=== PATIENT | female | born 1940 | race Caucasian/White ===

== ENCOUNTER 2022-11-06 10:52 | Outpatient (REF) | payer MEDICARE, SELFPAY ==
[2022-11-06 13:49] LABS: MANUAL DIFF FLAG NO
[2022-11-06 14:03] LABS: Basophils Percent Auto 0.4 % (0-2); Eosinophils Absolute Auto 0.4 X10*3/uL (0.0-0.4); Eosinophils Percent Auto 4.5 % (0-4); Hematocrit 38.1 % (37.0-47.0); Hemoglobin 12.1 g/dl (12.0-16.0); Imm Gran Abs Auto 0.02 X10*3/uL (0.00-0.03); Imm Gran Pct Auto 0.2 % (0.0-0.4); Lymphocytes Absolute Auto 4.5 X10*3/uL (1.2-4.9); Mean Corpuscular HGB Conc 31.8 g/dl (31.0-35.0); Mean Corpuscular Hemoglobin 29.6 pg (27.0-33.0); Mean Corpuscular Volume 93.2 fL (80.0-98.0); Mean Platelet Volume 9.6 fL (9.4-12.3); Monocytes Absolute Auto 0.6 X10*3/uL (0.1-1.2); Monocytes Percent Auto 6.5 % (2-11); Neutrophils Absolute Auto 3.8 x10*3/uL (2.0-8.3); Neutrophils Percent Auto 40.4 % (45-73); Platelet Count 430 X10*3/uL (160-400); Red Blood Count 4.09 X10*6/uL (4.20-5.50); Red Cell Distribution Width 13.5 % (11.0-16.0); White Blood Count 9.4 X10*3/uL (4.8-10.8)
[2022-11-06 14:22] LABS: Alanine Aminotransferase 14 U/L (0-31); Albumin Level 4.1 g/dL (3.5-5.0); Alkaline Phosphatase 89 U/L (39-117); Anion Gap 13 (12-20); Aspartate Amino Transferase 17 U/L (5-31); Bilirubin Total 0.6 mg/dL (0.0-1.0); Blood Urea Nitrogen 12 mg/dL (9-16); Calcium 9.8 mg/dL (8.4-10.2); Carbon Dioxide 28 mmol/L (22-29); Chloride 107 mmol/L (96-108); Cholesterol 245 mg/dL; Estimated Glomerular Filt Rate > 60; Glucose Fasting 96 mg/dL (60-99); HDL Cholesterol 73 mg/dL; LDL Cholesterol Calculated 155 mg/dl; Potassium 4.5 mmol/L (3.3-5.1); Sodium 143 mmol/L (135-145); Total Protein 6.3 g/dL (6.5-8.0); Triglycerides 86 mg/dL
[2022-11-06 14:58] LABS: Folate 16.9 ng/mL (> or = 4.0); TSH reflex Free T4 2.11 uIU/mL (0.32-4.0); Vitamin B12 814 pg/mL (200-900)
== END 2022-11-06 10:53 | disposition home or self-care (01) ==
LOC: HO.WFDLDS 10:52
PROVIDERS: Visit Provider Family Medicine
DX: Z00.00 Encounter for general adult medical examination without abnormal findings (principal); E53.8 Deficiency of other specified B group vitamins
CPT/HCPCS: 36415; 80053; 80061; 82607; 82746; 84443; 85025

== ENCOUNTER 2022-11-12 11:23 | Outpatient (REF) | payer MEDICARE, SELFPAY ==
[2022-11-12 14:19] LABS: Appearance Urine Clear; Color Urine Yellow; Glucose Urine UA Negative (Negative); Leukocyte Esterase Urine Negative (Negative); Nitrite Urine Negative (Negative); Specific Gravity - Urine 1.015 (1.005-1.025); Urine Blood Negative (Negative); Urine Ketones Negative (Negative); Urine Protein Negative (Neg-Trace)
[2022-11-12 15:00] LABS: Creatinine Urine 49.25 mg/dL; Microalbumin Urine < 5.0 mg/L
== END 2022-11-12 11:24 | disposition home or self-care (01) ==
LOC: HO.WFDLNP 11:23
PROVIDERS: Visit Provider Family Medicine
DX: Z00.00 Encounter for general adult medical examination without abnormal findings (principal); I10 Essential (primary) hypertension
CPT/HCPCS: 81003; 82043

== ENCOUNTER 2023-02-05 10:48 | Outpatient (AMB) | payer MEDICARE, SELFPAY ==
--- NOTE | 2023-02-05 10:40 | AM.OFFVISNUR ---
Intake Intake Visit Reasons: b12 Allergies codeine Allergy (Mild, Verified 11/22/22 16:02) Vomiting Coding Diagnoses
--- NOTE | 2023-02-05 11:01 | AM.OFFVISNUR ---
Intake Intake Visit Reasons: b12 First Cook Required: No Accompanied by: Self / Same As Patient Allergies codeine Allergy (Mild, Verified 11/22/22 16:02) Vomiting Coding Diagnoses
--- NOTE | 2023-02-05 11:13 | AM.OFFVISNUR ---
Intake Intake Visit Reasons: b12 Allergies codeine Allergy (Mild, Verified 11/22/22 16:02) Vomiting Office Meds cyanocobalamin (vitamin B-12) Performing Provider: Andrew Chino MD Administered by: Kirsten De La Torre RN on 02/05/23 11:05 Dose Route Admin Location Lot Number Expiration Date NDC Laborer Cutting Tool 1,000 mcg IM left deltoid [id number] 09/10/25 79524-441-21 JOSE A TAYLOR Coding Diagnoses Assessment & Plan Assessment & Plan Orders: Orders AMB Vitamin B12 Injection Patient Supplied Today E53.8 - Deficiency of other specified B group vitamins
== END 2023-02-05 11:05 | disposition home or self-care (01) ==
PROVIDERS: PCP Family Medicine; Visit Provider Family Medicine
DX: E53.8 Deficiency of other specified B group vitamins (principal)
CPT/HCPCS: 96372; J3420

== ENCOUNTER 2023-02-12 13:12 | Outpatient (REF) | payer MEDICARE, SELFPAY ==
--- NOTE | ~2023-02-12 | MM_ITS ---
EXAMINATION: BONE DENSITOMETRY CLINICAL INDICATION: Encounter for screening for osteoporosis. COMPARISON: This is the patient's baseline examination. TECHNIQUE: Using a [employer] DXA System (software version: 13.1) manufactured by [employer], dual-energy x-ray absorptiometry was performed of the lumbar spine and left hip. The images are of good technical quality. Summary results are attached. FINDINGS: LEFT FEMUR, NECK: BMD 0.652 g/cm2, Z-score -0.6, T-score -2.8, osteoporosis. LEFT FEMUR, TOTAL: BMD 0.789 g/cm2, Z-score 0.3, T-score -1.7, osteopenia. AP SPINE L1-L4: BMD 1.193 g/cm2, Z-score 1.8, T-score 0.1, normal. IDENTIFIED RISK FACTORS: Early menopause, secondary osteoporosis, recurrent falls, osteoporosis. HISTORY OF FRACTURE: None listed. MEDICATIONS: Calcium supplements or multivitamin, vitamin D. MM/XR DEXA axial skeleton IMPRESSION: 1. DIAGNOSIS: Osteoporosis based on the lowest T-score value of -2.8 in the femoral neck applying World Health Organization criteria. 2. 10-YEAR FRACTURE RISK PREDICTION, FRAX: According to the guidelines, FRAX calculation should only be performed on patients in the osteopenia bone density category. Therefore, FRAX was not performed on this patient. 3. Treatment Recommendations: NOF guidelines recommend consideration for treatment in postmenopausal women and men age 50 and older presenting with the following: -A hip or vertebral (clinical or morphometric) fracture. -T-score less than or equal to -2.5 at the femoral neck or spine after appropriate evaluation to exclude secondary causes. -Low bone mass at the hip or spine and a 10-year fracture probability by FRAX of greater than or equal to 3% for hip fracture or greater than or equal to 20% for major osteoporotic fracture based on the [place] adapted WHO algorithm. 4. Other Recommendations: All treatment decisions require clinical judgment and consideration of individual patient factors, including patient preferences, comorbidities, previous drug use, risk factors not captured in the FRAX model (e.g. frailty, falls, vitamin D deficiency, increased bone turnover, interval significant decline in bone density) and possible under or overestimation of fracture risk by FRAX. Additional medical evaluation for secondary cause of low bone mineral density may be appropriate. FUTURE SCAN RECOMMENDATION: People with diagnosed cases of osteoporosis or at high risk for fracture should have regular bone mineral density tests. For patients eligible for Medicare, routine testing is allowed once every 2 years. The testing frequency can be increased to one year for patients who have rapidly progressing disease, those who are receiving or discontinuing medical therapy to restore bone mass, or have additional risk factors.
== END 2023-02-12 13:13 | disposition home or self-care (01) ==
LOC: HO.MAMMO 13:12
PROVIDERS: PCP Family Medicine; Visit Provider Family Medicine
DX: Z13.820 Encounter for screening for osteoporosis (principal); Z78.0 Asymptomatic menopausal state; M81.0 Age-related osteoporosis without current pathological fracture
CPT/HCPCS: 77080

== ENCOUNTER → 2023-02-12 13:30 | Outpatient (BNV) | payer MEDICARE, SELFPAY | PROVIDERS: PCP Family Medicine; Visit Provider Radiology Diagnostic Radiology | DX: M81.0 Age-related osteoporosis without current pathological fracture (principal) | CPT/HCPCS: 77080 ==

== ENCOUNTER 2023-03-03 10:47 | Outpatient (AMB) | payer MEDICARE, SELFPAY ==
--- NOTE | 2023-03-03 11:36 | MHC.PC.OV ---
Intake Visit Reasons: b12 Allergies codeine Allergy (Mild, Verified 11/22/22 16:02) Vomiting PFSH Medical History Anxiety Failed total right knee replacement Surgical History History of appendectomy Family History (Updated 11/22/22 @ 16:05 by Geetha Blackwell MA) Father Prostate cancer Mother Cancer Social History Housing: House Patient Tobacco Use Status: Never used Tobacco e-Cigarette/Vaping Use: Never Used service: No Current occupational status: retired Cognitive needs: No Hearing needs: No Vision needs: No Physical exam (Primary Care) Tobacco/Smoking Status: Tobacco use Status Patient Tobacco Use Status Never used Tobacco 03/03/23 11:37 e-Cigarette/Vaping Use Never Used 03/03/23 11:37 Assessment and Plan Assessment & Plan (1) Vitamin B12 deficiency: Code(s): E53.8 - Deficiency of other specified B group vitamins Coding Diagnoses Vitamin B12 deficiency E53.8
--- NOTE | 2023-03-03 12:26 | AM.OFFVISNUR ---
Intake Intake Visit Reasons: b12 Allergies codeine Allergy (Mild, Verified 11/22/22 16:02) Vomiting Nursing Note pt here for monthly vitamin B12 injection. given left deltoid and tolerated well. Office Meds cyanocobalamin (vitamin B-12) Performing Provider: Andrew Chino MD Administered by: Kirsten De La Torre RN on 03/03/23 11:10 Dose Route Admin Location Lot Number Expiration Date NDC Fish Liver Sorter 1,000 mcg IM left deltoid [id number] 09/10/24 32126-559-48 [employer] Coding Diagnoses Assessment & Plan Assessment & Plan Orders: Orders AMB Vitamin B12 Injection Patient Supplied Today R53.83 - Other fatigue
== END 2023-03-03 11:15 | disposition home or self-care (01) ==
PROVIDERS: PCP Family Medicine; Visit Provider Family Medicine
DX: R53.83 Other fatigue (principal)
CPT/HCPCS: 96372; J3420

== ENCOUNTER 2023-04-02 10:44 | Outpatient (AMB) | payer MEDICARE, SELFPAY ==
--- NOTE | 2023-04-02 11:09 | AM.OFFVISNUR ---
Intake Intake Visit Reasons: b12 Allergies codeine Allergy (Mild, Verified 11/22/22 16:02) Vomiting Nursing Note here for monthly vitamin B12 injection. given in left deltoid and tolerated fine. Office Meds cyanocobalamin (vitamin B-12) 1,000 mcg/mL injection solution Performing Provider: Andrew Chino MD Performing Location: [facility] Administered by: Kirsten De La Torre RN on 04/02/23 11:17 Dose Route Admin Location Dispensed Lot Number Expiration Date ND Hearth Feeder 1,000 mcg IM left deltoid 1 mL [id number] 09/10/24 49502-491-13 [employer] Coding Assessment & Plan Assessment & Plan Orders: Orders AMB Vitamin B12 Injection Patient Supplied Today R53.83 - Other fatigue
== END 2023-04-02 11:05 | disposition home or self-care (01) ==
PROVIDERS: PCP Family Medicine; Visit Provider Family Medicine
DX: R53.83 Other fatigue (principal)
CPT/HCPCS: 96372; J3420

== ENCOUNTER 2023-04-22 10:32 | Outpatient (AMB) | payer MEDICARE, SELFPAY ==
[2023-04-22 10:34] VITALS: BP 122/62; PULSE 77; O2SAT 97; BMI 29.5
--- NOTE | 2023-04-22 10:34 | MHC.PC.OV ---
Vital Signs 04/22/23 10:34 Height 5 ft 1 in Weight 156 lb 4 oz BMI 29.5 BP 122/62 Blood Pressure Location Lt brachial Position Sitting Pulse 77 Pulse Source Pulse Oximeter Pulse Oximetry (%) 97 Oxygen Delivery Method Room Air Intake Visit Reasons: f/u anxiety Intake Note: Patient is here to follow up on her anxiety today. She is requestiing a refill of Fluoxetine. Allergies codeine Allergy (Mild, Verified 04/22/23 10:38) Vomiting Tobacco use date assessed: 04/22/23 Fall risk assessment: 2 + Falls in past year Last assessed Fall Risk: 04/22/23 Dental Screening Dental Screen Date: 04/22/23 Did you have a dental visit in the last 12 months?: Yes Did you have a dental problem in the last 6 months where you did not have access to dental care?: No Was dental information given to patient?: Patient has dentist HPI f/u anxiety HPI Details 82 y/o female presents today to f/u anxiety. She is on fluoxetine 40mg daily. She notes she feels like it is working for her. Pt reports she had went to see a therapist and had seen him 2 times so far. She does note he has not contacted her back yet. Pt notes intermittent chest pain that lasts a few minutes. Pain seems to be reproducible but does report some shortness of breath associated with the pain. [facility] Medical History Anxiety Failed total right knee replacement Surgical History History of appendectomy Family History Father Prostate cancer Mother Cancer Social History Housing: House Patient Tobacco Use Status: Never used Tobacco e-Cigarette/Vaping Use: Never Used service: No Current occupational status: retired Cognitive needs: No Hearing needs: No Vision needs: No Questionnaire PHQ-9 Over the last 2 weeks, how often have you been bothered by any of the following problems? 1. Little interest or pleasure in doing things: not at all 2. Feeling down, depressed, or hopeless: several days 3. Trouble falling or staying asleep, or sleeping too much: nearly every day 4. Feeling tired or having little energy: nearly every day 5. Poor appetite or overeating: nearly every day 6. Feeling bad about yourself - or that you are a failure or have let yourself or your family down: not at all 7. Trouble concentrating on things, such as reading the newspaper or watching television: nearly every day 8. Moving or speaking so slowly that other people could have noticed. Or the opposite - being so fidgety or restless that you have been moving around a lot more than usual: nearly every day 9. Thoughts that you would be better off or of hurting yourself in some way: not at all Total score: 16 Source: Developed by Drs. Doron Decker, Bella Wood, Jason Monique and colleagues, with an educational antonio from [employer]. FADY-7 AMB Questionnaire FADY-7 Date FADY - 7 assessed: 04/22/23 Feeling nervous, anxious, or on edge: 1 = Several days Not being able to stop or control worryin = Not at all Worrying too much about different things: 1 = Several days Trouble relaxin = Nearly every day Being so restless that it is hard to sit still: 1 = Several days Becoming easily annoyed or irritable: 1 = Several days Feeling afraid as if something awful might happen: 0 = Not at all Total FADY-7 score (0-4 normal; 5-9 mild; 10-14 moderate; 15-21 severe): 7 Source: Developed by Drs. Doron Decker, Bella Wood, Jason Monique and colleagues, with an educational antonio from [employer]. Review of Systems Const Denies chills, Denies fatigue, Denies fever(s), Denies headache(s) and Denies weakness ENT Denies dizziness and Denies headache(s) Card Reports chest pain and Denies dyspnea Resp Denies cough, Denies dyspnea, Denies wheezing and Denies other (shortness of breath) Musc Denies numbness and Denies tingling Neuro Denies dizziness, Denies headache(s), Denies numbness, Denies tingling and Denies weakness Psych Reports anxiety and Reports depression Endo Denies fatigue Aller/Immun Denies wheezing Physical exam (Primary Care) Vital Signs: Last Vital Signs Pulse 77 04/22/23 10:34 BP 122/62 04/22/23 10:34 Pulse Ox 97 04/22/23 10:34 Oxygen Delivery Method Room Air 04/22/23 10:34 BMI result Body Mass Index 29.5 Tobacco/Smoking Status: Tobacco use Status Tobacco use date assessed 04/22/23 04/22/23 10:50 Patient Tobacco Use Status Never used Tobacco 04/22/23 10:40 e-Cigarette/Vaping Use Never Used 04/22/23 10:40 PHQ-9: PHQ-9 Score PHQ-9: Total score 16 04/22/23 10:57 Const General: well developed; No acute distress Nutritional Appearance: well nourished Orientation/consciousness: patient oriented x3 HENMT Head: Yes normocephalic and Yes atraumatic Eyes General: appearance normal, both eyes and all related structures Pupils: Equal, round and reactive pupils present EOM: EOMs intact bilaterally Resp Effort & Inspection: normal respiratory effort Auscultation: clear to auscultation bilaterally Cardio Rate: regular rate Rhythm: regular rhythm Heart sounds: S1 normal heart sound present, S2 normal heart sound present, no gallops, no murmurs and no rubs Neuro General: patient oriented x3 and gait normal Cranial nerves: Yes Equal, round and reactive pupils present Psych Affect: normal affect Assessment and Plan Assessment & Plan (1) Anxiety with depression: Code(s): F41.8 - Other specified anxiety disorders Plan: Ongoing?anxiety?and?depression. We?discussed?continuing?fluoxetine?at?current?dose?verses?increasing?this?though?I?recommend?against?increasing?further?without?a?psychiatrist. Could?try?an?adjunct?medications?such?as?bupropion?or?use?a?2nd?line?medications?such?as?lorazepam. Patient?opts?not?to?add?another?medication?right?now. Had?a?therapist?briefly?but?has?not?heard?from?the?therapist?again.??I?will?ask?the?nurse?navigator?to?help?her?connect?with?that?therapist?or?another. (2) Osteoporosis: Code(s): M81.0 - Age-related osteoporosis without current pathological fracture Plan: Ongoing?osteoporosis.??She?has?never?tried?a?bisphosphonate?medication Start?alendronate (3) Chest pain: Code(s): R07.9 - Chest pain, unspecified Plan: Patient?notes?that?she?gets?intermittent?substernal.??Pain?lasts?a?few?minutes?and?is?associated?with?some?shortness?of?breath. No?pain?presently. 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
== END 2023-04-22 11:59 | disposition home or self-care (01) ==
PROVIDERS: PCP Family Medicine; Visit Provider Family Medicine
DX: F41.8 Other specified anxiety disorders (principal); M81.0 Age-related osteoporosis without current pathological fracture; R07.9 Chest pain, unspecified
CPT/HCPCS: 99214

== ENCOUNTER 2023-04-30 11:53 | Outpatient (AMB) | payer MEDICARE, SELFPAY ==
--- NOTE | 2023-04-30 11:57 | AM.OFFVISNUR ---
Intake Intake Visit Reasons: B12 shot Allergies codeine Allergy (Mild, Verified 04/22/23 10:38) Vomiting Office Meds cyanocobalamin (vitamin B-12) 1,000 mcg/mL injection solution Performing Provider: Andrew Chino MD Performing Location: [facility] Administered by: Kirsten De La Torre RN on 04/30/23 12:14 Dose Route Admin Location Dispensed Lot Number Expiration Date NDC Well Tender 1,000 mcg IM left deltoid 1 mL [id number] 09/10/24 27833-936-99 [employer] Comments: pt here for her monthly vitamin b12 shot. given left deltoid and jacy well. Coding Assessment & Plan Assessment & Plan Orders: Orders AMB Vitamin B12 Injection Patient Supplied Today R53.83 - Other fatigue
== END 2023-04-30 11:56 | disposition home or self-care (01) ==
LOC: HO.HMGFM 11:53
PROVIDERS: PCP Family Medicine; Visit Provider Family Medicine
DX: R53.83 Other fatigue (principal)
CPT/HCPCS: 96372; J3420

== ENCOUNTER 2023-05-06 14:29 | Outpatient (AMB) | payer MEDICARE, SELFPAY ==
[2023-05-06 14:40] VITALS: BP 134/78; PULSE 72; O2SAT 95; BMI 29.5
--- NOTE | 2023-05-06 14:40 | A.OFFPC_ITS ---
Vital Signs 05/06/23 14:40 Height 5 ft 1 in Weight 156 lb BMI 29.5 BP 134/78 Blood Pressure Location Lt brachial Position Sitting Pulse 72 Pulse Source Pulse Oximeter Pulse Oximetry (%) 95 Oxygen Delivery Method Room Air Intake Visit Reasons: f/u chest pain Intake Note: Patient is here to follow up on chest pain today. Allergies codeine Allergy (Mild, Verified 05/06/23 14:41) Vomiting Tobacco use date assessed: 05/06/23 Fall risk assessment: 2 + Falls in past year Last assessed Fall Risk: 05/06/23 HPI f/u chest pain HPI Details 82 y/o female presents to f/u chest pain as well as anxiety and depression. Had referred pt to Cardiology. Pt reports last office visit pain lasted a few minutes and is associated with some shortness of breath. EKG last office visit showed normal sinus rhythm with old inferior infarct. No ST-T-wave changes. She notes she has not been contacted by nurse navigator yet. [facility] Medical History Anxiety Failed total right knee replacement Surgical History History of appendectomy Family History Father Prostate cancer Mother Cancer Social History Housing: House Patient Tobacco Use Status: Never used Tobacco e-Cigarette/Vaping Use: Never Used service: No Current occupational status: retired Cognitive needs: No Hearing needs: No Vision needs: No Questionnaire FADY-7 AMB Questionnaire FADY-7 Date FADY - 7 assessed: 04/22/23 Source: Developed by Drs. Doron Decker, Bella Wood, Jason Monique and colleagues, with an educational antonio from [employer]. Review of Systems Const Denies chills, Denies fatigue, Denies fever(s), Denies headache(s) and Denies weakness ENT Denies dizziness and Denies headache(s) Card Denies dyspnea Resp Denies cough, Denies dyspnea, Denies wheezing and Denies other (shortness of breath) Musc Denies numbness and Denies tingling Skin/Breast Denies skin ulcer Neuro Denies dizziness, Denies headache(s), Denies numbness, Denies tingling and Denies weakness Psych Reports anxiety and Reports depression Endo Denies fatigue Aller/Immun Denies wheezing Physical exam (Primary Care) Vital Signs: Last Vital Signs Pulse 72 05/06/23 14:40 BP 134/78 05/06/23 14:40 Pulse Ox 95 05/06/23 14:40 Oxygen Delivery Method Room Air 05/06/23 14:40 BMI result Body Mass Index 29.5 Tobacco/Smoking Status: Tobacco use Status Tobacco use date assessed 05/06/23 05/06/23 14:45 Patient Tobacco Use Status Never used Tobacco 05/06/23 14:45 e-Cigarette/Vaping Use Never Used 05/06/23 14:45 Const General: well developed; No acute distress Nutritional Appearance: well nourished Orientation/consciousness: patient oriented x3 HENMT Head: Yes normocephalic and Yes atraumatic Eyes General: appearance normal, both eyes and all related structures Pupils: Equal, round and reactive pupils present EOM: EOMs intact bilaterally Resp Effort & Inspection: normal respiratory effort Auscultation: clear to auscultation bilaterally Cardio Rate: regular rate Rhythm: regular rhythm Heart sounds: S1 normal heart sound present, S2 normal heart sound present, no gallops, no murmurs and no rubs Neuro General: patient oriented x3 and gait normal Cranial nerves: Yes Equal, round and reactive pupils present Psych Affect: normal affect Assessment and Plan Assessment & Plan (1) Chest pain: Code(s): R07.9 - Chest pain, unspecified Plan: Ongoing?stress?pain?associated?with?exertion?and?a?psychological?anxiety. 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 She?is?referred?to?Cardiology?but?appointment?is?in?July. Still?having exertional?pain?which?improves?when?she?rests. Will?get?myocardial?perfusion?imaging She?can?follow-up?with?me?after?that?and?follow-up?with?Cardiology?as?scheduled. (2) Anxiety with depression: Code(s): F41.8 - Other specified anxiety disorders Plan: Taking?fluoxetine?as?prescribed Has?not?been?connect?with?a?therapist?yet?I?have?ask ed?the?nurse?navigator?to?see?her?today?and?discuss. Will?give?her?a?script?to?trial?hydroxyzine?which?she?can?take?p.r.n. Will?follow-up?at?her?next?visit Orders: Orders CA lexiscan stress w elvis Today R07.9 - Chest pain, unspecified, R94.31 - Abnormal electrocardiogram [ECG] [EKG] CA lexiscan stress w elvis Today R07.9 - Chest pain, unspecified Medications: New hydroxyzine HCl 50 mg PO DAILY PRN 12 tabs 0RF itching 30 days Coding Level of Care Code Est Pt Level 3 (65807) Diagnoses Chest pain R07.9 Anxiety with depression F41.8
== END 2023-05-06 15:56 | disposition home or self-care (01) ==
LOC: HO.HMGFM 14:29
PROVIDERS: PCP Family Medicine; Visit Provider Family Medicine
DX: R07.9 Chest pain, unspecified (principal); F41.8 Other specified anxiety disorders
CPT/HCPCS: 99213

== ENCOUNTER 2023-05-28 11:18 | Outpatient (AMB) | payer MEDICARE, SELFPAY ==
--- NOTE | 2023-05-28 11:34 | AM.OFFVISNUR ---
Intake Intake Visit Reasons: B12 shot Tower Control Operator Required: No Accompanied by: Self / Same As Patient Allergies codeine Allergy (Mild, Verified 05/06/23 14:41) Vomiting Nursing Note pt is here for her q 4week vitamin B12 injection Office Meds cyanocobalamin (vitamin B-12) 1,000 mcg/mL injection solution Performing Provider: Andrew Chino MD Performing Location: [facility] Administered by: Kirsten De La Torre RN on 05/28/23 11:40 Dose Route Admin Location Dispensed Lot Number Expiration Date [facility] [employer] Char Kiln Tender 1,000 mcg IM left deltoid 1 mL [id number] 09/10/24 33236-692-04 [employer] Comments: Vitamin B12 given left deltoid. tolerated well. Coding Assessment & Plan Assessment & Plan Orders: Orders AMB Vitamin B12 Injection Patient Supplied Today R53.83 - Other fatigue
== END 2023-05-28 11:49 | disposition home or self-care (01) ==
PROVIDERS: PCP Family Medicine; Visit Provider Family Medicine
DX: R53.83 Other fatigue (principal)
CPT/HCPCS: 96372; J3420

== ENCOUNTER 2023-06-25 10:47 | Outpatient (AMB) | payer MEDICARE, SELFPAY ==
--- NOTE | 2023-06-25 11:34 | AM.OFFVISNUR ---
Intake Intake Visit Reasons: 4 week follow up, vitamin B12 Intake Note: pt is here for her vitamin B12 injection. Vision Therapist Required: No Accompanied by: Self / Same As Patient Allergies codeine Allergy (Mild, Verified 05/06/23 14:41) Vomiting Nursing Note pt is here for vitamin B12 injection. pt requesting referral for psyche eval and nuclear stress test be resent. pt says she has a sinus infection. Office Meds cyanocobalamin (vitamin B-12) 1,000 mcg/mL injection solution Performing Provider: Andrew Chino MD Performing Location: [facility] Administered by: Kirsten De La Torre RN on 06/25/23 11:40 Dose Route Admin Location Dispensed Lot Number Expiration Date ND Book Cutter 1,000 mcg IM left deltoid 1 mL [id number] 09/10/24 64807-636-26 [employer] Coding Patient Type Established Assessment & Plan Assessment & Plan Orders: Orders AMB Vitamin B12 Injection Patient Supplied Today R53.83 - Other fatigue
== END 2023-06-25 11:29 | disposition home or self-care (01) ==
PROVIDERS: PCP Family Medicine; Visit Provider Family Medicine
DX: R53.83 Other fatigue (principal)
CPT/HCPCS: 96372; J3420

== ENCOUNTER 2023-07-18 10:33 | Outpatient (AMB) | payer MEDICARE, SELFPAY ==
[2023-07-18 10:44] VITALS: BP 138/74; PULSE 82; RESP 13; TEMP 36.3; O2SAT 97; BMI 29.0
--- NOTE | 2023-07-18 10:44 | MHC.PC.OV ---
Vital Signs 07/18/23 10:44 Height 5 ft 1 in Weight 153 lb 4 oz BMI 29.0 BP 138/74 Blood Pressure Location Rt brachial Position Sitting Respiration 13 Pulse 82 Pulse Source Pulse Oximeter Temp 97.4 F Temp Source Temporal Artery Scan Pulse Oximetry (%) 97 Oxygen Delivery Method Room Air Intake Visit Reasons: ED F/U-ED Mejia-Sinus Infections/Respiratory Virus Intake Note: Patient states that she is more dizzy today than she was before. Domestic Cleaner Required: No Accompanied by: Self / Same As Patient Allergies codeine Allergy (Mild, Verified 07/18/23 10:55) Vomiting Medication List - Last Reconciled 07/18/23 by Nelly Hart CNP alendronate 70 mg PO QWEEK 28 days alpha lipoic acid 600 mg PO DAILY budesonide ER 3 mg PO DAILY calcium polycarbophil (FiberCon) 625 mg PO DAILY 30 days carbamide peroxide 6.5% (Debrox) 5 drps otic (ears) .Once a week 30 days cyanocobalamin (vitamin B-12) 1,000 mcg IM Q4W 28 days erenumab-aooe (Aimovig Autoinjector) mg subcut fluoxetine 40 mg PO DAILY 90 days hydroxyzine HCl 50 mg PO DAILY PRN 30 days naproxen 500 mg PO BID 90 days pantoprazole 40 mg PO BID Tobacco use date assessed: 05/06/23 Fall risk assessment: 2 + Falls in past year Dental Screening Dental Screen Date: 07/18/23 Did you have a dental visit in the last 12 months?: Yes Did you have a dental problem in the last 6 months where you did not have access to dental care?: No Was dental information given to patient?: Patient has dentist HPI HPI Comments History of Present Illness Details 82-year-old female presents for a follow-up visit She was evaluated at [facility] on 07/07/2023 for complaints of 1 week of sinus congestion and dry cough. She was afebrile, hemodynamically stable, physical exam was normal, chest x-ray was unremarkable. She tested positive for COVID-19. Paxlovid was not prescribed as her symptoms were present for 7 days. she was discharged home with instructions for symptomatic care Reports resolution of most of her symptoms. She reports hoarseness in her voice and cough with clear phlegm. She notes she has had respiratory symptoms for the past 2 months [facility] Medical History Anxiety Failed total right knee replacement Surgical History History of appendectomy Family History Father Prostate cancer Mother Cancer Social History Housing: House Patient Tobacco Use Status: Never used Tobacco e-Cigarette/Vaping Use: Never Used service: No Current occupational status: retired Cognitive needs: No Hearing needs: No Vision needs: No Questionnaire FADY-7 AMB Questionnaire FADY-7 Date FADY - 7 assessed: 04/22/23 Source: Developed by Drs. Doron Decker, Bella Wood, Jason Monique and colleagues, with an educational antonio from [employer]. Review of Systems Const Details: Const Denies chills, Denies fatigue, Denies fever(s), Denies headache(s) and Denies weakness ENT Reports as per HPI Card Denies chest pain, Denies lightheadedness, Denies dyspnea and Denies other (Palpitations) Resp Reports cough, Denies dyspnea, Denies wheezing and Denies other ( shortness of breath) GI Denies abdominal pain, Denies melena, Denies hematochezia, Denies change in bowel habits, Denies dyspepsia and Denies nausea Denies hematuria and Denies dysuria Musc Denies abnormal gait, Denies myalgias, Denies arthralgias, Denies numbness and Denies tingling Skin/Breast Denies rash, Denies unusual bruising and Denies wounds Neuro Denies abnormal gait, Denies dizziness, Denies headache(s), Denies memory loss, Denies numbness, Denies Sensory deficit (Neuro), Denies tingling and Denies weakness Psych Denies anxiety, Denies depression, Denies memory loss Endo Denies cold intolerance, Denies fatigue, Denies heat intolerance, Denies polydipsia and Denies polyuria Aller/Immun Denies wheezing Physical exam (Primary Care) Tobacco/Smoking Status: Tobacco use Status Tobacco use date assessed 05/06/23 05/06/23 14:45 Patient Tobacco Use Status Never used Tobacco 05/06/23 14:45 e-Cigarette/Vaping Use Never Used 05/06/23 14:45 Const Other: General: no acute distress and well developed Nutritional Appearance: well nourished Orientation/consciousness: patient oriented x3 HENMT Head: Yes normocephalic and Yes atraumatic Eyes General: appearance normal, both eyes and all related structures Pupils: Equal, round and reactive pupils present EOM: EOMs intact bilaterally Resp Effort & Inspection: normal respiratory effort Auscultation: clear to auscultation bilaterally Cardio Rate: regular rate Rhythm: regular rhythm Heart sounds: S1 normal heart sound present, S2 normal heart sound present, no gallops, no murmurs and no rubs GI Palpation (GI): No Abdominal aortic bruit present, Soft to palpation, nontender, No hepatosplenomegaly present and No Rebound tenderness present Auscultation: normal bowel sounds General: Yes no CVA tenderness Back/Spine/Pelvis Back: no CVA tenderness Cervical Spine: cervical ROM normal and No Cervical spine tenderness Thoracic/Lumbar Spine: thoraco-lumbar ROM normal, No pain with thoraco-lumbar ROM, No thoracic spinal tenderness and No lumbar spinal tenderness Extrem General: Yes normal to inspection, No edema and No calf tenderness Skin General: warm and dry. Normal skin color. Normal skin turgor Neuro General: patient oriented x3, gait normal and no focal neuro deficit Cranial nerves: Yes Equal, round and reactive pupils present Cognition (Neuro): normal cognition Gait exam (Neuro): Normal gait present Sensory Exam: No Sensory deficit (Neuro) Psych Appearance: grossly normal Affect: normal affect Attitude: cooperative Thought process: Normal thought process present Assessment and Plan Assessment & Plan (1) Cough: Code(s): R05.9 - Cough, unspecified Plan: Hoarseness of her voice and productive cough Was diagnosed in the ED with COVID-19 on Likely viral illness or allergies Normal physical exam Lung sounds clear and equal bilaterally Benzonatate ordered. Take as prescribed May take Zyrtec daily Follow-up with PCP as planned or return sooner with worsening or new symptoms Verbalized understanding and agreed with treatment plan Medications: New benzonatate 200 mg PO BID PRN 20 caps 0RF cough Coding Level of Care Code Est Pt Level 3 (03324) Diagnoses Cough R05.9
== END 2023-07-18 11:08 | disposition home or self-care (01) ==
PROVIDERS: PCP Family Medicine; Visit Provider Nurse Practitioner Family
DX: R05.9 Cough, unspecified (principal)
CPT/HCPCS: 99213

== ENCOUNTER 2023-08-05 13:51 | Outpatient (AMB) | payer MEDICARE, SELFPAY ==
[2023-08-05 13:52] VITALS: BP 112/72; PULSE 78; BMI 28.3
--- NOTE | 2023-08-05 13:52 | MHC.OFFVIS ---
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/ chest pain/abn ekg Intake Note: New patient dx abnormal ekg c/o some chest pain lasting 5 min the longest Blueprint Developer Required: No Allergies codeine Allergy (Mild, Verified 07/18/23 10:55) Vomiting Medication List - Last Reconciled 08/05/23 by Trevon Mtz MD alendronate 70 mg PO QWEEK 28 days alpha lipoic acid 600 mg PO DAILY benzonatate 200 mg PO BID PRN budesonide ER 3 mg PO DAILY calcium polycarbophil (FiberCon) 625 mg PO DAILY 30 days carbamide peroxide 6.5% (Debrox) 5 drps otic (ears) .Once a week 30 days cyanocobalamin (vitamin B-12) 1,000 mcg IM Q4W PRN erenumab-aooe (Aimovig Autoinjector) mg subcut fluoxetine 40 mg PO DAILY 90 days hydroxyzine HCl 50 mg PO DAILY PRN 30 days naproxen 500 mg PO BID 90 days pantoprazole 40 mg PO BID HPI HPI Comments History of Present Illness Details Thank you for referring Loren in cardiology consultation today for precordial chest pressure. She is 82-year-old female with borderline hypertension, hyperlipidemia referred here because she has been having precordial chest pressure. She says this has been going on for about a year. She usually gets this pressure when she is upset due to lot of stress related to her or other issues. She would then try to relax and the symptoms with dissipate within 5 minutes. She also notices this symptoms when she exerts herself and is trying to do more exertional activity. The symptoms also self-limiting. She has never had any symptoms at rest. She had EKG performed in your office which is concerning for inferior infarct and she was referred here for further evaluation. EKG done today shows nonspecific ST T wave changes with no inferior Q-waves with low-voltage QRS. She denies any progressive shortness of breath, orthopnea, PND although with chest pressure she does get symptoms of shortness of breath. She denies any prolonged palpitations or irregular heartbeat or fast heart rate. Denies any lightheadedness, syncope. She is referred here for further evaluation. [facility], [facility] Medical History Anxiety Failed total right knee replacement Surgical History History of appendectomy Family History Father Prostate cancer Mother Cancer Social History Housing: House Patient Tobacco Use Status: Never used Tobacco e-Cigarette/Vaping Use: Never Used service: No Current occupational status: retired Cognitive needs: No Hearing needs: No Vision needs: No Review of Systems Const Denies chills, Denies daytime sleepiness, Denies fatigue, Denies fever(s), Denies frequent falls, Denies poor appetite, Denies snoring, Denies stops breathing during sleep, Denies weakness, Denies weight gain and Denies weight loss Eyes Denies loss of vision ENT Denies dizziness and Denies hearing loss Card Denies chest pain, Denies claudication, Denies leg edema, Denies lightheadedness, Denies palpitations, Denies dyspnea, Denies dyspnea on exertion and Denies orthopnea Resp Denies cough, Denies excessive phlegm production, Denies dyspnea, Denies dyspnea on exertion, Denies snoring and Denies wheezing GI Denies abdominal pain, Denies hematochezia, Denies change in bowel habits, Denies nausea and Denies vomiting Denies urinary frequency and Denies dysuria Musc Denies arthralgias, Denies muscle weakness, Denies numbness and Denies other (frequent falls) Skin/Breast Denies nail changes and Denies rash Neuro Denies Abnormal speech present, Denies dizziness, Denies frequent falls, Denies loss of vision, Denies memory loss, Denies numbness and Denies weakness Psych Denies depression and Denies memory loss Endo Denies fatigue and Denies palpitations Lex/Lymph Reports easy bruising and Reports other (anemia) Aller/Immun Denies wheezing Physical Exam Vital Signs: Last Vital Signs Pulse 78 08/05/23 13:52 BP 112/72 08/05/23 13:52 BMI result Body Mass Index 28.3 Const General: cooperative, comfortable, no acute distress, alert, awake, anxious and well groomed Nutritional Appearance: overweight Orientation/consciousness: patient oriented x3 Limitations: no limitations HEENT Head: Yes normocephalic and Yes atraumatic Neck Neck: Yes trachea midline, Yes supple and Yes no JVD Resp Effort & Inspection: normal respiratory effort Auscultation: clear to auscultation bilaterally Cardio Jugular venous distension: no JVD Palpation: normal PMI Rate: regular rate Rhythm: regular rhythm Heart sounds: S1 normal heart sound present, S2 normal heart sound present, no click, no gallops, no murmurs and no rubs GI Auscultation: normal bowel sounds Skin General skin exam: no rashes or lesions noted Neuro General: patient oriented x3 and no focal motor deficits Speech: No Abnormal speech present Extrem General: Yes no clubbing, cyanosis or edema Psych Appearance: grossly normal Affect: Anxious affect present Office Procedures EKG Details: EKG shows normal sinus rhythm with nonspecific ST T wave changes with low-voltage QRS 32309-[id number], Complete Assessment & Plan Assessment & Plan (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 High likelihood of underlying obstructive coronary artery disease. For now would suggest further evaluation with exercise myocardial perfusion imaging. Further treatment based on the findings. For now I am not initiating any pharmacotherapy. Advise her stress mitigation strategies and avoid stressful situations. Advise to avoid strenuous exertion. Will also obtain echocardiogram to assess LV systolic and diastolic function to evaluate for pulmonary hypertension left ventricular hypertrophy. These tests will be scheduled in near future. Follow up in the clinic after above-mentioned test. Thank you for allowing me to partake in her care Orders: Orders NM cardiolite stress test 2 Weeks I20.89 - Other forms of angina pectoris, R07.9 - Chest pain, unspecified CA stress test Today I20.89 - Other forms of angina pectoris CA echo transthoracic complete Today I20.89 - Other forms of angina pectoris Medications: Changed From cyanocobalamin (vitamin B-12) 1,000 mcg IM Q4W 28 days 1 mL 6RF To cyanocobalamin (vitamin B-12) 1,000 mcg IM Q4W PRN Coding Level of Care Code New Pt Level 4 (98113) Diagnoses Atypical angina I20.89 CPT Codes EKG - CPT: 17441-[id number], Complete ([id number])
== END 2023-08-05 14:30 | disposition home or self-care (01) ==
PROVIDERS: PCP Family Medicine; Visit Provider Internal Medicine Cardiovascular Disease
DX: I20.89 Other forms of angina pectoris (principal)
CPT/HCPCS: 93010; 99204

== ENCOUNTER → 2023-08-05 13:51 | Outpatient (BNVA) | payer MEDICARE, SELFPAY | PROVIDERS: PCP Family Medicine; Visit Provider Internal Medicine Cardiovascular Disease | DX: I20.89 Other forms of angina pectoris (principal) | CPT/HCPCS: 93005; 99202 ==

== ENCOUNTER → 2023-08-07 14:08 | Outpatient (REF) | payer MEDICARE, SELFPAY ==
--- NOTE | 2023-08-07 14:12 | CA_ITS ---
Transthoracic Echocardiogram Patient (Last, First, Middle): Loren Valle, Gender: Female Date of : 1940 Age: 82 Procedure Date: 08/07/2023 Procedure Type: Transthoracic Echocardiogram Location: OP Height: 154.94 cm Weight: 67.59 kg BSA: 1.67 m2 Heart Rate: 62 bpm BP: 112 / 72 mmHg Stave Block Roller: DANG Referring MD: Trevon Mtz MD Fiscal Agent: Trevon Mtz MD Symptoms: I20.89 - Other forms of angina pectoris Study Quality: Adequate ECG Rhythm: Sinus Conclusions: - 1. Normal LV ejection fraction 55-60% with impaired relaxation filling pattern 2. Calcific aortic valve changes noted with mild aortic regurgitation 3. No gross pericardial effusion Findings Left Ventricle Normal left ventricular size, thickness, and systolic function. The visually estimated ejection fraction is between 55-60%. Spectral Doppler is indicative of an impaired relaxation filling pattern. E/E prime ratio is between 8 and 15 consistent with indeterminate filling pressures. Peak GLS is -18.6%, within normal limits. Right Ventricle Normal right ventricular cavity size and systolic function. Atria The left atrium is normal in size. There is no evidence of interatrial shunt. The right atrium is normal in size. Aortic Valve There is mild calcification of the aortic valve. There is mild thickening of the aortic valve. There is no aortic valve stenosis. There is mild aortic valve regurgitation. Mitral Valve There is mild anterior and posterior mitral leaflet thickening. There is mild mitral annular calcification. There is no mitral valve stenosis. Pulmonic Valve The pulmonic valve is likely normal. Tricuspid Valve Likely normal tricuspid valve structure and function. Tricuspid regurgitation envelope is inadequate for calculation of right ventricular systolic pressure. Normal right atrial pressure. Great Vessels The pulmonary artery was not well visualized. There is no dilatation of the ascending aorta measuring 3.30 cm. Venous The inferior vena cava is normal in size and collapses greater than 50% with inspiration. Pericardium/Pleural There is no evidence of pericardial effusion. Prior Study Comparison No prior study available for comparison. Measurements 2D Linear Measurements IVSd: 1.16 0.6-0.9/0.6-1.0 cm LVIDd: 4.15 3.9-5.3/4.2-5.9 cm LVIDd Index: 2.49 2.4-3.2/2.2-3.1 cm/m2 LVIDs: 2.32 2.0-3.6 cm LVPWd: 0.97 0.7-1.1 cm LA Diam: 3.70 2.7-3.8/3.0-4.0 cm LAIDs Index: 2.22 1.5-2.3 cm/m2 LV Mass: 183.25 67-162/88-224 g LV Mass Index: 109.73 43-95/49-115 g/m2 LVOT Diam: 1.90 3.0+(-)1.3 cm 2D Systolic Function EF 4C: 56.90 >55% EF 2C: 57.30 >55% EF BiP: 57.30 >55% Mitral Valve MV Pk E: 0.70 MV PK A: 1.08 MV Decel Time: 372.00 E/A: 0.60 E'Lateral: 8.18 E'Medial: 4.31 E/E' Med: 16.20 E/E' Lat: 8.50 PHT: 109.00 MVA PHT: 2.02 Decel Carroll: 1.87 Aortic Valve AoV Pk Dell: 1.45 AoV Pk Grad: 8.00 KIRAN: 1.96 LVOT LVOT Pk Dell: 0.97 LVOT Mn Dell: 0.63 LVOT VTI: 0.19 LVOT Pk Grad: 4.00 LVOT Mn Grad: 2.00 LVOT Diam: 1.90 LVOT Area: 2.84 Diastolic Function MV Pk E: 0.70 MV Pk A: 1.08 E/A: 0.60 E'Medial: 4.31 E/E' Med: 16.20 E' Laterial: 8.18 E/E' Lat: 8.50 Right Ventricle TAPSE (mm): 13.60 TVS' Dell: 9.17 Tricuspid Valve RA Press: 3.00 Great Vessels Aorta Sinus of Valsalva: 3.30 2.0-3.5 cm Ao Asc: 3.30 2.1-3.4 cm Pulmonary Valve PV Pk Dell: 0.88 Peak PV Grad: 3.00 Updated in Other Vendor System with Status of Final Trevon Mtz MD electronically signed on 08/08/2023 2:35:03 PM with status of Final
== END ==
LOC: HO.CARD 14:08
PROVIDERS: PCP Family Medicine; Visit Provider Internal Medicine Cardiovascular Disease
DX: I20.89 Other forms of angina pectoris (principal)
CPT/HCPCS: 93306; 93356

== ENCOUNTER → 2023-08-07 14:12 | Outpatient (BNV) | payer MEDICARE, SELFPAY | PROVIDERS: PCP Family Medicine; Visit Provider Internal Medicine Cardiovascular Disease | DX: I35.1 Nonrheumatic aortic (valve) insufficiency (principal) | CPT/HCPCS: 93306 ==

== ENCOUNTER → 2023-08-11 08:34 | Outpatient (REF) | payer MEDICARE, SELFPAY ==
--- NOTE | ~2023-08-11 | NM_ITS ---
Lexiscan Myocardial perfusion study Indication: Abnormal EKG, assess for coronary disease and ischemia Technique: The patient was brought in for a Lexiscan perfusion study on 08/11/2023 and was injected 0.4 mg of Lexiscan intravenously. Within a minute of this injection 25 mCi of sestamibi was given intravenously. Images were obtained using the SPECT gamma camera interlaced with the gating device. Images were obtained in supine position. Resting perfusion study was performed on 08/12/2023. Patient was administered 25 mCi of sestamibi intravenously at rest. Images were then obtained in supine position. Images were processed with the software and compared side to side in short axis, horizontal long axis and vertical long axis views. Total DLP 90mGy-cm. Findings: Raw acquisition reviewed. The stress perfusion study showed mildly diminished tracer uptake in the basal part of inferior wall. There is improvement with CT attenuation correction seen just to of diaphragmatic attenuation artifact. The gated study shows normal LV systolic function with calculated LVEF of 73%. LV cavity is normal in size. The gated study shows normal wall thickening and contraction of segments. Resting study shows mildly diminished tracer uptake in the basal part of inferior wall. There is improvement with CT attenuation correction suggestive of diaphragmatic attenuation artifact. Gating at rest reveals normal wall motion with ejection fraction at 68%. The findings are consistent with basal inferior fixed defect suspected to be from diaphragmatic attenuation artifact. NM/NM cardiolite stress test Impression: 1. Myocardial perfusion imaging study shows no clear evidence of any ischemia or infarction. Probably normal myocardial perfusion. 2. Gated LVEF is 70% during stress and 68% during rest. 3. Transient ischemic dilatation not present. EKG component of the test reported separately.
--- NOTE | 2023-08-11 08:36 | CA_ITS ---
Acquisition Time: 2023-08-11 09:00:36 Total Exercise Time: 00:02:00 Test Indications: Abnormal ECG Medications: SEE H Protocol: LEXISCAN Max HR: 120 BPM 87% of Pred: 137 BPM Max BP: 130/082 mmHG Max Work Load: 1.6 METS Pharmacological stress test with Lexiscan injection while walking slowly on the treadmill, without anginal symptoms,without arrhythmias, with normotensive response to injection, with nondiagnoisitic EKGs. Aminophylline 75mg IVP given to reverse Lexiscan. Nuclear images pending. Test reviewed with Dr. Mtz. Referred By: Trevon Mtz Overread By: Jadyn Flood
== END ==
LOC: HO.CARD 08:34
PROVIDERS: PCP Family Medicine; Visit Provider Internal Medicine Cardiovascular Disease
DX: R07.9 Chest pain, unspecified (principal); I20.89 Other forms of angina pectoris
CPT/HCPCS: 78452; 93017; A9500; J0280; J2785

== ENCOUNTER → 2023-08-11 08:36 | Outpatient (BNV) | payer MEDICARE, SELFPAY | PROVIDERS: PCP Family Medicine; Visit Provider Nurse Practitioner | DX: R07.9 Chest pain, unspecified (principal) | CPT/HCPCS: 78452; 93016; 93018 ==

== ENCOUNTER 2023-08-25 11:09 | Outpatient (AMB) | payer MEDICARE, SELFPAY ==
--- NOTE | 2023-08-25 11:39 | AM.OFFVISNUR ---
Intake Intake Visit Reasons: B12 Shot Intake Note: pt is here for q 4 week vitamin B12 injection. Set Up Mechanic Required: No Accompanied by: Self / Same As Patient Allergies codeine Allergy (Mild, Verified 07/18/23 10:55) Vomiting Nursing Note pt requesting vitamin B12 refill Office Meds cyanocobalamin (vitamin B-12) 1,000 mcg/mL injection solution Performing Provider: Andrew Chino MD Performing Location: [facility] Administered by: Kirsten De La Torre RN on 08/25/23 11:44 Dose Route Admin Location Dispensed Lot Number Expiration Date NDC [employer] 1,000 mcg IM left deltoid 1 mL [id number] 01/10/25 41596-917-61 [employer] Coding Patient Type Established Assessment & Plan Assessment & Plan Orders: Orders AMB Vitamin B12 Injection Patient Supplied Today R53.83 - Other fatigue
== END 2023-08-25 11:39 | disposition home or self-care (01) ==
PROVIDERS: PCP Family Medicine; Visit Provider Family Medicine
DX: R53.83 Other fatigue (principal)
CPT/HCPCS: 96372; J3420

== ENCOUNTER 2023-09-11 13:20 | Outpatient (AMB) | payer MEDICARE, SELFPAY ==
[2023-09-11 13:22] VITALS: BP 130/74; PULSE 97; BMI 28.5
--- NOTE | 2023-09-11 13:22 | MHC.OFFVIS ---
Intake Vital Signs 09/11/23 13:22 Height 5 ft 1 in Weight 150 lb 12.739 oz BMI 28.5 BP 130/74 Blood Pressure Location Lt brachial Position Sitting Pulse 97 Pulse Source Pulse Oximeter Intake Visit Reasons: f/up nestor/ echo/ NS Load Mixer Required: No Allergies codeine Allergy (Mild, Verified 09/11/23 13:25) Vomiting Medication List - Last Reconciled 09/11/23 by Matilde Buckley, SURGICAL ASSISTANT CERTIFIED-C alendronate 70 mg PO QWEEK 28 days alpha lipoic acid 600 mg PO DAILY benzonatate 200 mg PO BID PRN budesonide ER 3 mg PO DAILY calcium polycarbophil (FiberCon) 625 mg PO DAILY 30 days carbamide peroxide 6.5% (Debrox) 5 drps otic (ears) .Once a week 30 days cyanocobalamin (vitamin B-12) 1,000 mcg IM Q4W 84 days erenumab-aooe (Aimovig Autoinjector) mg subcut fluoxetine 40 mg PO DAILY 90 days hydroxyzine HCl 50 mg PO DAILY PRN 30 days naproxen 500 mg PO BID 90 days pantoprazole 40 mg PO BID HPI f/up nestor/ echo/ NS HPI Details Loren is an 82-year-old female with past medical history of hyperlipidemia who was being evaluated for chest discomfort. She recently underwent an echocardiogram and stress test and now presents for follow-up. Today she reports that she continues to get various pains in her chest and upper back. She states they are usually quick lasting just a few minutes, occur randomly and feel sharp at times. She has no known aggravating or alleviating factors. Her symptoms are not brought on by exertional activity. No shortness of breath, PND, orthopnea or edema. She does report fatigue and tells me she does not sleep well which is a chronic issue for her. No palpitations, lightheadedness, presyncope, syncope, falls. 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 Takes her meds as directed. [facility] [place] Medical History Anxiety Failed total right knee replacement Surgical History History of appendectomy Family History Father Prostate cancer Mother Cancer Social History Housing: House Patient Tobacco Use Status: Never used Tobacco e-Cigarette/Vaping Use: Never Used service: No Current occupational status: retired Cognitive needs: No Hearing needs: No Vision needs: No Review of Systems Const All systems reviewed & are unremarkable except as noted in HPI and below ENT Denies dizziness Card Reports chest pain, Denies chest pain at rest, Denies chest pain with activity, Denies rapid heart rate, Denies pedal edema, Denies edema, Denies leg edema, Denies lightheadedness, Denies palpitations, Denies dyspnea, Denies dyspnea on exertion and Denies orthopnea Resp Denies cough, Denies dyspnea and Denies dyspnea on exertion GI Denies hematochezia and Denies change in stool character Musc Denies abnormal gait, Denies limited range of motion, Denies muscle cramps, Denies muscle weakness, Denies numbness, Denies radiating pain into limb, Denies stiffness and Denies tingling Neuro Denies abnormal gait, Denies dizziness, Denies numbness and Denies tingling Endo Denies palpitations Physical Exam Vital Signs: Last Vital Signs Pulse 97 09/11/23 13:22 BP 130/74 09/11/23 13:22 BMI result Body Mass Index 28.5 Const General: cooperative, healthy appearing, comfortable and no acute distress Orientation/consciousness: patient oriented x3 Neck Neck: Yes normal visual inspection and Yes no JVD Resp Effort & Inspection: normal respiratory effort Auscultation: clear to auscultation bilaterally, no crackles, no rales, no rhonchi and no wheezes Cardio Jugular venous distension: no JVD Rate: regular rate Rhythm: regular rhythm Heart sounds: S1 normal heart sound present, S2 normal heart sound present, no murmurs and no rubs Neuro General: patient oriented x3 Extrem General: Yes normal to inspection, No no pedal edema and No calf tenderness Psych Appearance: grossly normal Mental Status: mental status grossly normal Speech and movement: Normal speech and movement present Assessment & Plan Assessment & Plan (1) Chest pain: Code(s): R07.9 - Chest pain, unspecified Plan: Reports of chest discomfort, atypical in nature, has been occurring for over 1 year. Cardiac risks of age, hyperlipidemia. No known cardiac history. EKG done last visit showing sinus rhythm with nonspecific ST and T-wave abnormality, low-voltage QRS, rate 78. Echocardiogram done 08/07/2023 showing EF 55-60%, impaired relaxation, mild AR. A pharmacological nuclear stress test done on 08/12/2023 shows normal myocardial perfusion imaging. Test results reviewed with her in detail. Offered reassurance that her symptom is noncardiac in nature. Signs and symptoms of true angina reviewed with her. Continue with risk factor modification. Continue activity as tolerated. Cardiology follow-up as needed. (2) Abnormal EKG: Code(s): R94.31 - Abnormal electrocardiogram [ECG] [EKG] Plan: As above (3) Hypercholesterolemia: Code(s): E78.00 - Pure hypercholesterolemia, unspecified Plan: [place] LDL goal less than 100 inpatient with no known CAD or diabetes. Followed by her PCP. Plan Time spent on chart review, documentation, interview assessment Coding Level of Care Code Est Pt Level 3 (78822) Diagnoses Chest pain R07.9 Abnormal EKG R94.31 Hypercholesterolemia E78.00 Time Spent (min) 24
== END 2023-09-11 14:15 | disposition home or self-care (01) ==
PROVIDERS: PCP Family Medicine; Visit Provider Nurse Practitioner Family
DX: R07.9 Chest pain, unspecified (principal); R94.31 Abnormal electrocardiogram [ECG] [EKG]; E78.00 Pure hypercholesterolemia, unspecified
CPT/HCPCS: 99213

== ENCOUNTER → 2023-09-11 13:20 | Outpatient (BNVA) | payer MEDICARE, SELFPAY | PROVIDERS: PCP Family Medicine; Visit Provider Nurse Practitioner Family | DX: R07.9 Chest pain, unspecified (principal); R94.31 Abnormal electrocardiogram [ECG] [EKG]; E78.00 Pure hypercholesterolemia, unspecified | CPT/HCPCS: 99212 ==

== ENCOUNTER 2023-09-22 14:19 | Outpatient (AMB) | payer MEDICARE, SELFPAY ==
--- NOTE | 2023-09-22 14:40 | AM.OFFVISNUR ---
Intake Intake Visit Reasons: b12 Allergies codeine Allergy (Mild, Verified 09/11/23 13:25) Vomiting Nursing Note pt is here for her vitamin B12 injection Office Meds cyanocobalamin (vitamin B-12) 1,000 mcg/mL injection solution Performing Provider: Andrew Chino MD Performing Location: [facility] Administered by: Kirsten De La Torre RN on 09/22/23 17:16 Dose Route Admin Location Dispensed Lot Number Expiration Date NDC Cartographic Technician 1,000 mcg IM left deltoid 1 mL [id number] 03/12/25 29454-102-40 [facility] [employer] Coding Assessment & Plan Assessment & Plan Orders: Orders AMB Vitamin B12 Injection Patient Supplied Today R53.83 - Other fatigue
== END 2023-09-22 15:04 | disposition home or self-care (01) ==
LOC: HO.HMGFM 14:19
PROVIDERS: PCP Family Medicine; Visit Provider Family Medicine
DX: R53.83 Other fatigue (principal)
CPT/HCPCS: 96372; J3420

== ENCOUNTER 2023-10-20 14:21 | Outpatient (AMB) | payer MEDICARE, SELFPAY ==
--- NOTE | 2023-10-20 15:47 | AM.OFFVISNUR ---
Intake Intake Visit Reasons: b12 Intake Note: Patient is here for her B12 injection. Oracle Database Consultant Required: No Accompanied by: Self / Same As Patient Allergies codeine Allergy (Mild, Verified 10/20/23 15:51) Vomiting Do you need a note to return to daycare/school/sports/work: No Nursing Note B12 injection given by Dr. Chino in place of RN who was out of the office today. Dr. Chino gave B12 injection in the L deltoid. Patient tolerated well. Office Meds cyanocobalamin (vitamin B-12) 1,000 mcg/mL injection solution Performing Provider: Andrew Chino MD Performing Location: [facility] Administered by: Kortney Mena CMA on 10/20/23 15:54 Dose Route Admin Location Dispensed Lot Number Expiration Date NDC Sales Representative 1,000 mcg IM L Deltoid 1.0 mL Comments: Dr. Chino gave injection Coding Assessment & Plan Assessment & Plan Orders: Orders AMB Vitamin B12 Injection Patient Supplied Today R53.83 - Other fatigue Medications: New cyanocobalamin (vitamin B-12) 1,000 mcg IM ONCE 1 mL 0RF R53.83 - Other fatigue
== END 2023-10-20 15:55 | disposition home or self-care (01) ==
PROVIDERS: PCP Family Medicine; Visit Provider Family Medicine
DX: R53.83 Other fatigue (principal)
CPT/HCPCS: 96372; J3420

== ENCOUNTER 2023-10-31 10:21 | Outpatient (AMB) | payer MEDICARE, SELFPAY ==
[2023-10-31 10:25] VITALS: BP 130/80; PULSE 59; O2SAT 95; BMI 28.8
--- NOTE | 2023-10-31 10:25 | A.OFFPC_ITS ---
Vital Signs 10/31/23 10:25 Height 5 ft 1 in Weight 152 lb 8 oz BMI 28.8 BP 130/80 Blood Pressure Location Lt brachial Position Sitting Pulse 59 Pulse Source Pulse Oximeter Pulse Oximetry (%) 95 Oxygen Delivery Method Room Air Intake Visit Reasons: leg pain/ vertigo Intake Note: Patient is here with complaint of left leg and vertigo. Allergies codeine Allergy (Mild, Verified 10/31/23 10:28) Vomiting Medication List - Last Reconciled 10/31/23 by Andrew Chino MD alendronate 70 mg PO QWEEK 28 days alpha lipoic acid 600 mg PO DAILY budesonide DR-ER 3 mg PO DAILY calcium polycarbophil (FiberCon) 625 mg PO DAILY 30 days carbamide peroxide 6.5% (Debrox) 5 drps otic (ears) .Once a week 30 days cyanocobalamin (vitamin B-12) 1,000 mcg IM Q4W 84 days erenumab-aooe (Aimovig Autoinjector) mg subcut fluoxetine 40 mg PO DAILY 90 days hydroxyzine HCl 50 mg PO DAILY PRN 30 days naproxen 500 mg PO BID 90 days pantoprazole 40 mg PO BID Tobacco use date assessed: 10/31/23 Fall risk assessment: 2 + Falls in past year Last assessed Fall Risk: 10/31/23 Dental Screening Dental Screen Date: 10/31/23 Did you have a dental visit in the last 12 months?: Yes Did you have a dental problem in the last 6 months where you did not have access to dental care?: No Was dental information given to patient?: Patient has dentist HPI leg pain/ vertigo HPI Details 82 y/o female presents with complaints o f L leg pain. She also has complaints of vertigo - she describes a sensation where everything is spinning. Pt notes she has been going to vestibular rehab but reports ongoing symptoms. She notes nausea associated with the dizziness. HPI Comments History of Present Illness Details Documentation assistance for Andrew Chino MD, was provided by Kris Carter, Mascara Molder on 10/31/2023 11:03 AM EST. Burrows, Dr. Chino, have read, observed, and verified documentation. [facility] Medical History Anxiety Failed total right knee replacement Surgical History History of appendectomy Family History (Updated 10/31/23 @ 10:39 by Radha Mills [facility]) Father Prostate cancer Mother Cancer Paternal family history of mental health disorder Social History Housing: House Patient Tobacco Use Status: Never used Tobacco e-Cigarette/Vaping Use: Never Used service: No Current occupational status: retired Cognitive needs: No Hearing needs: No Vision needs: No Questionnaire PHQ-9 Over the last 2 weeks, how often have you been bothered by any of the following problems? 1. Little interest or pleasure in doing things: more than half the days 2. Feeling down, depressed, or hopeless: not at all 3. Trouble falling or staying asleep, or sleeping too much: nearly every day 4. Feeling tired or having little energy: nearly every day 5. Poor appetite or overeating: more than half the days 6. Feeling bad about yourself - or that you are a failure or have let yourself or your family down: several days 7. Trouble concentrating on things, such as reading the newspaper or watching television: nearly every day 8. Moving or speaking so slowly that other people could have noticed. Or the opposite - being so fidgety or restless that you have been moving around a lot more than usual: more than half the days 9. Thoughts that you would be better off or of hurting yourself in some way: not at all Total score: 16 Depression Screening Interpretation: Positive Depression Screening Done: Yes 99047 - PHQ-9 Billing: Yes Source: Developed by Drs. Doron Decker, Bella Wood, Jason Monique and colleagues, with an educational antonio from [employer]. Thrive Questionnaire Date Thrive assessed: 10/31/23 I am a: Patient What is your living situation today?: I have a steady place to live Within the past 12 months, did the food you bought not last and you didn't have the money to get more?: Never true Within the past 12 months, did you worry whether your food would run out before you got money to buy more?: Never true Do you have trouble paying for medicines?: No Do you have trouble getting transportation to medical appointments?: No Do you have trouble paying your heating and electricity bill?: No Do you have trouble taking care of your child, family member or friend?: No Do you have trouble with day-to-day activities such as bathing, preparing meals, shopping, managing finances, etc.?: No Are you currently unemployed and looking for a job?: No Are you interested in more education?: Yes THRIVE Score: 0 AUDIT C Alcohol Use Questionnaire (AUDIT-C) 1. How often do you have a drink containing alcohol?: 2-3 times a week 2. How many drinks containing alcohol do you have on a typical day when you are drinking?: 1 or 2 3. How often do you have six or more drinks on one occasion?: Never Total Score: 3 FADY-7 AMB Questionnaire FADY-7 Date FADY - 7 assessed: 10/31/23 Feeling nervous, anxious, or on edge: 2 = More than half the days Not being able to stop or control worryin = Nearly every day Worrying too much about different things: 3 = Nearly every day Trouble relaxin = More than half the days Being so restless that it is hard to sit still: 2 = More than half the days Becoming easily annoyed or irritable: 2 = More than half the days Feeling afraid as if something awful might happen: 1 = Several days Total FADY-7 score (0-4 normal; 5-9 mild; 10-14 moderate; 15-21 severe): 15 Source: Developed by Drs. Doron Decker, Bella Wood, Jason Monique and colleagues, with an educational antonio from [employer]. FADY-7 Assessment Billing FADY-7 Assessment Tool: FADY-7 Assessment 71268 Review of Systems Const Denies chills, Denies fatigue, Denies fever(s), Denies headache(s) and Denies weakness ENT Denies dizziness and Denies headache(s) Card Denies dyspnea Resp Denies cough, Denies dyspnea, Denies wheezing and Denies other (shortness of breath) GI Reports nausea Musc Denies numbness and Denies tingling Neuro Denies dizziness, Denies headache(s), Denies numbness, Denies tingling and Denies weakness Psych Denies anxiety and Denies depression Endo Denies fatigue Aller/Immun Denies wheezing Physical exam (Primary Care) Vital Signs: Last Vital Signs Pulse 59 10/31/23 10:25 BP 130/80 10/31/23 10:25 Pulse Ox 95 10/31/23 10:25 Oxygen Delivery Method Room Air 10/31/23 10:25 BMI result Body Mass Index 28.8 Tobacco/Smoking Status: Tobacco use Status Tobacco use date assessed 10/31/23 10/31/23 10:39 Patient Tobacco Use Status Never used Tobacco 10/31/23 10:39 e-Cigarette/Vaping Use Never Used 10/31/23 10:39 PHQ-9: PHQ-9 Score PHQ-9: Total score 16 10/31/23 10:39 Depression Screening Interpretation: Positive Thrive Assessment: Date of Thrive Assessment Date Thrive assessed 10/31/23 10/31/23 10:39 Const General: well developed; No acute distress Nutritional Appearance: well nourished Orientation/consciousness: patient oriented x3 HENMT Head: Yes normocephalic and Yes atraumatic Eyes General: appearance normal, both eyes and all related structures Pupils: Equal, round and reactive pupils present EOM: EOMs intact bilaterally Resp Effort & Inspection: normal respiratory effort Neuro General: patient oriented x3 and gait normal Cranial nerves: Yes Equal, round and reactive pupils present Psych Affect: normal affect Assessment and Plan Assessment & Plan (1) Left leg pain: Code(s): M79.605 - Pain in left leg Plan: Mild?left?lower?calf?and?shoemaker?swelling?after?lifting?heavy?buckets?of?water?and? going?up?and?down?stairs. Likely?mild?muscle?strain?with?a?little?increased?edema?due?to?this Elevate?leg Avoid?salt/sodium Should?improve?spontaneous (2) Venous insufficiency: Code(s): I87.2 - Venous insufficiency (chronic) (peripheral) Plan: Mild?venous?insufficiency?which?was?likely?exacerbated?by?mild?muscle?strain?rec ently. As?above,?elevate?leg?and?avoid?salt/sodium Should?improve?spontaneous (3) Vertigo: Code(s): R42 - Dizziness and giddiness Plan: History?of?vertigo?and?she?is?followed?by?Neurology?at?[facility] She?is?already?undergoing?physical?therapy?for?vertigo. Will?give?her?a?short?course?of?prednisone?and?advised?her?this?could?make?the?l ower?extremity?edema?slightly?worse?before?it?gets?better. Continue?to?use?ronald?for?nausea?which?she?prefers?over?meclizine Medications: New prednisone 40 mg (2 x 20 mg) PO DAILY 4 days 8 tabs 0RF Coding Level of Care Code Est Pt Level 4 (51636) Diagnoses Left leg pain M79.605 Venous insufficiency I87.2 Vertigo R42 Additional Codes FADY-7 Assessment Billing - FADY-7 Assessment Tool: FADY-7 Assessment 47641 ([id number])
== END 2023-10-31 11:08 | disposition home or self-care (01) ==
PROVIDERS: PCP Family Medicine; Visit Provider Family Medicine
DX: M79.605 Pain in left leg (principal); I87.2 Venous insufficiency (chronic) (peripheral); R42 Dizziness and giddiness
CPT/HCPCS: 99214

== ENCOUNTER 2023-11-17 11:05 | Outpatient (AMB) | payer MEDICARE, SELFPAY ==
--- NOTE | 2023-11-17 11:26 | AM.OFFVISNUR ---
Intake Intake Visit Reasons: b-12 shot Allergies codeine Allergy (Mild, Verified 10/31/23 10:28) Vomiting Nursing Note pt is here for her vitamin B-12 injection Office Meds cyanocobalamin (vitamin B-12) 1,000 mcg/mL injection solution Performing Provider: Andrew Chino MD Performing Location: [facility] Administered by: Kirsten De La Torre RN on 11/17/23 11:30 Dose Route Admin Location Dispensed Lot Number Expiration Date NDC Induction [place] 1,000 mcg IM left deltoid 1 mL [id number] 03/13/25 72882-844-14 [employer] Coding Assessment & Plan Assessment & Plan Orders: Orders AMB Vitamin B12 Injection Patient Supplied Today R53.83 - Other fatigue Medications: New cyanocobalamin (vitamin B-12) 1,000 mcg IM ONCE 1 mL 0RF R53.83 - Other fatigue
== END 2023-11-17 11:28 | disposition home or self-care (01) ==
PROVIDERS: PCP Family Medicine; Visit Provider Family Medicine
DX: R53.83 Other fatigue (principal)
CPT/HCPCS: 96372; J3420

== ENCOUNTER 2023-12-18 11:29 | Outpatient (AMB) | payer MEDICARE, SELFPAY ==
--- NOTE | 2023-12-18 12:15 | MHC.PC.OV ---
Intake Visit Reasons: f/u chronic conditions Allergies codeine Allergy (Mild, Verified 10/31/23 10:28) Vomiting Tobacco use date assessed: 10/31/23 Dental Screening Dental Screen Date: 10/31/23 HPI f/u chronic conditions HPI Details Patient?presents?for?extended?exam Has complaints of leg weakness/unsteady gait. She states she does have intermittent low blood pressures. She does not drink much water and has irregular meals. [facility] Medical History Anxiety Failed total right knee replacement Surgical History History of appendectomy Family History (Updated 10/31/23 @ 10:39 by Radha iMlls [facility]) Father Prostate cancer Mother Cancer Paternal family history of mental health disorder Social History Housing: House Patient Tobacco Use Status: Never used Tobacco e-Cigarette/Vaping Use: Never Used service: No Current occupational status: retired Cognitive needs: No Hearing needs: No Vision needs: No Questionnaire Thrive Questionnaire Date Thrive assessed: 10/31/23 FADY-7 AMB Questionnaire FADY-7 Date FADY - 7 assessed: 10/31/23 Source: Developed by Drs. Doron Decker, Bella Wood, Jason Monique and colleagues, with an educational antonio from [employer]. Review of Systems Const Denies chills, Denies fatigue, Denies fever(s), Denies headache(s) and Denies weakness Eyes Denies change in vision ENT Denies dizziness, Denies headache(s), Denies hearing loss, Denies nasal congestion, Denies sinus pain, Denies sinus pressure and Denies sore throat Card Denies chest pain, Denies lightheadedness, Denies dyspnea and Denies other (palpitations) Resp Denies cough, Denies dyspnea and Denies wheezing GI Denies abdominal pain, Denies melena, Denies hematochezia, Denies change in bowel habits, Denies dyspepsia and Denies nausea Denies hematuria and Denies dysuria Musc Denies abnormal gait, Denies myalgias, Denies arthralgias, Denies numbness and Denies tingling Skin/Breast Denies rash, Denies unusual bruising and Denies wounds Neuro Denies abnormal gait, Denies dizziness, Denies headache(s), Denies memory loss, Denies numbness, Denies Sensory deficit (Neuro), Denies tingling and Denies weakness Psych Denies anxiety, Denies depression and Denies memory loss Endo Denies cold intolerance, Denies fatigue, Denies heat intolerance, Denies polydipsia and Denies polyuria Lex/Lymph Denies easy bleeding and Denies easy bruising Aller/Immun Denies wheezing Physical exam (Primary Care) Tobacco/Smoking Status: Tobacco use Status Tobacco use date assessed 10/31/23 10/31/23 10:39 Patient Tobacco Use Status Never used Tobacco 10/31/23 10:39 e-Cigarette/Vaping Use Never Used 10/31/23 10:39 Thrive Assessment: Date of Thrive Assessment Date Thrive assessed 10/31/23 10/31/23 10:39 Const General: no acute distress, well developed, alert and awake Nutritional Appearance: well nourished Orientation/consciousness: patient oriented x3 HENMT Head: Yes normocephalic and Yes atraumatic Ears: hearing grossly normal bilaterally and TM's normal bilaterally General nose exam: Normal external nose present and Normal nares present Mouth: Normal oral and palatal mucosa present and moist mucous membranes Teeth and gingiva: dentition normal Throat: Yes posterior oropharynx normal Eyes General: appearance normal, both eyes and all related structures Pupils: Equal, round and reactive pupils present and Pupil accommodation reflex normal EOM: EOMs intact bilaterally Neck Neck: Yes normal visual inspection, Yes no lymphadenopathy and Yes trachea midline Thyroid: Thyroid normal Carotids: no bruits Lymphatic: no lymphadenopathy noted Chest Chest palpation & inspection: normal inspection of the chest Resp Effort & Inspection: normal respiratory effort Auscultation: clear to auscultation bilaterally Cardio Rate: regular rate Rhythm: regular rhythm Heart sounds: S1 normal heart sound present, S2 normal heart sound present, no gallops, no murmurs and no rubs Bruits: no abdominal aortic bruits and no carotid bruits GI Palpation (GI): No Abdominal aortic bruit present, Soft to palpation, nontender, No hepatosplenomegaly present and No Rebound tenderness present Auscultation: normal bowel sounds General: Yes no CVA tenderness Back/Spine/Pelvis Back: no CVA tenderness Cervical Spine: cervical ROM normal and No Cervical spine tenderness Thoracic/Lumbar Spine: thoraco-lumbar ROM normal, No pain with thoraco-lumbar ROM, No thoracic spinal tenderness and No lumbar spinal tenderness Skin Lesions: no lesions Rashes: no rashes Trauma: no lacerations or abrasions Wounds: no wounds Nails: normal Neuro General: patient oriented x3 Cranial nerves: Yes Equal, round and reactive pupils present Cognition (Neuro): normal cognition Gait exam (Neuro): Normal gait present Motor exam (neuro): 5/5 motor strength present throughout Sensory Exam: No Sensory deficit (Neuro) Deep tendon reflexes (DTR's): Right patellar reflex intensity grade: 2+ and Left patellar reflex intensity grade: 2+ Extrem General: Yes normal to inspection and No edema Psych Appearance: grossly normal Affect: normal affect Attitude: cooperative Thought process: Normal thought process present Assessment and Plan Assessment & Plan (1) Leg weakness: Code(s): R29.898 - Other symptoms and signs involving the musculoskeletal system Plan: PT?ordered (2) Imbalance: Code(s): R26.89 - Other abnormalities of gait and mobility Plan: PT?ordered (3) Swelling of left lower extremity: Code(s): M79.89 - Other specified soft tissue disorders Plan: Elevate?leg X-ray?of?left?foot?is?ordered (4) Adult general medical exam: Code(s): Z00.00 - Encounter for general adult medical examination without abnormal findings Plan: 83-year-old?female?presents?for?an?extended?exam Encouraged?healthy?diet?with?regular?meals Encouraged?hydration (5) Low blood pressure: Code(s): I95.9 - Hypotension, unspecified Plan: Intermittent?low?blood?pressures Patient?does?not?drink?much?water?and?has?a?regular?meals. Encouraged?increased?water?intake?and?regular?meals She?will?let?me?know?if?blood?pressures?are?still?fluctuating. 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 Panel Fast Today Z00.00 - Encounter for general adult medical examination without abnormal findings Complete Blood Count Auto Diff Today Z00.00 - Encounter for general adult medical examination without abnormal findings Microalbumin, Random (w Creat) Today I10 - Essential (primary) hypertension TSH reflex Free T4 Today Z00.00 - Encounter for general adult medical examination without abnormal findings UA and rflx microscopic Today Z00.00 - Encounter for general adult medical examination without abnormal findings XR foot LT min 3V Today M79.672 - Pain in left foot Lipid Panel Today Z00.00 - Encounter for general adult medical examination without abnormal findings Coding Level of Care Code Est Pt Level 4 (42309) Diagnoses Leg weakness R29.898 Imbalance R26.89 Swelling of left lower extremity M79.89 Adult general medical exam Z00.00 Low blood pressure I95.9 Left foot pain M79.672
== END 2023-12-18 12:14 | disposition home or self-care (01) ==
PROVIDERS: PCP Family Medicine; Visit Provider Family Medicine
DX: R29.898 Other symptoms and signs involving the musculoskeletal system (principal); R26.89 Other abnormalities of gait and mobility; M79.89 Other specified soft tissue disorders; I95.9 Hypotension, unspecified; M79.672 Pain in left foot
CPT/HCPCS: 99214

== ENCOUNTER → 2023-12-18 11:29 | Outpatient (AMB) | payer MEDICARE, SELFPAY ==
--- NOTE | 2023-12-18 11:57 | AM.OFFVISNUR ---
Intake Intake Visit Reasons: B-12 Allergies codeine Allergy (Mild, Verified 10/31/23 10:28) Vomiting Office Meds cyanocobalamin (vitamin B-12) 1,000 mcg/mL injection solution Performing Provider: Andrew Chino MD Performing Location: [facility] Administered by: Kirsten De La Torre RN on 12/18/23 11:57 Dose Route Admin Location Dispensed Lot Number Expiration Date NDC Heavy Duty Truck Mechanic 1,000 mcg IM left deltoid 1 mL [id number] 12/11/24 70620-688-22 [employer] Coding Assessment & Plan Assessment & Plan Orders: Orders AMB Vitamin B12 Injection Patient Supplied Today R53.83 - Other fatigue Medications: New cyanocobalamin (vitamin B-12) 1,000 mcg IM ONCE 1 mL 0RF R53.83 - Other fatigue
--- NOTE | 2023-12-18 12:31 | A.OFFPC_ITS ---
Intake Visit Reasons: B-12 Allergies codeine Allergy (Mild, Verified 10/31/23 10:28) Vomiting Tobacco use date assessed: 10/31/23 Dental Screening Dental Screen Date: 10/31/23 [facility] Medical History Anxiety Failed total right knee replacement Surgical History History of appendectomy Family History (Updated 10/31/23 @ 10:39 by Radha Mills [facility]) Father Prostate cancer Mother Cancer Paternal family history of mental health disorder Social History Housing: House Patient Tobacco Use Status: Never used Tobacco e-Cigarette/Vaping Use: Never Used service: No Current occupational status: retired Cognitive needs: No Hearing needs: No Vision needs: No Questionnaire Thrive Questionnaire Date Thrive assessed: 10/31/23 FADY-7 AMB Questionnaire FADY-7 Date FADY - 7 assessed: 10/31/23 Source: Developed by Drs. Doron Decker, Bella Wood, Jason Monique and colleagues, with an educational antonio from [employer]. Physical exam (Primary Care) Tobacco/Smoking Status: Tobacco use Status Tobacco use date assessed 10/31/23 10/31/23 10:39 Patient Tobacco Use Status Never used Tobacco 10/31/23 10:39 e-Cigarette/Vaping Use Never Used 10/31/23 10:39 Thrive Assessment: Date of Thrive Assessment Date Thrive assessed 10/31/23 10/31/23 10:39 Office Meds cyanocobalamin (vitamin B-12) 1,000 mcg/mL injection solution Performing Provider: Andrew Chino MD Performing Location: [facility] [place] [facility] Administered by: Kirsten De La Torre RN on 12/18/23 11:57 Dose Route Admin Location Dispensed Lot Number Expiration Date NDC Gi Physician 1,000 mcg IM left deltoid 1 mL [id number] 12/11/24 38221-428-81 [employer] Assessment and Plan Assessment & Plan Orders: Orders AMB Vitamin B12 Injection Patient Supplied Today R53.83 - Other fatigue Coding
== END ==
PROVIDERS: PCP Family Medicine; Visit Provider Family Medicine
DX: R53.83 Other fatigue (principal)
CPT/HCPCS: 96372; J3420

== ENCOUNTER 2023-12-24 10:02 | Outpatient (REF) | payer MEDICARE, SELFPAY ==
[2023-12-24 11:32] LABS: MANUAL DIFF FLAG NO
[2023-12-24 11:43] LABS: Basophils Percent Auto 0.5 % (0-2); Eosinophils Absolute Auto 0.4 X10*3/uL (0.0-0.4); Eosinophils Percent Auto 5.2 % (0-4); Hemoglobin 11.7 g/dl (12.0-16.0); Imm Gran Abs Auto 0.02 X10*3/uL (0.00-0.03); Imm Gran Pct Auto 0.3 % (0.0-0.4); Lymphocytes Absolute Auto 3.5 X10*3/uL (1.2-4.9); Lymphocytes Percent Auto 45.9 % (20-40); Mean Corpuscular HGB Conc 32.5 g/dl (31.0-35.0); Mean Corpuscular Hemoglobin 30.9 pg (27.0-33.0); Mean Platelet Volume 9.5 fL (9.4-12.3); Monocytes Absolute Auto 0.6 X10*3/uL (0.1-1.2); Monocytes Percent Auto 7.3 % (2-11); Neutrophils Absolute Auto 3.1 x10*3/uL (2.0-8.3); Neutrophils Percent Auto 40.8 % (45-73); Platelet Count 349 X10*3/uL (160-400); Red Blood Count 3.79 X10*6/uL (4.20-5.50); Red Cell Distribution Width 13.3 % (11.0-16.0); White Blood Count 7.5 X10*3/uL (4.8-10.8)
[2023-12-24 12:19] LABS: Alanine Aminotransferase 18 U/L (0-31); Albumin Level 4.2 g/dL (3.5-5.0); Alkaline Phosphatase 78 U/L (39-117); Anion Gap 13 (12-20); Aspartate Amino Transferase 19 U/L (5-31); Bilirubin Total 0.4 mg/dL (0.0-1.0); Blood Urea Nitrogen 16 mg/dL (9-16); Calcium 9.4 mg/dL (8.4-10.2); Carbon Dioxide 27 mmol/L (22-29); Chloride 108 mmol/L (96-108); Cholesterol 229 mg/dL (<200); Estimated Glomerular Filt Rate > 60; Glucose Fasting 86 mg/dL (60-99); HDL Cholesterol 77 mg/dL (>40); LDL Cholesterol Calculated 136 mg/dL (<100); Sodium 144 mmol/L (135-145); Total Protein 6.5 g/dL (6.5-8.0); Triglycerides 83 mg/dL (<150)
[2023-12-24 12:38] LABS: TSH reflex Free T4 1.92 uIU/mL (0.32-4.0)
== END 2023-12-24 10:03 | disposition home or self-care (01) ==
LOC: HO.WFDLDS 10:02
PROVIDERS: Visit Provider Family Medicine
DX: Z00.00 Encounter for general adult medical examination without abnormal findings (principal)
CPT/HCPCS: 36415; 80053; 80061; 84443; 85025

== ENCOUNTER 2023-12-25 12:14 | Outpatient (REF) | payer MEDICARE, SELFPAY ==
--- NOTE | ~2023-12-25 | XR_ITS ---
EXAMINATION: XR FOOT, LEFT CLINICAL INFORMATION: Pain. COMPARISON: None available. TECHNIQUE: AP, lateral, and oblique views of the left foot. FINDINGS: Bony alignment and mineralization are normal. No fracture, dislocation or left ankle joint effusion is seen. Boehler's angle is normal. There are small posterior and large plantar calcaneal spurs. There are degenerative changes of the foot. 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 There is a large bunion of the first metatarsal head, with adjacent soft tissue swelling. No soft tissue gas or foreign body seen. XR/XR foot LT min 3V IMPRESSION: 1. 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 2. There is a large bunion. 3. There are small posterior and large plantar calcaneal spurs.
== END 2023-12-25 12:15 | disposition home or self-care (01) ==
LOC: HO.XRAY 12:14
PROVIDERS: PCP Family Medicine; Visit Provider Family Medicine
DX: M79.672 Pain in left foot (principal)
CPT/HCPCS: 73630

== ENCOUNTER 2023-12-30 14:35 | Outpatient (REF) | payer MEDICARE, SELFPAY ==
[2023-12-30 14:44] LABS: Appearance Urine Clear; Color Urine Yellow; Glucose Urine UA Negative (Negative); Leukocyte Esterase Urine Negative (Negative); Nitrite Urine Negative (Negative); PH 5.5 (5.0-9.0); Specific Gravity - Urine 1.015 (1.005-1.025); Urine Blood Negative (Negative); Urine Ketones Negative (Negative); Urine Protein Negative (Neg-Trace)
[2023-12-30 15:29] LABS: Creatinine Urine 87.06 mg/dL; Microalbumin Urine < 5.0 mg/L
== END 2023-12-30 14:36 | disposition home or self-care (01) ==
LOC: HO.LNP 14:35
PROVIDERS: Visit Provider Family Medicine
DX: Z00.00 Encounter for general adult medical examination without abnormal findings (principal); I10 Essential (primary) hypertension
CPT/HCPCS: 81003; 82043; 82570

== ENCOUNTER 2024-01-13 11:07 | Outpatient (AMB) | payer MEDICARE, SELFPAY ==
--- NOTE | 2024-01-13 11:45 | AM.OFFVISNUR ---
Intake Visit Reasons: B-12 Allergies codeine Allergy (Mild, Verified 01/13/24 12:05) Vomiting Office Meds cyanocobalamin (vitamin B-12) 1,000 mcg/mL injection solution Performing Provider: Andrew Chino MD Performing [place] [facility] Administered by: Dara Monte RN on 01/13/24 11:44 Dose Route Admin Location Dispensed Lot Number Expiration Date NDC Fish Salter 1,000 mcg IM Left Deltoid 1 mL [id number] 12/11/24 72306-751-86 [employer] Assessment & Plan Assessment & Plan Orders: Orders AMB Vitamin B12 Injection Patient Supplied 01/13/24 R53.83 - Other fatigue
== END 2024-01-13 12:58 | disposition home or self-care (01) ==
PROVIDERS: PCP Family Medicine; Visit Provider Family Medicine
DX: R53.83 Other fatigue (principal)
CPT/HCPCS: 96372; J3420

== ENCOUNTER → 2024-01-13 11:45 | Outpatient (AMB) | payer MEDICARE, SELFPAY ==
--- NOTE | 2024-01-13 11:49 | AM.OFFVISNUR ---
Vital Signs 01/13/24 11:54 01/13/24 13:13 Height 5 ft 1 in Weight 155 lb 6 oz BMI 29.4 BP 144/70 H Blood Pressure Location Rt brachial Position Sitting Respiration 15 Pulse 101 H 71 Pulse Source Pulse Oximeter Auscultation Temp 97.8 F Temp Source Temporal Artery Scan Pulse Oximetry (%) 99 Oxygen Delivery Method Room Air Intake Visit Reasons: est/ heavy cough Allergies codeine Allergy (Mild, Verified 01/13/24 12:05) Vomiting Medication List - Last Reconciled 01/13/24 by Venus Sanches, DIRECTOR OF DONOR RELATIONS- alendronate 70 mg PO QWEEK 28 days alpha lipoic acid 600 mg PO DAILY benzonatate 200 mg PO BID PRN budesonide DR-ER 3 mg PO DAILY calcium polycarbophil (FiberCon) 625 mg PO DAILY 30 days carbamide peroxide 6.5% (Debrox) 5 drps otic (ears) .Once a week 30 days cyanocobalamin (vitamin B-12) 1,000 mcg IM Q4W 84 days erenumab-aooe (Aimovig Autoinjector) mg subcut fluoxetine 40 mg PO DAILY 90 days hydroxyzine HCl 50 mg PO DAILY PRN 30 days naproxen 500 mg PO BID 90 days pantoprazole 40 mg PO BID prednisone 40 mg (2 x 20 mg) PO DAILY 4 days Assessment & Plan Assessment & Plan Medications: Refilled benzonatate 200 mg PO BID PRN 20 caps 0RF cough
[2024-01-13 11:54] VITALS: BP 144/70; PULSE 101; RESP 15; TEMP 36.6; O2SAT 99; BMI 29.4
--- NOTE | 2024-01-13 11:54 | AM.OFFWIN_ITS ---
Intake Vital Signs 01/13/24 11:54 01/13/24 13:13 Height 5 ft 1 in Weight 155 lb 6 oz BMI 29.4 BP 144/70 H Blood Pressure Location Rt brachial Position Sitting Respiration 15 Pulse 101 H 71 Pulse Source Pulse Oximeter Auscultation Temp 97.8 F Temp Source Temporal Artery Scan Pulse Oximetry (%) 99 Oxygen Delivery Method Room Air Intake Visit Reasons: est/ heavy cough Patient Tobacco Use Status: Never used Tobacco Pot Holder Binder Required: No Accompanied by: Self / Same As Patient Allergies codeine Allergy (Mild, Verified 01/13/24 12:05) Vomiting Medication List - Last Reconciled 01/13/24 by Venus Sanches, TABLE MACHINE OPERATOR-BC alendronate 70 mg PO QWEEK 28 days alpha lipoic acid 600 mg PO DAILY benzonatate 200 mg PO BID PRN budesonide DR-ER 3 mg PO DAILY calcium polycarbophil (FiberCon) 625 mg PO DAILY 30 days carbamide peroxide 6.5% (Debrox) 5 drps otic (ears) .Once a week 30 days cyanocobalamin (vitamin B-12) 1,000 mcg IM Q4W 84 days erenumab-aooe (Aimovig Autoinjector) mg subcut fluoxetine 40 mg PO DAILY 90 days hydroxyzine HCl 50 mg PO DAILY PRN 30 days naproxen 500 mg PO BID 90 days pantoprazole 40 mg PO BID prednisone 40 mg (2 x 20 mg) PO DAILY 4 days Do you need a note to return to daycare/school/sports/work: No HPI HPI Comments History of Present Illness Details Here today with c/o cough started 1 month ago worse since onset and at night feeling very tired was given pred and tessalon in the past with + relief, last time used was 11/2023 she is not active w/ pulm she is on daily inhaler,takes as directed Denies fever, chills, ear pain, sore throat. Admits some occasional sinus drainage. Denies chest pain, over GERD or acid reflux symptoms. Awake alert NAD Sclera and conjunctiva clear bilat Nares patent, turbinates within normal limits, no sinus tenderness with palpation bilat TM intact and clear bilat MMM, pharynx WNL RRR LS CTAB Plan: Exam benign today. We will give Tessalon to use p.r.n.. Continue budesonide, Advised to return to the office in 1 week for re-evaluation. [facility] Medical History Anxiety Failed total right knee replacement Surgical History History of appendectomy Family History (Updated 10/31/23 @ 10:39 by Radha Mills [facility]) Father Prostate cancer Mother Cancer Paternal family history of mental health disorder Social History Housing: House Patient Tobacco Use Status: Never used Tobacco e-Cigarette/Vaping Use: Never Used service: No Current occupational status: retired Cognitive needs: No Hearing needs: No Vision needs: No Physical Exam Vital Signs: Last Vital Signs Temp 97.8 F 01/13/24 11:54 Pulse 101 H 01/13/24 11:54 Resp 15 01/13/24 11:54 BP 144/70 H 01/13/24 11:54 Pulse Ox 99 01/13/24 11:54 Oxygen Delivery Method Room Air 01/13/24 11:54 BMI result Body Mass Index 29.4 Assessment & Plan Assessment & Plan (1) Cough: Code(s): R05.9 - Cough, unspecified Qualifiers: Cough type: subacute Qualified Code(s): R05.2 - Subacute cough Plan: . Plan . This note is constructed using voice recognition software. While every effort has been made to ensure accuracy in submarine worker, still errors may have been included Sometimes, these errors may affect the content or meaning of the given sentence . Total time spent caring for the patient today was 30 minutes. This includes time spent before the visit reviewing the chart, time spent during the visit, and time spent after the visit on documentation Medications: Refilled benzonatate 200 mg PO BID PRN 20 caps 0RF cough Coding Level of Care Code Est Pt Level 4 (52114) Diagnoses Subacute cough R05.2 Cough type: subacute
[2024-01-13 13:13] VITALS: PULSE 71
== END ==
PROVIDERS: PCP Family Medicine; Visit Provider Nurse Practitioner Family
DX: R05.2 Subacute cough (principal)
CPT/HCPCS: 99214

== ENCOUNTER 2024-02-12 12:40 | Outpatient (AMB) | payer MEDICARE, SELFPAY ==
--- NOTE | 2024-02-12 12:54 | AM.OFFVISNUR ---
Intake Visit Reasons: B-12 shot Allergies codeine Allergy (Mild, Verified 01/13/24 12:05) Vomiting Office Meds cyanocobalamin (vitamin B-12) 1,000 mcg/mL injection solution Performing Provider: Andrew Chino MD Performing Location: [facility] Medicine Administered by: Kirsten De La Torre RN on 02/12/24 12:56 Dose Route Admin Location Dispensed Lot Number Expiration Date NDC Mechanical Technologist 1,000 mcg IM left deltoid 1 mL [id number] 12/11/24 09094-723-87 [employer] Comments: pt was here for her q 4 week vitamin B12 injection. given in left deltoid. Assessment & Plan Assessment & Plan Orders: Orders AMB Vitamin B12 Injection Patient Supplied Today R53.83 - Other fatigue Medications: New cyanocobalamin (vitamin B-12) 1,000 mcg IM ONCE 1 mL 0RF R53.83 - Other fatigue
== END 2024-02-12 12:55 | disposition home or self-care (01) ==
LOC: HO.HMGFM 12:40
PROVIDERS: PCP Family Medicine; Visit Provider Family Medicine
DX: R53.83 Other fatigue (principal)
CPT/HCPCS: 96372; J3420

== ENCOUNTER 2024-03-11 10:58 | Outpatient (AMB) | payer MEDICARE, SELFPAY ==
--- NOTE | 2024-03-11 11:31 | AM.OFFVISNUR ---
Intake Visit Reasons: b12 shots Drier Tender Required: No Accompanied by: Daughter Allergies codeine Allergy (Mild, Verified 01/13/24 12:05) Vomiting Nursing Note pt is here for her vitamin B12 injection and given left deltoid . Office Meds cyanocobalamin (vitamin B-12) 1,000 mcg/mL injection solution Performing Provider: Andrew Chino MD Performing Location: [facility] Administered by: Kirsten De La Torre RN on 03/11/24 11:33 Dose Route Admin Location Dispensed Lot Number Expiration Date ND Hand Ironer 1,000 mcg IM left deltoid 1 mL [id number] 03/13/25 99627-538-12 DEZ [employer]ARMACE[employer] Assessment & Plan Assessment & Plan Orders: Orders AMB Vitamin B12 Injection Patient Supplied Today R53.83 - Other fatigue Medications: New cyanocobalamin (vitamin B-12) 1,000 mcg IM ONCE 1 mL 0RF R53.83 - Other fatigue
== END 2024-03-11 11:40 | disposition home or self-care (01) ==
PROVIDERS: PCP Family Medicine; Visit Provider Family Medicine
DX: R53.83 Other fatigue (principal)
CPT/HCPCS: 96372; J3420

== ENCOUNTER 2024-03-12 13:20 | Outpatient (AMB) | payer MEDICARE, SELFPAY ==
--- NOTE | 2024-03-12 13:28 | A.OFFPC_ITS ---
Vital Signs 03/12/24 13:36 03/12/24 13:42 03/12/24 13:45 Height 5 ft 1.65 in Weight 150 lb 2 oz BMI 27.8 BP 133/58 L Blood Pressure Location Lt brachial Position Sitting Respiration 16 Pulse 79 Pulse Source Pulse Oximeter Temp 100.0 F 99.9 F 98.9 F Temp Source Temporal Artery Scan Temporal Artery Scan Oral Pulse Oximetry (%) 98 Oxygen Delivery Method Room Air Intake Visit Reasons: ed follow up concusion from fall Intake Note: ed follow up Allergies codeine Allergy (Mild, Verified 03/12/24 13:33) Vomiting Tobacco use date assessed: 10/31/23 Dental Screening Dental Screen Date: 10/31/23 HPI ed follow up concusion from fall HPI Details Patient?with?history?of?leg?pain?and?leg?weakness?presents?for?follow-up?after?E D?visit?due?to?mechanical?trip/fall?and?concussion?with?scalp?lac eration?on?02/28/2024. She had been working in her garden, stood up and got her feet tangled and had fell backwards, hit her head. Denied losing consciousness. CT showed no evidence of acute traumatic injuries. Shoulder x-rays within normal limits. She notes she has done physical therapy for lower extremity weakness. Recent foot x-ray showed degenerative changes. 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 They note ever since her fall she has been experiencing vertigo and changes to her sensation with temperature, noting she neither feels hot nor cold like she used to. Labs drawn 12/24/23. Reviewed labs with pt. Mild anemia. Triglycerides 83. TC 229. LDL 136. HDL 77. HPI Comments History of Present Illness Details Documentation assistance for Andrew Chino MD, was provided by Kris Carter,? Head Wood Grinder on 03/12/2024 at 1:55 PM EST. I, Dr. Chino, have read, observed, and verified documentation. [facility] Medical History Anxiety Failed total right knee replacement Surgical History History of appendectomy Family History (Updated 10/31/23 @ 10:39 by Radha Mills CMA) Father Prostate cancer Mother Cancer Paternal family history of mental health disorder Social History Housing: House Patient Tobacco Use Status: Never used Tobacco e-Cigarette/Vaping Use: Never Used service: No Current occupational status: retired Cognitive needs: No Hearing needs: No Vision needs: No Questionnaire Thrive Questionnaire Date Thrive assessed: 10/31/23 FADY-7 AMB Questionnaire FADY-7 Date FADY - 7 assessed: 10/31/23 Source: Developed by Drs. Doron Decker, Bella Wood, Jason Monique and colleagues, with an educational antonio from [employer]. Review of Systems Const Denies chills, Denies fatigue, Denies fever(s), Denies headache(s) and Denies weakness ENT Reports vertigo, Denies headache(s) and Reports neck pain Card Denies dyspnea Resp Denies cough, Denies dyspnea, Denies wheezing and Denies other (shortness of breath) Musc Reports neck pain, Denies numbness and Denies tingling Neuro Reports vertigo, Denies headache(s), Denies numbness, Denies tingling and Denies weakness Psych Denies anxiety and Denies depression Endo Denies fatigue Aller/Immun Denies wheezing Physical exam (Primary Care) Vital Signs: Last Vital Signs Temp 99.9 F 03/12/24 13:42 Pulse 79 03/12/24 13:36 Resp 16 03/12/24 13:36 BP 133/58 L 03/12/24 13:36 Pulse Ox 98 03/12/24 13:36 Oxygen Delivery Method Room Air 03/12/24 13:36 BMI result Body Mass Index 27.8 Tobacco/Smoking Status: Tobacco use Status Tobacco use date assessed 10/31/23 03/12/24 13:28 Patient Tobacco Use Status Never used Tobacco 03/12/24 13:28 e-Cigarette/Vaping Use Never Used 03/12/24 13:28 Thrive Assessment: Date of Thrive Assessment Date Thrive assessed 10/31/23 03/12/24 13:28 Const General: well developed; No acute distress Nutritional Appearance: well nourished Orientation/consciousness: patient oriented x3 HENMT Head: Yes normocephalic and Yes atraumatic Eyes General: appearance normal, both eyes and all related structures Pupils: Equal, round and reactive pupils present EOM: EOMs intact bilaterally Resp Effort & Inspection: normal respiratory effort Neuro General: patient oriented x3 and gait normal Cranial nerves: Yes CN's II-XII intact bilaterally and Yes Equal, round and reactive pupils present Psych Affect: normal affect Assessment and Plan Assessment & Plan (1) Concussion: Code(s): S06.0XAA - Concussion with loss of consciousness status unknown, initial encounter Plan: Concu ssion?after?mechanical?trip?and?fall?in?a?patient?with?leg?weakness?and?left?belinda t?pain. Had?ordered?physical?therapy?as?well?as?advised?she?contact?her?stoneworking belt sander?again . She?had?mild?dizziness?but?workup?was?otherwise?negative Scalp?laceration?was?repaired?with?skin?adhesive Patient?was?discharged?from?ED?on?same-day?as?evaluation?and?advised?to?follow-u p?with?PCP. Has?dizziness?and?has?a?history?of?vertigo She?also?notes?some?changes?in?temperature?regulation. Neuro?exam?today?is?within?normal?limits?except?lower?extremity?weakness?without ?focal?neurologic?deficit Referred?back?to?her?neurologist (2) Scalp laceration: Code(s): S01.01XA - Laceration without foreign body of scalp, initial encounter Plan: Repaired?with?skin?adhesive No?evidence?of?infection She?can?shower - do?not?scrub Should?continue?to?resolve?spontaneously (3) Leg weakness: Code(s): R29.898 - Other symptoms and signs involving the musculoskeletal system Plan: As?above,?had?recommended?physical?therapy (4) Left foot pain: Code(s): M79.672 - Pain in left foot Plan: Xray showed: 1. 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 2. There is a large bunion. 3. There are small posterior and large plantar calcaneal spurs. Patie nt?had?said?she?would?call?her?stoneworking belt sander?at?her?last?visit?with?me?in?December. Referred?to?new?stoneworking belt sander?as?her?old?stoneworking belt sander?has?retired (5) Vertigo: Code(s): R42 - Dizziness and giddiness Plan: Vertigo?continues?and?is?worsened Referred?for?physical?therapy (6) Mild anemia: Code(s): D64.9 - Anemia, unspecified Plan: Mild?anemia Will?recheck?CBC (7) Hypercholesterolemia: Code(s): E78.00 - Pure hypercholesterolemia, unspecified Plan: Will?recheck?lipids?with?next?lab?draw Encouraged?a?diet?lower?in?saturated?fats?and?cholesterol (8) Cervicalgia: Code(s): M54.2 - Cervicalgia Plan: Cervicalgia?after?fall Normal?range?of?motion Likely?mild?whiplash Referred?to?physical?therapy Orders: Orders Lipid Panel Today E78.00 - Pure hypercholesterolemia, unspecified, Z00.00 - Encounter for general adult medical examination without abnormal findings Comprehensive [place]. Panel Fast Today E78.00 - Pure hypercholesterolemia, unspecified, Z00.00 - Encounter for general adult medical examination without abnormal findings PT Evaluation and Treatment Today M54.2 - Cervicalgia, R42 - Dizziness and giddiness, S06.0XAA - Concussion with loss of consciousness status unknown, initial encounter Complete Blood Count Auto Diff Today D64.9 - Anemia, unspecified, Z00.00 - Encounter for general adult medical examination without abnormal findings Referrals Neurology Referral R26.89 - Other abnormalities of gait and mobility, R26.9 - Unspecified abnormalities of gait and mobility, R29.898 - Other symptoms and signs involving the musculoskeletal system, R42 - Dizziness and giddiness, S06.0XAA - Concussion with loss of consciousness status unknown, initial encounter Podiatry Referral M79.672 - Pain in left foot Coding Level of Care Code Est Pt Level 4 (52451) Diagnoses Concussion S06.0XAA Scalp laceration S01.01XA Leg weakness R29.898 Left foot pain M79.672 Vertigo R42 Mild anemia D64.9 Hypercholesterolemia E78.00 Cervicalgia M54.2
[2024-03-12 13:36] VITALS: BP 133/58; PULSE 79; RESP 16; TEMP 37.8; O2SAT 98; BMI 27.8
[2024-03-12 13:42] VITALS: TEMP 37.7
[2024-03-12 13:45] VITALS: TEMP 37.2
== END 2024-03-12 14:15 | disposition home or self-care (01) ==
PROVIDERS: PCP Family Medicine; Visit Provider Family Medicine
DX: S06.0XAA Concussion with loss of consciousness status unknown, initial encounter (principal); S01.01XA Laceration without foreign body of scalp, initial encounter; R29.898 Other symptoms and signs involving the musculoskeletal system; M79.672 Pain in left foot; R42 Dizziness and giddiness; D64.9 Anemia, unspecified; E78.00 Pure hypercholesterolemia, unspecified; M54.2 Cervicalgia
CPT/HCPCS: 99214

== ENCOUNTER 2024-04-08 10:55 | Outpatient (AMB) | payer MEDICARE, SELFPAY ==
--- NOTE | 2024-04-08 11:36 | AM.OFFVISNUR ---
Intake Visit Reasons: B12 shot Allergies codeine Allergy (Mild, Verified 03/12/24 13:33) Vomiting Nursing Note pt is here for her vitamin B12 injection. given left deltoid. Office Meds cyanocobalamin (vitamin B-12) 1,000 mcg/mL injection solution Performing Provider: Andrew Chino MD Performing Location: [facility] Administered by: Kirsten De La Torre RN on 04/08/24 11:36 Dose Route Admin Location Dispensed Lot Number Expiration Date [facility] Tax Services Manager 1,000 mcg IM left deltoid 1 mL [id number] 03/13/25 78577-646-38 [employer]ARMACE[employer] Assessment & Plan Assessment & Plan Orders: Orders AMB Vitamin B12 Injection Patient Supplied Today R53.83 - Other fatigue Medications: New cyanocobalamin (vitamin B-12) 1,000 mcg IM ONCE 1 mL 0RF R53.83 - Other fatigue
== END 2024-04-08 11:10 | disposition home or self-care (01) ==
PROVIDERS: PCP Family Medicine; Visit Provider Family Medicine
DX: R53.83 Other fatigue (principal)
CPT/HCPCS: J3420

== ENCOUNTER → 2024-04-08 10:55 | Outpatient (BNVA) | payer MEDICARE, SELFPAY | PROVIDERS: PCP Family Medicine; Visit Provider Family Medicine | DX: R53.83 Other fatigue (principal) | CPT/HCPCS: 96372 ==

== ENCOUNTER 2024-04-12 14:31 | Outpatient (AMB) | payer MEDICARE, SELFPAY ==
--- NOTE | 2024-04-12 14:38 | MHC.PC.OV ---
Vital Signs 04/12/24 14:41 Height 5 ft 1.65 in Weight 153 lb 6 oz BMI 28.4 BP 120/62 Blood Pressure Location Lt brachial Position Sitting Respiration 16 Pulse 67 Pulse Source Pulse Oximeter Pulse Oximetry (%) 97 Oxygen Delivery Method Room Air Intake Visit Reasons: f/u LE weakness, vertigo, chronic conditions Intake Note: f/u for weakness, vertigo,chronic condition med refill for benzonatate Allergies codeine Allergy (Mild, Verified 04/12/24 14:39) Vomiting Medication List - Last Reconciled 04/12/24 by Andrew Chino MD alendronate 70 mg PO QWEEK 28 days benzonatate 200 mg PO BID PRN budesonide DR-ER 3 mg PO DAILY calcium polycarbophil (FiberCon) 625 mg PO DAILY 30 days carbamide peroxide 6.5% (Debrox) 5 drps otic (ears) .Once a week 30 days cyanocobalamin (vitamin B-12) 1,000 mcg IM Q4W 84 days erenumab-aooe (Aimovig Autoinjector) mg subcut fluoxetine 40 mg PO DAILY 90 days hydroxyzine HCl 50 mg PO DAILY PRN 30 days naproxen 500 mg PO BID 90 days pantoprazole 40 mg PO BID prednisone 40 mg (2 x 20 mg) PO DAILY 4 days Tobacco use date assessed: 10/31/23 Dental Screening Dental Screen Date: 10/31/23 HPI f/u LE weakness, vertigo, chronic conditions HPI Details 83 y/o female presents to f/u LE weakness, vertigo, chronic conditions. She notes she has not had any more falls since the last month. She does report ongoing vertigo. She does not have an appt. for vestibular rehab but states she plans to go. Has complaints of a cough. She notes she thinks this is from allergies. HPI Comments History of Present Illness Details Documentation assistance for Andrew Chino MD, was provided by Kris Carter, Sales Merchandise Associate on 04/12/2024 at 3:10 PM EST. I, Dr. Chino, have read, observed, and verified documentation. [facility] Medical History Anxiety Failed total right knee replacement Surgical History History of appendectomy Family History (Updated 10/31/23 @ 10:39 by Radha Mills [facility]) Father Prostate cancer Mother Cancer Paternal family history of mental health disorder Social History Housing: House Patient Tobacco Use Status: Never used Tobacco e-Cigarette/Vaping Use: Never Used service: No Current occupational status: retired Cognitive needs: No Hearing needs: No Vision needs: No Questionnaire Thrive Questionnaire Date Thrive assessed: 10/31/23 FADY-7 AMB Questionnaire FADY-7 Date FADY - 7 assessed: 10/31/23 Source: Developed by Drs. Doron Decker, Bella Wood, Jason Monique and colleagues, with an educational antonio from [employer]. Review of Systems Const Denies chills, Denies fatigue, Denies fever(s), Denies headache(s) and Denies weakness ENT Denies dizziness and Denies headache(s) Card Denies dyspnea Resp Denies cough, Denies dyspnea, Denies wheezing and Denies other (shortness of breath) Musc Denies numbness and Denies tingling Neuro Denies dizziness, Denies headache(s), Denies numbness, Denies tingling and Denies weakness Psych Denies anxiety and Denies depression Endo Denies fatigue Aller/Immun Denies wheezing Physical exam (Primary Care) Vital Signs: Last Vital Signs Pulse 67 04/12/24 14:41 Resp 16 04/12/24 14:41 BP 120/62 04/12/24 14:41 Pulse Ox 97 04/12/24 14:41 Oxygen Delivery Method Room Air 04/12/24 14:41 BMI result Body Mass Index 28.4 Tobacco/Smoking Status: Tobacco use Status Tobacco use date assessed 10/31/23 04/12/24 14:44 Patient Tobacco Use Status Never used Tobacco 04/12/24 14:44 e-Cigarette/Vaping Use Never Used 04/12/24 14:44 Thrive Assessment: Date of Thrive Assessment Date Thrive assessed 10/31/23 04/12/24 14:44 Const General: well developed; No acute distress Nutritional Appearance: well nourished Orientation/consciousness: patient oriented x3 HENMT Head: Yes normocephalic and Yes atraumatic Eyes General: appearance normal, both eyes and all related structures Pupils: Equal, round and reactive pupils present EOM: EOMs intact bilaterally Resp Other: Coarse breath sounds Effort & Inspection: normal respiratory effort Auscultation: clear to auscultation bilaterally Cardio Rate: regular rate Rhythm: regular rhythm Heart sounds: S1 normal heart sound present, S2 normal heart sound present, no gallops, no murmurs and no rubs Neuro General: patient oriented x3 and gait normal Cranial nerves: Yes Equal, round and reactive pupils present Psych Affect: normal affect Assessment and Plan Assessment & Plan (1) Concussion: Code(s): S06.0XAA - Concussion with loss of consciousness status unknown, initial encounter (2) Vertigo: Code(s): R42 - Dizziness and giddiness (3) Leg weakness: Code(s): R29.898 - Other symptoms and signs involving the musculoskeletal system (4) Cough: Code(s): R05.9 - Cough, unspecified Qualifiers: Cough type: subacute Qualified Code(s): R05.2 - Subacute cough Orders: Orders Comprehensive Met. Panel Today R26.89 - Other abnormalities of gait and mobility Complete Blood Count Auto Diff Today R26.89 - Other abnormalities of gait and mobility, Z00.00 - Encounter for general adult medical examination without abnormal findings Vitamin B12 and Folate Today E53.8 - Deficiency of other specified B group vitamins, R26.89 - Other abnormalities of gait and mobility Medications: Changed From benzonatate 200 mg PO BID PRN 20 caps 0RF cough To benzonatate 200 mg PO BID 30 days PRN 60 caps 1RF cough Coding Level of Care Code Est Pt Level 4 (80288) Diagnoses Concussion S06.0XAA Vertigo R42 Leg weakness R29.898 Subacute cough R05.2 Cough type: subacute
[2024-04-12 14:41] VITALS: BP 120/62; PULSE 67; RESP 16; O2SAT 97; BMI 28.4
== END 2024-04-12 15:25 | disposition home or self-care (01) ==
PROVIDERS: PCP Family Medicine; Visit Provider Family Medicine
DX: S06.0XAA Concussion with loss of consciousness status unknown, initial encounter (principal); R42 Dizziness and giddiness; R29.898 Other symptoms and signs involving the musculoskeletal system; R05.2 Subacute cough

== ENCOUNTER → 2024-04-12 14:31 | Outpatient (BNVA) | payer MEDICARE, SELFPAY | PROVIDERS: PCP Family Medicine; Visit Provider Family Medicine | DX: R42 Dizziness and giddiness (principal); R29.898 Other symptoms and signs involving the musculoskeletal system; R05.2 Subacute cough; S06.0XAA Concussion with loss of consciousness status unknown, initial encounter | CPT/HCPCS: 99212 ==

== ENCOUNTER 2024-05-06 10:13 | Outpatient (AMB) | payer MEDICARE, SELFPAY ==
--- NOTE | 2024-05-06 10:26 | AM.OFFVISNUR ---
Intake Visit Reasons: b12 shot Allergies codeine Allergy (Mild, Verified 04/12/24 14:39) Vomiting Office Meds cyanocobalamin (vitamin B-12) 1,000 mcg/mL injection solution Performing Provider: Andrew Chino MD Performing Location: [facility] [place] [facility] Administered by: Dara Monte RN on 05/06/24 10:30 Dose Route Admin Location Dispensed Lot Number Expiration Date [facility] Leave Manager 1,000 mcg IM Left Deltoid 1 mL [id number] 03/13/25 02173-156-77 DEZ PHARMACEUT Assessment & Plan Assessment & Plan Orders: Orders AMB Vitamin B12 Injection Patient Supplied Today R53.83 - Other fatigue Medications: New cyanocobalamin (vitamin B-12) 1,000 mcg IM ONCE 1 mL 0RF R53.83 - Other fatigue
== END 2024-05-06 10:27 | disposition home or self-care (01) ==
PROVIDERS: PCP Family Medicine; Visit Provider Family Medicine
DX: R53.83 Other fatigue (principal)
CPT/HCPCS: J3420

== ENCOUNTER → 2024-05-06 10:13 | Outpatient (BNVA) | payer MEDICARE, SELFPAY | PROVIDERS: PCP Family Medicine; Visit Provider Family Medicine | DX: R53.83 Other fatigue (principal) | CPT/HCPCS: 96372 ==

== ENCOUNTER 2024-06-03 10:43 | Outpatient (AMB) | payer MEDICARE, SELFPAY ==
--- NOTE | 2024-06-03 11:17 | AM.OFFVISNUR ---
Intake Visit Reasons: B-12 shot Hand Mexican Food Maker Required: No Supervisor Alum Plant: Supervisor Alum Plant Present Accompanied by: Self / Same As Patient Allergies codeine Allergy (Mild, Verified 04/12/24 14:39) Vomiting Nursing Note pt is here for her Vitamin B12 injection. pt gave me an layla't paper for dr wisam cobb at [facility] on 06/15/24 at 1pm. I will give to the commercial front load driver to add to her chart. Office Meds cyanocobalamin (vitamin B-12) 1,000 mcg/mL injection solution Performing Provider: Andrew Chino MD Performing Location: [facility] [place] [facility] Administered by: Kirsten De La Torre RN on 06/03/24 11:22 Dose Route Admin Location Dispensed Lot Number Expiration Date [facility] Build And Release Manager 1,000 mcg IM 1 mL [id number] 03/13/25 18558-979-44 DEZ PHARMACEUT Comments: Assessment & Plan Assessment & Plan Orders: Orders AMB Vitamin B12 Injection Patient Supplied 06/03/24 R53.83 - Other fatigue
== END 2024-06-03 11:30 | disposition home or self-care (01) ==
PROVIDERS: PCP Family Medicine; Visit Provider Family Medicine
DX: R53.83 Other fatigue (principal)

== ENCOUNTER → 2024-06-03 10:43 | Outpatient (BNVA) | payer MEDICARE, SELFPAY | PROVIDERS: PCP Family Medicine; Visit Provider Family Medicine | DX: R53.83 Other fatigue (principal) | CPT/HCPCS: 96372; J3420 ==

== ENCOUNTER 2024-07-01 10:20 | Outpatient (AMB) | payer MEDICARE, SELFPAY ==
--- OUTSIDE RECORDS SUMMARY | 2024-07-01 10:24 | XMS_ITS | Continuity of Care Document ---
Author Organization [facility] Address [address] [place] [id number]- Care Team Providers Care Skein Yarn Dyer Helper Name Role Phone Lulú OBRIEN, Andrew Celeste Primary Care Physician [phone] [id number] Date(s): 04/21/24 - 06/17/[address] [address] Encounter Diagnosis Migraine, unspecified, not intractable, without status migrainosus(Final) - Discharge Disposition: A-D/C Home Attending Physician: Gonzalo Levi NP Admitting Physician: Gonzalo Levi NP Referring Physician: Gonzalo Levi NP Encounter Type: Disch Recurring OP Allergies, Adverse Reactions, Alerts Substance Criticality Severity Reaction Reaction Severity Status codeine 1 Dizziness - light-headed Active 1vomiting Medications Aimovig SureClick Autoinjector 70 mg/mL subcutaneous solution = 70 mg, Subcutaneous Infusion, Every 28 days, # 3 each, 3 Refills, Maintenance, 09/25/23 12:47:00 PM EDT, MedVantx, 155, cm, 07/06/23 19:21:00 EST, Height, 68.5, kg, 07/06/23 19:21:00 EST, Dry Weight Start Date: 09/25/23 Status: Ordered Quantity: 3.0 Unit: each Repeat number: 4 B 100 Complex 1 tablet, By Mouth, Daily, 0 Refills, Maintenance, 01/13/19 3:00:25 PM EDT Start Date: 01/13/19 Status: Ordered Repeat number: 1 budesonide 3 mg oral delayed release capsule 1 capsule = 3 mg, By Mouth, Every 48 hours, 0 Refills, Maintenance, 01/13/19 2:50:13 PM EDT Start Date: 01/13/19 Status: Ordered Repeat number: 1 FLUoxetine 40 mg oral capsule 1 capsule = 40 mg, By Mouth, Daily, 0 Refills, Maintenance, 01/13/19 2:55:20 PM EDT Start Date: 01/13/19 Status: Ordered Repeat number: 1 Vitamin A 20,000 daily, 0 Refills, Maintenance, 01/13/19 2:51:48 PM EDT Start Date: 01/13/19 Status: Ordered Repeat number: 1 Vitamin C 1000 mg oral tablet 1 tablet = 1,000 mg, By Mouth, Daily, 1000 mg daily, # 30 tablet, 0 Refills, Maintenance, 01/13/19 2:52:03 PM EDT, Tablet Start Date: 01/13/19 Status: Ordered Quantity: 30.0 Unit: tablet Repeat number: 1 Vitamin D3 By Mouth, 4,000 daily, 0 Refills, Maintenance, 01/13/19 2:51:40 PM EDT Start Date: 01/13/19 Status: Ordered Repeat number: 1 Problem List Condition Confirmation Course Effective Dates Status Health St atus Informant Cervical disc disease Confirmed Active COVID-19 1 Confirmed 07/06/23 Active Head ache Confirmed Active DJD (degenerative joint disease) Confirmed Active 1Problem added by Discern Expert Social History Social History Type Response Smoking Status Never (less than 100 in lifetime) entered on: 01/13/19 Sex Sex Representation Female (finding) Patient Care team information Care Team Personnel Name: Andrew Chnio MD Position: [facility] Outreach Member Role: PCP [address]: [address] [place] [address]- Telecom: Care Team Related Persons Name: YAJAIRA LECHUGA Name: JENNIFER BARDALES Insurance Providers Guarantor name: YAJAIRA BARDALES Health Plan Information #: 2 Payer: [facility] SUP Member Number: [id number] Policy Number: NA Group Number: NA Health Plan Information #: 1 Payer: MEDICARE PART B OUTPT Member Number: [id number] Policy Number: NA Group Number: NA
--- OUTSIDE RECORDS SUMMARY | 2024-07-01 10:25 | XMS_ITS | Continuity of Care Document ---
Author Organization [place] - [facility], [facility] Address [address] [place] [address] Care Team Providers Care Candy Cooker Helper Name Role Phone VINICIUS LLOYD Primary Care Provider Assessment Encounter Date Assessment Date Assessment LastModified by Organization Details LastModified Time 04/28/2024 04/28/2024 83 year-old female presents for cerumen impaction removal. No acute issues since last visit. Cerumen impaction removed bilaterally, which patient tolerated well. Otologic exam demonstrated TMs are intact with well-aerated middle ear spaces. Recommend 3-4 month follow-up for cerumen removal, sooner with issues. [email or web address] Not available 04/28/2024 11:49:11 Plan of Treatment Reminders Order Date Submit Date Provider Last Modified By Organization Details Last Modified Time Details Appointments Establish ed 15 2024 01:00P M QUINCY HOLLINS PA-C Not available Not available Not available Lab None recorded. Referral None recorded. Procedures None recorded. Surgeries None recorded. Imaging None recorded. Medication Orders None recorded. Patient TargetsNo targets recorded. Patient InstructionsNo instructions recorded. Reason for Referral None Reported. Problems Name Problem SNOMED Code Status Onset Date Resolution Date Notes Provider Name and Address Organization Details Recorded Time Impacted cerumen 00392332 Active 2013 Impacted cerumen; Location: bilateral CMS Risk: low risk Cond ition: uncontrol led Not Available [facility] 4 03:04:47 Sensorine ural hearing loss of bilateral ears 979537708 Active 2019 Sensorine ural hearing loss, bilateral ; Note: Date Diagnosed : 09/21/2019 3:19 PM (H90.3) Not Available [facility] 4 03:04:49 Impacted cerumen of bilateral ears 08096842847 07439 Active 2015 Impacted cerumen, bilateral ; Note: Date Diagnosed : 09/05/2015 2:29 PM (H61.23) Not Available [facility] 4 03:04:47 Cough 01596605 Active 2022 Cough; Note: Date Diagnosed : 3 12:02 PM (R05) Not Available [facility] 4 03:04:47 Pain of right temporoma ndibular joint 19067968286 712963 Active 2015 Arthralgi a of right temporoma ndibular joint; Note: Changed from M26.62 to M26.621 (05/24/20 16 3:21 PM) , Date Diagnosed : 6 10:52 AM (M26.62) Not Available [facility] 4 03:04:49 Impaired auditory discrimin ation 728669600 Active 2014 Hearing loss; Note: Date Diagnosed : 11/22/2014 11:19 AM (388.43) Not Available [facility] 4 03:04:48 Dizziness and giddiness 878272280 Active 2018 Dizziness and giddiness ; Note: Date Diagnosed : 9 12:29 PM (R42) Not Available [facility] 4 03:04:49 Posterior rhinorrhe a 97192329 Active 2022 Postnasal drip; Note: Date Diagnosed : 3 12:02 PM (R09.82) Postnas al drip; Note: Date Diagnosed : 07/17/2016 1:28 PM (R09.82) ; Start Date : 7 Not Available [facility] 4 03:04:48 Common cold 32148151 Active 2022 Acute rhinitis; Note: Date Diagnosed : 3 12:02 PM (J00) Not Available [facility] 4 03:04:46 Impacted cerumen in right ear 13356399230 15170 Active 2014 Impacted cerumen, right ear; Note: Date Diagnosed : 5 1:33 PM (H61.21) Not Available [facility] 4 03:04:47 Benign paroxysma l positiona l vertigo 064452376 Active 2018 Benign paroxysma l vertigo, right ear; Note: Date Diagnosed : 9 11:55 AM (H81.11) Not Available [facility] 4 03:04:48 Bleeding from nose 856809633 Active 2018 Epistaxis ; Note: Date Diagnosed : 12/21/2018 11:43 AM (R04.0) Not Available [facility] 4 03:04:48 Allergic rhinitis 93383974 Active 2015 Allergic rhinitis, unspecifi ed; Note: Date Diagnosed : 12/12/2015 1:44 PM (J30.9) Not Available [facility] 4 03:04:48 Problem Notes None recorded. Procedures Surgical History Date Name Laterality Status Provider Name and Address Organization Details Recorded Time 4 Cerumen removal without microscope bilat completed MATT PERKINS [address], [address], [facility] 04/28/2024 11:47:31 4 Cerumen removal without microscope bilat completed QUINCY HOLLINS [address], [address], [facility] 01/27/2024 11:59:00 Imaging Results None recorded. Procedure Notes None recorded. Medical Equipment None Reported. Allergies Allergen ID Allergen Name Allergen Category Reaction Reaction Severity Criticality Documentation Date Start Date Code Code System Note Provider Name and Address Organization Details Recorded Time 710744 codeine sulfate medicatio n other Not available Not available 11/25/2023 95115 RxNorm React ion: unkno wn, unspe cifie d;; Not Available [facility] 4 01:22:29 678546 acetamino phen medicatio n other Not available Not available 11/25/2023 161 RxNorm React ion: unkno wn, unspe cifie d;; Not Available [facility] 4 01:22:30 Medications Name Sig Start Date Stop Date Status Note LastModified by Organization Details LastModified Time fluoxetin e 40 mg capsule TAKE ONE CAPSULE BY MOUTH EVERY DAY active Not Available Not Available No t Available amoxicill in 500 mg capsule TAKE FOUR CAPSULES BY MOUTH ONE HOUR PRIOR TO PROCEDUR E active Not Available Not Available No t Available doxycycli ne hyclate 100 mg capsule TAKE ONE CAPSULE BY MOUTH TWICE A DAY FOR 7 DAYS . TAKE WITH A MEAL AND GLASS OF WATER active Not Available Not Available No t Available benzonata te 200 mg capsule TAKE ONE CAPSULE BY MOUTH TWICE A DAY NEEDED FOR COUGH active Not Available Not Available No t Available Lotrisone 1 %-0.05 % topical cream 01/09 completed Medicati on ID: [id number] Shawn aquino By Name: MILIND Melvin nd Name: Lotrison e Send Method: E-Prescr ibed Sub s Allowed: subs OK Speci al Instruct ion: apply to external ear tid X 2 weeks Me dication GenericN bri: Lotrison e Not Available Not Available Not Available clotrimaz ole-betam ethasone 1 %-0.05 % lotion 01/09 completed Medicati on ID: [id number] R graeme: () Brand Name: Lotrison e Send Method: E-Prescr ibed Sub s Allowed: subs OK Speci al Instruct ion: apply to external ear tid X 2 weeks Me dication GenericN bri: Lotrison e Not Available Not Available Not Available prednison e 20 mg tablet TAKE TWO TABLETS BY MOUTH EVERY DAY X 4 DAYS active Not Available Not Available No t Available alendrona te 70 mg tablet TAKE 1 TABLET BY MOUTH ONCE WEEKLY WITH 8 OZ OF WATER. STAY UPRIGHT AND DO NOT LIE DOWN. AVOID FOOD AND DRINK FOR 30 MINUTES. active Not Available Not Available No t Available meclizine 12.5 mg tablet active Medicati on ID: [id number] B rand Name: meclizin e Send Method: E-Prescr ibed Sub s Allowed: subs OK Medic ationGen ericName : meclizin e Not Available Not Available Not Available hydroxyzi ne HCl 50 mg tablet TAKE ONE TABLET BY MOUTH EVERY DAY NEEDED FOR SLEEP active Not Available Not Available No t Available sulfameth oxazole 800 mg-trimet hoprim 160 mg tablet 10/07 completed Medicati on ID: [id number] Du ration Value: 7 Reason: () Brand Name: sulfamet hoxazole -trimeth oprim Se nd Method: E-Prescr ibed Sub s Allowed: subs OK Medic ationGen ericName : sulfamet hoxazole -trimeth oprim Not Available Not Available Not Available butalbita l-acetami nophen-ca ffeine 50 mg-325 mg-40 mg tablet 01/09 completed Medicati on ID: [id number] Du ration Value: 15 Reason: () Brand Name: butalbit al-aceta minophen -caff Se nd Method: E-Prescr ibed Sub s Allowed: subs OK Medic ationGen ericName : butalbit al-aceta minophen -caff Not Available Not Available Not Available pantopraz ole 40 mg tablet,de layed release active Medicati on ID: [id number] B rand Name: pantopra zole Sen d Method: E-Prescr ibed Sub s Allowed: subs OK Medic ationGen ericName : pantopra zole Not Available Not Available Not Available cyanocoba gricelda (vit B-12) 1,000 mcg/mL injection solution INJECT 1000 MCG INTRAMUS CULARLY EVERY 4 WEEKS active Not Available Not Available No t Available hydrochlo rothiazid e 25 mg tablet active Medicati on ID: [id number] B rand Name: hydrochl orothiaz mary kay Send Method: E-Prescr ibed Sub s Allowed: subs OK Medic ationGen ericName : hydrochl orothiaz mary kay Not Available Not Available Not Available budesonid e DR - ER 3 mg capsule,d elayed,ex tended release 10/04 completed Medicati on ID: [id number] D uration Value: 14 Brand Name: budgarry oseguera Send Method: E-Prescr ibed Sub s Allowed: subs OK Speci al Instruct ion: TAKE THREE CAPSULES BY MOUTH EVERY DAY FOR 14 DAYS Med icationG enericNa me: budrosalieoni oumar Not Available Not Available Not Available fluoxetin e 20 mg capsule 01/09 completed Medicati on ID: [id number] D uration Value: 90 Reason: () Brand Name: fluoxeti ne Send Method: E-Prescr ibed Sub s Allowed: subs OK Speci al Instruct ion: TAKE ONE CAPSULE BY MOUTH EVERY DAY Medi cationGe nericNam e: fluoxeti ne Not Available Not Available Not Available doxycycli ne hyclate 100 mg tablet TAKE 1 TABLET (100 MG TOTAL) BY MOUTH TWICE A DAY FOR 7 DAYS NOT FOR PREGNANC Y OR LACTATIO N active Not Available Not Available No t Available naproxen 500 mg tablet active Medicati on ID: [id number] B rand Name: naproxen Send Method: E-Prescr ibed Sub s Allowed: subs OK Medic ationGen ericName : naproxen Not Available Not Available Not Available diazepam 5 mg tablet 2019 active Medicati on ID: [id number] D uration Value: 30 Brand Name: diazepam Send Method: E-Prescr ibed Sub s Allowed: subs OK Speci al Instruct ion: TAKE ONE TABLET BY MOUTH EVERY DAY NEEDED M edicatio nGeneric Name: diazepam Not Available Not Available Not Available DermOtic Oil 0.01 % ear drops 5 drop 01/09 completed Medicati on ID: [id number] Pr escribed By Name: Radha Whitaker nd Name: DermOtic Oil Send Method: E-Prescr ibed Sub s Allowed: subs OK Medic ationGen ericName : DermOtic Oil Not Available Not Available Not Available GaviLyte- G 236 gram-22.7 4 gram-6.74 gram-5.86 gram oral solution 04/10 completed Medicati on ID: [id number] D uration Value: 1 Reason: () Brand Name: GaviLyte -G Send Method: E-Prescr ibed Sub s Allowed: subs OK Medic ationGen ericName : GaviLyte -G Not Available Not Available Not Available Aimovig Autoinjec tor 70 mg/mL subcutane ous auto-inje ctor 2019 active Medicati on ID: [id number] B rand Name: Aimovig Autoinje ctor Sen d Method: E-Prescr ibed Sub s Allowed: subs OK Medic ationGen ericName : Aimovig Autoinje ctor Not Available Not Available Not Available Vitals Date Recorded Body height Body mass index (BMI) Body weight Provider Name and Address Organization Details Last Updated DateTime 04/28/2024 152.4 cm 29.3 kg/m2 52896.86 g Colton Birminghams [place] - [facility] 04/28/2024 11:20:11 Social History None recorded. Functional Status None recorded. Mental Status None recorded. Family History Nothing Reported. Medical History No medical history recorded. Gynecological HistoryNo gynecological history recorded. Obstetrics History GPAL:G 0 P 0 0 0 0 Past Encounters Encounter ID Performer Location Encounter Start Date Encounter Closed Date Diagnosis/Indication Diagnosis SNOMED-CT Code Diagnosis ICD10 Code [id number] NEGRITO LNY MD [facility] [address] [address] 04/28/2024 11:17:31 04/28/2024 11:45:37 Impacted cerumen of bilateral ears [id number] 186791 H61.23 Health Concerns Section Related Observation LastModified by Organization Detai ls LastModified Time None Recorded Concern Status LastModified by Organization Details LastModified Time None Recorded Payers Encounter Date Sequence Insurance Name Policy Number Policy Prado Covered Member ID Prado Member ID Guarantor Name 04/28/2024 1 [place] [employer] Loren Brioneschidi [id number] Loren Morel Leonard 04/28/2024 2 [employer] - OPTIONS Loren Beckfordrafia [id number] Loren Morel Leonard Notes Date Note Type Note Provider Name and Address Organization Details Recorded Time 04/28/2024 text/html 83 year-old female presents for evaluation of the ears. Reports ears feel full. No change in hearing. Denies otalgia or otorrhea. NEGRITO CHAPMAN MD [address] [place] [address], [phone], [facility] - [facility] 04/28/2024 17:14:13 OBGyn Episode No OBEpisode recorded.
--- OUTSIDE RECORDS SUMMARY | 2024-07-01 10:25 | XMS_ITS | Data Portability ---
Author Organization [place] - [facility], Allergy Address [address] [address] Care Team Providers Care Supervisor Rubber Covering Name Role Phone VINICIUS LLOYD Primary Care Provider Assessment Encounter Date Assessment Date Assessment LastModified by Organization Details LastModified Time 01/27/2024 01/27/2024 Patient presents for cerumen removal. Cerumen removed bilaterally without difficulty. Follow up as scheduled for repeat procedure. [email or web address] Not available 01/27/2024 11:59:09 04/28/2024 04/28/2024 83 year-old female presents for [...] instructions recorded. Reason for Referral None Reported. Results Created Date Observation Date Name Description Value Unit Range Abnormal Flag Note LastModifiedBy Organization Detail LastModifiedTime 03/03/20 24 09/21/2019 imagi ng/di agnos tic resul t No observ ation record ed. [email or web address] Not Available 07:42:11 03/03/20 24 09/21/2019 audio gram No observ ation record ed. [email or web address] Not Available 07:42:30 Result Notes None recorded. Problems Name Problem SNOMED Code Status Onset Date Resolution Date Notes Provider Name and Address Organization Details Recorded Time Impacted cerumen 47212983 Active 2013 Impacted cerumen; Location: bilateral CMS Risk: low risk Cond ition: uncontrol led Not Available [facility] 4 03:04:47 Sensorine ural hearing loss of bilateral ears 878557492 Active 2019 Sensorine ural hearing loss, bilateral ; Note: Date Diagnosed : 09/21/2019 3:19 PM (H90.3) Not Available [facility] 4 03:04:49 Impacted cerumen of bilateral ears 12668855316 39785 Active 2015 Impacted cerumen, bilateral ; Note: Date Diagnosed : 09/05/2015 2:29 PM (H61.23) Not Available [facility] 4 03:04:47 Cough 42764379 Active 2022 Cough; Note: Date Diagnosed : 3 12:02 PM (R05) Not Available [facility] 4 03:04:47 Pain of right temporoma ndibular joint 21474275543 638633 Active 2015 Arthralgi a of right temporoma ndibular joint; Note: Changed from M26.62 to M26.621 (05/24/20 16 3:21 PM) , Date Diagnosed : 6 10:52 AM (M26.62) Not Available [facility] 4 03:04:49 Impaired auditory discrimin ation 192389391 Active 2014 Hearing loss; Note: Date Diagnosed : 11/22/2014 11:19 AM (388.43) Not Available [facility] 4 03:04:48 Dizziness and giddiness 101931353 Active 2018 Dizziness and giddiness ; Note: Date Diagnosed : 9 12:29 PM (R42) Not Available [facility] 4 03:04:49 Posterior rhinorrhe a 41985529 Active 2022 Postnasal drip; Note: Date Diagnosed : 3 12:02 PM (R09.82) Postnas al drip; Note: Date Diagnosed : 07/17/2016 1:28 PM (R09.82) ; Start Date : 7 Not Available [facility] 4 03:04:48 Common cold 19765188 Active 2022 Acute rhinitis; Note: Date Diagnosed : 3 12:02 PM (J00) Not Available [facility] 4 03:04:46 Impacted cerumen in right ear 37664470800 65362 Active 2014 Impacted cerumen, right ear; Note: Date Diagnosed : 5 1:33 PM (H61.21) Not Available [facility] 4 03:04:47 Benign paroxysma l positiona l vertigo 065271709 Active 2018 Benign paroxysma l vertigo, right ear; Note: Date Diagnosed : 9 11:55 AM (H81.11) Not Available [facility] 4 03:04:48 Bleeding from nose 068455457 Active 2018 Epistaxis ; Note: Date Diagnosed : 12/21/2018 11:43 AM (R04.0) Not Available [facility] 4 03:04:48 Allergic rhinitis 13753003 Active 2015 Allergic rhinitis, unspecifi ed; Note: Date Diagnosed : 12/12/2015 1:44 PM (J30.9) Not Available [facility] 4 03:04:48 Problem Notes None recorded. Procedures Surgical History Date Name Laterality Status Provider Name and Address Organization Details Recorded Time 4 Cerumen removal without microscope bilat completed MATT PERKINS PA-C [address] [place] [address], [phone], [facility] - [facility] 04/28/2024 11:47:31 4 Cerumen removal without microscope bilat completed QUINCY HOLLINS PA-C [address] [facility],[address], [address], [place] - [facility] 01/27/2024 11:59:00 Imaging Results Imaging Date Name Status LastModified by Organiz ation Details LastModified Time 09/21/2019 imaging/diagno stic result completed Information not available 03/03/2024 07:42:11 09/21/2019 audiogram completed Information not available 03/03/2024 07:42:30 Procedure Notes None recorded. Medical Equipment None Reported. Allergies Allergen ID Allergen Name Allergen Category Reaction Reaction Severity Criticality Documentation Date Start Date Code Code System Note Provider Name and Address Organization Details Recorded Time 388600 codeine sulfate medicatio n other Not available Not available 11/25/2023 76355 RxNorm React ion: unkno wn, unspe cifie d;; Not Available [facility] 4 01:22:29 475948 acetamino phen medicatio n other Not available Not available 11/25/2023 161 RxNorm React ion: unkno wn, unspe cifie d;; Not Available [facility] 4 01:22:30 Medications Name Sig Start Date [...] topical cream 01/09 completed Medicati on ID: [id number] P reedriwhit d By Name: MILIND Melvin nd Name: Lotrison e Send Method: E-Prescr ibed Sub s Allowed: subs OK Speci al Instruct ion: apply to external ear tid X 2 weeks Me dication GenericN bri: Lotrison e Not Available Not Available Not Available clotrimaz ole-betam ethasone 1 %-0.05 % lotion 01/09 completed Medicati on ID: [id number] R graeme: () Brand Name: Lotrison e [...] 12.5 mg tablet active Medicati on ID: [id number] B rand Name: meclizin e Send Method: E-Prescr ibed Sub s Allowed: subs OK Medic ationGen ericName : meclizin e Not Available Not Available Not Available hydroxyzi ne HCl 50 mg tablet TAKE ONE TABLET BY MOUTH EVERY DAY NEEDED FOR SLEEP active Not Available Not Available No t Available sulfameth oxazole 800 mg-trimet hoprim 160 mg tablet 10/07 completed Medicati on ID: [id number] Du ration Value: 7 Reason: () Brand Name: sulfamet hoxazole -trimeth oprim Se nd Method: E-Prescr ibed Sub s Allowed: subs OK Medic ationGen ericName : sulfamet hoxazole -trimeth oprim Not Available Not Available Not Available butalbita l-acetami nophen-ca ffeine 50 mg-325 mg-40 mg tablet 01/09 completed Medicati on ID: [id number] Du ration Value: 15 Reason: () Brand Name: butalbit al-aceta minophen -caff Se nd Method: E-Prescr ibed Sub s Allowed: subs OK Medic ationGen ericName : butalbit al-aceta minophen -caff Not Available Not Available Not Available pantopraz ole 40 mg tablet,de layed release active Medicati on ID: [id number] B rand Name: pantopra zole Sen d Method: E-Prescr ibed Sub s Allowed: subs OK Medic ationGen ericName : pantopra zole Not Available Not Available Not Available cyanocoba gricelda (vit B-12) 1,000 mcg/mL injection solution INJECT 1000 MCG INTRAMUS CULARLY EVERY 4 WEEKS active Not Available Not Available No t Available hydrochlo rothiazid e 25 mg tablet active Medicati on ID: [id number] B rand Name: hydrochl orothiaz mary kay Send Method: E-Prescr ibed Sub s Allowed: subs OK Medic ationGen ericName : hydrochl orothiaz mary kay Not Available Not Available Not Available budesonid e DR - ER 3 mg capsule,d elayed,ex tended release 10/04 completed Medicati on ID: [id number] D uration Value: 14 Brand Name: budesoni de Send Method: E-Prescr ibed Sub s Allowed: subs OK Speci al Instruct ion: TAKE THREE CAPSULES BY MOUTH EVERY DAY FOR 14 DAYS Med icationG enericNa me: budesoni de Not Available Not Available Not Available fluoxetin e 20 mg capsule 01/09 completed Medicati on ID: [id number] D uration Value: 90 Reason: () Brand [...] 500 mg tablet active Medicati on ID: [id number] B rand Name: naproxen Send Method: E-Prescr ibed Sub s Allowed: subs OK Medic ationGen ericName : naproxen Not Available Not Available Not Available diazepam 5 mg tablet 2019 active Medicati on ID: [id number] D uration Value: 30 Brand Name: diazepam Send Method: E-Prescr ibed Sub s Allowed: subs OK Speci al Instruct ion: TAKE ONE TABLET BY MOUTH EVERY DAY NEEDED M edicatio nGeneric Name: diazepam Not Available Not Available Not Available DermOtic Oil 0.01 % ear drops 5 drop 01/09 completed Medicati on ID: [id number] Pr escribed By Name: Kumar Benavidez M.D. Bra nd Name: DermOtic Oil Send Method: E-Prescr ibed Sub s Allowed: subs OK Medic ationGen ericName : DermOtic Oil Not Available Not Available Not Available GaviLyte- G 236 gram-22.7 4 gram-6.74 gram-5.86 gram oral solution 04/10 completed Medicati on ID: [id number] D uration Value: 1 Reason: () Brand Name: GaviLyte -G Send Method: E-Prescr ibed Sub s Allowed: subs OK Medic ationGen ericName : GaviLyte -G Not Available Not Available Not Available Aimovig Autoinjec tor 70 mg/mL subcutane ous auto-inje ctor 2019 active Medicati on ID: [id number] B rand Name: Aimovig Autoinje ctor Sen d Method: E-Prescr ibed Sub s Allowed: subs OK Medic ationGen ericName : Aimovig Autoinje ctor Not Available Not Available Not Available Vitals Date Recorded Body height Body mass index (BMI) Body weight Provider Name and Address Organization Details Last Updated DateTime 01/27/2024 152.4 cm 29.3 kg/m2 71621.86 g Isaiah Patino [place] - [facility] 01/27/2024 11:19:20 Date Recorded Body height Body mass index (BMI) Body weight Provider Name and Address Organization Details Last Updated DateTime 04/28/2024 152.4 cm 29.3 kg/m2 99537.86 g Colton Pena [place] - [facility] 04/28/2024 11:20:11 Social History None recorded. Functional Status None recorded. Mental Status None recorded. Family History Nothing Reported. Medical History No medical history recorded. Gynecological HistoryNo gynecological history recorded. Obstetrics History GPAL:G 0 P 0 0 0 0 Past Encounters Encounter ID Performer Location Encounter Start Date Encounter Closed Date Diagnosis/Indication Diagnosis SNOMED-CT Code Diagnosis ICD10 Code [id number] PATITO BRISENO MD [facility] [address] [address] 01/27/2024 11:11:23 01/27/2024 11:45:16 Impacted cerumen of bilateral ears [id number] 619688 H61.23 [id number] NEGRITO LYN MD [facility] of [address] [address] 04/28/2024 11:17:31 04/28/2024 11:45:37 Impacted cerumen of bilateral ears 0578788074 856277 H61.23 Health Concerns Section Related Observation LastModified by Organization Detai ls LastModified Time None Recorded Concern Status LastModified by Organization Details LastModified Time None Recorded Advance Directives Directive None Recorded Payers Encounter Date Sequence Insurance Name Policy Number Policy Prado Covered Member ID Prado Member ID Guarantor Name 01/27/2024 1 MEDICARE B-[place]: [facility] Loren Morel Wesniak [id number] Loren Morel Wesniak 01/27/2024 2 [facility] - OPTIONS Loren Morel Wesniak [id number] Loren Morel Wesniak 04/28/2024 1 MEDICARE B-[place]: [facility] Loren Adriel Wesniak [id number] Loren Morel Wesniak 04/28/2024 2 [facility] - OPTIONS Loren Morel Wesniak [id number] Loren Beckfordk Notes Date Note Type Note Provider Name and Address Organization Details Recorded Time 01/27/2024 text/html 83-year-old female presents for cerumen removal. No acute issues with her ear since last visit. PATITO BRISENO MD [address] [place] [address], [phone], [facility] 01/27/2024 16:59:16 04/28/2024 text/html 83 year-old female presents for evaluation of the ears. Reports ears feel full. No change in hearing. Denies otalgia or otorrhea. NEGRITO CHAPMAN MD [address] [place] [address], [phone], [facility] 04/28/2024 17:14:13 OBGyn Episode No OBEpisode recorded.
--- NOTE | 2024-07-01 11:09 | AM.OFFVISNUR ---
Intake Visit Reasons: B-12 Shot Allergies codeine Allergy (Mild, Verified 04/12/24 14:39) Vomiting Office Meds cyanocobalamin (vitamin B-12) 1,000 mcg/mL injection solution Performing Provider: Andrew Chino MD Performing Location: [facility] Administered by: Dara Monte RN on 07/01/24 11:09 Dose Route Admin Location Dispensed Lot Number Expiration Date [facility] Rn Admission 1,000 mcg IM 1 mL [id number] 03/13/25 68375-595-57 [employer] Assessment & Plan Assessment & Plan Orders: Orders AMB Vitamin B12 Injection Patient Supplied Today R53.83 - Other fatigue Medications: New cyanocobalamin (vitamin B-12) 1,000 mcg IM ONCE 1 mL 0RF R53.83 - Other fatigue
== END 2024-07-01 11:12 | disposition home or self-care (01) ==
PROVIDERS: PCP Family Medicine; Visit Provider Family Medicine
DX: R53.83 Other fatigue (principal)

== ENCOUNTER → 2024-07-01 10:20 | Outpatient (BNVA) | payer MEDICARE, SELFPAY | PROVIDERS: PCP Family Medicine; Visit Provider Family Medicine | DX: R53.83 Other fatigue (principal) | CPT/HCPCS: 96372; 99211; J3420 ==

== ENCOUNTER 2024-07-29 10:41 | Outpatient (AMB) | payer MEDICARE, SELFPAY ==
--- NOTE | 2024-07-29 11:01 | AM.OFFVISNUR ---
Intake Visit Reasons: B-12 shot Allergies codeine Allergy (Mild, Verified 04/12/24 14:39) Vomiting Office Meds cyanocobalamin (vitamin B-12) 1,000 mcg/mL injection solution Performing Provider: Andrew Chino MD Performing Location: [facility] [place] [facility] Administered by: Dara Monte RN on 07/29/24 11:02 Dose Route Admin Location Dispensed Lot Number Expiration Date [facility] [employer] Manager 1,000 mcg IM Left Deltoid 1 mL [id number] 03/13/25 73310-425-44 DEZ PHARMACEUT Assessment & Plan Assessment & Plan Orders: Orders AMB Vitamin B12 Injection Patient Supplied Today R53.83 - Other fatigue Medications: New cyanocobalamin (vitamin B-12) 1,000 mcg IM ONCE 1 mL 0RF R53.83 - Other fatigue
--- OUTSIDE RECORDS SUMMARY | 2024-07-29 13:03 | XMS_ITS | Continuity of Care Document ---
Author Organization [place] - [facility], [facility] Address [address] [place] [address] Care Team Providers Care Veterinary Surgery Technologist Name Role Phone VINICIUS LLOYD Primary Care Provider Assessment Encounter Date Assessment Date Assessment LastModified by Organization Details LastModified Time 07/28/2024 07/28/2024 Patient presents for cerumen removal. Cerumen removed bilaterally without difficulty. Follow up as scheduled for repeat procedure. [email or web address] Not available 07/28/2024 13:27:29 Plan of Treatment Reminders Order Date Submit [...] Address Organization Details Recorded Time Impacted cerumen 00129318 Active 2013 Impacted cerumen; Location: bilateral CMS Risk: low risk Cond ition: uncontrol led Not Available [facility] 4 03:04:47 Sensorine ural hearing loss of bilateral ears 346878405 Active 2019 Sensorine ural hearing loss, bilateral ; Note: Date Diagnosed : 09/21/2019 3:19 PM (H90.3) Not Available [facility] 4 03:04:49 Impacted cerumen of bilateral ears 58196720231 53822 Active 2015 Impacted cerumen, bilateral ; Note: Date Diagnosed : 09/05/2015 2:29 PM (H61.23) Not Available [facility] 4 03:04:47 Cough 46922479 Active 2022 Cough; Note: Date Diagnosed : 3 12:02 PM (R05) Not Available [facility] 4 03:04:47 Pain of right temporoma ndibular joint 26343222053 513668 Active 2015 Arthralgi a of right temporoma ndibular joint; Note: Changed from M26.62 to M26.621 (05/24/20 16 3:21 PM) , Date Diagnosed : 6 10:52 AM (M26.62) Not Available [facility] 4 03:04:49 Impaired auditory discrimin ation 181126176 Active 2014 Hearing loss; Note: Date Diagnosed : 11/22/2014 11:19 AM (388.43) Not Available [facility] 4 03:04:48 Dizziness and giddiness 659248449 Active 2018 Dizziness and giddiness ; Note: Date Diagnosed : 9 12:29 PM (R42) Not Available [facility] 4 03:04:49 Posterior rhinorrhe a 78399518 Active 2022 Postnasal drip; Note: Date Diagnosed : 3 12:02 PM (R09.82) Postnas al drip; Note: Date Diagnosed : 07/17/2016 1:28 PM (R09.82) ; Start Date : 7 Not Available [facility] 4 03:04:48 Common cold 54410399 Active 2022 Acute rhinitis; Note: Date Diagnosed : 3 12:02 PM (J00) Not Available [facility] 4 03:04:46 Impacted cerumen in right ear 02740807583 10029 Active 2014 Impacted cerumen, right ear; Note: Date Diagnosed : 5 1:33 PM (H61.21) Not Available [facility] 4 03:04:47 Benign paroxysma l positiona l vertigo 970229831 Active 2018 Benign paroxysma l vertigo, right ear; Note: Date Diagnosed : 9 11:55 AM (H81.11) Not Available [facility] 4 03:04:48 Bleeding from nose 882832969 Active 2018 Epistaxis ; Note: Date Diagnosed : 12/21/2018 11:43 AM (R04.0) Not Available [facility] 4 03:04:48 Allergic rhinitis 59119257 Active 2015 Allergic rhinitis, unspecifi ed; Note: Date Diagnosed : 12/12/2015 1:44 PM (J30.9) Not Available [facility] 4 03:04:48 Problem Notes None recorded. Procedures Surgical History Date Name Laterality Status Provider Name and Address Organization Details Recorded Time 5 Cerumen removal without microscope bilat completed QUINCY HOLLINS PA-C [address] [place] [address], [phone], [facility] 07/28/2024 13:27:17 4 Cerumen removal without microscope bilat completed MATT PERKISN PA-C [address] [place] [address], [phone], [facility] 04/28/2024 11:47:31 4 Cerumen removal without microscope bilat completed QUINCY HOLLINS PA-C [address] [place] [address], [phone], [facility] 01/27/2024 11:59:00 Imaging Results None recorded. Procedure Notes None recorded. Medical Equipment None Reported. Allergies Allergen ID Allergen Name Allergen Category Reaction Reaction Severity Criticality Documentation Date Start Date Code Code System Note Provider Name and Address Organization Details Recorded Time 545824 codeine sulfate medicatio n other Not available Not available 11/25/2023 08476 RxNorm React ion: unkno wn, unspe cifie d;; Not Available [facility] 4 01:22:29 223958 acetamino phen medicatio n other Not available Not available 11/25/2023 161 RxNorm React ion: unkno wn, unspe cifie d;; Not Available [facility] 4 01:22:30 Medications Name Sig Start Date [...] topical cream 01/09 completed Medicati on ID: [id number] P tasha d By Name: MILIND Melvin nd Name: Lotrison e Send Method: E-Prescr ibed Sub s Allowed: subs OK Speci al Instruct ion: apply to external ear tid X 2 weeks Me dication GenericN bri: Lotrison e Not Available Not Available Not Available clotrimaz ole-betam ethasone 1 %-0.05 % lotion 01/09 completed Medicati on ID: [id number] R graeme: () Brand Name: Lotrison e [...] 12.5 mg tablet active Medicati on ID: [id number] B rand Name: meclizin e Send Method: E-Prescr ibed Sub s Allowed: subs OK Medic ationGen ericName : meclizin e Not Available Not Available Not Available hydroxyzi ne HCl 50 mg tablet TAKE ONE TABLET BY MOUTH EVERY DAY NEEDED FOR SLEEP active Not Available Not Available No t Available sulfameth oxazole 800 mg-trimet hoprim 160 mg tablet 10/07 completed Medicati on ID: [id number] Du ration Value: 7 Reason: () Brand Name: sulfamet hoxazole -trimeth oprim Se nd Method: E-Prescr ibed Sub s Allowed: subs OK Medic ationGen ericName : sulfamet hoxazole -trimeth oprim Not Available Not Available Not Available butalbita l-acetami nophen-ca ffeine 50 mg-325 mg-40 mg tablet 01/09 completed Medicati on ID: [id number] Du ration Value: 15 Reason: () Brand Name: butalbit al-aceta minophen -caff Se nd Method: E-Prescr ibed Sub s Allowed: subs OK Medic ationGen ericName : butalbit al-aceta minophen -caff Not Available Not Available Not Available pantopraz ole 40 mg tablet,de layed release active Medicati on ID: [id number] B rand Name: pantopra zole Sen d Method: E-Prescr ibed Sub s Allowed: subs OK Medic ationGen ericName : pantopra zole Not Available Not Available Not Available cyanocoba gricelda (vit B-12) 1,000 mcg/mL injection solution INJECT 1 ML INTO THE MUSCLE ONCE EVERY 4 WEEKS active Not Available Not Available No t Available hydrochlo rothiazid e 25 mg tablet active Medicati on ID: [id number] B rand Name: hydrochl orothiaz mary kay Send Method: E-Prescr ibed Sub s Allowed: subs OK Medic ationGen ericName : hydrochl orothiaz mary kay Not Available Not Available Not Available budesonid e DR - ER 3 mg capsule,d elayed,ex tended release 10/04 completed Medicati on ID: [id number] D uration Value: 14 Brand Name: budesoni de Send Method: E-Prescr ibed Sub s Allowed: subs OK Speci al Instruct ion: TAKE THREE CAPSULES BY MOUTH EVERY DAY FOR 14 DAYS Med icationG enericNa me: budesoni de Not Available Not Available Not Available fluoxetin e 20 mg capsule 01/09 completed Medicati on ID: [id number] D uration Value: 90 Reason: () Brand [...] No t Available naproxen 500 mg tablet TAKE ONE TABLET BY MOUTH TWICE A DAY active Not Available Not Available No t Available diazepam 5 mg tablet 2019 active Medicati on ID: [id number] D uration Value: 30 Brand Name: diazepam Send Method: E-Prescr ibed Sub s Allowed: subs OK Speci al Instruct ion: TAKE ONE TABLET BY MOUTH EVERY DAY NEEDED M edicatio nGeneric Name: diazepam Not Available Not Available Not Available DermOtic Oil 0.01 % ear drops 5 drop 01/09 completed Medicati on ID: [id number] Pr escribed By Name: Radha Whitaker nd Name: DermOtic Oil Send Method: E-Prescr ibed Sub s Allowed: subs OK Medic ationGen ericName : DermOtic Oil Not Available Not Available Not Available GaviLyte- G 236 gram-22.7 4 gram-6.74 gram-5.86 gram oral solution 04/10 completed Medicati on ID: [id number] D uration Value: 1 Reason: () Brand Name: GaviLyte -G Send Method: E-Prescr ibed Sub s Allowed: subs OK Medic ationGen ericName : GaviLyte -G Not Available Not Available Not Available Aimovig Autoinjec tor 70 mg/mL subcutane ous auto-inje ctor 2019 active Medicati on ID: [id number] B rand Name: Aimovig Autoinje ctor Sen d Method: E-Prescr ibed Sub s Allowed: subs OK Medic ationGen ericName : Aimovig Autoinje ctor Not Available Not Available Not Available Vitals Date Recorded Body height Body mass index (BMI) Body weight Provider Name and Address Organization Details Last Updated DateTime 07/28/2024 152.4 cm 27.3 kg/m2 90418.93 g Nataliya Jackie [place] - [facility] 07/28/2024 12:58:18 Social History None recorded. Functional Status None recorded. Mental Status None recorded. Family History Nothing Reported. Medical History No medical history recorded. Gynecological HistoryNo gynecological history recorded. Obstetrics History GPAL:G 0 P 0 0 0 0 Past Encounters Encounter ID Performer Location Encounter Start Date Encounter Closed Date Diagnosis/Indication Diagnosis SNOMED-CT Code Diagnosis ICD10 Code Diagnosis Note [id number] ROBE NORTH MD [facility] [address] [address] 07/28/2024 12:29:19 07/28/2024 13:25:29 Impacted cerumen of bilateral ears [id number] 007113 H61.23 Health Concerns Section Related Observation LastModified by Organization Detai ls LastModified Time None Recorded Concern Status LastModified by Organization Details LastModified Time None Recorded Payers Encounter Date Sequence Insurance Name Policy Number Policy Prado Covered Member ID Prado Member ID Guarantor Name 07/28/2024 1 [place]ICARE B-[place]: [employer] Loren Morel Leonard [id number] Loren Valle 07/28/2024 2 [facility] - OPTIONS Loren Morel Leonard [id number] Loren Adriel Valle Notes Date Note Type Note Provider Name and Address Organization Details Recorded Time 07/28/2024 text/html 83-year-old female presents for cerumen removal. No acute issues since her last visit. ROBE NORTH MD [address] [place] [address], [phone], [place] - [facility] 07/28/2024 14:57:41 OBGyn Episode No OBEpisode recorded.
--- OUTSIDE RECORDS SUMMARY | 2024-07-29 13:03 | XMS_ITS | Continuity of Care Document ---
Author Organization [place] - [facility], [facility] Address [address] [place] [address] Care Team Providers Care Hr Business Partner Name Role Phone VINICIUS LLOYD Primary Care [...] Address Organization Details Recorded Time Impacted cerumen [id number] Active 2013 Impacted cerumen; Location: bilateral CMS Risk: low risk Cond ition: uncontrol led Not Available [facility] 4 03:04:47 Sensorine ural hearing loss of bilateral ears 140134871 Active 2019 Sensorine ural hearing loss, bilateral ; Note: Date Diagnosed : 09/21/2019 3:19 PM (H90.3) Not Available [facility] 4 03:04:49 Impacted cerumen of bilateral ears 47098875218 69516 Active 2015 Impacted cerumen, bilateral ; Note: Date Diagnosed : 09/05/2015 2:29 PM (H61.23) Not Available [facility] 4 03:04:47 Cough 03395185 Active 2022 Cough; Note: Date Diagnosed : 3 12:02 PM (R05) Not Available [facility] 4 03:04:47 Pain of right temporoma ndibular joint 60321307413 651144 Active 2015 Arthralgi a of right temporoma ndibular joint; Note: Changed from M26.62 to M26.621 (05/24/20 16 3:21 PM) , Date Diagnosed : 6 10:52 AM (M26.62) Not Available [facility] 4 03:04:49 Impaired auditory discrimin ation 567059892 Active 2014 Hearing loss; Note: Date Diagnosed : 11/22/2014 11:19 AM (388.43) Not Available [facility] 4 03:04:48 Dizziness and giddiness 469226764 Active 2018 Dizziness and giddiness ; Note: Date Diagnosed : 9 12:29 PM (R42) Not Available [facility] 4 03:04:49 Posterior rhinorrhe a 13766773 Active 2022 Postnasal drip; Note: Date Diagnosed : 3 12:02 PM (R09.82) Postnas al drip; Note: Date Diagnosed : 07/17/2016 1:28 PM (R09.82) ; Start Date : 7 Not Available [facility] 4 03:04:48 Common cold 64781352 Active 2022 Acute rhinitis; Note: Date Diagnosed : 3 12:02 PM (J00) Not Available [facility] 4 03:04:46 Impacted cerumen in right ear 69504560170 00089 Active 2014 Impacted cerumen, right ear; Note: Date Diagnosed : 5 1:33 PM (H61.21) Not Available [facility] 4 03:04:47 Benign paroxysma l positiona l vertigo 253155319 Active 2018 Benign paroxysma l vertigo, right ear; Note: Date Diagnosed : 9 11:55 AM (H81.11) Not Available [facility] 4 03:04:48 Bleeding from nose 529661830 Active 2018 Epistaxis ; Note: Date Diagnosed : 12/21/2018 11:43 AM (R04.0) Not Available [facility] 4 03:04:48 Allergic rhinitis 06691312 Active 2015 Allergic rhinitis, unspecifi ed; Note: Date Diagnosed : 12/12/2015 1:44 PM (J30.9) Not Available [facility] 4 03:04:48 Problem Notes None recorded. Procedures Surgical History Date Name Laterality Status Provider Name and Address Organization Details Recorded Time 5 Cerumen removal without microscope bilat completed QUINCY HOLLINS PA-C [address] [place] [address],[address], [address], [facility] 07/28/2024 13:27:17 4 Cerumen removal without microscope bilat completed MATT PERKINS PA-C [address] [place] [address],[address], [address], [facility] 04/28/2024 11:47:31 4 Cerumen removal without microscope bilat completed QUINCY HOLLINS PA-C [address] [place] [address],[address], [address], [facility] 01/27/2024 11:59:00 Imaging Results None recorded. Procedure Notes None recorded. Medical Equipment None Reported. Allergies Allergen ID Allergen Name Allergen Category Reaction Reaction Severity Criticality Documentation Date Start Date Code Code System Note Provider Name and Address Organization Details Recorded Time 578008 codeine sulfate medicatio n other Not available Not available 11/25/2023 67872 RxNorm React ion: unkno wn, unspe cifie d;; Not Available [facility] 4 01:22:29 024885 acetamino phen medicatio n other Not available Not available 11/25/2023 161 RxNorm React ion: unkno wn, mel ramos d;; Not Available [facility] 4 01:22:30 Medications Name Sig Start [...] topical cream 01/09 completed Medicati on ID: [id number] P rescribe d By Name: MILIND Melvin nd Name: Lotrison e Send Method: E-Prescr ibed Sub s Allowed: subs OK Speci al Instruct ion: apply to external ear tid X 2 weeks Me dication GenericN bri: Lotrison e Not Available Not Available Not Available clotrimaz ole-betam ethasone 1 %-0.05 % lotion 01/09 completed Medicati on ID: [id number] R graeme: () Brand Name: Lotrison e [...] 12.5 mg tablet active Medicati on ID: [id number] B rand Name: meclizin e Send Method: E-Prescr ibed Sub s Allowed: subs OK Medic ationGen ericName : meclizin e Not Available Not Available Not Available hydroxyzi ne HCl 50 mg tablet TAKE ONE TABLET BY MOUTH EVERY DAY NEEDED FOR SLEEP active Not Available Not Available No t Available sulfameth oxazole 800 mg-trimet hoprim 160 mg tablet 10/07 completed Medicati on ID: [id number] Du ration Value: 7 Reason: () Brand Name: sulfamet hoxazole -trimeth oprim Se nd Method: E-Prescr ibed Sub s Allowed: subs OK Medic ationGen ericName : sulfamet hoxazole -trimeth oprim Not Available Not Available Not Available butalbita l-acetami nophen-ca ffeine 50 mg-325 mg-40 mg tablet 01/09 completed Medicati on ID: [id number] Du ration Value: 15 Reason: () Brand Name: butalbit al-aceta minophen -caff Se nd Method: E-Prescr ibed Sub s Allowed: subs OK Medic ationGen ericName : butalbit al-aceta minophen -caff Not Available Not Available Not Available pantopraz ole 40 mg tablet,de layed release active Medicati on ID: [id number] B rand Name: pantopra zole Sen d Method: E-Prescr ibed Sub s Allowed: subs OK Medic ationGen ericName : pantopra zole Not Available Not Available Not Available cyanocoba gricelda (vit B-12) 1,000 mcg/mL injection solution INJECT 1 ML INTO THE MUSCLE ONCE EVERY 4 WEEKS active Not Available Not Available No t Available hydrochlo rothiazid e 25 mg tablet active Medicati on ID: [id number] B rand Name: hydrochl orothiaz mary kay Send Method: E-Prescr ibed Sub s Allowed: subs OK Medic ationGen ericName : hydrochl orothiaz mary kay Not Available Not Available Not Available budesonid e DR - ER 3 mg capsule,d elayed,ex tended release 10/04 completed Medicati on ID: [id number] D uration Value: 14 Brand Name: budesoni de Send Method: E-Prescr ibed Sub s Allowed: subs OK Speci al Instruct ion: TAKE THREE CAPSULES BY MOUTH EVERY DAY FOR 14 DAYS Med icationG enericNa me: budesoni de Not Available Not Available Not Available fluoxetin e 20 mg capsule 01/09 completed Medicati on ID: [id number] D uration Value: 90 Reason: () Brand [...] mg tablet 2019 active Medicati on ID: [id number] D uration Value: 30 Brand Name: diazepam Send Method: E-Prescr ibed Sub s Allowed: subs OK Speci al Instruct ion: TAKE ONE TABLET BY MOUTH EVERY DAY NEEDED M edicatio nGeneric Name: diazepam Not Available Not Available Not Available DermOtic Oil 0.01 % ear drops 5 drop 01/09 completed Medicati on ID: [id number] Pr escribed By Name: Radha Whitaker nd Name: DermOtic Oil Send Method: E-Prescr ibed Sub s Allowed: subs OK Medic ationGen ericName : DermOtic Oil Not Available Not Available Not Available GaviLyte- G 236 gram-22.7 4 gram-6.74 gram-5.86 gram oral solution 04/10 completed Medicati on ID: [id number] D uration Value: 1 Reason: () Brand Name: GaviLyte -G Send Method: E-Prescr ibed Sub s Allowed: subs OK Medic ationGen ericName : GaviLyte -G Not Available Not Available Not Available Aimovig Autoinjec tor 70 mg/mL subcutane ous auto-inje ctor 2019 active Medicati on ID: [id number] B rand Name: Aimovig Autoinje ctor Sen d Method: E-Prescr ibed Sub s Allowed: subs OK Medic Danica ericName : Henrry lopez Not Available Not Available Not Available Vitals Date Recorded Body height Body mass index (BMI) Body weight Provider Name and Address Organization Details Last Updated DateTime 04/28/2024 152.4 cm 29.3 kg/m2 54135.86 g Colton Pena [place] - [facility] 04/28/2024 11:20:11 Social History None recorded. Functional Status None recorded. Mental Status None recorded. Family History Nothing Reported. Medical History No medical history recorded. Gynecological HistoryNo gynecological history recorded. Obstetrics History GPAL:G 0 P 0 0 0 0 Past Encounters Encounter ID Performer Location Encounter Start Date Encounter Closed Date Diagnosis/Indication Diagnosis SNOMED-CT Code Diagnosis ICD10 Code Diagnosis Note [id number] NEGRITO LYN MD [facility] [address] [address] 04/28/2024 11:17:31 04/28/2024 11:45:37 Impacted cerumen of bilateral ears [id number] 323605 H61.23 Health Concerns Section Related Observation LastModified by Organization Detai ls LastModified Time None Recorded Concern Status LastModified by Organization Details LastModified Time None Recorded Payers Encounter Date Sequence Insurance Name Policy Number Policy Prado Covered Member ID Prado Member ID Guarantor Name 04/28/2024 1 [place]ARE B-[place]: [employer] Loren Brioneschidi [id number] Loren Morel Leonard 04/28/2024 2 [employer] - OPTIONS Loren Valle [id number] Loren Valle Notes Date Note Type Note Provider Name and Address Organization Details Recorded Time 04/28/2024 text/html 83 year-old female presents for evaluation of the ears. Reports ears feel full. No change in hearing. Denies otalgia or otorrhea. NEGRITO CHAPMAN MD [address] [place] [address], [phone], [facility] - [facility] 04/28/2024 17:14:13 OBGyn Episode No OBEpisode recorded.
--- OUTSIDE RECORDS SUMMARY | 2024-07-29 13:03 | XMS_ITS | Data Portability ---
Author Organization [place] - [facility], Allergy Address [address] [address] Care Team Providers Care Billing Representative Name Role Phone VINICIUS LLOYD Primary Care [...] with issues. [email or web address] Not available 04/28/2024 11:49:11 07/28/2024 07/28/2024 Patient presents for cerumen removal. [...] Address Organization Details Recorded Time Impacted cerumen 28431644 Active 2013 Impacted cerumen; Location: bilateral CMS Risk: low risk Cond ition: uncontrol led Not Available [facility] 4 03:04:47 Sensorine ural hearing loss of bilateral ears 297123226 Active 2019 Sensorine ural hearing loss, bilateral ; Note: Date Diagnosed : 09/21/2019 3:19 PM (H90.3) Not Available [facility] 4 03:04:49 Impacted cerumen of bilateral ears 43112786547 09455 Active 2015 Impacted cerumen, bilateral ; Note: Date Diagnosed : 09/05/2015 2:29 PM (H61.23) Not Available [facility] 4 03:04:47 Cough 51931942 Active 2022 Cough; Note: Date Diagnosed : 3 12:02 PM (R05) Not Available [facility] 4 03:04:47 Pain of right temporoma ndibular joint 27125755166 607150 Active 2015 Arthralgi a of right temporoma ndibular joint; Note: Changed from M26.62 to M26.621 (05/24/20 16 3:21 PM) , Date Diagnosed : 6 10:52 AM (M26.62) Not Available [facility] 4 03:04:49 Impaired auditory discrimin ation 868234632 Active 2014 Hearing loss; Note: Date Diagnosed : 11/22/2014 11:19 AM (388.43) Not Available [facility] 4 03:04:48 Dizziness and giddiness 183863347 Active 2018 Dizziness and giddiness ; Note: Date Diagnosed : 9 12:29 PM (R42) Not Available [facility] 4 03:04:49 Posterior rhinorrhe a 65924538 Active 2022 Postnasal drip; Note: Date Diagnosed : 3 12:02 PM (R09.82) Postnas al drip; Note: Date Diagnosed : 07/17/2016 1:28 PM (R09.82) ; Start Date : 7 Not Available [facility] 4 03:04:48 Common cold 92725843 Active 2022 Acute rhinitis; Note: Date Diagnosed : 3 12:02 PM (J00) Not Available [facility] 4 03:04:46 Impacted cerumen in right ear 72549105874 72536 Active 2014 Impacted cerumen, right ear; Note: Date Diagnosed : 5 1:33 PM (H61.21) Not Available [facility] 4 03:04:47 Benign paroxysma l positiona l vertigo 076194473 Active 2018 Benign paroxysma l vertigo, right ear; Note: Date Diagnosed : 9 11:55 AM (H81.11) Not Available [facility] 4 03:04:48 Bleeding from nose 565122230 Active 2018 Epistaxis ; Note: Date Diagnosed : 12/21/2018 11:43 AM (R04.0) Not Available [facility] 4 03:04:48 Allergic rhinitis 47336314 Active 2015 Allergic rhinitis, unspecifi ed; Note: Date Diagnosed : 12/12/2015 1:44 PM (J30.9) Not Available [facility] 4 03:04:48 Problem Notes None recorded. Procedures Surgical History Date Name Laterality Status Provider Name and Address Organization Details Recorded Time 5 Cerumen removal without microscope bilat completed QUINCY HOLLINS PA-C [address] [place] [address],[address], [address], [facility] - [facility] 07/28/2024 13:27:17 4 Cerumen removal without microscope bilat completed MATT PERKINS PA-C [address] [facility] [address], [place], [address], [facility] - [facility] 04/28/2024 11:47:31 4 Cerumen removal without microscope bilat completed QUINCY HOLLINS PA-C [address] [facility], [place], [address], [facility] - [facility] 01/27/2024 11:59:00 Imaging Results Imaging Date Name [...] Name and Address Organization Details Recorded Time 482461 codeine sulfate medicatio n other Not available Not available 11/25/2023 36792 RxNorm React ion: unkno wn, unspe cifie d;; Not Available [facility] 4 01:22:29 029350 acetamino phen medicatio n other Not available Not available 11/25/2023 161 RxNorm React ion: unkno wn, unspe cifie d;; Not Available [facility] 4 01:22:30 Medications Name Sig Start Date [...] topical cream 01/09 completed Medicati on ID: [id number] P reedribe d By Name: MILIND Melvin nd Name: Lotrison e Send Method: E-Prescr ibed Sub s Allowed: subs OK Speci al Instruct ion: apply to external ear tid X 2 weeks Me dication GenericN bri: Lotrison e Not Available Not Available Not Available clotrimaz ole-betam ethasone 1 %-0.05 % lotion 01/09 completed Medicati on ID: [id number] R graeme: () Brand Name: Lotrison e [...] 12.5 mg tablet active Medicati on ID: [id number] B rand Name: meclizin e Send Method: E-Prescr ibed Sub s Allowed: subs OK Medic ationGen ericName : meclizin e Not Available Not Available Not Available hydroxyzi ne HCl 50 mg tablet TAKE ONE TABLET BY MOUTH EVERY DAY NEEDED FOR SLEEP active Not Available Not Available No t Available sulfameth oxazole 800 mg-trimet hoprim 160 mg tablet 10/07 completed Medicati on ID: [id number] Du ration Value: 7 Reason: () Brand Name: sulfamet hoxazole -trimeth oprim Se nd Method: E-Prescr ibed Sub s Allowed: subs OK Medic ationGen ericName : sulfamet hoxazole -trimeth oprim Not Available Not Available Not Available butalbita l-acetami nophen-ca ffeine 50 mg-325 mg-40 mg tablet 01/09 completed Medicati on ID: [id number] Du ration Value: 15 Reason: () Brand Name: butalbit al-aceta minophen -caff Se nd Method: E-Prescr ibed Sub s Allowed: subs OK Medic ationGen ericName : butalbit al-aceta minophen -caff Not Available Not Available Not Available pantopraz ole 40 mg tablet,de layed release active Medicati on ID: [id number] B rand Name: pantopra zole Sen d Method: E-Prescr ibed Sub s Allowed: subs OK Medic ationGen ericName : pantopra zole Not Available Not Available Not Available cyanocoba gricelda (vit B-12) 1,000 mcg/mL injection solution INJECT 1 ML INTO THE MUSCLE ONCE EVERY 4 WEEKS active Not Available Not Available No t Available hydrochlo rothiazid e 25 mg tablet active Medicati on ID: [id number] B rand Name: hydrochl orothiaz mary kay Send Method: E-Prescr ibed Sub s Allowed: subs OK Medic ationGen ericName : hydrochl orothiaz mary kay Not Available Not Available Not Available budesonid e DR - ER 3 mg capsule,d elayed,ex tended release 10/04 completed Medicati on ID: [id number] D uration Value: 14 Brand Name: budgarry de Send Method: E-Prescr ibed Sub s Allowed: subs OK Speci al Instruct ion: TAKE THREE CAPSULES BY MOUTH EVERY DAY FOR 14 DAYS Med icationG enericNa me: budesoni de Not Available Not Available Not Available fluoxetin e 20 mg capsule 01/09 completed Medicati on ID: [id number] D uration Value: 90 Reason: () Brand [...] mg tablet 2019 active Medicati on ID: [id number] D uration Value: 30 Brand Name: diazepam Send Method: E-Prescr ibed Sub s Allowed: subs OK Speci al Instruct ion: TAKE ONE TABLET BY MOUTH EVERY DAY NEEDED Racquel Ninojohannyic Name: diazepam Not Available Not Available Not Available DermOtic Oil 0.01 % ear drops 5 drop 01/09 completed Medicati on ID: [id number] Pr escribed By Name: Radha Whitaker nd Name: DermOtic Oil Send Method: E-Prescr ibed Sub s Allowed: subs OK Medic ationGen ericName : DermOtic Oil Not Available Not Available Not Available GaviLyte- G 236 gram-22.7 4 gram-6.74 gram-5.86 gram oral solution 04/10 completed Medicati on ID: [id number] D uration Value: 1 Reason: () Brand Name: GaviLyte -G Send Method: E-Prescr ibed Sub s Allowed: subs OK Medic ationGen ericName : GaviLyte -G Not Available Not Available Not Available Aimovig Autoinjec tor 70 mg/mL subcutane ous auto-inje ctor 2019 active Medicati on ID: [id number] B rand Name: Aimovig Autoinje ctor Sen d Method: E-Prescr ibed Sub s Allowed: subs OK Medic ationGen ericName : Aimovig Autoinje ctor Not Available Not Available Not Available Vitals Date Recorded Body height Body mass index (BMI) Body weight Provider Name and Address Organization Details Last Updated DateTime 01/27/2024 152.4 cm 29.3 kg/m2 58569.86 g Isaiah Patino [place] - [facility] 01/27/2024 11:19:20 Date Recorded Body height Body mass index (BMI) Body weight Provider Name and Address Organization Details Last Updated DateTime 04/28/2024 152.4 cm 29.3 kg/m2 79003.86 g Colton Pena [place] - [facility] 04/28/2024 11:20:11 Date Recorded Body height Body mass index (BMI) Body weight Provider Name and Address Organization Details Last Updated DateTime 07/28/2024 152.4 cm 27.3 kg/m2 72370.93 g Nataliya Jackie [facility] - [facility] 07/28/2024 12:58:18 Social History None recorded. Functional Status None recorded. Mental Status None recorded. Family History Nothing Reported. Medical History No medical history recorded. Gynecological HistoryNo gynecological history recorded. Obstetrics History GPAL:G 0 P 0 0 0 0 Past Encounters Encounter ID Performer Location Encounter Start Date Encounter Closed Date Diagnosis/Indication Diagnosis SNOMED-CT Code Diagnosis ICD10 Code Diagnosis Note [id number] PATITO BRISENO MD [facility] [address] [address] 01/27/2024 11:11:23 01/27/2024 11:45:16 Impacted cerumen of bilateral ears [id number] 314972 H61.23 PROCEDURE NOTEPATHOL OGY FOUND: Cerumen impaction in both earsPROCED URE: The right ear was examined using otoscopy. The cerumen was then removed using suction and/or instrument s. The same procedure was repeated on the opposite side.ADEOLA ANCE: The patient tolerated this well. [id number] NEGRITO LYN MD [facility] [address] [address] 04/28/2024 11:17:31 04/28/2024 11:45:37 Impacted cerumen of bilateral ears 2287287751 314391 H61.23 [id number] ROBE NORTH MD [facility] [address] [address] 07/28/2024 12:29:19 07/28/2024 13:25:29 Impacted cerumen of bilateral ears 2216315622 581467 H61.23 Health Concerns Section Related Observation LastModified by Organization Detai ls LastModified Time None Recorded Concern Status LastModified by Organization Details LastModified Time None Recorded Advance Directives Directive None Recorded Payers Encounter Date Sequence Insurance Name Policy Number Policy Prado Covered Member ID Prado Member ID Guarantor Name 01/27/2024 1 [place] [employer] SERVICES Loren Valle [id number] Loren Valle 01/27/2024 2 [employer] - OPTIONS Loren Beckfordk [id number] Loren Valle 04/28/2024 1 MEDICARE [place]: [facility] SERVICES Loren Beckfordk [id number] Loren Valle 04/28/2024 2 [employer] HEALTHCARE - OPTIONS Loren Beckfordk [id number] Loren Valle 07/28/2024 1 MEDIC[place] [facility] SERVICES Loren Beckfordk [id number] Loren Valle 07/28/2024 2 [employer] HE[employer] - OPTIONS Loren Valle [id number] Loren Valle Notes Date Note Type Note Provider Name and Address Organization Details Recorded Time 01/27/2024 text/html 83-year-old female presents for cerumen removal. No acute issues with her ear since last visit. PATITO BRISENO MD [address] [place] [address], [phone], [facility] 01/27/2024 16:59:16 04/28/2024 text/html 83 year-old female presents for evaluation of the ears. Reports ears feel full. No change in hearing. Denies otalgia or otorrhea. NEGRITO CHAPMAN MD [address] [place] [address], [phone], [facility] 04/28/2024 17:14:13 07/28/2024 text/html 83-year-old female presents for cerumen removal. No acute issues since her last visit. ROBE NORTH MD [address] [place] [address], [phone], [facility] 07/28/2024 14:57:41 OBGyn Episode No OBEpisode recorded.
== END 2024-07-29 11:00 | disposition home or self-care (01) ==
PROVIDERS: PCP Family Medicine; Visit Provider Family Medicine
DX: R53.83 Other fatigue (principal)

== ENCOUNTER → 2024-07-29 10:41 | Outpatient (BNVA) | payer MEDICARE, SELFPAY | PROVIDERS: PCP Family Medicine; Visit Provider Family Medicine | DX: R53.83 Other fatigue (principal) | CPT/HCPCS: 96372; J3420 ==

== ENCOUNTER 2024-08-20 16:18 | Outpatient (AMB) | payer MEDICARE, SELFPAY ==
--- NOTE | 2024-08-20 16:24 | MHC.PC.OV ---
Vital Signs 08/20/24 16:32 Height 5 ft 1.65 in Weight 156 lb 6 oz BMI 28.9 BP 120/68 Blood Pressure Location Lt brachial Position Sitting Respiration 14 Pulse 63 Pulse Source Pulse Oximeter Temp 98.2 F Temp Source Oral Pulse Oximetry (%) 99 Oxygen Delivery Method Room Air Intake Visit Reasons: f/u chronic conditions Intake Note: f/u for balance issues from fall back in february pt did not get labs drawn Allergies codeine Allergy (Mild, Verified 08/20/24 16:30) Vomiting Medication List - Last Reconciled 08/20/24 by Adnrew Chino MD alendronate 70 mg PO QWEEK 28 days benzonatate 200 mg PO BID PRN [address]-ER 3 mg PO DAILY calcium polycarbophil (FiberCon) 625 mg PO DAILY 30 days cyanocobalamin (vitamin B-12) 1,000 mcg IM Q4W 84 days erenumab-aooe (Aimovig Autoinjector) mg subcut fluoxetine 40 mg PO DAILY 90 days hydroxyzine HCl 50 mg PO DAILY PRN 30 days naproxen 500 mg PO BID 90 days pantoprazole 40 mg PO BID Tobacco use date assessed: 10/31/23 Dental Screening Dental Screen Date: 10/31/23 HPI f/u chronic conditions HPI Details 83 y/o female presents to f/u chronic conditions. Followed by neurology for vertigo/imbalance. She notes she continues to use a cane and has been using an ankle brace which has been helping significantly. They state she has physical therapy scheduled for October. No recent labs to review. Hx of B12 deficiency. HPI Comments History of Present Illness Details Documentation assistance for Andrew Chino MD, was provided by Kris Carter,? Musculoskeletal Physician on 08/20/2024 at 4:59 PM EST. I, Dr. Chino, have read, observed, and verified documentation. ?? PFSH Medical History Anxiety Failed total right knee replacement Surgical History History of appendectomy Family History (Updated 10/31/23 @ 10:39 by Radha Mills [facility]) Father Prostate cancer Mother Cancer Paternal family history of mental health disorder Social History Housing: House Patient Tobacco Use Status: Never used Tobacco e-Cigarette/Vaping Use: Never Used service: No Current occupational status: retired Cognitive needs: No Hearing needs: No Vision needs: No Questionnaire Thrive Questionnaire Date Thrive assessed: 10/31/23 I am a: Patient What is your living situation today?: I choose not to answer this question Within the past 12 months, did the food you bought not last and you didn't have the money to get more?: I choose not to answer this question Within the past 12 months, did you worry whether your food would run out before you got money to buy more?: I choose not to answer this question Do you have trouble paying for medicines?: I choose not to answer this question Do you have trouble getting transportation to medical appointments?: No Do you have trouble paying your heating and electricity bill?: No Do you have trouble taking care of your child, family member or friend?: No Do you have trouble with day-to-day activities such as bathing, preparing meals, shopping, managing finances, etc.?: No Are you currently unemployed and looking for a job?: No Are you interested in more education?: No Please select the resources that you would like help with: None Currently or been in a relationship where the following occur: I choose not to answer THRIVE Score: 0 AUDIT C Alcohol Use Questionnaire (AUDIT-C) 1. How often do you have a drink containing alcohol?: 2-4 times a month 2. How many drinks containing alcohol do you have on a typical day when you are drinking?: 1 or 2 3. How often do you have six or more drinks on one occasion?: Never Total Score: 2 FADY-7 AMB Questionnaire FADY-7 Date FADY - 7 assessed: 10/31/23 Feeling nervous, anxious, or on edge: 0 = Not at all Not being able to stop or control worryin = Not at all Worrying too much about different things: 0 = Not at all Trouble relaxin = Not at all Being so restless that it is hard to sit still: 0 = Not at all Becoming easily annoyed or irritable: 0 = Not at all Feeling afraid as if something awful might happen: 0 = Not at all Total FADY-7 score (0-4 normal; 5-9 mild; 10-14 moderate; 15-21 severe): 0 Source: Developed by Drs. Doron Decker, Bella Wood, Jason Monique and colleagues, with an educational antonio from [employer]. Review of Systems Const Denies chills, Denies fatigue, Denies fever(s), Denies headache(s) and Denies weakness ENT Denies dizziness and Denies headache(s) Card Denies dyspnea Resp Denies cough, Denies dyspnea, Denies wheezing and Denies other (shortness of breath) Musc Denies numbness and Denies tingling Neuro Denies dizziness, Denies headache(s), Denies numbness, Denies tingling and Denies weakness Psych Denies anxiety and Denies depression Endo Denies fatigue Aller/Immun Denies wheezing Physical exam (Primary Care) Vital Signs: Last Vital Signs Temp 98.2 F 08/20/24 16:32 Pulse 63 08/20/24 16:32 Resp 14 08/20/24 16:32 BP 120/68 08/20/24 16:32 Pulse Ox 99 08/20/24 16:32 Oxygen Delivery Method Room Air 08/20/24 16:32 BMI result Body Mass Index 28.9 Tobacco/Smoking Status: Tobacco use Status Tobacco use date assessed 10/31/23 08/20/24 16:24 Patient Tobacco Use Status Never used Tobacco 08/20/24 16:24 e-Cigarette/Vaping Use Never Used 08/20/24 16:24 Thrive Assessment: Date of Thrive Assessment Date Thrive assessed 10/31/23 08/20/24 16:24 Currently or been in a relationship where the following occur: I choose not to answer Const General: well developed; No acute distress Nutritional Appearance: well nourished Orientation/consciousness: patient oriented x3 HENMT Head: Yes normocephalic and Yes atraumatic Eyes General: appearance normal, both eyes and all related structures Pupils: Equal, round and reactive pupils present EOM: EOMs intact bilaterally Resp Effort & Inspection: normal respiratory effort Auscultation: clear to auscultation bilaterally Cardio Rate: regular rate Rhythm: regular rhythm Heart sounds: S1 normal heart sound present, S2 normal heart sound present, no gallops, no murmurs and no rubs Neuro General: patient oriented x3 and No gait normal Cranial nerves: Yes Equal, round and reactive pupils present Gait exam (Neuro): Assisted gait required (Cane) Psych Affect: normal affect Coding Level of Care Code Est Pt Level 4 (15381) Diagnoses Imbalance R26.89 Leg weakness R29.898 Immunization counseling Z71. B12 deficiency E53.8 Assessment & Plan Assessment & Plan (1) Imbalance: Code(s): R26.89 - Other abnormalities of gait and mobility Category: Medical Plan: Patient?with?history?of?B12?deficiency?and?imbalance?and?falls?returns?to?discuss?imbalance She?is?followed?by?her?neurologist?and?we?reviewed?her?note. She?reviewed?MRI?and?vascular?imaging?of?her?head?neck.??No?significant?lesions?that?she?expects?would?cause?her?lower?extremity?weakness?and?imbalance. She?also?reviewed?some?lab?work. B12?level?was?okay. Patient?had?also?been?referred?to?a?specialist?at?[facility] who recommended?additional?physical?therapy. Unfortunately,?patient?has?not?been?able?to?schedule?physical?therapy?until?October. I?can?likely?get?her?scheduled?sooner?than?this?and?try?to?do?so.??Patient?agrees?this?was?helpful. I?also?recommended?patient?use?her?cane.??She?has?a?cane?but?is?not?using?that?today. She?also?has?an?ankle?brace?her?left?lower?extremity?which?is?giving?her?additional?strength?and?stability.??She?is?followed?by?Podiatry?now?as?well (2) Leg weakness: Code(s): R29.898 - Other symptoms and signs involving the musculoskeletal system Category: Medical Plan: As?above (3) Immunization counseling: Code(s): Z71.85 - Encounter for immunization safety counseling Category: Medical Plan: Recommended?pneumonia?20?or?21,?recommended RSV, recommended?Shingrix She?can?discuss?these?with?her?pharmacy Also?recommended?influenza?and?patient?says?she?does?not?get?this.??We?had?a?discussion?about?that. (4) B12 deficiency: Code(s): E53.8 - Deficiency of other specified B group vitamins Category: Medical Plan: Most?recent?B12?level?was?okay. Rechecking?his?with?her?next?set?of?labs. Plan Labs?were?ordered?patient?has?not?gotten?these?done?yet.??She?will?get?them?done?prior?to?her?next?visit. Will?call?her?if?action?is?required?sooner Orders: Orders PT Evaluation and Treatment Today E53.8 - Deficiency of other specified B group vitamins, R26.89 - Other abnormalities of gait and mobility, R29.898 - Other symptoms and signs involving the musculoskeletal system
[2024-08-20 16:32] VITALS: BP 120/68; PULSE 63; RESP 14; TEMP 36.8; O2SAT 99; BMI 28.9
== END 2024-08-20 16:59 | disposition home or self-care (01) ==
PROVIDERS: PCP Family Medicine; Visit Provider Family Medicine
DX: R26.89 Other abnormalities of gait and mobility (principal); R29.898 Other symptoms and signs involving the musculoskeletal system; Z71.85 Encounter for immunization safety counseling; E53.8 Deficiency of other specified B group vitamins

== ENCOUNTER → 2024-08-20 16:18 | Outpatient (BNVA) | payer MEDICARE, SELFPAY | PROVIDERS: PCP Family Medicine; Visit Provider Family Medicine | DX: R26.89 Other abnormalities of gait and mobility (principal); R29.898 Other symptoms and signs involving the musculoskeletal system; E53.8 Deficiency of other specified B group vitamins | CPT/HCPCS: 99212 ==

== ENCOUNTER 2024-08-26 11:04 | Outpatient (AMB) | payer MEDICARE, SELFPAY ==
--- NOTE | 2024-08-26 11:33 | AM.OFFVISNUR ---
Intake Visit Reasons: B-12 shot Allergies codeine Allergy (Mild, Verified 08/20/24 16:30) Vomiting Office Meds cyanocobalamin (vitamin B-12) 1,000 mcg/mL injection solution Performing Provider: Andrew Chino MD Performing Location: [facility] Administered by: Dara Monte RN on 08/26/24 11:33 Dose Route Admin Location Dispensed Lot Number Expiration Date [facility] Pharmacy Operations Specialist 1,000 mcg IM Left Deltoid 1 mL [id number] 06/12/25 40335-834-54 [facility] Assessment & Plan Assessment & Plan Orders: Orders AMB Vitamin B12 Injection Patient Supplied Today E53.8 - Deficiency of other specified B group vitamins Medications: New cyanocobalamin (vitamin B-12) 1,000 mcg IM ONCE 1 mL 0RF E53.8 - Deficiency of other specified B group vitamins Coding
--- OUTSIDE RECORDS SUMMARY | 2024-08-26 11:46 | XMS_ITS | Data Portability ---
Author Organization [place] - [facility], Allergy Address [address] [address] Care Team Providers Care Aquatic Habitat Biologist Name Role Phone VINICIUS LLOYD Primary Care [...] Address Organization Details Recorded Time Impacted cerumen 04262314 Active 2013 Impacted cerumen; Location: bilateral CMS Risk: low risk Cond ition: uncontrol led Not Available [facility] 4 03:04:47 Sensorine ural hearing loss of bilateral ears 794944384 Active 2019 Sensorine ural hearing loss, bilateral ; Note: Date Diagnosed : 09/21/2019 3:19 PM (H90.3) Not Available [facility] 4 03:04:49 Impacted cerumen of bilateral ears 93518087645 49790 Active 2015 Impacted cerumen, bilateral ; Note: Date Diagnosed : 09/05/2015 2:29 PM (H61.23) Not Available [facility] 4 03:04:47 Cough 85284420 Active 2022 Cough; Note: Date Diagnosed : 3 12:02 PM (R05) Not Available [facility] 4 03:04:47 Pain of right temporoma ndibular joint 85859123290 472897 Active 2015 Arthralgi a of right temporoma ndibular joint; Note: Changed from M26.62 to M26.621 (05/24/20 16 3:21 PM) , Date Diagnosed : 6 10:52 AM (M26.62) Not Available [facility] 4 03:04:49 Impaired auditory discrimin ation 576666631 Active 2014 Hearing loss; Note: Date Diagnosed : 11/22/2014 11:19 AM (388.43) Not Available [facility] 4 03:04:48 Dizziness and giddiness 933635336 Active 2018 Dizziness and giddiness ; Note: Date Diagnosed : 9 12:29 PM (R42) Not Available [facility] 4 03:04:49 Posterior rhinorrhe a 05992290 Active 2022 Postnasal drip; Note: Date Diagnosed : 3 12:02 PM (R09.82) Postnas al drip; Note: Date Diagnosed : 07/17/2016 1:28 PM (R09.82) ; Start Date : 7 Not Available [facility] 4 03:04:48 Common cold 92746655 Active 2022 Acute rhinitis; Note: Date Diagnosed : 3 12:02 PM (J00) Not Available [facility] 4 03:04:46 Impacted cerumen in right ear 91941098743 44473 Active 2014 Impacted cerumen, right ear; Note: Date Diagnosed : 5 1:33 PM (H61.21) Not Available [facility] 4 03:04:47 Benign paroxysma l positiona l vertigo 575026725 Active 2018 Benign paroxysma l vertigo, right ear; Note: Date Diagnosed : 9 11:55 AM (H81.11) Not Available [facility] 4 03:04:48 Bleeding from nose 642114341 Active 2018 Epistaxis ; Note: Date Diagnosed : 12/21/2018 11:43 AM (R04.0) Not Available [facility] 4 03:04:48 Allergic rhinitis 99067753 Active 2015 Allergic rhinitis, unspecifi ed; Note: Date Diagnosed : 12/12/2015 1:44 PM (J30.9) Not Available [facility] 4 03:04:48 Problem Notes None recorded. Procedures Surgical History Date Name Laterality Status Provider Name and Address Organization Details Recorded Time 5 Cerumen removal without microscope bilat completed QUINCY HOLLINS PA-C [address] [place] [address],[address], [address], [facility] - [facility] 07/28/2024 13:27:17 4 Cerumen removal without microscope bilat completed MATT PERKINS PA-C [address] [facility] [address], [place], [address], [facility] - [facility] 04/28/2024 11:47:31 4 Cerumen removal without microscope bilat completed QUINCY HOLLINS PA-C [address] [facility] [place] [address], [place], [address], [facility] - [facility] 01/27/2024 11:59:00 Imaging Results Imaging Date Name [...] Name and Address Organization Details Recorded Time 914328 codeine sulfate medicatio n other Not available Not available 11/25/2023 90854 RxNorm React ion: unkno wn, unspe cifie d;; Not Available [facility] 4 01:22:29 389786 acetamino phen medicatio n other Not available Not available 11/25/2023 161 RxNorm React ion: unkno wn, unspe cifie d;; Not Available [facility] 4 01:22:30 Medications Name Sig Start [...] topical cream 01/09 completed Medicati on ID: [id number] P reedribe d By Name: MILIND Melvin nd Name: Lotrison e Send Method: E-Prescr ibed Sub s Allowed: subs OK Speci al Instruct ion: apply to external ear tid X 2 weeks Me dication GenericN bri: Lotrison e Not Available Not Available Not Available clotrimaz ole-betam ethasone 1 %-0.05 % lotion 01/09 completed Medicati on ID: [id number] R graeme: () Brand Name: Lotrison e [...] 12.5 mg tablet active Medicati on ID: [id number] B rand Name: meclizin e Send Method: E-Prescr ibed Sub s Allowed: subs OK Medic ationGen ericName : meclizin e Not Available Not Available Not Available hydroxyzi ne HCl 50 mg tablet TAKE ONE TABLET BY MOUTH EVERY DAY NEEDED FOR SLEEP active Not Available Not Available No t Available sulfameth oxazole 800 mg-trimet hoprim 160 mg tablet 10/07 completed Medicati on ID: [id number] Du ration Value: 7 Reason: () Brand Name: sulfamet hoxazole -trimeth oprim Se nd Method: E-Prescr ibed Sub s Allowed: subs OK Medic ationGen ericName : sulfamet hoxazole -trimeth oprim Not Available Not Available Not Available butalbita l-acetami nophen-ca ffeine 50 mg-325 mg-40 mg tablet 01/09 completed Medicati on ID: [id number] Du ration Value: 15 Reason: () Brand Name: butalbit al-aceta minophen -caff Se nd Method: E-Prescr ibed Sub s Allowed: subs OK Medic ationGen ericName : butalbit al-aceta minophen -caff Not Available Not Available Not Available pantopraz ole 40 mg tablet,de layed release active Medicati on ID: [id number] B rand Name: pantopra zole Sen d Method: E-Prescr ibed Sub s Allowed: subs OK Medic ationGen ericName : pantopra zole Not Available Not Available Not Available cyanocoba gricelda (vit B-12) 1,000 mcg/mL injection solution INJECT 1 ML INTO THE MUSCLE ONCE EVERY 4 WEEKS active Not Available Not Available No t Available hydrochlo rothiazid e 25 mg tablet active Medicati on ID: [id number] B rand Name: hydrochl orothiaz mary kay Send Method: E-Prescr ibed Sub s Allowed: subs OK Medic ationGen ericName : hydrochl orothiaz mary kay Not Available Not Available Not Available budesonid e DR - ER 3 mg capsule,d elayed,ex tended release 10/04 completed Medicati on ID: [id number] D uration Value: 14 Brand Name: budgarry de Send Method: E-Prescr ibed Sub s Allowed: subs OK Speci al Instruct ion: TAKE THREE CAPSULES BY MOUTH EVERY DAY FOR 14 DAYS Med icationG enericNa me: budesoni de Not Available Not Available Not Available fluoxetin e 20 mg capsule 01/09 completed Medicati on ID: [id number] D uration Value: 90 Reason: () Brand [...] mg tablet 2019 active Medicati on ID: [id number] D uration Value: 30 Brand Name: diazepam Send Method: E-Prescr ibed Sub s Allowed: subs OK Speci al Instruct ion: TAKE ONE TABLET BY MOUTH EVERY DAY NEEDED Racquel Ninojohannyic Name: diazepam Not Available Not Available Not Available DermOtic Oil 0.01 % ear drops 5 drop 01/09 completed Medicati on ID: [id number] Pr escribed By Name: Radha Whitaker nd Name: DermOtic Oil Send Method: E-Prescr ibed Sub s Allowed: subs OK Medic ationGen ericName : DermOtic Oil Not Available Not Available Not Available GaviLyte- G 236 gram-22.7 4 gram-6.74 gram-5.86 gram oral solution 04/10 completed Medicati on ID: [id number] D uration Value: 1 Reason: () Brand Name: GaviLyte -G Send Method: E-Prescr ibed Sub s Allowed: subs OK Medic ationGen ericName : GaviLyte -G Not Available Not Available Not Available Aimovig Autoinjec tor 70 mg/mL subcutane ous auto-inje ctor 2019 active Medicati on ID: [id number] B rand Name: Aimovig Autoinje ctor Sen d Method: E-Prescr ibed Sub s Allowed: subs OK Medic ationGen ericName : Aimovig Autoinje ctor Not Available Not Available Not Available Vitals Date Recorded Body height Body mass index (BMI) Body weight Provider Name and Address Organization Details Last Updated DateTime 01/27/2024 152.4 cm 29.3 kg/m2 24794.86 g Isaiah Patino [place] - [facility] 01/27/2024 11:19:20 Date Recorded Body height Body mass index (BMI) Body weight Provider Name and Address Organization Details Last Updated DateTime 04/28/2024 152.4 cm 29.3 kg/m2 98224.86 g Colton Pena [place] - [facility] 04/28/2024 11:20:11 Date Recorded Body height Body mass index (BMI) Body weight Provider Name and Address Organization Details Last Updated DateTime 07/28/2024 152.4 cm 27.3 kg/m2 41374.93 g Nataliya Jackie [place] - [facility] 07/28/2024 12:58:18 Social History None recorded. [...] Note [id number] PATITO BRISENO MD [facility] [address] [address] 01/27/2024 11:11:23 01/27/2024 11:45:16 Impacted cerumen of bilateral ears 2840689717 250132 H61.23 PROCEDURE NOTEPATHOL OGY FOUND: Cerumen impaction in both earsPROCED URE: The right ear was examined using otoscopy. The cerumen was then removed using suction and/or instrument s. The same procedure was repeated on the opposite side.ADEOLA ANCE: The patient tolerated this well. [id number] NEGRITO LYN MD [facility] [address] [address] 04/28/2024 11:17:31 04/28/2024 11:45:37 Impacted cerumen of bilateral ears 7538410345 926132 H61.23 [id number] ROBE NORTH MD [facility] [address] [address] 07/28/2024 12:29:19 07/28/2024 13:25:29 Impacted cerumen of bilateral ears 9894978180 038909 H61.23 Health Concerns Section Related Observation LastModified by Organization Detai ls LastModified Time None Recorded Concern Status LastModified by Organization Details LastModified Time None Recorded Advance Directives Directive None Recorded Payers Encounter Date Sequence Insurance Name Policy Number Policy Prado Covered Member ID Prado Member ID Guarantor Name 01/27/2024 1 [place] [employer] Loren Valle [id number] Loren Valle 01/27/2024 2 [employer] - OPTIONS Loren Beckfordk [id number] Loren Valle 04/28/2024 1 [place] [facility] Loren Beckfordk [id number] Loren Valle 04/28/2024 2 [facility] - OPTIONS Loren Beckfordk [id number] Loren Valle 07/28/2024 1 [place] [facility] Loren Beckfordk [id number] Loren Valle 07/28/2024 2 [facility] - OPTIONS Loren Valle [id number] Loren Valle Notes Date Note Type Note Provider Name and Address Organization Details Recorded Time 01/27/2024 text/html 83-year-old female presents for cerumen removal. No acute issues with her ear since last visit. PATITO BRISENO MD [address] [place] [address], [phone], [facility] 01/27/2024 16:59:16 04/28/2024 text/html 83 year-old female presents for evaluation of the ears. Reports ears feel full. No change in hearing. Denies otalgia or otorrhea. NEGRITO CHAPMAN MD [address] [place] [address], [phone], [facility] 04/28/2024 17:14:13 07/28/2024 text/html 83-year-old female presents for cerumen removal. No acute issues since her last visit. ROBE NORTH MD [address] [place] [address], [phone], [facility] 07/28/2024 14:57:41 OBGyn Episode No OBEpisode recorded.
--- OUTSIDE RECORDS SUMMARY | 2024-08-26 11:46 | XMS_ITS | Clinical Summary ---
Author Organization [facility] Address [address] [place] [address] Phone Care Team Providers Care Hoisting Engineer Name Role Phone José Preciado MD Primary Care Provider [phone] Allergies Active Allergy Reactions Criticality Noted Date Comments Acetaminophen 09/04/2017 Tylenol Extra Strength Codeine 09/04/[address] (ENTOCORT EC) 3 mg 24 hr capsule Take by mouth. 6mg daily Active FLUoxetine (PROzac) 20 mg capsule Take 20 mg by mouth daily. Active naproxen (NAPROSYN) 500 mg tablet Take 1 tablet (500 mg total) by mouth 2 (two) times a day. 05/15/2024 Active Active Problems Problem Noted Date Diagnosed Date Abnormal LFTs 08/18/2024 Collagenous colitis 08/18/2024 Gastroesophageal reflux disease without esophagi tis 08/18/2024 History of colon polyps 08/18/2024 Hiccoughs 08/18/2024 Resolved Problems Problem Noted Date Diagnosed Date Resolved Date Acute appendicitis 09/04/2017 Encounters Date Type Department Care Team Description 08/18/2024 3:00 PM EST Office Visit Gastroenterology - [address] [place] [address] [place] [phone] Alvaro Foreman MD Collagenous colitis (Primary Dx); Gastroesophageal reflux disease without esophagitis; Abnormal LFTs; History of colon polyps; Hiccoughs from Last 3 Months Social History Tobacco Use Types Packs/Day Years Used Date Smoking Tobacco: Never Tobacco Cessation:Counseling Given: Not Answered Alcohol Use Standard Drinks/Week Comments Yes 0 (1 standard drink = 0.6 oz pur e alcohol) wine at dinmner Comments Unknown Sex and Gender Information Value Date Recorded Sex Assigned at Not on file Legal Sex Female 9:49 AM EST Gender Identity Not on file Sexual Orientation Not on file Obstetrics History Last Filed Vital Signs Vital Sign Reading Time Taken Comments Blood Pressure - - Pulse - - Temperature - - Respiratory Rate - - Oxygen Saturation - - Inhaled Oxygen Concentration - - Weight 70.8 kg (156 lb) 08/18/2024 2:48 PM EST Height 154.9 cm (5' 1 ) 08/18/2024 2:48 PM EST Body Mass Index 29.48 08/18/2024 2:48 PM EST Plan of Treatment Health Maintenance Due Date Last Done Comments DTaP,Tdap,and Td Vaccines (1 - Tdap) 11/13/1958 Zoster Vaccines (1 of 2) 11/13/1989 RSV Immunization Patients 60 + Years Old (1 - 1-dose 75+ series) 11/13/2014 Pneumococcal Vaccine: 50+ Ye ars (2 of 2 - PCV) 02/16/2018 02/16/2017 Depression Screening 06/16/2022 Falls Risk Assessment 06/16/2022 Medicare Annual Wellness Visit 06/16/2022 Osteoporosis Screening (Bone Density Screening) 06/16/2022 Social Influencers of Health Screening 06/16/2022 COVID-19 Vaccine ( - 2023-2 5 season) 2024 Influenza Vaccine (#1) 2024 HIB Vaccines Aged Out No longer eligi ble based on patient's age to complete this topic HPV Vaccines Aged Out No longer eligi ble based on patient's age to complete this topic Hepatitis A Vaccines Aged Out No long er eligible based on patient's age to complete this topic Hepatitis B Vaccines Aged Out No long er eligible based on patient's age to complete this topic IPV Vaccines Aged Out No longer eligi ble based on patient's age to complete this topic MMR Vaccines Aged Out No longer eligi ble based on patient's age to complete this topic Meningococcal ACWY Vaccine Aged Out N o longer eligible based on patient's age to complete this topic Meningococcal B Vacine Aged Out No lo nger eligible based on patient's age to complete this topic RSV Immunization Patients Un nikita 20 months Aged Out No longer eligible b ased on patient's age to complete this topic Varicella Vaccines Aged Out No longer eligible based on patient's age to complete this topic Insurance MEDICARE [facility] Care Teams Hoisting Engineer Relationship Specialty Start Date End Date José Preciado MD [address] PCP - General Internal Medicine 09/04/17
--- OUTSIDE RECORDS SUMMARY | 2024-08-26 11:47 | XMS_ITS | Continuity of Care Document ---
Author Organization [place] - [facility], [facility] Address [address] [place] [address] Care Team Providers Care Soil Expert Name Role Phone VINICIUS LLOYD Primary Care [...] Address Organization Details Recorded Time Impacted cerumen 78861264 Active 2013 Impacted cerumen; Location: bilateral CMS Risk: low risk Cond ition: uncontrol led Not Available [facility] 4 03:04:47 Sensorine ural hearing loss of bilateral ears 918273250 Active 2019 Sensorine ural hearing loss, bilateral ; Note: Date Diagnosed : 09/21/2019 3:19 PM (H90.3) Not Available [facility] 4 03:04:49 Impacted cerumen of bilateral ears 09215993935 35211 Active 2015 Impacted cerumen, bilateral ; Note: Date Diagnosed : 09/05/2015 2:29 PM (H61.23) Not Available [facility] 4 03:04:47 Cough 30016266 Active 2022 Cough; Note: Date Diagnosed : 3 12:02 PM (R05) Not Available [facility] 4 03:04:47 Pain of right temporoma ndibular joint 06464086290 394349 Active 2015 Arthralgi a of right temporoma ndibular joint; Note: Changed from M26.62 to M26.621 (05/24/20 16 3:21 PM) , Date Diagnosed : 6 10:52 AM (M26.62) Not Available [facility] 4 03:04:49 Impaired auditory discrimin ation 169771534 Active 2014 Hearing loss; Note: Date Diagnosed : 11/22/2014 11:19 AM (388.43) Not Available [facility] 4 03:04:48 Dizziness and giddiness 095960032 Active 2018 Dizziness and giddiness ; Note: Date Diagnosed : 9 12:29 PM (R42) Not Available [facility] 4 03:04:49 Posterior rhinorrhe a 06254291 Active 2022 Postnasal drip; Note: Date Diagnosed : 3 12:02 PM (R09.82) Postnas al drip; Note: Date Diagnosed : 07/17/2016 1:28 PM (R09.82) ; Start Date : 7 Not Available [facility] 4 03:04:48 Common cold 11953730 Active 2022 Acute rhinitis; Note: Date Diagnosed : 3 12:02 PM (J00) Not Available [facility] 4 03:04:46 Impacted cerumen in right ear 07361631653 19025 Active 2014 Impacted cerumen, right ear; Note: Date Diagnosed : 5 1:33 PM (H61.21) Not Available [facility] 4 03:04:47 Benign paroxysma l positiona l vertigo 892985598 Active 2018 Benign paroxysma l vertigo, right ear; Note: Date Diagnosed : 9 11:55 AM (H81.11) Not Available [facility] 4 03:04:48 Bleeding from nose 028323975 Active 2018 Epistaxis ; Note: Date Diagnosed : 12/21/2018 11:43 AM (R04.0) Not Available [facility] 4 03:04:48 Allergic rhinitis 41645450 Active 2015 Allergic rhinitis, unspecifi ed; Note: Date Diagnosed : 12/12/2015 1:44 PM (J30.9) Not Available [facility] 4 03:04:48 Problem Notes None recorded. Procedures Surgical History Date Name Laterality Status Provider Name and Address Organization Details Recorded Time 5 Cerumen removal without microscope bilat completed QUINCY HLOLINS PA-C [address] [place] [address], [phone], [facility] 07/28/2024 13:27:17 4 Cerumen removal without microscope bilat completed MATT PERKINS PA-C [address] [place] [address], [phone], [facility] 04/28/2024 11:47:31 4 Cerumen removal without microscope bilat completed QUINCY HOLLINS PA-C [address] [place] [address], [phone], [facility] 01/27/2024 11:59:00 Imaging Results None recorded. Procedure Notes None recorded. Medical Equipment None Reported. Allergies Allergen ID Allergen Name Allergen Category Reaction Reaction Severity Criticality Documentation Date Start Date Code Code System Note Provider Name and Address Organization Details Recorded Time 035418 codeine sulfate medicatio n other Not available Not available 11/25/2023 52221 RxNorm React ion: unkno wn, unspe cifie d;; Not Available [facility] 4 01:22:29 911876 acetamino phen medicatio n other Not available Not available 11/25/2023 161 RxNorm React ion: unkno wn, unspe cifie d;; Not Available [facility] 4 01:22:30 Medications Name Sig [...] topical cream 01/09 completed Medicati on ID: [id number] P tasha d By Name: MILIND Melvin nd Name: Lotrison e Send Method: E-Prescr ibed Sub s Allowed: subs OK Speci al Instruct ion: apply to external ear tid X 2 weeks Me dication GenericN bri: Lotrison e Not Available Not Available Not Available clotrimaz ole-betam ethasone 1 %-0.05 % lotion 01/09 completed Medicati on ID: [id number] R graeme: () Brand Name: Lotrison e [...] 12.5 mg tablet active Medicati on ID: [id number] B rand Name: meclizin e Send Method: E-Prescr ibed Sub s Allowed: subs OK Medic ationGen ericName : meclizin e Not Available Not Available Not Available hydroxyzi ne HCl 50 mg tablet TAKE ONE TABLET BY MOUTH EVERY DAY NEEDED FOR SLEEP active Not Available Not Available No t Available sulfameth oxazole 800 mg-trimet hoprim 160 mg tablet 10/07 completed Medicati on ID: [id number] Du ration Value: 7 Reason: () Brand Name: sulfamet hoxazole -trimeth oprim Se nd Method: E-Prescr ibed Sub s Allowed: subs OK Medic ationGen ericName : sulfamet hoxazole -trimeth oprim Not Available Not Available Not Available butalbita l-acetami nophen-ca ffeine 50 mg-325 mg-40 mg tablet 01/09 completed Medicati on ID: [id number] Du ration Value: 15 Reason: () Brand Name: butalbit al-aceta minophen -caff Se nd Method: E-Prescr ibed Sub s Allowed: subs OK Medic ationGen ericName : butalbit al-aceta minophen -caff Not Available Not Available Not Available pantopraz ole 40 mg tablet,de layed release active Medicati on ID: [id number] B rand Name: pantopra zole Sen d Method: E-Prescr ibed Sub s Allowed: subs OK Medic ationGen ericName : pantopra zole Not Available Not Available Not Available cyanocoba gricelda (vit B-12) 1,000 mcg/mL injection solution INJECT 1 ML INTO THE MUSCLE ONCE EVERY 4 WEEKS active Not Available Not Available No t Available hydrochlo rothiazid e 25 mg tablet active Medicati on ID: [id number] B rand Name: hydrochl orothiaz mary kay Send Method: E-Prescr ibed Sub s Allowed: subs OK Medic ationGen ericName : hydrochl orothiaz mary kay Not Available Not Available Not Available budesonid e DR - ER 3 mg capsule,d elayed,ex tended release 10/04 completed Medicati on ID: [id number] D uration Value: 14 Brand Name: budesoni de Send Method: E-Prescr ibed Sub s Allowed: subs OK Speci al Instruct ion: TAKE THREE CAPSULES BY MOUTH EVERY DAY FOR 14 DAYS Med icationG enericNa me: budesoni de Not Available Not Available Not Available fluoxetin e 20 mg capsule 01/09 completed Medicati on ID: [id number] D uration Value: 90 Reason: () Brand [...] mg tablet 2019 active Medicati on ID: [id number] D uration Value: 30 Brand Name: diazepam Send Method: E-Prescr ibed Sub s Allowed: subs OK Speci al Instruct ion: TAKE ONE TABLET BY MOUTH EVERY DAY NEEDED M edicatio nGeneric Name: diazepam Not Available Not Available Not Available DermOtic Oil 0.01 % ear drops 5 drop 01/09 completed Medicati on ID: [id number] Pr escribed By Name: Radha Whitaker nd Name: DermOtic Oil Send Method: E-Prescr ibed Sub s Allowed: subs OK Medic ationGen ericName : DermOtic Oil Not Available Not Available Not Available GaviLyte- G 236 gram-22.7 4 gram-6.74 gram-5.86 gram oral solution 04/10 completed Medicati on ID: [id number] D uration Value: 1 Reason: () Brand Name: GaviLyte -G Send Method: E-Prescr ibed Sub s Allowed: subs OK Medic ationGen ericName : GaviLyte -G Not Available Not Available Not Available Aimovig Autoinjec tor 70 mg/mL subcutane ous auto-inje ctor 2019 active Medicati on ID: [id number] B rand Name: Aimovig Autoinje ctor Sen d Method: E-Prescr ibed Sub s Allowed: subs OK Medic ationGen ericName : Aimovig Autoinje ctor Not Available Not Available Not Available Vitals Date Recorded Body height Body mass index (BMI) Body weight Provider Name and Address Organization Details Last Updated DateTime 07/28/2024 152.4 cm 27.3 kg/m2 94781.93 g Nataliya Jackie [place] - [facility] 07/28/2024 12:58:18 Social History None recorded. Functional Status None recorded. Mental Status None recorded. Family History Nothing Reported. Medical History No medical history recorded. Gynecological HistoryNo gynecological history recorded. Obstetrics History GPAL:G 0 P 0 0 0 0 Past Encounters Encounter ID Performer Location Encounter Start Date Encounter Closed Date Diagnosis/Indication Diagnosis SNOMED-CT Code Diagnosis ICD10 Code Diagnosis Note [id number] ROBE NORTH MD [facility] [address] [address] 07/28/2024 12:29:19 07/28/2024 13:25:29 Impacted cerumen of bilateral ears [id number] 407771 H61.23 Health Concerns Section Related Observation LastModified by Organization Detai ls LastModified Time None Recorded Concern Status LastModified by Organization Details LastModified Time None Recorded Payers Encounter Date Sequence Insurance Name Policy Number Policy Prado Covered Member ID Prado Member ID Guarantor Name 07/28/2024 1 [place] [employer] Loren Morel Leonard [id number] Loren Valle 07/28/2024 2 [facility] OPT[employer] Loren Morel Leonard [id number] Loren Adriel Valle Notes Date Note Type Note Provider Name and Address Organization Details Recorded Time 07/28/2024 text/html 83-year-old female presents for cerumen removal. No acute issues since her last visit. ROBE NORTH MD [address] [place] [address], [phone], [place] - [facility] 07/28/2024 14:57:41 OBGyn Episode No OBEpisode recorded.
--- OUTSIDE RECORDS SUMMARY | 2024-08-26 11:47 | XMS_ITS | Referral Summary ---
Author Organization [facility] Address [address] [place] [address] Care Team Providers Care Comber Operator Name Role Phone Andrew Chino MD Primary Care Provider [phone] Encounters Date Type Department Care Team Description 07/12/2024 12:00 PM EST Office Visit [facility] [address] [place] [address] [phone] Lo Nur MD Falls frequently (Primary Dx) 06/11/2024 Telephone [facility] [address] [place] [phone] Telephone Intake, Staff PAC Appt Request - New 05/27/2024 Telephone [facility] [address] [place] [address] [phone] Telephone Intake, Staff PAC Form/Letter/Records Request from Last 3 Months Allergies Active Allergy Reactions Criticality Noted Date Comments Acetaminophen Unknown 09/04/2017 Tylenol Extra Strength Codeine Lightheadedness 09/04/2017 Other reaction(s): Dizziness - light-headed vomiting vomiting Medications FLUoxetine (PROzac) 40 mg capsule SMARTSI Capsule(s) By Mouth Daily 05/15/2024 Active erenumab-aooe (Aimovig Autoinjector) 70 mg/mL auto-injector Inject 70 mg under the skin. 09/25/2023 Active budesonide (ENTOCORT EC) 3 mg EC capsule Per pt take 3 mg every other day Active cyanocobalamin, vitamin B-12, 1,000 mcg/mL kit Inject as directed. Per pt take once a month Active cetirizine (ZyrTEC) 10 mg tablet Take 10 mg by mouth once a day. Active Social History Tobacco Use Types Packs/Day Years Used Date Smoking Tobacco: Never Smokeless Tobacco: Never Tobacco Cessation:Counseling Given: Not Answered Alcohol Use Standard Drinks/Week Comments Yes 0 (1 standard drink = 0.6 oz pur e alcohol) Comments Unknown Sex and Gender Information Value Date Recorded Sex Assigned at Female 05/17/2024 8:11 AM EST Legal Sex Female 1:30 PM EDT Gender Identity Not on file Sexual Orientation Not on file Last Filed Vital Signs Vital Sign Reading Time Taken Comments Blood Pressure 130/72 07/12/2024 11:52 AM EST Pulse 69 07/12/2024 11:52 AM EST Temperature 36.6 ??C (97.9 ??F) 07/12/2024 11:[address] Respiratory Rate 16 07/12/2024 11:52 AM EST Oxygen Saturation 94% 07/12/2024 11:52 AM EST Inhaled Oxygen Concentration - - Weight 70.8 kg (156 lb) 07/12/2024 11:52 AM EST Height 154.9 cm (5' 1 ) 07/12/2024 11:52 AM EST Body Mass Index 29.48 07/12/2024 11:52 AM EST Plan of Treatment Upcoming Encounters Date Type Department Care Team (Late st Contact Info) Description 11/10/2024 1:00 PM EDT Office Visit [facility] [address] [place] [phone] Angie Santillan MD [address] [place] [phone] Insurance MEDICARE [facility] SUPP AARP Care Teams Comber Operator Relationship Specialty Start Date End Date Andrew Chino MD [address] [place] [phone] PCP - General Family Medicine 04/30/24
--- OUTSIDE RECORDS SUMMARY | 2024-08-26 11:47 | XMS_ITS | Clinical Summary ---
Author Organization [facility] Address [address] [place] [address] Care Team Providers Care Supervisor Maintenance And Custodians Name Role Phone Andrew Chino MD Primary Care Provider [phone] Allergies Active Allergy Reactions Criticality Noted Date [...] mg by mouth once a day. Active Encounters Date Type Department Care Team Description 07/12/2024 12:00 PM EST Office Visit [facility] [address] [place] [phone] Lo Nur MD Falls frequently (Primary Dx) 06/11/2024 Telephone [facility] [address] [place] [phone] Telephone Intake, Staff PAC Appt Request - New 05/27/2024 Telephone [facility] [address] [place] [phone] Telephone Intake, Staff PAC Form/Letter/Records Request from Last 3 Months Social History Tobacco [...] Description 11/10/2024 1:00 PM EDT Office Visit [facility] [address] [place] [phone] Angie Santillan MD [address] [place] [address] [place] [address] Health Maintenance Due Date Last Done Comments DTaP,Tdap,and Td Vaccines (1 - Tdap) 11/13/1961 Osteoporosis Screening 11/13/1989 Zoster Vaccines (1 of 2) 11/13/1989 RSV Vaccine (60+ years old and patients) (1 - 1-dose 75+ series) 11/13/2014 Pneumococcal Vaccine: 50+ Ye ars (2 of 2 - PCV) 02/16/2018 02/16/2017 COVID-19 Vaccine ( - 2023-2 5 season) 2024 Influenza Vaccine (#1) 2024 Alcohol/Substance Use Screening 07/14/2024 Depression Screening and Follow-Up 07/14/2024 Fall Risk Screening 07/14/2024 Health Care Proxy Review 07/14/2024 Social Drivers of Health Mya ual Screening 07/14/2024 Tobacco Screening 07/14/2042 07/12/2024 Hepatitis B Vaccines Aged Out No long er eligible based on patient's age to complete this topic Insurance MEDICARE [facility] SUPP AARP Care Teams Supervisor Maintenance And Custodians Relationship Specialty Start Date End Date Andrew Chino MD [address] [place] [address] PCP - General Family Medicine 04/30/24
--- OUTSIDE RECORDS SUMMARY | 2024-08-26 11:47 | XMS_ITS | Clinical Summary ---
Author Organization [facility] Address [address] [place] [address] Care Team Providers Care Judicial Assistant Name Role Phone Unavailable Primary Care Provider Unavailabl e Social History Tobacco Use Types Packs/Day Years Used Date Smoking Tobacco: Never Assessed Comments Unknown Sex and Gender Information Value Date Recorded Sex Assigned at Not on file Legal Sex Female 3:47 AM EDT Gender Identity Not on file Sexual Orientation Not on file Plan of Treatment Health Maintenance Due Date Last Done Comments DTaP/Tdap/Td (1 - Tdap) 11/13/1957 Pneumococcal 50+ years (1 of 1 - PCV) 11/13/1989 Zoster (Shingrix) (1 of 2) 11/13/1989 Bone Density 11/13/2004 RSV (1 - 1-dose 75+ series) 11/13/2014 COVID-19 Vaccine (2023-2 5 season) 2024 Influenza (#1) 2024 Mammogram/Breast Imaging Discontinued 03/08/1999 HPV Vaccine Aged Out No longer eligi ble based on patient's age to complete this topic Hep A Aged Out No longer eligi ble based on patient's age to complete this topic Hep B Aged Out No longer eligi ble based on patient's age to complete this topic Hib Aged Out No longer eligi ble based on patient's age to complete this topic Meningococcal ACWY Aged Out No longer eligible based on patient's age to complete this topic Pap Smear Discontinued Zoster (Zostavax) Discontinued Procedures * Due to [place] [employer] law, this organization might not be sharing negative HIV tests. Procedure Name Priority Date/Time Associated Diagnosis Comments SCREENING MAMMOGRAPHY BILATERAL (TWO VIEW FILM STUDY OF EACH BREAST) Routine 03/08/1999 1:00 PM EDT Other Screening Mammogram from Last 3 Months or Most Recently Relevant to Health Maintenance Results * Due to [place] [employer] law, this organization might not be sharing negative HIV tests. * SCREENING MAMMOGRAPHY BILATERAL (TWO VIEW FILM STUDY OF EACH BREAST) (03/08/1999 1:00 PM EDT) RADIOLOGY REPORT 03/08/99 Bilateral mammogram: This is the patient's first mammogram at [facility]. Two views of each breast were obtained. The breasts are largely fatty-replaced with scattered areas of residual glandular tissue. There are no worrisome masses or suspicious calcifications in either breast. Impression: No radiographic evidence of malignancy. I would recommend annual screening in this patient. A letter (A) in lay language describing the results will follow this report. The FDA, in accordance with the Mammography Quality Standards Act, requires that this letter be sent to the patient by the interpreting radiologist. BI-RADS Category 1: Negative [facility] (CLIA# [id number]) LETTER SENT A mammogram letter type A N was printed on 03/16/1999 [facility] (CLIA# [id number]) Anatomical Region Laterality Modality Other 03/08/1999 1:00 PM EDT Narrative 03/08/1999 1:29 PM EDT Ordered by [facility] NURSE PRACTIONER Reason for Study/History: ROUTINE Test(s) processed by : [facility] us Unknown Provider GENERAL IMAGING- OTHER Final Re sult from Last 3 Months or Most Recently Relevant to Health Maintenance Insurance [employer] , [id number]
--- OUTSIDE RECORDS SUMMARY | 2024-08-26 11:47 | XMS_ITS | Encounter Summary ---
Author Organization [facility] Address [address] [place] [address] Care Team Providers Care Baton Teacher Name Role Phone José Preciado MD Primary Care Provider +1- [phone] Reason for Visit * Reason Comments Follow-up Recall letter reciev ed Encounter Details Date Type Department Care Team ([facility] st Contact Info) Description 08/18/2024 3:00 PM EST Office Visit Gastroenterology - [address] [phone] Alvaro Foreman MD [address] [address] Collagenous colitis (Primary Dx); Gastroesophageal reflux disease without esophagitis; Abnormal LFTs; History of colon polyps; Hiccoughs Social History Tobacco Use Types Packs/Day Years [...] on file Sexual Orientation Not on file documented as of this encounter Last Filed Vital Signs Vital Sign Reading Time Taken Comments Blood Pressure - - Pulse - - Temperature - - Respiratory Rate - - Oxygen Saturation - - Inhaled Oxygen Concentration - - Weight 70.8 kg (156 lb) 08/18/2024 2:48 PM EST Height 154.9 cm (5' 1 ) 08/18/2024 2:48 PM EST Body Mass Index 29.48 08/18/2024 2:48 PM EST documented in this encounter Progress Notes * Alvaro Foreman MD - 08/18/2024 3:00 PM EST PROGRESS NOTE Subjective Patient ID: Loren Valle is a 83 y.o. female. No chief complaint on file. HPI History of Present Illness The patient is an 83-year-old female who presents for evaluation of abnormal liver function tests (LFTs).,History of Collagenous colitis, GERD, and history o f polyps. Abnormal Liver Function Tests - History of abnormal LFTs with previous workups including negative echo, AMA, and sprue serologies - One borderline elevation in the EDE - Last liver tests in August 2023 were completely normal - Drinks coffee, one or two cups a day - Walks 15 to 30 minutes a day Microscopic Colitis - Specifically collagenous colitis - On budesonide, taking one every other day, which has been effective Esophageal Reflux - Was doing well at her last visit -She does complain of singultus. Just brief periods. Several times a day, not related to food, acticity etc. -No dysphagia or pain C Colon Polyps - History of colon polyps - In 2018, had four polyps - At colonoscopy in October 2017, had three polyps: two sessile serrated polyps in the ascending colon and a tubular adenoma in the cecum - Rebooked for a follow-up in April 2022 but canceled it - At last visit, not inclined to undergo additional colonoscopies - Given her age of 83, this decision is somewhat controversial. Also discussed this visit, same decision Other Medical Problems - Depression - Migraine Supplemental information: She has a history of an ovarian cyst and is status post appendectomy. SOCIAL HISTORY - Drinks coffee, one or two cups a day - Walks 15 to 30 minutes a day MEDICATIONS - Budesonide Results Laboratory Studies Last liver tests in August 2023 were completely normal. Social History Socioeconomic History Marital status: Spouse name: Not on file Number of children: Not on file Years of education: Not on file Highest education level: Not on file Occupational History Not on file Tobacco Use Smoking status: Not on file Smokeless tobacco: Not on file Substance and Sexual Activity Alcohol use: Not on file Drug use: Not on file Sexual activity: Not on file Other Topics Concern Not on file Social History Narrative Not on file No past medical history on file. No past surgical history on file. Review of Systems Constitutional: Negative. Respiratory: Negative for shortness of breath. Cardiovascular: Negative for chest pain. Gastrointestinal: Negative. Genitourinary: Negative for difficulty urinating. Skin: Negative for color change. Psychiatric/Behavioral: Negative for agitation and confusion. Objective Physical Exam Constitutional: General: She is awake. Appearance: Normal appearance. She is not ill-appearing, toxic-appearing or diaphoretic. HENT: Head: Normocephalic. Nose: Nose normal. Mouth/Throat: Pharynx: Oropharynx is clear. No oropharyngeal exudate. Eyes: Pupils: Pupils are equal, round, and reactive to light. Abdominal: General: There is no distension. Palpations: Abdomen is soft. There is no mass. Tenderness: There is no abdominal tenderness. There is no right CVA tenderness, left CVA tenderness, guarding or rebound. Hernia: No hernia is present. Musculoskeletal: Cervical back: Neck supple. Skin: Coloration: Skin is not jaundiced or pale. Neurological: General: No focal deficit present. Mental Status: She is alert and oriented to person, place, and time. Psychiatric: Mood and Affect: Mood normal. Behavior: Behavior normal. Behavior is cooperative. Assessment/Plan Assessment & Plan Abnormal liver function tests (LFTs) - LFTs from August 2023 were within normal limits - No further action required at this time Microscopic colitis - History of collagenous colitis - Currently on budesonide daily - Continue current regimen of budesonide - Reduce intake of fatty foods and artificial sweeteners (e.g., SweeTarts, sugar-free gum, sugar-free candy) - Contact office if condition does not improve within a few weeks Esophageal reflux/hiccoughs - Take pantoprazole 40 mg once daily before breakfast for 1 to 2 months - Contact office if symptoms do not improve Colon polyps - History of polyps (sessile serrated polyps and tubular adenoma) identified during colonoscopy in October 2017 - Decided against further colonoscopies due to age and personal preference Depression Migraine Ovarian cyst PROCEDURE Colonoscopy in October 2017 revealed two sessile serrated polyps in the ascending colon and a tubularadenoma in the cecum. Last Recorded Vitals: There were no vitals taken for this visit. Labs: No results found for: WBC , HGB , HCT , MCV , PLT No results found for: NA , K , CL , CO2 , BUN , CREATININE , CALCIUM , PROT , BILITOT , ALKPHOS , ALT , AST , GLUCOSE No results found for: WOUNDCX , BLOODCX , URINECX , CSFCX , AFBCX , MRSA Pertinent new radiology results/studies: CR KNEE BILATERAL 3 VIEWS [facility] Diagnostic Imaging Department [address] [place] [address] Patient: LOREN VALLE /Age/Sex: 1940 81 - F Unit#: [id number] [facility] Mnemonic/Ordering Site: [place] [address]/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 Right knee arthroplasty. Patellofemoral alignment is normal. No acute fracture or dislocation. Dictating Physician: ZACK SU MD Electronically Signed by: ZACK SU MD Dic Date/Time: 07/29/221710 Sign date/Time: 07/29/221714 MEDICATIONS: Current Hospital Medications: Current Outpatient Medications: budesonide DR (ENTOCORT EC) 3 mg 24 hr capsule, Take by mouth. 6mg daily, Disp: , Rfl: FLUoxetine (PROzac) 20 mg capsule, Take 20 mg by mouth daily., Disp: , Rfl: Home Medications: She has a current medication list which includes the following long-term medication(s): budesonide dr and fluoxetine. Patient Active Problem List Diagnosis Acute appendicitis Alvaro Foreman MD 12:10 PM EST documented in this encounter Plan of Treatment Not on file documented as of this encounter Visit Diagnoses Diagnosis Collagenous colitis- Primary Other and unspecified noninfectious gastroenteritis and colitis Gastroesophageal reflux disease without esophagitis Esophageal reflux Abnormal LFTs History of colon polyps Hiccoughs Hiccough documented in this encounter Historical Medications * This list may reflect changes made after this encounter. naproxen (NAPROSYN) 500 mg tablet Take 1 tablet (500 mg total) by mouth 2 (two) times a day. 05/15/2024 added in this encounter Care Teams Baton Teacher Relationship Specialty Start Date End Date José Preciado MD [address] PCP - General Internal Medicine 09/04/17 documented as of this encounter
== END 2024-08-26 11:14 | disposition home or self-care (01) ==
PROVIDERS: PCP Family Medicine; Visit Provider Family Medicine
DX: E53.8 Deficiency of other specified B group vitamins (principal)

== ENCOUNTER → 2024-08-26 11:04 | Outpatient (BNVA) | payer MEDICARE, SELFPAY | PROVIDERS: PCP Family Medicine; Visit Provider Family Medicine | DX: E53.8 Deficiency of other specified B group vitamins (principal) | CPT/HCPCS: 96372; J3420 ==

== ENCOUNTER 2024-09-21 10:50 | Outpatient (RCR) | payer MEDICARE, SELFPAY ==
--- NOTE | 2024-09-15 15:49 | MHC.PT.EP ---
[facility] Office [place] Office [place] Office [address] [place] [address] [address] [phone] F: [phone] F: [phone] F: [phone] F: [phone] Physical Therapy Plan of Care Date of Evaluation: 09/15/24 Date of Surgery: NA Diagnosis: ABNORMALITIES OF GT AND MOBIITY Assessment: Pt IS 83 YO F REFERRED TO PT FROM DR LLOYD WITH BALANCE ISSUES. Pt REPORTS MULTIPLE FALLS. REPORTS LEGS FEEL WEAK AND HAS HAD VERTIGO IN THE PAST. Pt PRESENTS WITH UNSTEADY GT LE WEAKNESS (L MORE WEAK THAN R), +BPPV. Pt LIVES WITH AND IS I WITH ADLS, DRIVES. SON ACCOMPANIES Pt TODAY. SHOULD BENEFIT FROM PT TO ADDRESS THESE ISSUES Frequency and Duration: The patient will be seen 2X/WK X 6 WKS Short Term Goals: 1. INCREASED AWARENESS BACK/LE CARE 2. LESS DIZZINESS REPORTED WITH ROLLING IN BED 3. GT WITH ST CANE WITH IMPROVED STEADINESS NOTED/REPORTED Aeronautical Inspector Goals: 1. I HEP WITH DC EX PLAN 2. NO FALLS Treatment Plan: Modalities to reduce pain, spasms and effusion. Manual therapy to restore motion and function. Therapeutic exercise to improve strength and flexibility. Neuromuscular re-education for posture and balance. Therapeutic activities to return to functional activities of daily living. Electronically signed by: MALI SALAZAR PT Please sign and return to therapist. Thank you for your referral.
--- NOTE | 2024-12-15 12:30 | MHC.PT.DC ---
[facility] [place] [facility] [place] [facility] [place] [facility] [address] Srinivas Dailey [address] [phone] F: [phone] F: [phone] F: [phone] F: [phone] Physical Therapy Discharge Report Diagnosis: ABNORMALITIES OF GT AND MOBIITY Date of Surgery: NA Date of Evaluation: 09/15/24 Date of Discharge: 12/15/24 Treatments to Date: 3 Cancellations to Date: No Shows to Date: Discharge Status: Patient Elected to Stop Discharge Summary: Pt SEEN FOR INIT EVAL AND 2 VISITS. PER ASSESSMENT ON 09/21/24 BY Anel DALTON PT Pt presents with exacerbation of dizziness. Session began with assessment of R Xiomara Hallpike with mild nysatgmus noted. Pt taken through R Tali maneuver x 1 rep and was negative upon reassessment. L Xiomara Hallpike assessed and was positive for dizziness and L upbeating torsional nystagmus. Pt was taken through L Tali maneuver x 2 reps. Attempted reassessment of L Xiomara Hallpike, and pt became extremely nauseous and sat up immediately. Upon sitting, pt was dizzy with L upbeating torsional nystagmus noted initially. Pt was nauseous and vomited. Pt rested for a few minutes and symptoms began to improve with water and cool cloth on forehead. Pt taken down in w/c for safety. Pt ambulated from main entrance with SPC and WEIGHER PACKING to car safely (her is driving her). Pt has another appointment booked this Friday. I encouraged pt to call to come in sooner if she has any worsening of symptoms / feels unsteady or unsafe due to dizziness and pt verbalized understanding. She also follows up with her doctor later today' Pt THEN CANCELLED LAST SCHEDULED APPT WITHOUT RESCHEDULING ANOTHER. PER REPORT, Pt HAS HAD FU WITH DR LLOYD Electronically signed by: MALI SALAZAR PT Please sign and return to therapist. Thank you for your referral.
== END 2024-12-15 12:31 | disposition home or self-care (01) ==
LOC: HO.PT 10:50
PROVIDERS: PCP Family Medicine; Visit Provider Family Medicine
DX: R29.898 Other symptoms and signs involving the musculoskeletal system (principal); R26.89 Other abnormalities of gait and mobility; E53.8 Deficiency of other specified B group vitamins
CPT/HCPCS: 95992; 97162; 97535

== ENCOUNTER 2024-09-24 10:47 | Outpatient (AMB) | payer MEDICARE, SELFPAY ==
--- NOTE | 2024-09-24 11:12 | AM.OFFVISNUR ---
Intake Visit Reasons: B-12 shot Knowledge Management Advisor Required: No Accompanied by: Self / Same As Patient Allergies codeine Allergy (Mild, Verified 08/20/24 16:30) Vomiting Office Meds cyanocobalamin (vitamin B-12) 1,000 mcg/mL injection solution Performing Provider: Andrew Chino MD Performing Location: [facility] [place] [facility] Administered by: Dara Monte RN on 09/24/24 11:13 Dose Route Admin Location Dispensed Lot Number Expiration Date [facility] Training Officer 1,000 mcg IM Left Deltoid 1 mL [id number] 06/12/25 67832-881-83 DEZ [employer]ACE[employer] Assessment & Plan Assessment & Plan Orders: Orders AMB Vitamin B12 Injection Patient Supplied Today E53.8 - Deficiency of other specified B group vitamins Medications: New cyanocobalamin (vitamin B-12) 1,000 mcg IM ONCE 1 mL 0RF E53.8 - Deficiency of other specified B group vitamins Coding Level of Care Code Established Pt Est Pt Level 1 (96736) Patient Type Established History Problem Focused Exam Problem Focused Medical Decision Making Straight Forward Time Spent (min) 5
--- OUTSIDE RECORDS SUMMARY | 2024-09-24 12:24 | XMS_ITS | Clinical Summary ---
Author Organization [facility] Address [address] [place] [address] Phone Care Team Providers Care Rock Splitter Name Role Phone José Preciado MD Primary Care Provider +1- [phone] Allergies Active Allergy Reactions Criticality Noted Date [...] 3:00 PM EST Office Visit Gastroenterology - [address] [place] [address] [place] [phone] Alvaro Foreman MD Collagenous colitis (Primary [...] age to complete this topic Insurance MEDICARE [facility] Care Teams Rock Splitter Relationship Specialty Start Date End Date José Preciado MD [address] PCP - General Internal Medicine 09/04/17
--- OUTSIDE RECORDS SUMMARY | 2024-09-24 12:24 | XMS_ITS | Data Portability ---
Author Organization [place] - [facility], Allergy Address [address] [address] Care Team Providers Care Dry Chain Offbearer Name Role Phone VINICIUS LLOYD Primary Care [...] Address Organization Details Recorded Time Impacted cerumen 72043611 Active 2013 Impacted cerumen; Location: bilateral CMS Risk: low risk Cond ition: uncontrol led Not Available [facility] 4 03:04:47 Sensorine ural hearing loss of bilateral ears 022670211 Active 2019 Sensorine ural hearing loss, bilateral ; Note: Date Diagnosed : 09/21/2019 3:19 PM (H90.3) Not Available [facility] 4 03:04:49 Impacted cerumen of bilateral ears 63828606576 22408 Active 2015 Impacted cerumen, bilateral ; Note: Date Diagnosed : 09/05/2015 2:29 PM (H61.23) Not Available [facility] 4 03:04:47 Cough 87357015 Active 2022 Cough; Note: Date Diagnosed : 3 12:02 PM (R05) Not Available [facility] 4 03:04:47 Pain of right temporoma ndibular joint 38265984962 397687 Active 2015 Arthralgi a of right temporoma ndibular joint; Note: Changed from M26.62 to M26.621 (05/24/20 16 3:21 PM) , Date Diagnosed : 6 10:52 AM (M26.62) Not Available [facility] 4 03:04:49 Impaired auditory discrimin ation 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 Active 2014 Hearing loss; Note: Date Diagnosed : 11/22/2014 11:19 AM (388.43) Not Available [facility] 4 03:04:48 Dizziness and giddiness 639713137 Active 2018 Dizziness and giddiness ; Note: Date Diagnosed : 9 12:29 PM (R42) Not Available [facility] 4 03:04:49 Posterior rhinorrhe a 33019656 Active 2022 Postnasal drip; Note: Date Diagnosed : 3 12:02 PM (R09.82) Postnas al drip; Note: Date Diagnosed : 07/17/2016 1:28 PM (R09.82) ; Start Date : 7 Not Available [facility] 4 03:04:48 Common cold 40521059 Active 2022 Acute rhinitis; Note: Date Diagnosed : 3 12:02 PM (J00) Not Available [facility] 4 03:04:46 Impacted cerumen in right ear 34576902311 50289 Active 2014 Impacted cerumen, right ear; Note: Date Diagnosed : 5 1:33 PM (H61.21) Not Available [facility] 4 03:04:47 Benign paroxysma l positiona l vertigo 204558321 Active 2018 Benign paroxysma l vertigo, right ear; Note: Date Diagnosed : 9 11:55 AM (H81.11) Not Available [facility] 4 03:04:48 Bleeding from nose 524855682 Active 2018 Epistaxis ; Note: Date Diagnosed : 12/21/2018 11:43 AM (R04.0) Not Available [facility] 4 03:04:48 Allergic rhinitis 57613051 Active 2015 Allergic rhinitis, unspecifi ed; Note: Date Diagnosed : 12/12/2015 1:44 PM (J30.9) Not Available [facility] 4 03:04:48 Problem Notes None recorded. Procedures Surgical History Date Name Laterality Status Provider Name and Address Organization Details Recorded Time 5 Cerumen removal without microscope bilat completed QUINCY HOLLINS PA-C [address] [place] [address],[address], [address], [facility] - [facility] 07/28/2024 13:27:17 4 Cerumen removal without microscope bilat completed MATT PERKINS PA-C 100 [facility] [address], [place], [address], [facility] - [facility] 04/28/2024 11:47:31 4 Cerumen removal without microscope bilat completed QUINCY HOLLINS PA-C 100 [facility] 100, [place], [address], [facility] - [facility] 01/27/2024 11:59:00 Imaging Results Imaging Date Name [...] Name and Address Organization Details Recorded Time 718826 codeine sulfate medicatio n other Not available Not available 11/25/2023 34826 RxNorm React ion: unkno wn, unspe cifie d;; Not Available [facility] 4 01:22:29 084000 acetamino phen medicatio n other Not available Not available 11/25/2023 161 RxNorm React ion: unkno wn, unspe cifie d;; Not Available [facility] 4 01:22:30 Medications Name Sig [...] topical cream 01/09 completed Medicati on ID: [id number] P reedribe d By Name: MILIND Melvin nd Name: Lotrison e Send Method: E-Prescr ibed Sub s Allowed: subs OK Speci al Instruct ion: apply to external ear tid X 2 weeks Me dication GenericN bri: Lotrison e Not Available Not Available Not Available clotrimaz ole-betam ethasone 1 %-0.05 % lotion 01/09 completed Medicati on ID: [id number] R graeme: () Brand Name: Lotrison e [...] 12.5 mg tablet active Medicati on ID: [id number] B rand Name: meclizin e Send Method: E-Prescr ibed Sub s Allowed: subs OK Medic ationGen ericName : meclizin e Not Available Not Available Not Available hydroxyzi ne HCl 50 mg tablet TAKE ONE TABLET BY MOUTH EVERY DAY NEEDED FOR SLEEP active Not Available Not Available No t Available sulfameth oxazole 800 mg-trimet hoprim 160 mg tablet 10/07 completed Medicati on ID: [id number] Du ration Value: 7 Reason: () Brand Name: sulfamet hoxazole -trimeth oprim Se nd Method: E-Prescr ibed Sub s Allowed: subs OK Medic ationGen ericName : sulfamet hoxazole -trimeth oprim Not Available Not Available Not Available butalbita l-acetami nophen-ca ffeine 50 mg-325 mg-40 mg tablet 01/09 completed Medicati on ID: [id number] Du ration Value: 15 Reason: () Brand Name: butalbit al-aceta minophen -caff Se nd Method: E-Prescr ibed Sub s Allowed: subs OK Medic ationGen ericName : butalbit al-aceta minophen -caff Not Available Not Available Not Available pantopraz ole 40 mg tablet,de layed release active Medicati on ID: [id number] B rand Name: pantopra zole Sen d Method: E-Prescr ibed Sub s Allowed: subs OK Medic ationGen ericName : pantopra zole Not Available Not Available Not Available cyanocoba gricelda (vit B-12) 1,000 mcg/mL injection solution INJECT 1 ML INTO THE MUSCLE ONCE EVERY 4 WEEKS active Not Available Not Available No t Available hydrochlo rothiazid e 25 mg tablet active Medicati on ID: [id number] B rand Name: hydrochl orothiaz mary kay Send Method: E-Prescr ibed Sub s Allowed: subs OK Medic ationGen ericName : hydrochl orothiaz mary kay Not Available Not Available Not Available budesonid e DR - ER 3 mg capsule,d elayed,ex tended release 10/04 completed Medicati on ID: [id number] D uration Value: 14 Brand Name: budgarry de Send Method: E-Prescr ibed Sub s Allowed: subs OK Speci al Instruct ion: TAKE THREE CAPSULES BY MOUTH EVERY DAY FOR 14 DAYS Med icationG enericNa me: budesoni de Not Available Not Available Not Available fluoxetin e 20 mg capsule 01/09 completed Medicati on ID: [id number] D uration Value: 90 Reason: () Brand [...] mg tablet 2019 active Medicati on ID: [id number] D uration Value: 30 Brand Name: diazepam Send Method: E-Prescr ibed Sub s Allowed: subs OK Speci al Instruct ion: TAKE ONE TABLET BY MOUTH EVERY DAY NEEDED Racquel Ninojohannyic Name: diazepam Not Available Not Available Not Available DermOtic Oil 0.01 % ear drops 5 drop 01/09 completed Medicati on ID: [id number] Pr escribed By Name: Radha Whitaker nd Name: DermOtic Oil Send Method: E-Prescr ibed Sub s Allowed: subs OK Medic ationGen ericName : DermOtic Oil Not Available Not Available Not Available GaviLyte- G 236 gram-22.7 4 gram-6.74 gram-5.86 gram oral solution 04/10 completed Medicati on ID: [id number] D uration Value: 1 Reason: () Brand Name: GaviLyte -G Send Method: E-Prescr ibed Sub s Allowed: subs OK Medic ationGen ericName : GaviLyte -G Not Available Not Available Not Available Aimovig Autoinjec tor 70 mg/mL subcutane ous auto-inje ctor 2019 active Medicati on ID: [id number] B rand Name: Aimovig Autoinje ctor Sen d Method: E-Prescr ibed Sub s Allowed: subs OK Medic ationGen ericName : Aimovig Autoinje ctor Not Available Not Available Not Available Vitals Date Recorded Body height Body mass index (BMI) Body weight Provider Name and Address Organization Details Last Updated DateTime 01/27/2024 152.4 cm 29.3 kg/m2 46265.86 g Isaiah Patino [place] - [facility] 01/27/2024 11:19:20 Date Recorded Body height Body mass index (BMI) Body weight Provider Name and Address Organization Details Last Updated DateTime 04/28/2024 152.4 cm 29.3 kg/m2 42741.86 g Colton Pena [place] - [facility] 04/28/2024 11:20:11 Date Recorded Body height Body mass index (BMI) Body weight Provider Name and Address Organization Details Last Updated DateTime 07/28/2024 152.4 cm 27.3 kg/m2 61849.93 g Nataliya Jackie [place]AV[place] - [facility] 07/28/2024 12:58:18 Social History None recorded. Functional [...] Note [id number] PATITO BRISENO MD [facility] [address] [address] 01/27/2024 11:11:23 01/27/2024 11:45:16 Impacted cerumen of bilateral ears [id number] 157360 H61.23 PROCEDURE NOTEPATHOL OGY FOUND: Cerumen impaction in both earsPROCED URE: The right ear was examined using otoscopy. The cerumen was then removed using suction and/or instrument s. The same procedure was repeated on the opposite side.ADEOLA ANCE: The patient tolerated this well. [id number] NEGRITO LYN MD [facility] [address] [address] 04/28/2024 11:17:31 04/28/2024 11:45:37 Impacted cerumen of bilateral ears 3909984955 698756 H61.23 [id number] ROBE NORTH MD [facility] [address] [address] 07/28/2024 12:29:19 07/28/2024 13:25:29 Impacted cerumen of bilateral ears 7219285705 433771 H61.23 Health Concerns Section Related Observation LastModified by Organization Detai ls LastModified Time None Recorded Concern Status LastModified by Organization Details LastModified Time None Recorded Advance Directives Directive None Recorded Payers Encounter Date Sequence Insurance Name Policy Number Policy Prado Covered Member ID Prado Member ID Guarantor Name 01/27/2024 1 [place] Richard Pauer - [employer] Loren Valle [id number] Loren Valle 01/27/2024 2 [employer] - OPTIONS Loren Valle [id number] Loren Valle 04/28/2024 1 [place] [facility] Loren Valle [id number] Loren Valle 04/28/2024 2 [employer] - OPTIONS Loren Valle [id number] Loren Valle 07/28/2024 1 [place] [facility] Loren Valle [id number] Loren Valle 07/28/2024 2 [facility] - OPTIONS Loren Valle [id number] Loren Valle Notes Date Note Type Note Provider Name and Address Organization Details Recorded Time 01/27/2024 text/html 83-year-old female presents for cerumen removal. No acute issues with her ear since last visit. PATITO BRISENO MD [address] [place] [address], [phone], [facility] 01/27/2024 16:59:16 04/28/2024 text/html 83 year-old female presents for evaluation of the ears. Reports ears feel full. No change in hearing. Denies otalgia or otorrhea. NEGRITO CHAPMAN MD [address] [place] [address],[address], [address], [facility] 04/28/2024 17:14:13 07/28/2024 text/html 83-year-old female presents for cerumen removal. No acute issues since her last visit. ROBE NORTH MD [address] [place] [address],[address], [address], [facility] 07/28/2024 14:57:41 OBGyn Episode No OBEpisode recorded.
--- OUTSIDE RECORDS SUMMARY | 2024-09-24 12:25 | XMS_ITS | Clinical Summary ---
Author Organization [facility] Address [address] [place] [address] Care Team Providers Care Manufacturing Engineering Technologist Name Role Phone Unavailable Primary Care Provider [...] Zoster (Zostavax) Discontinued Procedures * Due to [place] [employer] law, this organization might not be sharing negative HIV tests. Procedure Name Priority Date/Time Associated Diagnosis Comments SCREENING MAMMOGRAPHY BILATERAL (TWO VIEW FILM STUDY OF EACH BREAST) Routine 03/08/1999 1:00 PM EDT Other Screening Mammogram from Last 3 Months or Most Recently Relevant to Health Maintenance Results * Due to [place] [employer] law, this organization might not be sharing negative HIV tests. * SCREENING MAMMOGRAPHY BILATERAL (TWO VIEW FILM STUDY OF EACH BREAST) (03/08/1999 1:00 PM EDT) RADIOLOGY REPORT 03/08/99 Bilateral mammogram: This is the patient's first mammogram at [facility]. Two views of each breast were obtained. [...] the interpreting radiologist. BI-RADS Category 1: Negative [facility] (CLIA# [id number]) LETTER SENT A mammogram letter type A N was printed on 03/16/1999 [facility] (CLIA# [id number]) Anatomical Region Laterality Modality Other 03/08/1999 1:00 PM EDT Narrative 03/08/1999 1:29 PM EDT Ordered by [facility] NURSE PRACTIONER Reason for Study/History: ROUTINE Test(s) processed by : [facility] GOLD us Unknown Provider GENERAL IMAGING- OTHER Final Re sult from Last 3 Months or Most Recently Relevant to Health Maintenance Insurance [employer] , [id number]
--- OUTSIDE RECORDS SUMMARY | 2024-09-24 12:25 | XMS_ITS | Referral Summary ---
Author Organization [facility] Address [address] [place] [address] Care Team Providers Care Architect Intern Name Role Phone Andrew Chino MD Primary Care Provider [phone] Encounters Date Type Department Care Team Description 07/12/2024 12:00 PM EST Office Visit [facility] [address] [place] [address] [phone] Lo Nur MD Falls frequently (Primary Dx) from Last 3 Months Allergies Active Allergy [...] Description 11/10/2024 1:00 PM EDT Office Visit [facility] [address] [place] [address] Angie Santillan MD [address] [place] [phone] Insurance MEDICARE [facility] AARP Care Teams Architect Intern Relationship Specialty Start Date End Date Andrew Chino MD [address] [place] [phone] PCP - General Family Medicine 04/30/24
--- OUTSIDE RECORDS SUMMARY | 2024-09-24 12:25 | XMS_ITS | Clinical Summary ---
Author Organization [facility] Address [address] [place] [address] Care Team Providers Care Bariatric Nurse Name Role Phone Andrew Chino MD Primary Care Provider [phone] Allergies Active Allergy Reactions Criticality Noted Date [...] Description 07/12/2024 12:00 PM EST Office Visit [facility] [address] [place] [phone] Lo Nur MD Falls frequently (Primary Dx) from Last 3 Months Social History Tobacco [...] Description 11/10/2024 1:00 PM EDT Office Visit [facility] [address] [place] [phone] Angie Santillan MD [address] [place] [address] Health Maintenance Due Date Last Done Comments Medicare AWV 11/13/1941 DTaP,Tdap,and Td Vaccines (1 - Tdap) 11/13/1961 Osteoporosis Screening 11/13/1989 Zoster Vaccines (1 of 2) 11/13/1989 RSV Vaccine (60+ years old a nd patients) (1 - 1-dose 75+ series) 11/13/2014 [...] age to complete this topic Insurance MEDICARE [facility] Care Teams Bariatric Nurse Relationship Specialty Start Date End Date Andrew Chino MD [address] [place] [phone] PCP - General Family Medicine 04/30/24
== END 2024-09-24 11:12 | disposition home or self-care (01) ==
LOC: HO.HMCFM 10:47
PROVIDERS: PCP Family Medicine; Visit Provider Family Medicine
DX: E53.8 Deficiency of other specified B group vitamins (principal)

== ENCOUNTER → 2024-09-24 10:47 | Outpatient (BNVA) | payer MEDICARE, SELFPAY | PROVIDERS: PCP Family Medicine; Visit Provider Family Medicine | DX: H53.8 Other visual disturbances (principal) | CPT/HCPCS: 96372; 99211; J3420 ==

== ENCOUNTER 2024-10-19 11:34 | Outpatient (AMB) | payer MEDICARE, SELFPAY ==
--- NOTE | 2024-10-19 11:50 | A.OFFPC_ITS ---
Vital Signs 10/19/24 11:58 Height 5 ft 1.65 in Weight 158 lb 2 oz BMI 29.2 BP 130/70 Blood Pressure Location Lt brachial Position Sitting Respiration 16 Pulse 83 Pulse Source Pulse Oximeter Temp 98.9 F Temp Source Oral Pulse Oximetry (%) 98 Oxygen Delivery Method Room Air Intake Visit Reasons: f/u chronic conditions Intake Note: patient schedule to go over lower extremities weakness Casing Soaker Required: No Allergies codeine Allergy (Mild, Verified 10/19/24 11:55) Vomiting Medication List - Last Reconciled 10/19/24 by Andrew Chino MD benzonatate 200 mg PO BID PRN [address]-ER 3 mg PO DAILY calcium polycarbophil (FiberCon) 625 mg PO DAILY 30 days cyanocobalamin (vitamin B-12) 1,000 mcg IM Q4W 84 days erenumab-aooe (Aimovig Autoinjector) mg subcut fluoxetine 40 mg PO DAILY 90 days hydroxyzine HCl 50 mg PO DAILY PRN 30 days naproxen 500 mg PO BID 90 days pantoprazole 40 mg PO BID Tobacco use date assessed: 10/31/23 Dental Screening Dental Screen Date: 10/31/23 HPI f/u chronic conditions HPI Details 83 y/o female presents to f/u chronic co nditions such as LE weakness, imbalance, labs. Checking renal function, CBC and B12 levels. Labs drawn 08/26/24. Reviewed labs with pt. CBC was fine. Creatinine levels were fine. B12 levels 778 pg/mL. TC 243. Triglycerides 124. LDL 144. HDL 77. Reports ongoing fatigue. HPI Comments History of Present Illness Details Documentation assistance for Andrew Chino MD, was provided by Kris Carter,? Forensic Medical Examiner on 10/19/2024 at 12:15 PM EST. I, Dr. Chino, have read, observed, and verified documentation. ?? PFSH Medical History Anxiety Failed total right knee replacement Surgical History History of appendectomy Family History (Updated 10/31/23 @ 10:39 by Radha Mills [facility]) Father Prostate cancer Mother Cancer Paternal family history of mental health disorder Social History Housing: House Patient Tobacco Use Status: Never used Tobacco e-Cigarette/Vaping Use: Never Used service: No Current occupational status: retired Cognitive needs: No Hearing needs: No Vision needs: No Questionnaire PHQ-9 Over the last 2 weeks, how often have you been bothered by any of the following problems? 63052 - PHQ-9 Billing: Patient declined-do not bill Source: Developed by Drs. Doron Decker, Bella Wood, Jason Monique and colleagues, with an educational antonio from [employer]. Thrive Questionnaire Date Thrive assessed: 08/20/24 FADY-7 AMB Questionnaire FADY-7 Date FADY - 7 assessed: 10/31/23 Source: Developed by Drs. Doron Decker, Bella Wood, Jason Monique and colleagues, with an educational antonio from [employer]. Review of Systems Const Denies chills, Reports fatigue, Denies fever(s), Denies headache(s) and Denies weakness ENT Denies dizziness and Denies headache(s) Card Denies dyspnea Resp Denies cough, Denies dyspnea, Denies wheezing and Denies other (shortness of breath) Musc Denies numbness and Denies tingling Neuro Denies dizziness, Denies headache(s), Denies numbness, Denies tingling and Denies weakness Psych Denies anxiety and Denies depression Endo Reports fatigue Aller/Immun Denies wheezing Physical exam (Primary Care) Vital Signs: Last Vital Signs Temp 98.9 F 10/19/24 11:58 Pulse 83 10/19/24 11:58 Resp 16 10/19/24 11:58 BP 130/70 10/19/24 11:58 Pulse Ox 98 10/19/24 11:58 Oxygen Delivery Method Room Air 10/19/24 11:58 BMI result Body Mass Index 29.2 Tobacco/Smoking Status: Tobacco use Status Tobacco use date assessed 10/31/23 10/19/24 11:51 Patient Tobacco Use Status Never used Tobacco 10/19/24 11:51 e-Cigarette/Vaping Use Never Used 10/19/24 11:51 Thrive Assessment: Date of Thrive Assessment Date Thrive assessed 08/20/24 10/19/24 11:51 Const General: well developed; No acute distress Nutritional Appearance: well nourished Orientation/consciousness: patient oriented x3 HENMT Head: Yes normocephalic and Yes atraumatic Eyes General: appearance normal, both eyes and all related structures Pupils: Equal, round and reactive pupils present EOM: EOMs intact bilaterally Resp Effort & Inspection: normal respiratory effort Neuro General: patient oriented x3 and No gait normal Cranial nerves: Yes Equal, round and reactive pupils present Gait exam (Neuro): Assisted gait required (Cane) Psych Affect: normal affect Coding Level of Care Code Est Pt Level 4 (25015) Diagnoses B12 deficiency E53.8 Leg weakness R29.898 Imbalance R26.89 Elevated LDL cholesterol level E78.00 Hypersomnolence G47.10 Assessment & Plan Assessment & Plan (1) B12 deficiency: Code(s): E53.8 - Deficiency of other specified B group vitamins Category: Medical Plan: Now?on?B12?supplement?and B12?levels?are?within?normal?range Continue?B12 (2) Leg weakness: Code(s): R29.898 - Other symptoms and signs involving the musculoskeletal system Category: Medical Plan: Ongoing?lower?extremity?weakness. She?has?just?beg un?physical?therapy?recently?and?I?encouraged?her?to?continue?this Follow-up?with?Neurology?as?recommended - seeing?Neurology?at?[facility]?and?they?have?ordered?an?MRI.??I?have?asked?her?to?hav e?them?forw phil?their?most?recent?office?visit?note?and?the?MRI?report?when?available. (3) Imbalance: Code(s): R26.89 - Other abnormalities of gait and mobility Category: Medical Plan: Now?using?her?cane?and?I?recommended?she?continue?this Follow-up?with?Neurology?and?continue?physical?therapy (4) Elevated LDL cholesterol level: Code(s): E78.00 - Pure hypercholesterolemia, unspecified Category: Medical Plan: Elevated?LDL?cholesterol?at?144.??Goal?is?less?than?100 Encouraged?her?to?work?on?a?diet?low?in?saturated?fats?and?cholesterol We?can?recheck?this?at?a?subsequent?visit (5) Hypersomnolence: Code(s): G47.10 - Hypersomnia, unspecified Category: Medical Plan: Referred?to?Sleep?Medicine Orders: Orders Lipid Panel Today E78.00 - Pure hypercholesterolemia, unspecified, Z00.00 - Encounter for general adult medical examination without abnormal findings Comprehensive [place]. Panel Fast Today E78.00 - Pure hypercholesterolemia, unspecified, Z00.00 - Encounter for general adult medical examination without abnormal findings Referrals Sleep Medicine Referral G47.10 - Hypersomnia, unspecified
[2024-10-19 11:58] VITALS: BP 130/70; PULSE 83; RESP 16; TEMP 37.2; O2SAT 98; BMI 29.2
--- OUTSIDE RECORDS SUMMARY | 2024-10-19 14:10 | XMS_ITS | Data Portability ---
Author Organization [place] - [facility], Allergy Address [address] [address] Care Team Providers Care Concrete Block Molder Name Role Phone VINICIUS LLOYD Primary Care Provider [phone] Assessment Encounter Date Assessment Date Assessment LastModified [...] Address Organization Details Recorded Time Impacted cerumen 59501908 Active 2013 Impacted cerumen; Location: bilateral CMS Risk: low risk Cond ition: uncontrol led Not Available [facility] 4 03:04:47 Sensorine ural hearing loss of bilateral ears 505410001 Active 2019 Sensorine ural hearing loss, bilateral ; Note: Date Diagnosed : 09/21/2019 3:19 PM (H90.3) Not Available [facility] 4 03:04:49 Impacted cerumen of bilateral ears 60424808335 97001 Active 2015 Impacted cerumen, bilateral ; Note: Date Diagnosed : 09/05/2015 2:29 PM (H61.23) Not Available [facility] 4 03:04:47 Cough 78484776 Active 2022 Cough; Note: Date Diagnosed : 3 12:02 PM (R05) Not Available [facility] 4 03:04:47 Pain of right temporoma ndibular joint 70377061307 925392 Active 2015 Arthralgi a of right temporoma ndibular joint; Note: Changed from M26.62 to M26.621 (05/24/20 16 3:21 PM) , Date Diagnosed : 6 10:52 AM (M26.62) Not Available [facility] 4 03:04:49 Impaired auditory discrimin ation 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 Active 2014 Hearing loss; Note: Date Diagnosed : 11/22/2014 11:19 AM (388.43) Not Available [facility] 4 03:04:48 Dizziness and giddiness 724024940 Active 2018 Dizziness and giddiness ; Note: Date Diagnosed : 9 12:29 PM (R42) Not Available [facility] 4 03:04:49 Posterior rhinorrhe a 32551637 Active 2022 Postnasal drip; Note: Date Diagnosed : 3 12:02 PM (R09.82) Postnas al drip; Note: Date Diagnosed : 07/17/2016 1:28 PM (R09.82) ; Start Date : 7 Not Available [facility] 4 03:04:48 Common cold 23510834 Active 2022 Acute rhinitis; Note: Date Diagnosed : 3 12:02 PM (J00) Not Available [facility] 4 03:04:46 Impacted cerumen in right ear 69396120341 98583 Active 2014 Impacted cerumen, right ear; Note: Date Diagnosed : 5 1:33 PM (H61.21) Not Available [facility] 4 03:04:47 Benign paroxysma l positiona l vertigo 881106000 Active 2018 Benign paroxysma l vertigo, right ear; Note: Date Diagnosed : 9 11:55 AM (H81.11) Not Available [facility] 4 03:04:48 Bleeding from nose 975966738 Active 2018 Epistaxis ; Note: Date Diagnosed : 12/21/2018 11:43 AM (R04.0) Not Available [facility] 4 03:04:48 Allergic rhinitis 43068966 Active 2015 Allergic rhinitis, unspecifi ed; Note: Date Diagnosed : 12/12/2015 1:44 PM (J30.9) Not Available [facility] 4 03:04:48 Problem Notes None recorded. Procedures Surgical History Date Name Laterality Status Provider Name and Address Organization Details Recorded Time 5 Cerumen removal without microscope bilat completed QUINCY HOLLINS PA-C [address] [place] [address],[address], [address], [facility] - [facility] 07/28/2024 13:27:17 4 Cerumen removal without microscope bilat completed MATT PERKINS PA-C [address] [facility] [address], [place], [address], [facility] - [facility] 04/28/2024 11:47:31 4 Cerumen removal without microscope bilat completed QUINCY HOLLINS PA-C [address] [facility] [address], [place], [address], [facility] - [facility] 01/27/2024 11:59:00 Imaging Results Imaging Date [...] Name and Address Organization Details Recorded Time 040672 codeine sulfate medicatio n other Not available Not available 11/25/2023 00334 RxNorm React ion: unkno wn, unspe cifie d;; Not Available [facility] 4 01:22:29 132854 acetamino phen medicatio n other Not available Not available 11/25/2023 161 RxNorm React ion: unkno wn, unspe cifie d;; Not Available [facility] 4 01:22:30 Medications Name [...] topical cream 01/09 completed Medicati on ID: [id number] P reedribe d By Name: MILIND Melvin nd Name: Lotrison e Send Method: E-Prescr ibed Sub s Allowed: subs OK Speci al Instruct ion: apply to external ear tid X 2 weeks Me dication GenericN bri: Lotrison e Not Available Not Available Not Available clotrimaz ole-betam ethasone 1 %-0.05 % lotion 01/09 completed Medicati on ID: [id number] R graeme: () Brand Name: Lotrison e [...] 12.5 mg tablet active Medicati on ID: [id number] B rand Name: meclizin e Send Method: E-Prescr ibed Sub s Allowed: subs OK Medic ationGen ericName : meclizin e Not Available Not Available Not Available hydroxyzi ne HCl 50 mg tablet TAKE ONE TABLET BY MOUTH EVERY DAY NEEDED FOR SLEEP active Not Available Not Available No t Available sulfameth oxazole 800 mg-trimet hoprim 160 mg tablet 10/07 completed Medicati on ID: [id number] Du ration Value: 7 Reason: () Brand Name: sulfamet hoxazole -trimeth oprim Se nd Method: E-Prescr ibed Sub s Allowed: subs OK Medic ationGen ericName : sulfamet hoxazole -trimeth oprim Not Available Not Available Not Available butalbita l-acetami nophen-ca ffeine 50 mg-325 mg-40 mg tablet 01/09 completed Medicati on ID: [id number] Du ration Value: 15 Reason: () Brand Name: butalbit al-aceta minophen -caff Se nd Method: E-Prescr ibed Sub s Allowed: subs OK Medic ationGen ericName : butalbit al-aceta minophen -caff Not Available Not Available Not Available pantopraz ole 40 mg tablet,de layed release active Medicati on ID: [id number] B rand Name: pantopra zole Sen d Method: E-Prescr ibed Sub s Allowed: subs OK Medic ationGen ericName : pantopra zole Not Available Not Available Not Available cyanocoba gricelda (vit B-12) 1,000 mcg/mL injection solution INJECT 1 ML INTO THE MUSCLE ONCE EVERY 4 WEEKS active Not Available Not Available No t Available hydrochlo rothiazid e 25 mg tablet active Medicati on ID: [id number] B rand Name: hydrochl orothiaz mary kay Send Method: E-Prescr ibed Sub s Allowed: subs OK Medic ationGen ericName : hydrochl orothiaz mary kay Not Available Not Available Not Available budesonid e DR - ER 3 mg capsule,d elayed,ex tended release 10/04 completed Medicati on ID: [id number] D uration Value: 14 Brand Name: budgarry de Send Method: E-Prescr ibed Sub s Allowed: subs OK Speci al Instruct ion: TAKE THREE CAPSULES BY MOUTH EVERY DAY FOR 14 DAYS Med icationG enericNa me: budesoni de Not Available Not Available Not Available fluoxetin e 20 mg capsule 01/09 completed Medicati on ID: [id number] D uration Value: 90 Reason: () Brand [...] mg tablet 2019 active Medicati on ID: [id number] D uration Value: 30 Brand Name: diazepam Send Method: E-Prescr ibed Sub s Allowed: subs OK Speci al Instruct ion: TAKE ONE TABLET BY MOUTH EVERY DAY NEEDED Racquel Ninojohannyic Name: diazepam Not Available Not Available Not Available DermOtic Oil 0.01 % ear drops 5 drop 01/09 completed Medicati on ID: [id number] Pr escribed By Name: Radha Whitaker nd Name: DermOtic Oil Send Method: E-Prescr ibed Sub s Allowed: subs OK Medic ationGen ericName : DermOtic Oil Not Available Not Available Not Available GaviLyte- G 236 gram-22.7 4 gram-6.74 gram-5.86 gram oral solution 04/10 completed Medicati on ID: [id number] D uration Value: 1 Reason: () Brand Name: GaviLyte -G Send Method: E-Prescr ibed Sub s Allowed: subs OK Medic ationGen ericName : GaviLyte -G Not Available Not Available Not Available Aimovig Autoinjec tor 70 mg/mL subcutane ous auto-inje ctor 2019 active Medicati on ID: [id number] B rand Name: Aimovig Autoinje ctor Sen d Method: E-Prescr ibed Sub s Allowed: subs OK Medic ationGen ericName : Aimovig Autoinje ctor Not Available Not Available Not Available Vitals Date Recorded Body height Body mass index (BMI) Body weight Provider Name and Address Organization Details Last Updated DateTime 01/27/2024 152.4 cm 29.3 kg/m2 07234.86 g Isaiah Patino [place] - [facility] 01/27/2024 11:19:20 Date Recorded Body height Body mass index (BMI) Body weight Provider Name and Address Organization Details Last Updated DateTime 04/28/2024 152.4 cm 29.3 kg/m2 03250.86 g Colton Pena [place] - [facility] 04/28/2024 11:20:11 Date Recorded Body height Body mass index (BMI) Body weight Provider Name and Address Organization Details Last Updated DateTime 07/28/2024 152.4 cm 27.3 kg/m2 41116.93 g Nataliya Jackie CHAVAR[facility] - [facility] 07/28/2024 12:58:18 Social History None recorded. [...] Note [id number] PATITO BRISENO MD [facility] [address] [address] 01/27/2024 11:11:23 01/27/2024 11:45:16 Impacted cerumen of bilateral ears 1072161462 815210 H61.23 PROCEDURE NOTEPATHOL OGY FOUND: Cerumen impaction in both earsPROCED URE: The right ear was examined using otoscopy. The cerumen was then removed using suction and/or instrument s. The same procedure was repeated on the opposite side.ADEOLA ANCE: The patient tolerated this well. [id number] NEGRITO LYN MD [facility] [address] [address] 04/28/2024 11:17:31 04/28/2024 11:45:37 Impacted cerumen of bilateral ears 5286821699 281583 H61.23 [id number] ROBE NORTH MD [facility] [address] [address] 07/28/2024 12:29:19 07/28/2024 13:25:29 Impacted cerumen of bilateral ears 3566800002 951104 H61.23 Health Concerns Section Related Observation LastModified by Organization Detai ls LastModified Time None Recorded Concern Status LastModified by Organization Details LastModified Time None Recorded Advance Directives Directive None Recorded Payers Encounter Date Sequence Insurance Name Policy Number Policy Prado Covered Member ID Prado Member ID Guarantor Name 01/27/2024 1 [place] [employer] Loren Valle [id number] Loren Valle 01/27/2024 2 [employer] - OPTIONS Loren Valle [id number] Loren Valle 04/28/2024 1 [place] [facility] Loren Valle [id number] Loren Valle 04/28/2024 2 [employer] - OPTIONS Loren Valle [id number] Loren Valle 07/28/2024 1 [place] [facility] Loren Valle [id number] Loren Valle 07/28/2024 2 [facility] - OPTIONS Loren Valle [id number] Loren Valle Notes Date Note Type Note Provider Name and Address Organization Details Recorded Time 01/27/2024 text/html 83-year-old female presents for cerumen removal. No acute issues with her ear since last visit. PATITO BRISENO MD [address] [place] [address], [phone], [facility] 01/27/2024 16:59:16 04/28/2024 text/html 83 year-old female presents for evaluation of the ears. Reports ears feel full. No change in hearing. Denies otalgia or otorrhea. NEGRITO CHAPMAN MD [address] [place] [address],[address], [address], [facility] 04/28/2024 17:14:13 07/28/2024 text/html 83-year-old female presents for cerumen removal. No acute issues since her last visit. ROBE NORTH MD [address] [place] [address],[address], [address], [facility] 07/28/2024 14:57:41 OBGyn Episode No OBEpisode recorded.
--- OUTSIDE RECORDS SUMMARY | 2024-10-19 14:10 | XMS_ITS | Clinical Summary ---
Author Organization [facility] Address [address] [id number] Care Team Providers Care Riprap Man Name Role Phone Andrew Chino MD Primary Care Provider [phone] Allergies Active Allergy Reactions Criticality Noted Date [...] Description 11/10/2024 1:00 PM EDT Office Visit [facility] [address] [place] [phone] Angie Santillan MD [address] [place] [address] [place] [address] Health Maintenance Due Date Last Done Comments Medicare AWV 11/13/1941 DTaP,Tdap,and Td Vaccines (1 - Tdap) 11/13/1961 Osteoporosis Screening 11/13/1989 Zoster Vaccines (1 of 2) 11/13/1989 RSV Vaccine (60+ years old a nd patients) (1 - 1-dose 75+ series) 11/13/2014 Pneumococcal Vaccine: 50+ Ye ars (2 of 2 - PCV) 02/16/2018 02/16/2017 COVID-19 Vaccine ( - 2023-2 5 season) 2024 Alcohol/Substance Use Screening 07/14/2024 Depression Screening and Follow-Up 07/14/2024 Fall Risk Screening 07/14/2024 Health Care Proxy Review 07/14/2024 Social Drivers of Health Mya ual Screening 07/14/2024 Influenza Vaccine (Season Ended) 2025 Tobacco Screening 07/14/2042 07/12/2024 Hepatitis B Vaccines Aged Out No long er eligible based on patient's age to complete this topic Insurance MEDICARE [facility] [place] Care Teams Riprap Man Relationship Specialty Start Date End Date Andrew Chino MD [address] [place] [phone] PCP - General Family Medicine 04/30/24
--- OUTSIDE RECORDS SUMMARY | 2024-10-19 14:10 | XMS_ITS | Referral Summary ---
Author Organization [facility] Address [address] [place] [address] Care Team Providers Care Full Stack Software Engineer Name Role Phone Andrew Chino MD Primary Care Provider [phone] Allergies Active Allergy Reactions Criticality Noted Date [...] Description 11/10/2024 1:00 PM EDT Office Visit [facility] [address] [place] [address] [phone] Angie Santillan MD [address] [place] [phone] Insurance MEDICARE [facility] SUPP AARP Care Teams Full Stack Software Engineer Relationship Specialty Start Date End Date Andrew Chino MD [address] [place] [address] PCP - General Family Medicine 04/30/24
--- OUTSIDE RECORDS SUMMARY | 2024-10-19 14:10 | XMS_ITS | Clinical Summary ---
Author Organization [facility] Address [address] [place] [address] Phone Care Team Providers Care Flagger Name Role Phone José Preciado MD Primary Care Provider [phone] Allergies Active Allergy Reactions Criticality Noted Date [...] 3:00 PM EST Office Visit Gastroenterology - [address] [place] [address] [place] [address] Alvaro Foreman MD Collagenous colitis (Primary [...] Vaccines (1 of 2) 11/13/1989 RSV Immunization Adult Patie nts (1 - 1-dose 75+ series) 11/13/2014 Pneumococcal Vaccine: 50+ Ye ars (2 of 2 - PCV) 02/16/2018 02/16/2017 Depression Screening 06/16/2022 Falls Risk Assessment 06/16/2022 Medicare Annual Wellness Visit 06/16/2022 Osteoporosis Screening (Bone Density Screening) 06/16/2022 Social Influencers of Health Screening 06/16/2022 COVID-19 Vaccine (2023-2 5 season) 2024 Influenza Vaccine (#1) 2024 [...] age to complete this topic Meningococcal B Vaccine Aged Out No l onger eligible based on patient's age to complete this topic RSV Immunization Patients Un nikita 20 months Aged Out No longer eligible b ased on patient's age to complete this topic Varicella Vaccines Aged Out No longer eligible based on patient's age to complete this topic Insurance MEDICARE [facility] Care Teams Flagger Relationship Specialty Start Date End Date José Preciado MD [address] PCP - General Internal Medicine 09/04/17
--- OUTSIDE RECORDS SUMMARY | 2024-10-19 14:10 | XMS_ITS | Clinical Summary ---
Author Organization [facility] Address [address] [place] [address] Care Team Providers Care Ux Consultant Name Role Phone Unavailable Primary Care Provider [...] Zoster (Zostavax) Discontinued Procedures * Due to [place] [employer] law, this organization might not be sharing negative HIV tests. Procedure Name Priority Date/Time Associated Diagnosis Comments SCREENING MAMMOGRAPHY BILATERAL (TWO VIEW FILM STUDY OF EACH BREAST) Routine 03/08/1999 1:00 PM EDT Other Screening Mammogram from Last 3 Months or Most Recently Relevant to Health Maintenance Results * Due to [place] [employer] law, this organization might not be sharing negative HIV tests. * SCREENING MAMMOGRAPHY BILATERAL (TWO VIEW FILM STUDY OF EACH BREAST) (03/08/1999 1:00 PM EDT) RADIOLOGY REPORT 03/08/99 Bilateral mammogram: This is the patient's first mammogram at [facility]. Two views of each breast were [...] the interpreting radiologist. BI-RADS Category 1: Negative [facility] (CLIA# [id number]) LETTER SENT A mammogram letter type A N was printed on 03/16/1999 [facility] (CLIA# [id number]) Anatomical Region Laterality Modality Other 03/08/1999 1:00 PM EDT Narrative 03/08/1999 1:29 PM EDT Ordered by [facility] NURSE PRACTIONER Reason for Study/History: ROUTINE Test(s) processed by : [facility] GOLD us Unknown Provider GENERAL IMAGING- OTHER Final Re sult from Last 3 Months or Most Recently Relevant to Health Maintenance Insurance [employer] , [id number]
== END 2024-10-19 12:29 | disposition home or self-care (01) ==
PROVIDERS: PCP Family Medicine; Visit Provider Family Medicine
DX: E53.8 Deficiency of other specified B group vitamins (principal); R29.898 Other symptoms and signs involving the musculoskeletal system; R26.89 Other abnormalities of gait and mobility; E78.00 Pure hypercholesterolemia, unspecified; G47.10 Hypersomnia, unspecified

== ENCOUNTER → 2024-10-19 11:34 | Outpatient (BNVA) | payer MEDICARE, SELFPAY | PROVIDERS: PCP Family Medicine; Visit Provider Family Medicine | DX: E53.8 Deficiency of other specified B group vitamins (principal); R29.898 Other symptoms and signs involving the musculoskeletal system; R26.89 Other abnormalities of gait and mobility; E78.00 Pure hypercholesterolemia, unspecified; G47.10 Hypersomnia, unspecified | CPT/HCPCS: 99212 ==

== ENCOUNTER 2024-10-27 10:42 | Outpatient (AMB) | payer MEDICARE, SELFPAY ==
--- NOTE | 2024-10-27 11:04 | AM.OFFVISNUR ---
Intake Visit Reasons: B-12 shot Allergies codeine Allergy (Mild, Verified 10/19/24 11:55) Vomiting Office Meds cyanocobalamin (vitamin B-12) 1,000 mcg/mL injection solution Performing Provider: Andrew Chino MD Performing Location: [facility] Family Medicine Administered by: Dara Monte RN on 10/27/24 11:05 Dose Route Admin Location Dispensed Lot Number Expiration Date [facility] Marketing Segment Manager 1,000 mcg IM Left Deltoid 1 mL [id number] 06/12/25 50540-540-71 DEZ PHARMACEUT Assessment & Plan Assessment & Plan Orders: Orders AMB Vitamin B12 Injection Patient Supplied Today E53.8 - Deficiency of other specified B group vitamins Medications: New cyanocobalamin (vitamin B-12) 1,000 mcg IM ONCE 1 mL 0RF E53.8 - Deficiency of other specified B group vitamins Coding
--- OUTSIDE RECORDS SUMMARY | 2024-10-27 12:40 | XMS_ITS | Data Portability ---
Author Organization [place] - [facility], Allergy Address [address] [address] Care Team Providers Care Help Desk Support Specialist Name Role Phone VINICIUS LLOYD Primary Care Provider [phone] Assessment Encounter Date Assessment Date Assessment LastModified [...] Address Organization Details Recorded Time Impacted cerumen 51435304 Active 2013 Impacted cerumen; Location: bilateral CMS Risk: low risk Cond ition: uncontrol led Not Available [facility] 4 03:04:47 Sensorine ural hearing loss of bilateral ears 129004452 Active 2019 Sensorine ural hearing loss, bilateral ; Note: Date Diagnosed : 09/21/2019 3:19 PM (H90.3) Not Available [facility] 4 03:04:49 Impacted cerumen of bilateral ears 14137047133 68995 Active 2015 Impacted cerumen, bilateral ; Note: Date Diagnosed : 09/05/2015 2:29 PM (H61.23) Not Available [facility] 4 03:04:47 Cough 61115345 Active 2022 Cough; Note: Date Diagnosed : 3 12:02 PM (R05) Not Available [facility] 4 03:04:47 Pain of right temporoma ndibular joint 95659928198 750259 Active 2015 Arthralgi a of right temporoma ndibular joint; Note: Changed from M26.62 to M26.621 (05/24/20 16 3:21 PM) , Date Diagnosed : 6 10:52 AM (M26.62) Not Available [facility] 4 03:04:49 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 Hearing loss; Note: Date Diagnosed : 11/22/2014 11:19 AM (388.43) Not Available [facility] 4 03:04:48 Dizziness and giddiness 142669646 Active 2018 Dizziness and giddiness ; Note: Date Diagnosed : 9 12:29 PM (R42) Not Available [facility] 4 03:04:49 Posterior rhinorrhe a 16323907 Active 2022 Postnasal drip; Note: Date Diagnosed : 3 12:02 PM (R09.82) Postnas al drip; Note: Date Diagnosed : 07/17/2016 1:28 PM (R09.82) ; Start Date : 7 Not Available [facility] 4 03:04:48 Common cold 00575093 Active 2022 Acute rhinitis; Note: Date Diagnosed : 3 12:02 PM (J00) Not Available [facility] 4 03:04:46 Impacted cerumen in right ear 68486259619 51291 Active 2014 Impacted cerumen, right ear; Note: Date Diagnosed : 5 1:33 PM (H61.21) Not Available [facility] 4 03:04:47 Benign paroxysma l positiona l vertigo 445761283 Active 2018 Benign paroxysma l vertigo, right ear; Note: Date Diagnosed : 9 11:55 AM (H81.11) Not Available [facility] 4 03:04:48 Bleeding from nose 304232093 Active 2018 Epistaxis ; Note: Date Diagnosed : 12/21/2018 11:43 AM (R04.0) Not Available [facility] 4 03:04:48 Allergic rhinitis 97074456 Active 2015 Allergic rhinitis, unspecifi ed; Note: Date Diagnosed : 12/12/2015 1:44 PM (J30.9) Not Available [facility] 4 03:04:48 Problem Notes None recorded. Procedures Surgical History Date Name Laterality Status Provider Name and Address Organization Details Recorded Time 5 Cerumen removal without microscope bilat completed QUINCY HOLLINS PA-C [address] [place] [address],[address], [address], [facility] - [facility] 07/28/2024 13:27:17 4 Cerumen removal without microscope bilat completed MATT PERKINS PA-C 100 [facility], [place], [address], [facility] - [facility] 04/28/2024 11:47:31 4 Cerumen removal without microscope bilat completed [facility]IN[facility] HOLLINS PA-C [facility], [place], [address], [facility] - [facility] 01/27/2024 11:59:00 Imaging Results Imaging Date [...] Name and Address Organization Details Recorded Time 010284 codeine sulfate medicatio n other Not available Not available 11/25/2023 08365 RxNorm React ion: unkno wn, unspe cifie d;; Not Available [facility] 4 01:22:29 201913 acetamino phen medicatio n other Not available Not available 11/25/2023 161 RxNorm React ion: unkno wn, unspe cifie d;; Not Available [facility] 4 01:22:30 Medications Name Sig Start Date [...] topical cream 01/09 completed Medicati on ID: [id number] P reedribe d By Name: MILIND Melvin nd Name: Lotrison e Send Method: E-Prescr ibed Sub s Allowed: subs OK Speci al Instruct ion: apply to external ear tid X 2 weeks Me dication GenericN bri: Lotrison e Not Available Not Available Not Available clotrimaz ole-betam ethasone 1 %-0.05 % lotion 01/09 completed Medicati on ID: [id number] R graeme: () Brand Name: Lotrison e [...] 12.5 mg tablet active Medicati on ID: [id number] B rand Name: meclizin e Send Method: E-Prescr ibed Sub s Allowed: subs OK Medic ationGen ericName : meclizin e Not Available Not Available Not Available hydroxyzi ne HCl 50 mg tablet TAKE ONE TABLET BY MOUTH EVERY DAY NEEDED FOR SLEEP active Not Available Not Available No t Available sulfameth oxazole 800 mg-trimet hoprim 160 mg tablet 10/07 completed Medicati on ID: [id number] Du ration Value: 7 Reason: () Brand Name: sulfamet hoxazole -trimeth oprim Se nd Method: E-Prescr ibed Sub s Allowed: subs OK Medic ationGen ericName : sulfamet hoxazole -trimeth oprim Not Available Not Available Not Available butalbita l-acetami nophen-ca ffeine 50 mg-325 mg-40 mg tablet 01/09 completed Medicati on ID: [id number] Du ration Value: 15 Reason: () Brand Name: butalbit al-aceta minophen -caff Se nd Method: E-Prescr ibed Sub s Allowed: subs OK Medic ationGen ericName : butalbit al-aceta minophen -caff Not Available Not Available Not Available pantopraz ole 40 mg tablet,de layed release active Medicati on ID: [id number] B rand Name: pantopra zole Sen d Method: E-Prescr ibed Sub s Allowed: subs OK Medic ationGen ericName : pantopra zole Not Available Not Available Not Available cyanocoba gricelda (vit B-12) 1,000 mcg/mL injection solution INJECT 1 ML INTO THE MUSCLE ONCE EVERY 4 WEEKS active Not Available Not Available No t Available hydrochlo rothiazid e 25 mg tablet active Medicati on ID: [id number] B rand Name: hydrochl orothiaz mary kay Send Method: E-Prescr ibed Sub s Allowed: subs OK Medic ationGen ericName : hydrochl orothiaz mary kay Not Available Not Available Not Available budesonid e DR - ER 3 mg capsule,d elayed,ex tended release 10/04 completed Medicati on ID: [id number] D uration Value: 14 Brand Name: budgarry de Send Method: E-Prescr ibed Sub s Allowed: subs OK Speci al Instruct ion: TAKE THREE CAPSULES BY MOUTH EVERY DAY FOR 14 DAYS Med icationG enericNa me: budesoni de Not Available Not Available Not Available fluoxetin e 20 mg capsule 01/09 completed Medicati on ID: [id number] D uration Value: 90 Reason: () Brand [...] mg tablet 2019 active Medicati on ID: [id number] D uration Value: 30 Brand Name: diazepam Send Method: E-Prescr ibed Sub s Allowed: subs OK Speci al Instruct ion: TAKE ONE TABLET BY MOUTH EVERY DAY NEEDED Racquel Ninojohannyic Name: diazepam Not Available Not Available Not Available DermOtic Oil 0.01 % ear drops 5 drop 01/09 completed Medicati on ID: [id number] Pr escribed By Name: Radha Whitaker nd Name: DermOtic Oil Send Method: E-Prescr ibed Sub s Allowed: subs OK Medic ationGen ericName : DermOtic Oil Not Available Not Available Not Available GaviLyte- G 236 gram-22.7 4 gram-6.74 gram-5.86 gram oral solution 04/10 completed Medicati on ID: [id number] D uration Value: 1 Reason: () Brand Name: GaviLyte -G Send Method: E-Prescr ibed Sub s Allowed: subs OK Medic ationGen ericName : GaviLyte -G Not Available Not Available Not Available Aimovig Autoinjec tor 70 mg/mL subcutane ous auto-inje ctor 2019 active Medicati on ID: [id number] B rand Name: Aimovig Autoinje ctor Sen d Method: E-Prescr ibed Sub s Allowed: subs OK Medic ationGen ericName : Aimovig Autoinje ctor Not Available Not Available Not Available Vitals Date Recorded Body height Body mass index (BMI) Body weight Provider Name and Address Organization Details Last Updated DateTime 01/27/2024 152.4 cm 29.3 kg/m2 47159.86 g Isaiah Patino [place] - [facility] 01/27/2024 11:19:20 Date Recorded Body height Body mass index (BMI) Body weight Provider Name and Address Organization Details Last Updated DateTime 04/28/2024 152.4 cm 29.3 kg/m2 36062.86 g Colton Pena [place] - [facility] 04/28/2024 11:20:11 Date Recorded Body height Body mass index (BMI) Body weight Provider Name and Address Organization Details Last Updated DateTime 07/28/2024 152.4 cm 27.3 kg/m2 21860.93 g Nataliya Jackie CHAVARRI[place] - [facility] 07/28/2024 12:58:18 Social History None recorded. [...] Note [id number] PATITO BRISENO MD [facility] [address] [address] 01/27/2024 11:11:23 01/27/2024 11:45:16 Impacted cerumen of bilateral ears [id number] 621774 H61.23 PROCEDURE NOTEPATHOL OGY FOUND: Cerumen impaction in both earsPROCED URE: The right ear was examined using otoscopy. The cerumen was then removed using suction and/or instrument s. The same procedure was repeated on the opposite side.ADEOLA ANCE: The patient tolerated this well. [id number] NEGRITO LYN MD [facility] [address] [address] 04/28/2024 11:17:31 04/28/2024 11:45:37 Impacted cerumen of bilateral ears 9533416751 354041 H61.23 [id number] ROBE NORTH MD [facility] [address] [address] 07/28/2024 12:29:19 07/28/2024 13:25:29 Impacted cerumen of bilateral ears 2038300343 317883 H61.23 Health Concerns Section Related Observation LastModified by Organization Detai ls LastModified Time None Recorded Concern Status LastModified by Organization Details LastModified Time None Recorded Advance Directives Directive None Recorded Payers Encounter Date Sequence Insurance Name Policy Number Policy Prado Covered Member ID Prado Member ID Guarantor Name 01/27/2024 1 [place]: [employer] Loren Valle [id number] Loren Valle 01/27/2024 2 [employer] - OPTIONS Loren Valle [id number] Loren Valle 04/28/2024 1 [place] [facility] Loren Valle [id number] Loren Valle 04/28/2024 2 [employer] - OPTIONS Loren Valle [id number] Loren Valle 07/28/2024 1 [place] [facility] Loren Valle [id number] Loren Valle 07/28/2024 2 [facility] HE[facility] - OPTIONS Loren Valle [id number] Loren Valle Notes Date Note Type Note Provider Name and Address Organization Details Recorded Time 01/27/2024 text/html 83-year-old female presents for cerumen removal. No acute issues with her ear since last visit. PATITO BRISENO MD [address] [place] [address], [address], [facility] 01/27/2024 16:59:16 04/28/2024 text/html 83 year-old female presents for evaluation of the ears. Reports ears feel full. No change in hearing. Denies otalgia or otorrhea. NEGRITO CHAPMAN MD [address] [place] [address],[address], [address], [facility] 04/28/2024 17:14:13 07/28/2024 text/html 83-year-old female presents for cerumen removal. No acute issues since her last visit. ROBE NORTH MD [address] [place] [address],[address], [address], [facility] 07/28/2024 14:57:41 OBGyn Episode No OBEpisode recorded.
--- OUTSIDE RECORDS SUMMARY | 2024-10-27 12:40 | XMS_ITS | Clinical Summary ---
Author Organization [facility] Address [address] [place] [address] Phone Care Team Providers Care Auto Servicer Name Role Phone José Preciado MD Primary Care Provider [phone] Allergies Active Allergy Reactions Criticality Noted Date [...] 3:00 PM EST Office Visit Gastroenterology - [address] [place] [address] [place] [address] Alvaro Foreman MD Collagenous colitis (Primary [...] Vaccine (2023-2 5 season) 2024 Influenza Vaccine (Season Ended) 2025 HIB Vaccines Aged Out No longer eligi [...] age to complete this topic Insurance MEDICARE [facility] Care Teams Auto Servicer Relationship Specialty Start Date End Date José Preciado MD [address] PCP - General Internal Medicine 09/04/17
--- OUTSIDE RECORDS SUMMARY | 2024-10-27 12:41 | XMS_ITS | Clinical Summary ---
Author Organization [facility] Address [address] [place] [address] Care Team Providers Care Metal Patternmaker Apprentice Name Role Phone Unavailable Primary Care Provider [...] Zoster (Zostavax) Discontinued Procedures * Due to [place] [employer] law, this organization might not be sharing negative HIV tests. Procedure Name Priority Date/Time Associated Diagnosis Comments SCREENING MAMMOGRAPHY BILATERAL (TWO VIEW FILM STUDY OF EACH BREAST) Routine 03/08/1999 1:00 PM EDT Other Screening Mammogram from Last 3 Months or Most Recently Relevant to Health Maintenance Results * Due to [place] [employer] law, this organization might not be sharing negative HIV tests. * SCREENING MAMMOGRAPHY BILATERAL (TWO VIEW FILM STUDY OF EACH BREAST) (03/08/1999 1:00 PM EDT) RADIOLOGY REPORT 03/08/99 Bilateral mammogram: This is the patient's first mammogram at [facility]. Two views of each breast were obtained. [...] the interpreting radiologist. BI-RADS Category 1: Negative [facility] (CLIA# [id number]) LETTER SENT A mammogram letter type A N was printed on 03/16/1999 [facility] (CLIA# [id number]) Anatomical Region Laterality Modality Other 03/08/1999 1:00 PM EDT Narrative 03/08/1999 1:29 PM EDT Ordered by [facility] NURSE PRACTIONER Reason for Study/History: ROUTINE Test(s) processed by : [facility] GOLD us Unknown Provider GENERAL IMAGING- OTHER Final Re sult from Last 3 Months or Most Recently Relevant to Health Maintenance Insurance [employer] , [id number]
--- OUTSIDE RECORDS SUMMARY | 2024-10-27 12:41 | XMS_ITS | Clinical Summary ---
Author Organization [facility] Address [address] [place] [address] Care Team Providers Care Used Car Lot Porter Name Role Phone Andrew Chino MD Primary Care Provider [phone] Allergies Active Allergy Reactions Criticality Noted Date [...] Description 11/10/2024 1:00 PM EDT Office Visit [facility] [address] [place] [phone] Angie Santillan MD [address] [place] [address] [place] [address] Health Maintenance Due Date Last [...] age to complete this topic Insurance MEDICARE [facility] Care Teams Used Car Lot Porter Relationship Specialty Start Date End Date Andrew Chino MD [address] [place] [phone] PCP - General Family Medicine 04/30/24
--- OUTSIDE RECORDS SUMMARY | 2024-10-27 12:41 | XMS_ITS | Referral Summary ---
Author Organization [facility] Address [address] [place] [address] Care Team Providers Care Turntable Operator Name Role Phone Andrew Chino MD Primary Care Provider [phone] Allergies Active Allergy Reactions Criticality Noted Date [...] Visit [facility] [address] [place] [phone] Angie Santillan MD [address] [place] [phone] Insurance MEDICARE [facility] SUPP AARP Care Teams Turntable Operator Relationship Specialty Start Date End Date Andrew Chino MD [address] [place] [address] PCP - General Family Medicine 04/30/24
== END 2024-10-27 11:04 | disposition home or self-care (01) ==
LOC: HO.HMCFM 10:43
PROVIDERS: PCP Family Medicine; Visit Provider Family Medicine
DX: E53.8 Deficiency of other specified B group vitamins (principal)

== ENCOUNTER → 2024-10-27 10:42 | Outpatient (BNVA) | payer MEDICARE, SELFPAY | PROVIDERS: PCP Family Medicine; Visit Provider Family Medicine | DX: E53.8 Deficiency of other specified B group vitamins (principal) | CPT/HCPCS: 96372; J3420 ==

== ENCOUNTER 2024-11-24 10:46 | Outpatient (AMB) | payer MEDICARE, SELFPAY ==
--- NOTE | 2024-11-24 11:27 | AM.OFFVISNUR ---
Intake Visit Reasons: B-12 shot Allergies codeine Allergy (Mild, Verified 10/19/24 11:55) Vomiting Office Meds cyanocobalamin (vitamin B-12) 1,000 mcg/mL injection solution Performing Provider: Andrew Chino MD Performing Location: [facility] Family Medicine Administered by: Dara Monte RN on 11/24/24 11:27 Dose Route Admin Location Dispensed Lot Number Expiration Date [facility] Energy Specialist 1,000 mcg IM Left Deltoid 1 mL [id number] 06/12/25 38573-235-72 DEZ PHARMACEUT Assessment & Plan Assessment & Plan Orders: Orders AMB Vitamin B12 Injection Patient Supplied Today E53.8 - Deficiency of other specified B group vitamins Medications: New cyanocobalamin (vitamin B-12) 1,000 mcg IM ONCE 1 mL 0RF E53.8 - Deficiency of other specified B group vitamins Coding
--- OUTSIDE RECORDS SUMMARY | 2024-11-24 11:50 | XMS_ITS | Clinical Summary ---
Author Organization [facility] 299 [facility] Address [address] [place] [address] Phone Care Team Providers Care Lead Esthetician Name Role Phone José Preciado MD Primary Care Provider [phone] Allergies Active Allergy Reactions Criticality Noted Date [...] Diagnosed Date Resolved Date Acute appendicitis 09/04/2017 Social History Tobacco Use Types Packs/Day Years [...] Influencers of Health Screening 06/16/2022 COVID-19 Vaccine (1 - 2023-2 5 season) 2024 Influenza Vaccine (Season Ended) [...] age to complete this topic Insurance MEDICARE [employer] Care Teams Lead Esthetician Relationship Specialty Start Date End Date José Preciado MD [address] PCP - General Internal Medicine 09/04/17
--- OUTSIDE RECORDS SUMMARY | 2024-11-24 11:50 | XMS_ITS | Clinical Summary ---
Author Organization [facility] Address [address] [place] [address] Care Team Providers Care Biomedical Engineering Aide Name Role Phone Unavailable Primary Care Provider [...] (Zostavax) Discontinued Procedures * Due to [place] [employer] law, this organization might not be sharing negative HIV tests. Procedure Name Priority Date/Time Associated Diagnosis Comments SCREENING MAMMOGRAPHY BILATERAL (TWO VIEW FILM STUDY OF EACH BREAST) Routine 03/08/1999 1:00 PM EDT Other Screening Mammogram from Last 3 Months or Most Recently Relevant to Health Maintenance Results * Due to [place] [employer] law, this organization might not be sharing negative HIV tests. * SCREENING MAMMOGRAPHY BILATERAL (TWO VIEW FILM STUDY OF EACH BREAST) (03/08/1999 1:00 PM EDT) RADIOLOGY REPORT 03/08/99 Bilateral mammogram: This is the patient's first mammogram at [facility]. Two views of each breast were obtained. [...] the interpreting radiologist. BI-RADS Category 1: Negative [facility] (CLIA# [id number]) LETTER SENT A mammogram letter type A N was printed on 03/16/1999 [facility] (CLIA# [id number]) Anatomical Region Laterality Modality Other 03/08/1999 1:00 PM EDT Narrative 03/08/1999 1:29 PM EDT Ordered by [facility] NURSE PRACTIONER Reason for Study/History: ROUTINE Test(s) processed by : [facility] GOLD us Unknown Provider GENERAL IMAGING- OTHER Final Re sult from Last 3 Months or Most Recently Relevant to Health Maintenance
--- OUTSIDE RECORDS SUMMARY | 2024-11-24 11:50 | XMS_ITS | Encounter Summary ---
Author Organization [facility] Address [address] [place] [address] Care Team Providers Care Security Professional Name Role Phone Andrew Chino MD Primary Care Provider [phone] Encounter Details Date Type Department Care Team (Late st Contact Info) Description 11/16/2024 Orders Only [facility] [address] [place] [address] Provider, Daphne, [address] [place] [address] Social History Tobacco Use Types Packs/Day Years Used Date Smoking Tobacco: Never Smokeless Tobacco: Never Alcohol Use Standard Drinks/Week Comments Yes 0 (1 standard drink = 0.6 oz pur e alcohol) Comments Unknown Sex and Gender Information Value Date Recorded Sex Assigned at Female 05/17/2024 8:11 AM EST Legal Sex Female 1:30 PM EDT Gender Identity Not on file Sexual Orientation Not on file documented as of this encounter Plan of Treatment Not on file documented as of this encounter Procedures * Due to [place] [employer] law, this organization might not be sharing negative HIV tests. Procedure Name Priority Date/Time Associated Diagnosis Comments AMB EXTERNAL MRI BRAIN, OUTSIDE RESULT Routine 11/07/2024 10:09 AM EDT documented in this encounter Results * Due to [place] [employer] law, this organization might not be sharing negative HIV tests. * MRI Brain, Outside Result (11/07/2024 10:09 AM EDT) Anatomical Region Laterality Modality Other us Unknown Provider MD CANNON EXTERNAL RESULT PROCEDUR ES Final Result documented in this encounter Visit Diagnoses Not on filedocumented in this encounter Care Teams Security Professional Relationship Specialty Start Date End Date Andrew Chino MD [address] [place] [address] PCP - General Family Medicine 04/30/24 documented as of this encounter
--- OUTSIDE RECORDS SUMMARY | 2024-11-24 11:50 | XMS_ITS | Referral Summary ---
Author Organization [facility] Address [address] [place] [address] Care Team Providers Care Hair Rooting Machine Operator Name Role Phone nAdrew Chino MD Primary Care Provider Encounters Date Type Department Care Team Description 11/16/2024 Orders Only [facility] [address] [place] [address] Provider, MD Daphne 11/10/2024 1:00 PM EDT Office Visit [facility] [address] [place] [address] Angie Iraheta MD Recurrent falls (Primary Dx); Unspecified lack of coordination from Last 3 Months Allergies Active Allergy [...] mg by mouth once a day. Active hydrOXYzine (ATARAX) 50 mg tablet Take 50 mg by mouth every 8 hours as needed for seasonal allergies. Active meclizine (ANTIVERT) 12.5 mg tablet Take 12.5 mg by mouth 3 times a day as needed for dizziness. Active naproxen (NAPROSYN) 500 mg tablet Take 500 mg by mouth 2 times daily. 05/15/[address] (PROTONIX) 40 mg tablet Take 40 mg by mouth as needed. Active Social History Tobacco Use Types Packs/Day [...] Sign Reading Time Taken Comments Blood Pressure 155/71 11/10/2024 12:59 PM EDT Pulse 69 11/10/2024 12:59 PM EDT Temperature 36.7 ??C (98 ??F) 11/10/2024 12:54 PM EDT Respiratory Rate 16 11/10/2024 12:54 PM EDT Oxygen Saturation 94% 07/12/2024 11:52 AM EST Inhaled Oxygen Concentration - - Weight 70.8 kg (156 lb) 11/10/2024 12:54 PM EDT Height 154.9 cm (5' 1 ) 11/10/2024 12:54 PM EDT Body Mass Index 29.48 11/10/2024 12:54 PM EDT Plan of Treatment Not on file Procedures * Due to [place] law, this organization might not be sharing negative HIV tests. Procedure Name Priority Date/Time Associated Diagnosis Comments AMB EXTERNAL MRI BRAIN, OUTSIDE RESULT Routine 11/07/2024 10:09 AM EDT from Last 3 Months Results * Due to [place] law, this organization might not be sharing negative HIV tests. * MRI Brain, Outside Result (11/07/2024 10:09 AM EDT) Anatomical Region Laterality Modality Other us Unknown Provider MD CANNON EXTERNAL RESULT PROCEDUR ES Final Result from Last [address] [facility] SUPP AARP Care Teams Hair Rooting Machine Operator Relationship Specialty Start Date End Date Andrew Chino MD [address] [place] [address] PCP - General Family Medicine 04/30/24
--- OUTSIDE RECORDS SUMMARY | 2024-11-24 11:50 | XMS_ITS | Clinical Summary ---
Author Organization [facility] Address [address] [place] [address] Care Team Providers Care Trailer Truck Driver Name Role Phone Andrew Chino MD Primary Care Provider [phone] Allergies Active Allergy Reactions Criticality Noted Date [...] 40 mg by mouth as needed. Active Encounters Date Type Department Care Team Description 11/16/2024 Orders Only [facility] [address] [place] [address] Provider, MD Daphne 11/10/2024 1:00 PM EDT Office Visit [facility] [address] [place] [address] Angie Iraheta MD Recurrent falls (Primary Dx); Unspecified lack of coordination from Last 3 Months Social History Tobacco [...] 11/10/2024 12:54 PM EDT Plan of Treatment Health Maintenance Due Date Last Done Comments Medicare AWV 11/13/1941 DTaP,Tdap,and Td Vaccines (1 - Tdap) 11/13/1961 Osteoporosis Screening 11/13/1989 Zoster Vaccines (1 of 2) 11/13/1989 RSV Vaccine (60+ years old a nd patients) (1 - 1-dose 75+ series) 11/13/2014 Pneumococcal Vaccine: 50+ Ye ars (2 of 2 - PCV) 02/16/2018 02/16/2017 COVID-19 Vaccine (1 - 2023-2 5 season) 2024 Alcohol/Substance Use Screening 07/14/2024 Depression Screening and Follow-Up 07/14/2024 Fall Risk Screening 07/14/2024 Health Care Proxy Review 07/14/2024 Social Drivers of Health Mya ual Screening 07/14/2024 Influenza Vaccine (Season Ended) 2025 Tobacco Screening 07/14/2042 07/12/2024 Hepatitis B Vaccines Aged Out No long er eligible based on patient's age to complete this topic Procedures * Due to [place] [employer] law, this organization might not be sharing negative HIV tests. Procedure Name Priority Date/Time Associated Diagnosis Comments AMB EXTERNAL MRI BRAIN, OUTSIDE RESULT Routine 11/07/2024 10:09 AM EDT from Last 3 Months Results * Due to [place] [employer] law, this organization might not be sharing negative HIV tests. * MRI Brain, Outside Result (11/07/2024 10:09 AM EDT) Anatomical Region Laterality Modality Other us Unknown Provider MD CANNON EXTERNAL RESULT PROCEDUR ES Final Result from Last 3 Months Insurance MEDICARE [facility] SUPP AARP Care Teams Trailer Truck Driver Relationship Specialty Start Date End Date Andrew Chino MD [address] [place] [phone] PCP - General Family Medicine 04/30/24
--- OUTSIDE RECORDS SUMMARY | 2024-11-24 11:50 | XMS_ITS | Data Portability ---
Author Organization [place] [facility], Allergy Address [address] [address] Care Team Providers Care Spout Worker Name Role Phone VINICIUS LLOYD Primary Care [...] Time Details Appointments Establish ed 15 2024 11:00A M QUINCY HOLLINS PA-C Not available Not [...] Address Organization Details Recorded Time Impacted cerumen 27926212 Active 2013 Impacted cerumen; Location: bilateral CMS Risk: low risk Cond ition: uncontrol led Not Available [facility] 4 03:04:47 Sensorine ural hearing loss of bilateral ears 114453579 Active 2019 Sensorine ural hearing loss, bilateral ; Note: Date Diagnosed : 09/21/2019 3:19 PM (H90.3) Not Available [facility] 4 03:04:49 Impacted cerumen of bilateral ears 95962772731 41125 Active 2015 Impacted cerumen, bilateral ; Note: Date Diagnosed : 09/05/2015 2:29 PM (H61.23) Not Available [facility] 4 03:04:47 Cough 12180346 Active 2022 Cough; Note: Date Diagnosed : 3 12:02 PM (R05) Not Available [facility] 4 03:04:47 Pain of right temporoma ndibular joint 17309517548 481077 Active 2015 Arthralgi a of right temporoma ndibular joint; Note: Changed from M26.62 to M26.621 (05/24/20 16 3:21 PM) , Date Diagnosed : 6 10:52 AM (M26.62) Not Available [facility] 4 03:04:49 Impaired auditory discrimin ation 305491104 Active 2014 Hearing loss; Note: Date Diagnosed : 11/22/2014 11:19 AM (388.43) Not Available [facility] 4 03:04:48 Dizziness and giddiness 195337723 Active 2018 Dizziness and giddiness ; Note: Date Diagnosed : 9 12:29 PM (R42) Not Available [facility] 4 03:04:49 Posterior rhinorrhe a 92183853 Active 2022 Postnasal drip; Note: Date Diagnosed : 3 12:02 PM (R09.82) Postnas al drip; Note: Date Diagnosed : 07/17/2016 1:28 PM (R09.82) ; Start Date : 7 Not Available [facility] 4 03:04:48 Common cold 16004408 Active 2022 Acute rhinitis; Note: Date Diagnosed : 3 12:02 PM (J00) Not Available [facility] 4 03:04:46 Impacted cerumen in right ear 98153076998 49369 Active 2014 Impacted cerumen, right ear; Note: Date Diagnosed : 5 1:33 PM (H61.21) Not Available [facility] 4 03:04:47 Benign paroxysma l positiona l vertigo 820233635 Active 2018 Benign paroxysma l vertigo, right ear; Note: Date Diagnosed : 9 11:55 AM (H81.11) Not Available [facility] 4 03:04:48 Bleeding from nose 387408322 Active 2018 Epistaxis ; Note: Date Diagnosed : 12/21/2018 11:43 AM (R04.0) Not Available [facility] 4 03:04:48 Allergic rhinitis 56347336 Active 2015 Allergic rhinitis, unspecifi ed; Note: Date Diagnosed : 12/12/2015 1:44 PM (J30.9) Not Available [facility] 4 03:04:48 Problem Notes None recorded. Procedures Surgical History Date Name Laterality Status Provider Name and Address Organization Details Recorded Time 5 Cerumen removal without microscope bilat completed QUINCY HOLLINS PA-C [address] [place] [address],[address], [address], [facility] - [facility] 07/28/2024 13:27:17 4 Cerumen removal without microscope bilat completed MATT PERKINS PA-C [address] [facility] [address], [place], [address], [facility] - [facility] 04/28/2024 11:47:31 4 Cerumen removal without microscope bilat completed QUINCY HOLLINS PA-C [address] [facility] [address], [place], [address], [facility] - [facility] 01/27/2024 11:59:00 Imaging Results Imaging Date [...] Name and Address Organization Details Recorded Time 488462 codeine sulfate medicatio n other Not available Not available 11/25/2023 77917 RxNorm React ion: unkno wn, unspe cifie d;; Not Available [facility] 4 01:22:29 385354 acetamino phen medicatio n other Not available Not available 11/25/2023 161 RxNorm React ion: unkno wn, unspe cifie d;; Not Available [facility] 4 01:22:30 Medications Name Sig Start [...] topical cream 01/09 completed Medicati on ID: [id number] P reedribe d By Name: MILIND Melvin nd Name: Lotrison e Send Method: E-Prescr ibed Sub s Allowed: subs OK Speci al Instruct ion: apply to external ear tid X 2 weeks Me dication GenericN bri: Lotrison e Not Available Not Available Not Available clotrimaz ole-betam ethasone 1 %-0.05 % lotion 01/09 completed Medicati on ID: [id number] R graeme: () Brand Name: Lotrison e [...] 12.5 mg tablet active Medicati on ID: [id number] B rand Name: meclizin e Send Method: E-Prescr ibed Sub s Allowed: subs OK Medic ationGen ericName : meclizin e Not Available Not Available Not Available hydroxyzi ne HCl 50 mg tablet TAKE ONE TABLET BY MOUTH EVERY DAY NEEDED FOR SLEEP active Not Available Not Available No t Available sulfameth oxazole 800 mg-trimet hoprim 160 mg tablet 10/07 completed Medicati on ID: [id number] Du ration Value: 7 Reason: () Brand Name: sulfamet hoxazole -trimeth oprim Se nd Method: E-Prescr ibed Sub s Allowed: subs OK Medic ationGen ericName : sulfamet hoxazole -trimeth oprim Not Available Not Available Not Available butalbita l-acetami nophen-ca ffeine 50 mg-325 mg-40 mg tablet 01/09 completed Medicati on ID: [id number] Du ration Value: 15 Reason: () Brand Name: butalbit al-aceta minophen -caff Se nd Method: E-Prescr ibed Sub s Allowed: subs OK Medic ationGen ericName : butalbit al-aceta minophen -caff Not Available Not Available Not Available pantopraz ole 40 mg tablet,de layed release active Medicati on ID: [id number] B rand Name: pantopra zole Sen d Method: E-Prescr ibed Sub s Allowed: subs OK Medic ationGen ericName : pantopra zole Not Available Not Available Not Available cyanocoba gricelda (vit B-12) 1,000 mcg/mL injection solution INJECT 1 ML INTO THE MUSCLE ONCE EVERY 4 WEEKS active Not Available Not Available No t Available hydrochlo rothiazid e 25 mg tablet active Medicati on ID: [id number] B rand Name: hydrochl orothiaz mary kay Send Method: E-Prescr ibed Sub s Allowed: subs OK Medic ationGen ericName : hydrochl orothiaz mary kay Not Available Not Available Not Available budesonid e DR - ER 3 mg capsule,d elayed,ex tended release 10/04 completed Medicati on ID: [id number] D uration Value: 14 Brand Name: budgarry de Send Method: E-Prescr ibed Sub s Allowed: subs OK Speci al Instruct ion: TAKE THREE CAPSULES BY MOUTH EVERY DAY FOR 14 DAYS Med icationG enericNa me: budesoni de Not Available Not Available Not Available fluoxetin e 20 mg capsule 01/09 completed Medicati on ID: [id number] D uration Value: 90 Reason: () Brand [...] mg tablet 2019 active Medicati on ID: [id number] D uration Value: 30 Brand Name: diazepam Send Method: E-Prescr ibed Sub s Allowed: subs OK Speci al Instruct ion: TAKE ONE TABLET BY MOUTH EVERY DAY NEEDED Racquel Ninojohannyic Name: diazepam Not Available Not Available Not Available DermOtic Oil 0.01 % ear drops 5 drop 01/09 completed Medicati on ID: [id number] Pr escribed By Name: Radha Whitaker nd Name: DermOtic Oil Send Method: E-Prescr ibed Sub s Allowed: subs OK Medic ationGen ericName : DermOtic Oil Not Available Not Available Not Available GaviLyte- G 236 gram-22.7 4 gram-6.74 gram-5.86 gram oral solution 04/10 completed Medicati on ID: [id number] D uration Value: 1 Reason: () Brand Name: GaviLyte -G Send Method: E-Prescr ibed Sub s Allowed: subs OK Medic ationGen ericName : GaviLyte -G Not Available Not Available Not Available Aimovig Autoinjec tor 70 mg/mL subcutane ous auto-inje ctor 2019 active Medicati on ID: [id number] B rand Name: Aimovig Autoinje ctor Sen d Method: E-Prescr ibed Sub s Allowed: subs OK Medic ationGen ericName : Aimovig Autoinje ctor Not Available Not Available Not Available Vitals Date Recorded Body height Body mass index (BMI) Body weight Provider Name and Address Organization Details Last Updated DateTime 01/27/2024 152.4 cm 29.3 kg/m2 34324.86 g Isaiah Patino [place] - [facility] 01/27/2024 11:19:20 Date Recorded Body height Body mass index (BMI) Body weight Provider Name and Address Organization Details Last Updated DateTime 04/28/2024 152.4 cm 29.3 kg/m2 00608.86 g Colton Pena [place] - [facility] 04/28/2024 11:20:11 Date Recorded Body height Body mass index (BMI) Body weight Provider Name and Address Organization Details Last Updated DateTime 07/28/2024 152.4 cm 27.3 kg/m2 02839.93 g Nataliya Jackie CHAVAR[place] - [facility] 07/28/2024 12:58:18 Social History None recorded. Functional Status None recorded. Mental Status None recorded. Family History Nothing Reported. Medical History No medical history recorded. Gynecological HistoryNo gynecological history recorded. Obstetrics History GPAL:G 0 P 0 0 0 0 Past Encounters Encounter ID Performer Location Encounter Start Date Encounter Closed Date Diagnosis/Indication Diagnosis SNOMED-CT Code Diagnosis ICD10 Code Diagnosis Note [id number] QUINCY HOLLINS PA-C [facility] [address] [address] 01/27/2024 11:11:23 01/27/2024 11:45:16 Impacted cerumen of bilateral ears [id number] 446582 H61.23 PROCEDURE NOTEPATHOL OGElyse FOUND: Cerumen impaction in both earsPROCED URE: The right ear was examined using otoscopy. The cerumen was then removed using suction and/or instrument s. The same procedure was repeated on the opposite side.ADEOLA ANCE: The patient tolerated this well. [id number] QUINCY HOLLINS PA-C [facility] [address] [address] 04/28/2024 11:17:31 04/28/2024 11:45:37 Impacted cerumen of bilateral ears 8470587889 021037 H61.23 [id number] QUINCY HOLLINS PA-C [facility] [address] [address] 07/28/2024 12:29:19 07/28/2024 13:25:29 Impacted cerumen of bilateral ears 9498977129 222856 H61.23 Health Concerns Section Related Observation LastModified by Organization Detai ls LastModified Time None Recorded Concern Status LastModified by Organization Details LastModified Time None Recorded Advance Directives Directive None Recorded Payers Insurance Date Sequence Insurance Name Policy Number Policy Prado Covered Member ID Prado Member ID Guarantor Name 10/27/2024 1 [place]ARE [place]: [employer] Loren Valle [id number] Loren Valle 10/27/2024 2 [employer] - OPTIONS Loren Valle [id number] Loren Valle Notes Date Note Type Note Provider Name and Address Organization Details Recorded Time 01/27/2024 text/html 83-year-old female presents for cerumen removal. No acute issues with her ear since last visit. PATITO BRISENO MD [address] [facility],[address], [address], [facility] - [facility] 01/27/2024 16:59:16 04/28/2024 text/html 83 year-old female presents for evaluation of the ears. Reports ears feel full. No change in hearing. Denies otalgia or otorrhea. NEGRITO CHAPMAN MD 100 [facility],[address], [address], [facility] 04/28/2024 17:14:13 07/28/2024 text/html 83-year-old female presents for cerumen removal. No acute issues since her last visit. ROBE NORTH MD [address] [facility],[address], [address], [facility] 07/28/2024 14:57:41 OBGyn Episode No OBEpisode recorded.
== END 2024-11-24 11:30 | disposition home or self-care (01) ==
LOC: HO.HMCFM 10:47
PROVIDERS: PCP Family Medicine; Visit Provider Family Medicine
DX: E53.8 Deficiency of other specified B group vitamins (principal)

== ENCOUNTER → 2024-11-24 10:46 | Outpatient (BNVA) | payer MEDICARE, SELFPAY | PROVIDERS: PCP Family Medicine; Visit Provider Family Medicine | DX: E53.8 Deficiency of other specified B group vitamins (principal) | CPT/HCPCS: 96372; J3420 ==

== ENCOUNTER 2024-12-30 15:11 | Outpatient (AMB) | payer MEDICARE, SELFPAY ==
--- NOTE | 2024-12-30 15:26 | MHC.PC.OV ---
Vital Signs 12/30/24 15:37 Height 5 ft 1.65 in Weight 157 lb 6 oz BMI 29.1 BP 118/72 Blood Pressure Location Lt brachial Position Sitting Respiration 14 Pulse 72 Pulse Source Pulse Oximeter Temp 98.7 F Temp Source Oral Pulse Oximetry (%) 97 Oxygen Delivery Method Room Air Intake Visit Reasons: CPE with f/u labs and health maint. Intake Note: Physical. Requesting xray of nose fell on Friday. Was not seen for it. Cartography Teacher Required: No Allergies codeine Allergy (Mild, Verified 10/19/24 11:55) Vomiting Medication List - Last Reconciled 12/30/24 by Tawanna Gonsalez PA-C budesonide DR-ER 3 mg PO DAILY calcium polycarbophil (FiberCon) 625 mg PO DAILY 30 days cyanocobalamin (vitamin B-12) 1,000 mcg IM Q4W 84 days erenumab-aooe (Aimovig Autoinjector) mg subcut fluoxetine 40 mg PO DAILY 90 days hydroxyzine HCl 50 mg PO DAILY PRN 30 days naproxen 500 mg PO BID 90 days pantoprazole 40 mg PO BID Tobacco use date assessed: 12/30/24 Fall risk assessment: 2 + Falls in past year Last assessed Fall Risk: 12/30/24 Dental Screening Dental Screen Date: 12/30/24 Did you have a dental visit in the last 12 months?: Yes Did you have a dental problem in the last 6 months where you did not have access to dental care?: No Was dental information given to patient?: Patient has dentist HPI CPE with f/u labs and health maint. HPI Details Patient is an 84-year-old female who presents today for a physical exam. She normally follows with Dr. Chino. She forgot to get labs done prior to today's appointment. -she fell at home 2 days ago on Friday. States that she was rushing across the house when she tripped on the rug a and landed on her nose. She did not have any loss of consciousness. States that she was able to brace most of her fall. She has some bruising over the bridge of her nose and some soft tissue swelling. No black eyes. States that her nose did bleed quite a bit for a few hours on Friday on and off. No difficulty breathing through her nose. Wants an x-ray to make sure that everything looks okay. States that if it was broken she would not fix it anyways. She does not have a life Alert bracelet and does not want 1. She does not live at home alone and states that this is not her 1st fall. She overall feels safe. Psych: She has a longstanding history of anxiety and depression and states that she is on fluoxetine 40 mg daily. At times she is getting breakthrough panic attacks and has not tried the hydroxyzine but thinks that she is maybe going to start this. Her has been hospitalized recently and her son is undergoing surgery today. She states that this is stressful for her. No SI/HI. Heme: Brought in her B12 today for the nurse to provider B12 injections. CV: Blood pressure today in the office is 118/72. Cholesterol has been slightly elevated in the past but she overall controls this with diet and lifestyle. She does report wanting Ozempic today. She is aware that her insurance will likely not cover this so therefore we will hold off on this but plans to call them. GI: States that it is stable with the budesonide. [facility] Medical History Anxiety Failed total right knee replacement Surgical History History of appendectomy Family History (Updated 10/31/23 @ 10:39 by Radha Mills [facility]) Father Prostate cancer Mother Cancer Paternal family history of mental health disorder Social History Housing: House Patient Tobacco Use Status: Never used Tobacco e-Cigarette/Vaping Use: Never Used service: No Current occupational status: retired Cognitive needs: No Hearing needs: No Vision needs: No Questionnaire Thrive Questionnaire Date Thrive assessed: 08/20/24 I am a: Patient What is your living situation today?: I choose not to answer this question Within the past 12 months, did the food you bought not last and you didn't have the money to get more?: I choose not to answer this question Within the past 12 months, did you worry whether your food would run out before you got money to buy more?: I choose not to answer this question Do you have trouble paying for medicines?: I choose not to answer this question Do you have trouble getting transportation to medical appointments?: No Do you have trouble paying your heating and electricity bill?: No Do you have trouble taking care of your child, family member or friend?: No Do you have trouble with day-to-day activities such as bathing, preparing meals, shopping, managing finances, etc.?: No Are you currently unemployed and looking for a job?: No Are you interested in more education?: No Please select the resources that you would like help with: None Currently or been in a relationship where the following occur: I choose not to answer THRIVE Score: 0 FADY-7 AMB Questionnaire FADY-7 Date FADY - 7 assessed: 10/31/23 Source: Developed by Drs. Doron Decker, Bella Wodo, Jason Monique and colleagues, with an educational antonio from [employer]. Physical exam (Primary Care) Vital Signs: Last Vital Signs Temp 98.7 F 12/30/24 15:37 Pulse 72 12/30/24 15:37 Resp 14 12/30/24 15:37 BP 118/72 12/30/24 15:37 Pulse Ox 97 12/30/24 15:37 Oxygen Delivery Method Room Air 12/30/24 15:37 BMI result Body Mass Index 29.1 Tobacco/Smoking Status: Tobacco use Status Tobacco use date assessed 12/30/24 12/30/24 15:37 Patient Tobacco Use Status Never used Tobacco 12/30/24 15:26 e-Cigarette/Vaping Use Never Used 12/30/24 15:26 Thrive Assessment: Date of Thrive Assessment Date Thrive assessed 08/20/24 12/30/24 15:26 Currently or been in a relationship where the following occur: I choose not to answer Const Orientation/consciousness: patient oriented x3 HENMT Ears: hearing grossly normal bilaterally and TM's normal bilaterally General nose exam: Normal nares present, No nasal discharge present and Abnormal external nose present ( There is some nasal ecchymosis and soft tissue swelling noted) nasal tenderness Face and sinus: Yes sinuses nontender Mouth: Normal oral and palatal mucosa present Eyes Pupils: Equal, round and reactive pupils present EOM: EOMs intact bilaterally Neck Neck: Yes full ROM and Yes no lymphadenopathy Thyroid: Thyroid normal Chest Chest palpation & inspection: normal inspection of the chest Resp Auscultation: clear to auscultation bilaterally Cardio Rate: regular rate Rhythm: regular rhythm Peripheral pulses: Peripheral pulses 2+ throughout GI Other: Soft, nontender Auscultation: normal bowel sounds Rectal Exam - Female: deferred General: Yes no CVA tenderness Back/Spine/Pelvis Other: Nontender Back: no CVA tenderness Skin General skin exam: no rashes or lesions noted Neuro General: patient oriented x3, gait normal and deep tendon reflexes 2+ bilaterally Cranial nerves: Yes Equal, round and reactive pupils present Extrem General: Yes normal to inspection and Yes full ROM Psych Affect: normal affect Attitude: cooperative Thought process: Normal thought process present Thought content: Normal thought content present Insight: Good insight present (Psych) Judgement: Good judgement present (Psych) Office Meds cyanocobalamin (vitamin B-12) 1,000 mcg/mL injection solution Performing Provider: Tawanna Gonsalez PA-C Performing Location: [facility] Administered by: Dara Monte RN on 12/30/24 15:59 Dose Route Admin Location Dispensed Lot Number Expiration Date [facility] Landscape Crew Member 1,000 mcg IM Left Deltoid 1 mL [id number] 06/12/25 [id number] [employer] Total Dispensed Waste 1 mL 0 % Coding Level of Care Code Est Pt Prev Care >65y(78326) Diagnoses Routine general medical examination at a health care facility Z00.00 Nasal contusion S00.33XA B12 deficiency E53.8 Anxiety F41.9 Assessment & Plan Assessment & Plan (1) Routine general medical examination at a health care facility: Code(s): Z00.00 - Encounter for general adult medical examination without abnormal findings Plan: health maintenance reviewed. Advised patient to complete labs. (2) Nasal contusion: Code(s): S00.33XA - Contusion of nose, initial encounter Category: Medical Plan: Imaging ordered. We will follow up pending test results. Feels safe at home. States that she will not get a life Alert and does not need any modifications inside her house. We did review fall safety. (3) B12 deficiency: Code(s): E53.8 - Deficiency of other specified B group vitamins Category: Medical Plan: B12 injection provided today. (4) Anxiety: Code(s): F41.9 - Anxiety disorder, unspecified Category: Medical Plan: She will continue with the fluoxetine. Hydroxyzine ordered to use if needed. Orders: Orders AMB Vitamin B12 Injection Patient Supplied 12/30/24 E53.8 - Deficiency of other specified B group vitamins XR nasal bones min 3V 12/30/24 S00.33XA - Contusion of nose, initial encounter Medications: Refilled hydroxyzine HCl 50 mg PO DAILY PRN 12 tabs 0RF sleep 30 days fluoxetine 40 mg PO DAILY 90 caps 3RF 90 days
[2024-12-30 15:37] VITALS: BP 118/72; PULSE 72; RESP 14; TEMP 37.1; O2SAT 97; BMI 29.1
--- OUTSIDE RECORDS SUMMARY | 2024-12-30 16:29 | XMS_ITS | Clinical Summary ---
Author Organization [facility] 299 [facility] Address [address] [place] [address] Phone Care Team Providers Care Director Of Intelligence Name Role Phone José Preciado MD Primary Care Provider [phone] Allergies Active Allergy Reactions Criticality Noted Date [...] this topic Insurance MEDICARE AAR Care Teams Director Of Intelligence Relationship Specialty Start Date End Date José Preciado MD [address] PCP - General Internal Medicine 09/04/17
== END 2024-12-30 16:04 | disposition home or self-care (01) ==
LOC: HO.HMCFM 15:12
PROVIDERS: PCP Family Medicine; Visit Provider Physician Assistant
DX: E53.8 Deficiency of other specified B group vitamins (principal)

== ENCOUNTER → 2024-12-30 15:11 | Outpatient (BNVA) | payer MEDICARE, SELFPAY | PROVIDERS: PCP Family Medicine; Visit Provider Physician Assistant | DX: Z00.01 Encounter for general adult medical examination with abnormal findings (principal); E53.8 Deficiency of other specified B group vitamins; F41.1 Generalized anxiety disorder; S00.33XA Contusion of nose, initial encounter | CPT/HCPCS: 96372; 99212; J3420 ==

== ENCOUNTER 2025-01-19 11:06 | Outpatient (AMB) | payer MEDICARE, SELFPAY ==
--- NOTE | 2025-01-19 11:26 | A.OFFPC_ITS ---
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 Required: No Is last menstrual period known: No Post menopausal: No Patient : No Allergies codeine Allergy (Mild, Verified 01/19/25 11:29) Vomiting Tobacco use date assessed: 01/19/25 Fall risk assessment: 2 + Falls in past year Last assessed Fall Risk: 01/19/25 Dental Screening Dental Screen Date: 01/19/25 Did you have a dental visit in the last 12 months?: Yes Did you have a dental problem in the last 6 months where you did not have access to dental care?: No Was dental information given to patient?: Patient has dentist HPI f/u HLD HPI Details 84 y/o female presents to f/u HLD, fatig ue, lower extremity weakness. Had referred her to sleep medicine for daytime sleepiness. No recent labs to review. Cholesterol levels had been high last year. Has been undergoing physical therapy for lower extremity weakness. Pt notes she had a recent fall. Had tripped on the rug and landed on her nose. She did not go to the hospital. COUNTS INCLUDE 234 BEDS AT THE [facility] Medical History Anxiety Failed total right knee replacement Surgical History History of appendectomy Family History (Updated 10/31/23 @ 10:39 by Radha Mills CMA) Father Prostate cancer Mother Cancer Paternal family history of mental health disorder Social History Housing: House Patient Tobacco Use Status: Never used Tobacco e-Cigarette/Vaping Use: Never Used service: No Current occupational status: retired Current occupational exposures/hazards: No Cognitive needs: No Hearing needs: No Vision needs: No Questionnaire Thrive Questionnaire Date Thrive assessed: 08/20/24 I am a: Patient What is your living situation today?: I choose not to answer this question Within the past 12 months, did the food you bought not last and you didn't have the money to get more?: I choose not to answer this question Within the past 12 months, did you worry whether your food would run out before you got money to buy more?: I choose not to answer this question Do you have trouble paying for medicines?: I choose not to answer this question Do you have trouble getting transportation to medical appointments?: No Do you have trouble paying your heating and electricity bill?: No Do you have trouble taking care of your child, family member or friend?: No Do you have trouble with day-to-day activities such as bathing, preparing meals, shopping, managing finances, etc.?: No Are you currently unemployed and looking for a job?: No Are you interested in more education?: No Please select the resources that you would like help with: None Currently or been in a relationship where the following occur: I choose not to answer THRIVE Score: 0 FADY-7 AMB Questionnaire FADY-7 Date FADY - 7 assessed: 10/31/23 Source: Developed by Drs. Doron Decker, Bella Wood, Jason Monique and colleagues, with an educational antonio from [employer]. Physical exam (Primary Care) Vital Signs: Last Vital Signs Temp 98.9 F 01/19/25 11:30 Pulse 66 01/19/25 11:30 Resp 16 01/19/25 11:30 BP 134/65 01/19/25 11:30 Pulse Ox 95 01/19/25 11:30 Oxygen Delivery Method Room Air 01/19/25 11:30 BMI result Body Mass Index 28.5 Tobacco/Smoking Status: Tobacco use Status Tobacco use date assessed 01/19/25 01/19/25 11:35 Patient Tobacco Use Status Never used Tobacco 01/19/25 11:28 e-Cigarette/Vaping Use Never Used 01/19/25 11:28 Thrive Assessment: Date of Thrive Assessment Date Thrive assessed 08/20/24 01/19/25 11:28 Currently or been in a relationship where the following occur: I choose not to answer Coding Level of Care Code Est Pt Level 4 (23676) Diagnoses Hypercholesterolemia E78.00 Leg weakness R29.898 Hypersomnolence G47.10 Assessment & Plan Assessment & Plan (1) Hypercholesterolemia: Code(s): E78.00 - Pure hypercholesterolemia, unspecified Category: Medical Plan: Lipids are still too high. We discussed medication. She wants to trial lifestyle changes once again. She will work on decreasing saturated fats and cholesterol in her diet Will recheck lipids again prior to next visit. We did discuss that if lipids are not controlled we should use medication. (2) Leg weakness: Code(s): R29.898 - Other symptoms and signs involving the musculoskeletal system Category: Medical Plan: Undergoing physical therapy and strength and gait have improved Still mild unsteadiness. She did have a 2 weeks ago. Gradually improving Continue physical therapy Continue B12 injections Follow-up with Neurology (3) Hypersomnolence: Code(s): G47.10 - Hypersomnia, unspecified Category: Medical Plan: Patient missed her sleep study appointment as she has numerous appointments and her 's health keeps her busy as well. She will call sleep medicine to arrange another appointment. I will send new referral if needed
[2025-01-19 11:30] VITALS: BP 134/65; PULSE 66; RESP 16; TEMP 37.2; O2SAT 95; BMI 28.5
--- OUTSIDE RECORDS SUMMARY | 2025-01-19 12:19 | XMS_ITS | Clinical Summary ---
Author Organization [facility] 299 [facility] Address [address] [place] [address] Phone Care Team Providers Care Stable Manager Name Role Phone José Preciado MD Primary Care Provider [phone]- [phone] Allergies Active Allergy Reactions Criticality Noted Date [...] 2023-2 5 season) 2024 Influenza Vaccine (#1) 2025 HIB Vaccines Aged Out No longer [...] this topic Insurance MEDICARE AAR Care Teams Stable Manager Relationship Specialty Start Date End Date José Preciado MD [address] PCP - General Internal Medicine 09/04/17
--- OUTSIDE RECORDS SUMMARY | 2025-01-19 12:19 | XMS_ITS | Patient Health Record ---
Author Organization [facility] Address [address] [place] [address] Care Team Providers Care Cold Mill Supervisor Name Role Phone Ilana OBRIEN, José Primary Care Provider Yancy Douglas Rojas Unavailable [phone] Allergies Allergen (clinical drug ingredient) Drug/Non Drug Allergy documented on EMR Reaction Allergy Type Onset Date Status acetaminophen Tylenol Unknown Drug Allergy Act connie codeine codeine Unknown Drug Allergy Active Reason For Referral No Information Medications Medication SIG (Take, Route, Frequency, Duration) Notes Start Date End Date Status Cephalexin prn Active hydroCHLOROthiazide 25 MG Oral; Duration: 90 Active diazePAM 5 MG (Schedule IV Drug) O ral; Duration: 20 Active Minocycline HCl 100 MG Oral; Duration: 30 Active Meclizine HCl 12.5 MG Oral; Duration: 10 Active Pantoprazole Sodium 40 MG Oral; Duration: 30 Active Social History Tobacco use other than smoking: Question Answer Notes Are you an other tobacco user? No Problems Problem Type SNOMED Code ICD Code Onset Dates Problem Status W/U Status Risk Notes Problem Acquired hammer toe of left foot ([id number]) Other hammer toe(s) (acquired), left foot (M20.42) Active confirmed Plan Of Treatment Pending Test Test Name Order Date X ray : Foot, left 2V 09/08/2015 X ray : Foot, right 2V 09/08/2015 X ray : Foot, left 3V 03/06/2017 [id number] NAIL, 6 OR MORE 03/06/2017 [id number]- Unna Boot 02/13/2017 Insurance Providers Payer Name Payer Address Payer Phone Subscriber Number Group Number Insured Name Patient Relationship to Insured Coverage Start Date Coverage End Date Medicare National [employer] [address] [place] [phone] [id number] Loren Valle Self - patient is the insured AARP Secondary to Medicare [address] [place] [address] [id number] Leonard Loren Self - patient is the insured Medical (General) History Medical History History ICD Code Anemia Anxiety Arthritis Headaches Macular degeneration Reflux Stomach ulcer Measles Mumps Chicken pox Joint implants/screws Transfusions Surgical History Surgery Date(Month/Year) knee replacement 11/03/12 Hospitalization History Reason Date(Month/Year) admitted to [facility] for colitis 11/2016 Urgent care for fx toe 2017
--- OUTSIDE RECORDS SUMMARY | 2025-01-19 12:20 | XMS_ITS | Data Portability ---
Author Organization [place] - [facility], Allergy Address [address] [address] Care Team Providers Care Electronic Instrument Trades Worker Name Role Phone VINICIUS LLOYD Primary [...] repeat procedure. [email or web address] Not available 07/28/2024 13:27:29 12/14/2024 12/14/2024 84-year-old female presents for cerumen removal. Cerumen removed bilaterally. TMs normal to inspection. Will schedule hearing test for the near future. [email or web address] Not available 12/14/2024 10:49:02 Plan of Treatment Reminders Order Date Submit Date Provider Last Modified By Organization Details Last Modified Time Details Appointments Establish ed 15 2024 11:15A Racquel HOLLINS PA-C Not available Not available Not [...] Address Organization Details Recorded Time Impacted cerumen 95935145 Active 2013 Impacted cerumen; Location: bilateral CMS Risk: low risk Cond ition: uncontrol led Not Available [facility] 4 03:04:47 Sensorine ural hearing loss of bilateral ears 851950324 Active 2019 Sensorine ural hearing loss, bilateral ; Note: Date Diagnosed : 09/21/2019 3:19 PM (H90.3) Not Available [facility] 4 03:04:49 Impacted cerumen of bilateral ears 33640384471 72125 Active 2015 Impacted cerumen, bilateral ; Note: Date Diagnosed : 09/05/2015 2:29 PM (H61.23) Not Available [facility] 4 03:04:47 Cough 56297393 Active 2022 Cough; Note: Date Diagnosed : 3 12:02 PM (R05) Not Available [facility] 4 03:04:47 Pain of right temporoma ndibular joint 13246103845 172418 Active 2015 Arthralgi a of right temporoma ndibular joint; Note: Changed from M26.62 to M26.621 (05/24/20 16 3:21 PM) , Date Diagnosed : 6 10:52 AM (M26.62) Not Available [facility] 4 03:04:49 Impaired auditory discrimin ation 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 Active 2014 Hearing loss; Note: Date Diagnosed : 11/22/2014 11:19 AM (388.43) Not Available [facility] 4 03:04:48 Dizziness and giddiness 760846591 Active 2018 Dizziness and giddiness ; Note: Date Diagnosed : 9 12:29 PM (R42) Not Available [facility] 4 03:04:49 Posterior rhinorrhe a 18244391 Active 2022 Postnasal drip; Note: Date Diagnosed : 3 12:02 PM (R09.82) Postnas al drip; Note: Date Diagnosed : 07/17/2016 1:28 PM (R09.82) ; Start Date : 7 Not Available [facility] 4 03:04:48 Common cold 16059962 Active 2022 Acute rhinitis; Note: Date Diagnosed : 3 12:02 PM (J00) Not Available [facility] 4 03:04:46 Impacted cerumen in right ear 67527209181 97318 Active 2014 Impacted cerumen, right ear; Note: Date Diagnosed : 5 1:33 PM (H61.21) Not Available [facility] 4 03:04:47 Benign paroxysma l positiona l vertigo 894366944 Active 2018 Benign paroxysma l vertigo, right ear; Note: Date Diagnosed : 9 11:55 AM (H81.11) Not Available [facility] 4 03:04:48 Bleeding from nose 183083321 Active 2018 Epistaxis ; Note: Date Diagnosed : 12/21/2018 11:43 AM (R04.0) Not Available [facility] 4 03:04:48 Allergic rhinitis 38612610 Active 2015 Allergic rhinitis, unspecifi ed; Note: Date Diagnosed : 12/12/2015 1:44 PM (J30.9) Not Available [facility] 4 03:04:48 Problem Notes None recorded. Procedures Surgical History Date Name Laterality Status Provider Name and Address Organization Details Recorded Time 5 Comp Audio with Tymps - 08412 & 89686 completed TRINH RIVAS MA, CCC-A [address] [facility],[address], [address], [facility] - [facility] 01/07/2025 11:10:37 5 Cerumen removal without microscope bilat completed QUINCY HOLLINS PA-C [address] [place] [address],[address], [address], [facility] - [facility] 12/14/2024 10:48:46 5 Cerumen removal without microscope bilat completed QUINCY HOLLINS PA-C [address] [place] [address],[address], [address], [facility] - [facility] 07/28/2024 13:27:17 4 Cerumen removal without microscope bilat completed MATT PERKINS PA-C [address] [place] [address],[address], [address], [facility] - [facility] 04/28/2024 11:47:31 4 Cerumen removal without microscope bilat completed QUINCY HOLLINS PA-C [address] [place] [address],[address], [address], [facility] - [facility] 01/27/2024 11:59:00 Imaging Results None recorded. Procedure Notes None recorded. Medical Equipment None Reported. Allergies Allergen ID Allergen Name Allergen Category Reaction Reaction Severity Criticality Documentation Date Start Date Code Code System Note Provider Name and Address Organization Details Recorded Time 395152 codeine sulfate medicatio n other Not available Not available 11/25/2023 73532 RxNorm React ion: unkno wn, unspe cifie d;; Not Available [facility] 4 01:22:29 751174 acetamino phen medicatio n other Not available Not available 11/25/2023 161 RxNorm React ion: unkno wn, unspe cifie d;; Not Available [facility] 4 01:22:30 Medications Name Sig Start Date Stop Date Status Note LastModified by Organization Details LastModified Time fluoxetin e 40 mg capsule TAKE ONE CAPSULE BY MOUTH EVERY DAY active Not Available Not Available No t Available amoxicill in 500 mg capsule TAKE FOUR CAPSULES BY MOUTH ONE HOUR PRIOR TO PROCEDUR E 12/14 completed Not Available Not Available Not Available doxycycli ne hyclate 100 mg capsule TAKE ONE CAPSULE BY MOUTH TWICE A DAY FOR 7 DAYS . TAKE WITH A MEAL AND GLASS OF WATER 12/14 completed Not Available Not Available Not Available benzonata te 200 mg capsule TAKE ONE CAPSULE BY MOUTH TWICE A DAY NEEDED FOR COUGH 12/14 completed Not Available Not Available Not Available Lotrisone 1 %-0.05 % topical cream 01/09 completed Medicati on ID: [id number] Shawn aquino By Name: MILIND Melvin nd Name: Lotrison e Send Method: E-Prescr ibed Sub s Allowed: subs OK Speci al Instruct ion: apply to external ear tid X 2 weeks Me dication GenericN bri: Lotrison e Not Available Not Available Not Available clotrimaz ole-betam ethasone 1 %-0.05 % lotion 01/09 completed Medicati on ID: [id number] R graeme: () Brand Name: Lotrison e Send Method: E-Prescr ibed Sub s Allowed: subs OK Speci al Instruct ion: apply to external ear tid X 2 weeks Me dication GenericN bri: Lotrison e Not Available Not Available Not Available prednison e 20 mg tablet TAKE TWO TABLETS BY MOUTH EVERY DAY X 4 DAYS 12/14 completed Not Available Not Available Not Available alendrona te 70 mg tablet TAKE 1 TABLET BY MOUTH ONCE WEEKLY WITH 8 OZ OF WATER. STAY UPRIGHT AND DO NOT LIE DOWN. AVOID FOOD AND DRINK FOR 30 MINUTES. 12/13 completed Not Available Not Available Not Available meclizine 12.5 mg tablet 12/13 completed Medicati on ID: [id number] B rand Name: meclizin e Send Method: E-Prescr ibed Sub s Allowed: subs OK Medic ationGen ericName : meclizin e Not Available Not Available Not Available hydroxyzi ne HCl 50 mg tablet TAKE ONE TABLET BY MOUTH EVERY DAY NEEDED FOR SLEEP active Not Available Not Available No t Available sulfameth oxazole 800 mg-trimet hoprim 160 mg tablet 10/07 completed Medicati on ID: [id number] Du ration Value: 7 Reason: () Brand Name: sulfamet hoxazole -trimeth oprim Se nd Method: E-Prescr ibed Sub s Allowed: subs OK Medic ationGen ericName : sulfamet hoxazole -trimeth oprim Not Available Not Available Not Available butalbita l-acetami nophen-ca ffeine 50 mg-325 mg-40 mg tablet 01/09 completed Medicati on ID: [id number] Du ration Value: 15 Reason: () Brand Name: butalbit al-aceta minophen -caff Se nd Method: E-Prescr ibed Sub s Allowed: subs OK Medic ationGen ericName : butalbit al-aceta minophen -caff Not Available Not Available Not Available pantopraz ole 40 mg tablet,de layed release active Medicati on ID: [id number] B rand Name: pantopra zole Sen d Method: E-Prescr ibed Sub s Allowed: subs OK Medic ationGen ericName : pantopra zole Not Available Not Available Not Available cyanocoba gricelda (vit B-12) 1,000 mcg/mL injection solution INJECT 1 ML INTO THE MUSCLE ONCE EVERY 4 WEEKS active Not Available Not Available No t Available hydrochlo rothiazid e 25 mg tablet active Medicati on ID: [id number] B rand Name: hydrochl orothiaz mary kay Send Method: E-Prescr ibed Sub s Allowed: subs OK Medic ationGen ericName : hydrochl orothiaz mary kay Not Available Not Available Not Available budesonid e DR - ER 3 mg capsule,d elayed,ex tended release 10/04 completed Medicati on ID: [id number] D uration Value: 14 Brand Name: budgarry de Send Method: E-Prescr ibed Sub s Allowed: subs OK Speci al Instruct ion: TAKE THREE CAPSULES BY MOUTH EVERY DAY FOR 14 DAYS Med icationG enericNa me: franklyn oseguera Not Available Not Available Not Available fluoxetin e 20 mg capsule 01/09 completed Medicati on ID: [id number] D uration Value: 90 Reason: () Brand [...] NOT FOR PREGNANC Y OR LACTATIO N 12/13 completed Not Available Not Available Not Available naproxen 500 mg tablet TAKE ONE TABLET BY MOUTH TWICE A DAY active Not Available Not Available No t Available diazepam 5 mg tablet 2019 active Medicati on ID: [id number] D uration Value: 30 Brand Name: diazepam Send Method: E-Prescr ibed Sub s Allowed: subs OK Speci al Instruct ion: TAKE ONE TABLET BY MOUTH EVERY DAY NEEDED M edicatio nGeneric Name: diazepam Not Available Not Available Not Available DermOtic Oil 0.01 % ear drops 5 drop 01/09 completed Medicati on ID: [id number] Pr escribed By Name: Radha Whitaker nd Name: DermOtic Oil Send Method: E-Prescr ibed Sub s Allowed: subs OK Medic ationGen ericName : DermOtic Oil Not Available Not Available Not Available GaviLyte- G 236 gram-22.7 4 gram-6.74 gram-5.86 gram oral solution 04/10 completed Medicati on ID: [id number] D uration Value: 1 Reason: () Brand Name: GaviLyte -G Send Method: E-Prescr ibed Sub s Allowed: subs OK Medic ationGen ericName : GaviLyte -G Not Available Not Available Not Available Aimovig Autoinjec tor 70 mg/mL subcutane ous auto-inje ctor active Not Available Not Available Not Available Vitals Date Recorded Body height Body mass index (BMI) Body weight Provider Name and Address Organization Details Last Updated DateTime 07/28/2024 152.4 cm 27.3 kg/m2 83726.93 g Nataliya Mejia [place] - [facility] 07/28/2024 12:58:18 Date Recorded Body height Body mass index (BMI) Body weight Provider Name and Address Organization Details Last Updated DateTime 12/14/2024 152.4 cm 29.9 kg/m2 36810.63 g Nataliya Mejia [place] - [facility] 12/14/2024 10:37:37 Date Recorded Body height Body mass index (BMI) Body weight Provider Name and Address Organization Details Last Updated DateTime 01/27/2024 152.4 cm 29.3 kg/m2 14690.86 g Isaiah Sukumar [place] - [facility] 01/27/2024 11:19:20 Date Recorded Body height Body mass index (BMI) Body weight Provider Name and Address Organization Details Last Updated DateTime 04/28/2024 152.4 cm 29.3 kg/m2 95000.86 g Colton Pena [facility] 04/28/2024 11:20:11 Social History Question Answer Notes LastModified by Organizat ion Details LastModified Time Tobacco Smoking Status Never Smoker Nataliya neely [facility] 12/14/2024 10:37:54 What Type Of Hooker Inspector Do You Use? None Information not available 12/14/2024 How Many Alcoholic Drinks Do You Consume Per Day On Average? 1 Information not available 12/14/2024 Do You Have Any Pets? No Information not available 12/14/2024 Are You Passively Exposed To Smoke? No Information not available 12/14/2024 Are There Any Smokers In Your House? No Information not available 12/14/2024 Sex: Unknown Functional Status Question Answer Note LastModified by Organization Details LastModified Time How many times per week do you consume alcohol? Less than 1 time per week Inform ation not available 12/14/2024 Do you use any illicit or recreational drugs? No Information not available 12/14/2024 Do you or have you ever used any other forms of tobacco or nicotine? No Information not available 12/14/2024 What is your level of alcohol consumption? Occasional Information not available 12/14/2024 What type of noise exposure are you exposed to? noExposureToExcessiveNoise Infor mation not available 12/14/2024 Mental Status None recorded. Family History Nothing Reported. Medical History Condition Response Allergies/Hayfever N Heart Problems N Anxiety Y Tonsil Infections N Emphysema N Thyroid Problems N Glaucoma N Depression Y COPD N Developmental Delay N Nasal or Sinus Problems Y Anemia Y Immune System Disorder N Anesthesia Complications N Heart Attack ([place]) N Diabetes N Bleeding Disorder N Arthritis Y Hearing Loss Y Hyperlipidemia N Cancer N Stroke N Dementia N Asthma N GERD/Reflux Y High Cholesterol N Liver Disease N Headaches N Fibromyalgia N Hypertension Y Speech Delay N Kidney Disease N Gynecological HistoryNo gynecological history recorded. Obstetrics History GPAL:G 0 P 0 0 0 0 Past Encounters Encounter ID Performer Location Encounter Start Date Encounter Closed Date Diagnosis/Indication Diagnosis SNOMED-CT Code Diagnosis ICD10 Code Diagnosis Note [id number] QUINCY HOLLINS PA-C [facility] [address] [address] 01/27/2024 11:11:23 01/27/2024 11:45:16 Impacted cerumen of bilateral ears 6777515796 698649 H61.23 PROCEDURE NOTEPATHOL OGY FOUND: Cerumen impaction in both earsPROCED URE: The right ear was examined using otoscopy. The cerumen was then removed using suction and/or instrument s. The same procedure was repeated on the opposite side.ADEOLA ANCE: The patient tolerated this well. [id number] QUINCY HOLLINS PA-C [facility] [address] [address] 04/28/2024 11:17:31 04/28/2024 11:45:37 Impacted cerumen of bilateral ears 4353680105 630918 H61.23 [id number] QUINCY HOLLINS PA-C [facility] [address] [address] 07/28/2024 12:29:19 07/28/2024 13:25:29 Impacted cerumen of bilateral ears 7682712288 107496 H61.23 [id number] QUINCY HOLLINS PA-C [facility] [address] [address] 12/14/2024 10:29:25 12/14/2024 10:46:53 Impacted cerumen of bilateral ears 7599162368 166309 H61.23 [id number] TRINH RIVAS MA, CCC-A [facility] [address] [place] [address] 01/07/2025 10:17:59 01/07/2025 11:26:31 Benign paroxysmal positional vertigo 588907558 H81.11 Impacted c erumen of bilateral ears 1763428513 326114 H61.23 Sensorineu ral hearing loss of bilateral ears 764222473 H90.3 Audiologic al evaluation results: Right ear: Normal hearing thru 3000Hz dropping to a mild to severe SNHL with excellent word recognitio n. Left ear: Normal hearing thru 2000Hz dropping to a mildto severe SNHL with excellent word recognitio n. Tympanomet ry: Right Ear:Type A Left Ear:Type A Health Concerns Section Related Observation LastModified by Organization Detai ls LastModified Time None Recorded Concern Status LastModified by Organization Details LastModified Time None Recorded Advance Directives Directive None Recorded Payers Insurance Date Sequence Insurance Name Policy Number Policy Prado Covered Member ID Prado Member ID Guarantor Name 12/14/2024 1 MEDICARE [place]: [employer] Loren Adriel Valle [id number] Loren Valle 01/17/2025 2 [facility] Loren Adriel Valle [id number] Loren Valle Notes Date Note Type Note Provider Name and Address Organization Details Recorded Time 01/27/2024 text/html 83-year-old elvira deleon presents for cerumen removal. No acute issues with her ear since last visit. PATITO BRISENO MD [address] [place] [address], [address], [facility] - [facility] 01/27/2024 16:59:16 04/28/2024 text/html 83 year-old elvira deleon presents for evaluation of the ears. Reports ears feel full. No change in hearing. Denies otalgia or otorrhea. NEGRITO CHAPMAN MD [address] [place] [address], [place], [address], [facility] - [facility] 04/28/2024 17:14:13 07/28/2024 text/html 83-year-old elvira deleon presents for cerumen removal. No acute issues since her last visit. ROBE NORTH MD 100 [facility],[address], [address], [facility] - [facility] 07/28/2024 14:57:41 12/14/2024 text/html 84-year-old elvira deleon presents for cerumen removal. No acute issues since her last visit though she is overdue for ear cleaning. Would like to schedule hearing test. EDU KANG MD 100 [facility],[address], [address], [facility] 12/15/2024 15:35:11 01/07/2025 text/html Longstanding hig h frequency hearing loss bilaterally. Hx vertigo TRINH RIVAS MA, CCC-A [address] [facility],[place] [address], [place], [address], [facility] 01/07/2025 11:12:41 OBGyn Episode No OBEpisode recorded.
--- OUTSIDE RECORDS SUMMARY | 2025-01-19 12:20 | XMS_ITS | Referral Summary ---
Author Organization [facility] Address [address] [place] [address] Care Team Providers Care Cascade Operator Name Role Phone Andrew Chino MD Primary Care Provider [phone] Encounters Date Type Department Care Team Description 11/16/2024 Orders Only [facility] [address] [place] [address] Provider, MD Daphne 11/10/2024 1:00 PM EDT Office Visit [facility] [address] [place] [address] Angie Iraheta MD Recurrent falls (Primary Dx); [...] 69 11/10/2024 12:59 PM EDT Temperature 36.7 C (98 F) 11/10/2024 12:54 PM EDT Respiratory Rate 16 11/10/2024 12:54 PM EDT Oxygen Saturation 94% 07/12/2024 11:52 AM EST Inhaled Oxygen Concentration - - Weight 70.8 kg (156 lb) 11/10/2024 12:54 PM EDT Height 154.9 cm (5' 1 ) 11/10/2024 12:54 PM EDT Body Mass Index 29.48 11/10/2024 12:54 PM EDT Plan of Treatment Not on file Procedures * Due to [employer] law, this organization might not be sharing negative HIV tests. Procedure Name Priority Date/Time Associated Diagnosis Comments AMB EXTERNAL MRI BRAIN, OUTSIDE RESULT Routine 11/07/2024 10:09 AM EDT from Last 3 Months Results * Due to Drip In law, this organization might not be sharing negative HIV tests. * MRI Brain, Outside Result (11/07/2024 10:09 AM EDT) Anatomical Region Laterality Modality Other us Unknown Provider MD CANNON EXTERNAL RESULT PROCEDUR ES Final Result from Last [address] [facility] AARP Care Teams Cascade Operator Relationship Specialty [place] [address] [place] [phone] PCP - General Family Medicine 04/30/24
--- OUTSIDE RECORDS SUMMARY | 2025-01-19 12:20 | XMS_ITS | Clinical Summary ---
Author Organization [facility] Address [address] [place] [address] Care Team Providers Care Galvanizer Name Role Phone Unavailable Primary Care Provider [...] Vaccine (2023-2 5 season) 2024 Influenza (#1) 2025 Mammogram/Breast Imaging Discontinued 03/08/1999 HPV Vaccine Aged [...] (Zostavax) Discontinued Procedures * Due to [place] Rentabilities law, this organization might not be sharing negative HIV tests. Procedure Name Priority Date/Time Associated Diagnosis Comments SCREENING MAMMOGRAPHY BILATERAL (TWO VIEW FILM STUDY OF EACH BREAST) Routine 03/08/1999 1:00 PM EDT Other Screening Mammogram from Last 3 Months or Most Recently Relevant to Health Maintenance Results * Due to [place] Rentabilities law, this organization might not be sharing negative HIV tests. * SCREENING MAMMOGRAPHY BILATERAL (TWO VIEW FILM STUDY OF EACH BREAST) (03/08/1999 1:00 PM EDT) RADIOLOGY REPORT 03/08/99 Bilateral mammogram: This is the patient's first mammogram at [facility]. Two views of each breast were obtained. [...] BI-RADS Category 1: Negative [facility] (CLIA# [id number]) LETTER SENT A mammogram letter type A N was printed on 03/16/1999 [facility] (CLIA# [id number]) Anatomical Region Laterality Modality Other 03/08/1999 1:00 PM EDT Narrative 03/08/1999 1:29 PM EDT Ordered by [facility] NURSE PRACTIONER Reason for Study/History: ROUTINE Test(s) processed by : [facility] us Unknown Provider GENERAL IMAGING- OTHER Final Re sult from Last 3 Months or Most Recently Relevant to Health Maintenance
== END 2025-01-19 12:40 | disposition home or self-care (01) ==
LOC: HO.HMCFM 11:07
PROVIDERS: PCP Family Medicine; Visit Provider Family Medicine
DX: E78.00 Pure hypercholesterolemia, unspecified (principal); R29.898 Other symptoms and signs involving the musculoskeletal system; G47.10 Hypersomnia, unspecified

== ENCOUNTER → 2025-01-19 11:06 | Outpatient (BNVA) | payer MEDICARE, SELFPAY | PROVIDERS: PCP Family Medicine; Visit Provider Family Medicine | DX: E78.00 Pure hypercholesterolemia, unspecified (principal); R29.898 Other symptoms and signs involving the musculoskeletal system; G47.10 Hypersomnia, unspecified | CPT/HCPCS: 99212 ==

== ENCOUNTER 2025-01-27 10:54 | Outpatient (AMB) | payer MEDICARE, SELFPAY ==
--- NOTE | 2025-01-27 11:00 | AM.OFFVISNUR ---
Intake Visit Reasons: B12 Shot Allergies codeine Allergy (Mild, Verified 01/19/25 11:29) Vomiting Office Meds cyanocobalamin (vitamin B-12) 1,000 mcg/mL injection solution Performing Provider: Andrew Chino MD Performing Location: [facility] Administered by: Dara Monte RN on 01/27/25 11:09 Dose Route Admin Location Dispensed Lot Number Expiration Date [facility] Animal Treatment Investigator 1,000 mcg IM Left Deltoid 1 mL [id number] 06/12/25 23618-590-48 [employer] Total Dispensed Waste 1 mL 0 % Assessment & Plan Assessment & Plan Orders: Orders AMB Vitamin B12 Injection Patient Supplied Today E53.8 - Deficiency of other specified B group vitamins Coding
--- OUTSIDE RECORDS SUMMARY | 2025-01-27 11:41 | XMS_ITS | Referral Summary ---
Author Organization [facility] Address [address] [place] [address] Care Team Providers Care Slot Floor Person Name Role Phone Andrew Chino MD Primary Care Provider Encounters Date Type Department Care Team Description 11/16/2024 Orders Only [facility] [address] [place] [address] Provider, MD Daphne 11/10/2024 1:00 PM EDT Office Visit [facility] [address] [place] [address] Angie Iraheta MD Recurrent falls (Primary Dx); [...] Not on file Procedures * Due to [employer] law, this organization might not be sharing negative HIV tests. Procedure Name Priority Date/Time Associated Diagnosis Comments AMB EXTERNAL MRI BRAIN, OUTSIDE RESULT Routine 11/07/2024 10:09 AM EDT from Last 3 Months Results * Due to [employer] law, this organization might not be sharing negative HIV tests. * MRI Brain, Outside Result (11/07/2024 10:09 AM EDT) Anatomical Region Laterality Modality Other us Unknown Provider MD CANNON EXTERNAL RESULT PROCEDUR ES Final Result from Last 3 Months Insurance MEDICARE [facility] AARP Care Teams Slot Floor Person Relationship Specialty [place] [address] [place] [phone] PCP - General Family Medicine 04/30/24
--- OUTSIDE RECORDS SUMMARY | 2025-01-27 11:41 | XMS_ITS | Clinical Summary ---
Author Organization [facility] [address] [facility] Address [address] [place] [address] Phone Care Team Providers Care Accounts Payable Payroll Coordinator Name Role Phone José Preciado MD Primary Care Provider [phone] Allergies Active Allergy Reactions Criticality Noted Date [...] this topic Insurance MEDICARE AAR Care Teams Accounts Payable Payroll Coordinator Relationship Specialty Start Date End Date José Preciado MD [address] PCP - General Internal Medicine 09/04/17
--- OUTSIDE RECORDS SUMMARY | 2025-01-27 11:41 | XMS_ITS | Patient Health Record ---
Author Organization [facility] Address [address] [place] [address] Care Team Providers Care Physics Technical Officer Name Role Phone Ilana OBRIEN, José Primary Care Provider Yancy Douglas Rojas Unavailable [phone] Allergies Allergen (clinical drug ingredient) Drug/Non Drug [...] Problem Status W/U Status Risk Notes Problem Other hammer toe(s) (acquired), left foot (M20.42) Active confirmed Plan Of Treatment Pending Test Test Name Order Date X ray : Foot, left 2V 09/08/2015 X ray : Foot, right 2V 09/08/2015 X ray : Foot, left 3V 03/06/2017 [id number] NAIL, 6 OR MORE 03/06/2017 20174- Unna Boot 02/13/2017 Insurance Providers Payer Name Payer Address Payer Phone Subscriber Number Group Number Insured Name Patient Relationship to Insured Coverage Start Date Coverage End Date Medicare National [facility] [address] [place] [phone] [id number] Leonard Loren Self - patient is the insured AARP Secondary to Medicare [address] [place] [address] [id number] Loren Valle Self - patient is the insured Medical (General) History Medical History History ICD Code Anemia Anxiety Arthritis Headaches Macular degeneration Reflux Stomach ulcer Measles Mumps Chicken pox Joint implants/screws Transfusions Surgical History Surgery Date(Month/Year) knee replacement 11/03/12 Hospitalization History Reason Date(Month/Year) admitted to [facility] for colitis 11/2016 Urgent care for fx toe 2017
--- OUTSIDE RECORDS SUMMARY | 2025-01-27 11:41 | XMS_ITS | Data Portability ---
Author Organization [place] - [facility] Address [address] [address] Care Team Providers Care Pre Owned Sales Consultant Name Role Phone VINICIUS LLOYD Primary Care [...] schedule hearing test for the near future. [email or web address] Not available 12/14/2024 10:49:02 Plan of Treatment [...] Address Organization Details Recorded Time Impacted cerumen 44312927 Active 2013 Impacted cerumen; Location: bilateral CMS Risk: low risk Cond ition: uncontrol led Not Available [facility] 4 03:04:47 Impaired auditory discrimin ation 515040113 Active 2014 Hearing loss; Note: Date Diagnosed : 11/22/2014 11:19 AM (388.43) Not Available [facility] 4 03:04:48 Impacted cerumen in right ear 53504596023 56567 Active 2014 Impacted cerumen, right ear; Note: Date Diagnosed : 5 1:33 PM (H61.21) Not Available [facility] 4 03:04:47 Impacted cerumen of bilateral ears 88330316199 06664 Active 2015 Impacted cerumen, bilateral ; Note: Date Diagnosed : 09/05/2015 2:29 PM (H61.23) Not Available [facility] 4 03:04:47 Allergic rhinitis 89177997 Active 2015 Allergic rhinitis, unspecifi ed; Note: Date Diagnosed : 12/12/2015 1:44 PM (J30.9) Not Available [facility] 4 03:04:48 Pain of right temporoma ndibular joint 47569251661 005952 Active 2015 Arthralgi a of right temporoma ndibular joint; Note: Changed from M26.62 to M26.621 (05/24/20 16 3:21 PM) , Date Diagnosed : 6 10:52 AM (M26.62) Not Available [facility] 4 03:04:49 Bleeding from nose 725332732 Active 2018 Epistaxis ; Note: Date Diagnosed : 12/21/2018 11:43 AM (R04.0) Not Available [facility] 4 03:04:48 Dizziness and giddiness 219693283 Active 2018 Dizziness and giddiness ; Note: Date Diagnosed : 9 12:29 PM (R42) Not Available [facility] 4 03:04:49 Benign paroxysma l positiona l vertigo 896882289 Active 2018 Benign paroxysma l vertigo, right ear; Note: Date Diagnosed : 9 11:55 AM (H81.11) Not Available [facility] 4 03:04:48 Sensorine ural hearing loss of bilateral ears 376372159 Active 2019 Sensorine ural hearing loss, bilateral ; Note: Date Diagnosed : 09/21/2019 3:19 PM (H90.3) Not Available [facility] 4 03:04:49 Cough 55251745 Active 2022 Cough; Note: Date Diagnosed : 3 12:02 PM (R05) Not Available [facility] 4 03:04:47 Posterior rhinorrhe a 96845570 Active 2022 Postnasal drip; Note: Date Diagnosed : 3 12:02 PM (R09.82) Postnas al drip; Note: Date Diagnosed : 07/17/2016 1:28 PM (R09.82) ; Start Date : 7 Not Available [facility] 4 03:04:48 Common cold 10004557 Active 2022 Acute rhinitis; Note: Date Diagnosed : 3 12:02 PM (J00) Not Available [facility] 4 03:04:46 Problem Notes None recorded. Procedures Surgical History Date Name Laterality Status Provider Name and Address Organization Details Recorded Time 5 Comp Audio with Tymps - 31029 & 55214 completed TRINH RIVAS MA, CCC-A 100 [facility],[address], [address], [facility] - [facility] 01/07/2025 11:10:37 5 Cerumen removal without microscope bilat completed QUINCY HOLLINS PA-C [address] [place] [address],[address], [address], [facility] - [facility] 12/14/2024 10:48:46 5 Cerumen removal without microscope bilat completed QUINCY HOLLINS PA-C [address] [place] [address],[address], [address], [facility] - [facility] 07/28/2024 13:27:17 4 Cerumen removal without microscope bilat completed MATT PERKINS PA-C [address] [place] [address],[address], [address], [facility] - [facility] 04/28/2024 11:47:31 4 Cerumen removal without microscope bilat completed QUINCY HOLLINS PA-C [address] [place] [address],[address], [address], [facility] - [facility] 01/27/2024 11:59:00 Imaging Results None recorded. Procedure Notes None recorded. Medical Equipment None Reported. Allergies Allergen ID Allergen Name Allergen Category Reaction Reaction Severity Criticality Documentation Date Start Date Code Code System Note Provider Name and Address Organization Details Recorded Time 347299 codeine sulfate medicatio n other Not available Not available 11/25/2023 58071 RxNorm React ion: unkno wn, unspe cifie d;; Not Available [facility] 4 01:22:29 285216 acetamino phen medicatio n other Not available Not available 11/25/2023 161 RxNorm React ion: unkno wn, unspe cifie d;; Not Available [facility] 4 01:22:30 Medications Name Sig Start Date [...] topical cream 01/09 completed Medicati on ID: [id number] Shawn aquino By Name: MILIND Melvin nd Name: Lotrison e Send Method: E-Prescr ibed Sub s Allowed: subs OK Speci al Instruct ion: apply to external ear tid X 2 weeks Me dication GenericN bri: Lotrison e Not Available Not Available Not Available clotrimaz ole-betam ethasone 1 %-0.05 % lotion 01/09 completed Medicati on ID: [id number] R graeme: () Brand Name: Lotrison e [...] mg tablet 12/13 completed Medicati on ID: [id number] B rand Name: meclizin e Send Method: E-Prescr ibed Sub s Allowed: subs OK Medic ationGen ericName : meclizin e Not Available Not Available Not Available hydroxyzi ne HCl 50 mg tablet TAKE ONE TABLET BY MOUTH EVERY DAY NEEDED FOR SLEEP active Not Available Not Available No t Available sulfameth oxazole 800 mg-trimet hoprim 160 mg tablet 10/07 completed Medicati on ID: [id number] Du ration Value: 7 Reason: () Brand Name: sulfamet hoxazole -trimeth oprim Se nd Method: E-Prescr ibed Sub s Allowed: subs OK Medic ationGen ericName : sulfamet hoxazole -trimeth oprim Not Available Not Available Not Available butalbita l-acetami nophen-ca ffeine 50 mg-325 mg-40 mg tablet 01/09 completed Medicati on ID: [id number] Du ration Value: 15 Reason: () Brand Name: butalbit al-aceta minophen -caff Se nd Method: E-Prescr ibed Sub s Allowed: subs OK Medic ationGen ericName : butalbit al-aceta minophen -caff Not Available Not Available Not Available pantopraz ole 40 mg tablet,de layed release active Medicati on ID: [id number] B rand Name: pantopra zole Sen d Method: E-Prescr ibed Sub s Allowed: subs OK Medic ationGen ericName : pantopra zole Not Available Not Available Not Available cyanocoba gricelda (vit B-12) 1,000 mcg/mL injection solution INJECT 1 ML INTO THE MUSCLE ONCE EVERY 4 WEEKS active Not Available Not Available No t Available hydrochlo rothiazid e 25 mg tablet active Medicati on ID: [id number] B rand Name: hydrochl orothiaz mary kay Send Method: E-Prescr ibed Sub s Allowed: subs OK Medic ationGen ericName : hydrochl orothiaz mary kay Not Available Not Available Not Available budesonid e DR - ER 3 mg capsule,d elayed,ex tended release 10/04 completed Medicati on ID: [id number] D uration Value: 14 Brand Name: budgarry de Send Method: E-Prescr ibed Sub s Allowed: subs OK Speci al Instruct ion: TAKE THREE CAPSULES BY MOUTH EVERY DAY FOR 14 DAYS Med icationG enericNa me: franklyn oseguera Not Available Not Available Not Available fluoxetin e 20 mg capsule 01/09 completed Medicati on ID: [id number] D uration Value: 90 Reason: () Brand [...] mg tablet 2019 active Medicati on ID: [id number] D uration Value: 30 Brand Name: diazepam Send Method: E-Prescr ibed Sub s Allowed: subs OK Speci al Instruct ion: TAKE ONE TABLET BY MOUTH EVERY DAY NEEDED M edicatio nGeneric Name: diazepam Not Available Not Available Not Available DermOtic Oil 0.01 % ear drops 5 drop 01/09 completed Medicati on ID: [id number] Pr escribed By Name: Radha Whitaker nd Name: DermOtic Oil Send Method: E-Prescr ibed Sub s Allowed: subs OK Medic ationGen ericName : DermOtic Oil Not Available Not Available Not Available GaviLyte- G 236 gram-22.7 4 gram-6.74 gram-5.86 gram oral solution 04/10 completed Medicati on ID: [id number] D uration Value: 1 Reason: () Brand [...] Updated DateTime 07/28/2024 152.4 cm 27.3 kg/m2 05404.93 g Nataliya Mejia [place] - [facility] 07/28/2024 12:58:18 Date Recorded Body height Body mass index (BMI) Body weight Provider Name and Address Organization Details Last Updated DateTime 12/14/2024 152.4 cm 29.9 kg/m2 57572.63 g Nataliya Mejia [place] - [facility] 12/14/2024 10:37:37 Date Recorded Body height Body mass index (BMI) Body weight Provider Name and Address Organization Details Last Updated DateTime 01/27/2024 152.4 cm 29.3 kg/m2 68853.86 g Isaiah Sukumar [place] - [facility] 01/27/2024 11:19:20 Date Recorded Body height Body mass index (BMI) Body weight Provider Name and Address Organization Details Last Updated DateTime 04/28/2024 152.4 cm 29.3 kg/m2 61512.86 g Colton Pena [facility] 04/28/2024 11:20:11 Social History Question Answer Notes LastModified by Organizat ion Details LastModified Time Tobacco Smoking Status Never Smoker Nataliya neely [facility] 12/14/2024 10:37:54 What Type Of Cinder Pit Worker Do You Use? None Information not available [...] Infections N Emphysema N Thyroid Problems N Developmental Delay N COPD N Depression Y Glaucoma N Nasal or Sinus Problems Y Anemia Y Immune System Disorder N Anesthesia Complications N Heart Attack (HI) N Diabetes N Bleeding Disorder N Arthritis [...] Note [id number] QUINCY HOLLINS PA-C [facility] [address] [address] 01/27/2024 11:11:23 01/27/2024 11:45:16 Impacted cerumen of bilateral ears 6356734884 363467 H61.23 PROCEDURE NOTEPATHOL OGY FOUND: Cerumen impaction in both earsPROCED URE: The right ear was examined using otoscopy. The cerumen was then removed using suction and/or instrument s. The same procedure was repeated on the opposite side.ADEOLA ANCE: The patient tolerated this well. [id number] QUINCY HOLLINS PA-C [facility] [address] [address] 04/28/2024 11:17:31 04/28/2024 11:45:37 Impacted cerumen of bilateral ears 9949382651 623776 H61.23 [id number] QUINCY HOLLINS PA-C [facility] [address] [address] 07/28/2024 12:29:19 07/28/2024 13:25:29 Impacted cerumen of bilateral ears 8993924231 276893 H61.23 [id number] QUINCY HOLLINS PA-C [facility] [address] [address] 12/14/2024 10:29:25 12/14/2024 10:46:53 Impacted cerumen of bilateral ears 4000758875 435667 H61.23 [id number] TRINH RIVAS MA, CCC-A [facility] 100 [place] [address] 01/07/2025 10:17:59 01/07/2025 11:26:31 Benign paroxysmal positional vertigo 959132625 H81.11 Impacted c erumen of bilateral ears 8141726372 223427 H61.23 Sensorineu ral hearing loss of bilateral ears 085081521 H90.3 Audiologic al evaluation results: Right ear: [...] Member ID Guarantor Name 12/14/2024 1 MEDICARE [place]: [employer] Loren Adriel Valle [id number] Loren Valle 01/17/[address] [facility] Loren Adriel Valle [id number] Loren Valle Notes Date Note Type Note Provider Name and Address Organization Details Recorded Time 01/27/2024 text/html 83-year-old elvira deleon presents for cerumen removal. No acute issues with her ear since last visit. PATITO BRISENO MD [address] [place] [address], [address], [facility] - [facility] 01/27/2024 16:59:16 04/28/2024 text/html 83 year-old elvira deleon presents for evaluation of the ears. Reports ears feel full. No change in hearing. Denies otalgia or otorrhea. NEGRITO CHAPMAN MD [address] [place] [address], [place], [address], [facility] - [facility] 04/28/2024 17:14:13 07/28/2024 text/html 83-year-old elvira deleon presents for cerumen removal. No acute issues since her last visit. ROBE NORTH MD 100 [facility],[address], [address], [facility] - [facility] 07/28/2024 14:57:41 12/14/2024 text/html 84-year-old elvira deleon presents for cerumen removal. No acute issues since her last visit though she is overdue for ear cleaning. Would like to schedule hearing test. EDU KANG MD 100 [facility],[address], [address], [facility] 12/15/2024 15:35:11 01/07/2025 text/html Longstanding hig h frequency hearing loss bilaterally. Hx vertigo TRINH RIVAS MA, CCC-A 100 [facility],[place] [address], [place], [address], [facility] 01/07/2025 11:12:41 OBGyn Episode No OBEpisode recorded.
--- OUTSIDE RECORDS SUMMARY | 2025-01-27 11:41 | XMS_ITS | Clinical Summary ---
Author Organization [facility] Address [address] [place] [address] Care Team Providers Care Acid Purifier Name Role Phone Unavailable Primary Care Provider [...] Zoster (Zostavax) Discontinued Procedures * Due to [place] [employer] law, this organization might not be sharing negative HIV tests. Procedure Name Priority Date/Time Associated Diagnosis Comments SCREENING MAMMOGRAPHY BILATERAL (TWO VIEW FILM STUDY OF EACH BREAST) Routine 03/08/1999 1:00 PM EDT Other Screening Mammogram from Last 3 Months or Most Recently Relevant to Health Maintenance Results * Due to [place] [employer] law, this organization might not be sharing negative HIV tests. * SCREENING MAMMOGRAPHY BILATERAL (TWO VIEW FILM STUDY OF EACH BREAST) (03/08/1999 1:00 PM EDT) RADIOLOGY REPORT 03/08/99 Bilateral mammogram: This is the patient's first mammogram at [facility]. Two views of each breast [...] BI-RADS Category 1: Negative [facility] (CLIA# [id number]) LETTER SENT A mammogram letter type A N was printed on 03/16/1999 [facility] (CLIA# [id number]) Anatomical Region Laterality Modality Other 03/08/1999 1:00 PM EDT Narrative 03/08/1999 1:29 PM EDT Ordered by [facility] NURSE PRACTIONER Reason for Study/History: ROUTINE Test(s) processed by : [facility] us Unknown Provider GENERAL IMAGING- OTHER Final Re sult from Last 3 Months or Most Recently Relevant to Health Maintenance
== END 2025-01-27 11:00 | disposition home or self-care (01) ==
LOC: HO.HMCFM 10:55
PROVIDERS: PCP Family Medicine; Visit Provider Family Medicine
DX: E53.8 Deficiency of other specified B group vitamins (principal)

== ENCOUNTER → 2025-01-27 10:54 | Outpatient (BNVA) | payer MEDICARE, SELFPAY | PROVIDERS: PCP Family Medicine; Visit Provider Family Medicine | DX: E53.8 Deficiency of other specified B group vitamins (principal) | CPT/HCPCS: 96372; J3420 ==

== ENCOUNTER 2025-02-24 10:51 | Outpatient (AMB) | payer MEDICARE, SELFPAY ==
--- OUTSIDE RECORDS SUMMARY | 2025-02-22 08:54 | XMS_ITS | Continuity of Care Document ---
Author Organization [facility] Address [address] [place] [address]- Care Team Providers Care Mri Special Procedures Technologist Name Role Phone Lulú OBRIEN, Andrew Celeste Primary Care Physician Encounter [facility] ACCT R [id number] Date(s): 12/08/24 - 02/22/[address] [address] Encounter Diagnosis Unsteadiness on feet(Final) - Discharge Disposition: A-D/C Home Attending Physician: Evita Alicea NP Admitting Physician: Evita Alicea NP Referring Physician: Evita Alicea NP Encounter Type: Disch Recurring OP Allergies, Adverse Reactions, Alerts Substance Criticality Severity Reaction Reaction Severity Status codeine 1 Dizziness - light-headed Active 1vomiting Medications Aimovig SureClick Autoinjector 70 mg/mL subcutaneous solution = 70 mg, Subcutaneous Infusion, Every 28 days, # 1 each, 5 Refills, Maintenance, 02/10/25 5:51:00 AMEDT, [facility], 157, cm, 11/15/24 10:26:00 EDT, Height, 68.5, kg, 02/27/24 19:27:00 EDT, Dry Weight Start Date: 02/10/25 Status: Ordered Quantity: 1.0 Unit: each Repeat number: 6 B 100 Complex 1 tablet, By Mouth, [...] team information Care Team Personnel Name: Andrew Chino MD Position: [facility] Outreach Member Role: PCP Address: [address] [place] [address] Telecom: Care Team Related Persons Name: YAJAIRA LECHUGA Name: JENNIFER BARDALES Insurance Providers Guarantor name: YAJAIRA BARDALES Health Plan Information #: 1 Payer: MEDICARE B Payer Identifier: NA Member Number: [id number] Group Number: NA Subscriber Identifier: [id number] Relationship to Subscriber: self Coverage Type: NA Coverage Verification Date: NA Telecom: NA Address: Health Plan Information #: 2 Payer: A[employer] SECONDARY ONLY Payer Identifier: REBA Member Number: [id number] Group Number: [id number] Subscriber Identifier: [id number] Relationship to Subscriber: self Coverage Type: MEDICARE Coverage Verification Date: REBA Telecom: NA Address:
--- NOTE | 2025-02-24 11:03 | AM.OFFVISNUR ---
Intake Visit Reasons: b12 shot Allergies codeine Allergy (Mild, Verified 01/19/25 11:29) Vomiting Office Meds cyanocobalamin (vitamin B-12) 1,000 mcg/mL injection solution Performing Provider: Andrew Chino MD Performing Location[facility] Administered by: Dara Monte RN on 02/24/25 11:03 Dose Route Admin Location Dispensed Lot Number Expiration Date [facility] Real Estate Leasing Agent 1,000 mcg IM Left Deltoid 1 mL [id number] 04/12/27 01204-291-70 [employer] TAYLOR Total Dispensed Waste 1 mL 0 % Assessment & Plan Assessment & Plan Orders: Orders AMB Vitamin B12 Injection Patient Supplied Today E53.8 - Deficiency of other specified B group vitamins Coding
--- OUTSIDE RECORDS SUMMARY | 2025-02-24 12:02 | XMS_ITS | Patient Health Record ---
Author Organization [facility] Address [address] [place] [address] Care Team Providers Care Graduate Studies Dean Name Role Phone Ilana OBRIEN, José Primary Care Provider Yancy Douglas Rojas Unavailable [phone] Allergies Allergen (clinical drug ingredient) Drug/Non Drug [...] Problem Acquired hammer toe of left foot ([id number] 103) Other hammer toe(s) (acquired), left foot (M20.42) Active confirmed Plan Of Treatment Pending Test Test Name Order Date X ray : Foot, left 2V 09/08/2015 X ray : Foot, right 2V 09/08/2015 X ray : Foot, left 3V 03/06/2017 [id number] NAIL, 6 OR MORE 03/06/2017 68530- Unna Boot 02/13/2017 Insurance Providers Payer Name Payer Address Payer Phone Subscriber Number Group Number Insured Name Patient Relationship to Insured Coverage Start Date Coverage End Date Medicare National [employer] [address] [place] [phone] [id number] Loren Valle Self - patient is the insured AARP Secondary to Medicare [address] [place] [address] [id number] Leonard Loren Self - patient is the insured Medical (General) History Medical History History ICD Code Anemia Anxiety Arthritis Headaches Macular degeneration Reflux Stomach ulcer Measles Mumps Chicken pox Joint implants/screws Transfusions Surgical History Surgery Date(Month/Year) knee replacement 11/03/12 Hospitalization History Reason Date(Month/Year) admitted to [facility] for colitis 11/2016 Urgent care for fx toe 2017
--- OUTSIDE RECORDS SUMMARY | 2025-02-24 12:02 | XMS_ITS | Clinical Summary ---
Author Organization [facility] Address [address] [place] [address] Care Team Providers Care Cytology Laboratory Manager Name Role Phone Andrew Chino MD Primary Care Provider [phone] Allergies Active Allergy Reactions Criticality Noted Date [...] Encounters Date Type Department Care Team Description 01/31/2025 Orders Only [facility] [address] [place] [address] Provider, MD Daphne from Last 3 Months Social History Tobacco [...] Health Mya ual Screening 07/14/2024 Influenza Vaccine (#1) 2025 Tobacco Screening 07/14/2042 07/12/2024 Hepatitis B Vaccines Aged Out No long er eligible based on patient's age to complete this topic Procedures * Due to [place] [employer] law, this organization might not be sharing negative HIV tests. Procedure Name Priority Date/Time Associated Diagnosis Comments LAB - SCANNED Routine 01/25/2025 11:24 AM EDT from Last 3 Months Results * Due to [place] [employer] law, this organization might not be sharing negative HIV tests. * LAB - SCANNED (01/25/2025 11:24 AM EDT) us Unknown Provider LAB HISTORICAL RESULTS Final Result from Last 3 Months Insurance MEDICARE [facility] [place] [place] Care Teams Cytology Laboratory Manager Relationship Specialty Start Date End Date Andrew Cihno MD [facility] [place] [address] PCP - General Family Medicine 04/30/24
--- OUTSIDE RECORDS SUMMARY | 2025-02-24 12:02 | XMS_ITS | Clinical Summary ---
Author Organization [facility] Address [address] [place] [address] Care Team Providers Care Social Media Designer Name Role Phone Unavailable Primary Care Provider [...] 2025 Mammogram/Breast Imaging Discontinued 03/08/1999 HPV Vaccine (No Doses Required) Completed Hep A Aged Out No longer eligi [...] Zoster (Zostavax) Discontinued Procedures * Due to [place] [employer] law, this organization might not be sharing negative HIV tests. Procedure Name Priority Date/Time Associated Diagnosis Comments SCREENING MAMMOGRAPHY BILATERAL (TWO VIEW FILM STUDY OF EACH BREAST) Routine 03/08/1999 1:00 PM EDT Other Screening Mammogram from Last 3 Months or Most Recently Relevant to Health Maintenance Results * Due to [place] [employer] law, this organization might not be sharing negative HIV tests. * SCREENING MAMMOGRAPHY BILATERAL (TWO VIEW FILM STUDY OF EACH BREAST) (03/08/1999 1:00 PM EDT) RADIOLOGY REPORT 03/08/99 Bilateral mammogram: This is the patient's first mammogram at [facility]. Two views of each breast were obtained. [...] the interpreting radiologist. BI-RADS Category 1: Negative [facility] (CLIA# [id number]) LETTER SENT A mammogram letter type A N was [facility]16[facility] (CLIA# [id number]) Anatomical Region Laterality Modality Other 03/08/1999 1:00 PM EDT Narrative 03/08/1999 1:29 PM EDT Ordered by [facility] NURSE PRACTIONER Reason for Study/History: ROUTINE Test(s) processed by : [facility] us Unknown Provider GENERAL IMAGING- OTHER Final Re sult from Last 3 Months or Most Recently Relevant to Health Maintenance
--- OUTSIDE RECORDS SUMMARY | 2025-02-24 12:02 | XMS_ITS | Clinical Summary ---
Author Organization [facility] 299 [facility] Address [address] [place] [address] Phone Care Team Providers Care Property Controller Name Role Phone José Preciado MD Primary Care Provider [phone] Allergies Active Allergy Reactions Criticality Noted Date [...] (2 of 2 - PCV) 02/16/2018 02/16/2017 Falls Risk Assessment 06/16/2022 Medicare Annual Wellness Visit 06/16/2022 Osteoporosis Screening (Bone Density Screening) 06/16/2022 Social Influencers of Health Screening 06/16/2022 COVID-19 Vaccine (1 - 2023-2 5 season) 2024 Depression Screening 07/14/2024 Influenza Vaccine (#1) 2025 HIB Vaccines Aged [...] this topic Insurance MEDICARE AAR Care Teams Property Controller Relationship Specialty Start Date End Date José Preciado MD [address] PCP - General Internal Medicine 09/04/17
== END 2025-02-24 11:06 | disposition home or self-care (01) ==
LOC: HO.HMCFM 10:52
PROVIDERS: PCP Family Medicine; Visit Provider Family Medicine
DX: E53.8 Deficiency of other specified B group vitamins (principal)

== ENCOUNTER → 2025-02-24 10:51 | Outpatient (BNVA) | payer MEDICARE, SELFPAY | PROVIDERS: PCP Family Medicine; Visit Provider Family Medicine | DX: E53.8 Deficiency of other specified B group vitamins (principal) | CPT/HCPCS: 96372; J3420 ==

== ENCOUNTER 2025-03-24 12:06 | Outpatient (AMB) | payer MEDICARE, SELFPAY ==
--- NOTE | 2025-03-24 12:16 | AM.OFFVISNUR ---
Intake Visit Reasons: B12 shot - see comments Allergies codeine Allergy (Mild, Verified 01/19/25 11:29) Vomiting Office Meds cyanocobalamin (vitamin B-12) 1,000 mcg/mL injection solution Performing Provider: Andrew Chino MD Performing Location[place] [facility] Administered by: Dara Monte RN on 03/24/25 12:16 Dose Route Admin Location Dispensed Lot Number Expiration Date [facility] Brand Planner 1,000 mcg IM Left Deltoid 1 mL [id number] 04/12/27 95959-943-72 CAITLYNUVSAMANTA TAYLOR Total Dispensed Waste 1 mL 0 % Assessment & Plan Assessment & Plan Orders: Orders AMB Vitamin B12 Injection Patient Supplied Today E53.8 - Deficiency of other specified B group vitamins Coding
--- OUTSIDE RECORDS SUMMARY | 2025-03-24 16:20 | XMS_ITS | Patient Health Record ---
Author Organization [facility] Address [address] [place] [address] Care Team Providers Care Head Porter Name Role Phone Ilana OBRIEN, José Primary Care Provider Yancy Douglas Rojas Unavailable [phone] Allergies Allergen (clinical drug ingredient) Drug/Non Drug [...] Problem Acquired hammer toe of left foot ([id number] 103) Other hammer toe(s) (acquired), left foot (M20.42) Active confirmed Plan Of Treatment Pending Test Test Name Order Date X ray : Foot, left 2V 09/08/2015 X ray : Foot, right 2V 09/08/2015 X ray : Foot, left 3V 03/06/2017 [id number] NAIL, 6 OR MORE 03/06/2017 [id number]- Unna Boot 02/13/2017 Insurance Providers Payer Name Payer Address Payer Phone Subscriber Number Group Number Insured Name Patient Relationship to Insured Coverage Start Date Coverage End Date Medicare National Govt Svcs Inc [address] [place] [phone] [id number] Loren Valle Self - patient is the insured AARP Secondary to Medicare [address] [place] [address] [id number] Leonard Loren Self - patient is the insured Medical (General) History Medical History History ICD Code Anemia Anxiety Arthritis Headaches Macular degeneration Reflux Stomach ulcer Measles Mumps Chicken pox Joint implants/screws Transfusions Surgical History Surgery Date(Month/Year) knee replacement 11/03/12 Hospitalization History Reason Date(Month/Year) admitted to [facility] for colitis 11/2016 Urgent care for fx toe 2017
--- OUTSIDE RECORDS SUMMARY | 2025-03-24 16:20 | XMS_ITS | Clinical Summary ---
Author Organization [facility] Address [address] [place] [address] Care Team Providers Care Clinical Care Leader Name Role Phone Unavailable Primary Care Provider [...] series) 11/13/2014 COVID-19 Vaccine (2023-2 5 season) 2025 Influenza (#1) 2025 Mammogram/Breast Imaging Discontinued 03/08/1999 [...] Zoster (Zostavax) Discontinued Procedures * Due to [place] [employer] law, this organization might not be sharing negative HIV tests. Procedure Name Priority Date/Time Associated Diagnosis Comments SCREENING MAMMOGRAPHY BILATERAL (TWO VIEW FILM STUDY OF EACH BREAST) Routine 03/08/1999 1:00 PM EDT Other Screening Mammogram from Last 3 Months or Most Recently Relevant to Health Maintenance Results * Due to [place] [employer] law, this organization might not be sharing negative HIV tests. * SCREENING MAMMOGRAPHY BILATERAL (TWO VIEW FILM STUDY OF EACH BREAST) (03/08/1999 1:00 PM EDT) RADIOLOGY REPORT 03/08/99 Bilateral mammogram: This is the patient's first mammogram at [facility]. Two views of each breast [...] the interpreting radiologist. BI-RADS Category 1: Negative [facility] ([id number]# [id number]) LETTER SENT A mammogram letter type A N was printed on 03/16/1999 [facility] (CLIA# [id number]) Anatomical Region Laterality Modality Other 03/08/1999 1:00 PM EDT Narrative 03/08/1999 1:29 PM EDT Ordered by [facility] NURSE PRACTIONER Reason for Study/History: ROUTINE Test(s) processed by : [facility] us Unknown Provider GENERAL IMAGING- OTHER Final Re sult from Last 3 Months or Most Recently Relevant to Health Maintenance
--- OUTSIDE RECORDS SUMMARY | 2025-03-24 16:20 | XMS_ITS | Clinical Summary ---
Author Organization [facility] 299 [facility] Address [address] [place] [address] Phone Care Team Providers Care Computer Repairer Name Role Phone José Preciado MD Primary Care Provider [phone]- [phone] Allergies Active Allergy Reactions Criticality Noted Date [...] 06/16/2022 Social Influencers of Health Screening 06/16/2022 Depression Screening 07/14/2024 COVID-19 Vaccine (1 - 2023-2 5 season) 2025 Influenza Vaccine (#1) 2025 HIB Vaccines Aged [...] this topic Insurance MEDICARE AAR Care Teams Computer Repairer Relationship Specialty Start Date End Date José Preciado MD [address] PCP - General Internal Medicine 09/04/17
--- OUTSIDE RECORDS SUMMARY | 2025-03-24 16:20 | XMS_ITS | Clinical Summary ---
Author Organization [facility] Address [address] [place] [address] Care Team Providers Care Outboard Motors Experimental Mechanic Name Role Phone Andrew Chino MD Primary Care Provider [phone] Allergies Active Allergy Reactions Criticality Noted Date [...] Department Care Team Description 01/31/2025 Orders Only [facility] [address] [place] [id number] Provider, MD Daphne from Last 3 [...] (2 of 2 - PCV) 02/16/2018 02/16/2017 Alcohol/Substance Use Screening 07/14/2024 Depression Screening and Follow-Up 07/14/2024 Fall Risk Screening 07/14/2024 Health Care Proxy Review 07/14/2024 Social Drivers of Health Mya ual Screening 07/14/2024 COVID-19 Vaccine (1 - 2023-2 5 season) 2025 Influenza Vaccine (#1) 2025 Tobacco Screening 07/14/2042 07/12/2024 Hepatitis B Vaccines Aged Out No long er eligible based on patient's age to complete this topic Procedures * Due to [place] [employer] law, this organization might not be sharing negative HIV tests. Procedure Name Priority Date/Time Associated Diagnosis Comments LAB - SCANNED Routine 01/25/2025 11:24 AM EDT from Last 3 Months Results * Due to [place] [employer] law, this organization might not be sharing negative HIV tests. * LAB - SCANNED (01/25/2025 11:24 AM EDT) us Unknown Provider LAB HISTORICAL RESULTS Final Result from Last [address] [facility] Care Teams Outboard Motors Experimental Mechanic Relationship Specialty Start Date End Date Andrew Chino MD [facility] [place] [address] PCP - General Family Medicine 04/30/24
== END 2025-03-24 12:17 | disposition home or self-care (01) ==
LOC: HO.HMCFM 12:06
PROVIDERS: PCP Family Medicine; Visit Provider Family Medicine
DX: E53.8 Deficiency of other specified B group vitamins (principal)

== ENCOUNTER → 2025-03-24 12:06 | Outpatient (BNVA) | payer MEDICARE, SELFPAY | PROVIDERS: PCP Family Medicine; Visit Provider Family Medicine | DX: E53.8 Deficiency of other specified B group vitamins (principal) | CPT/HCPCS: 96372; J3420 ==

== ENCOUNTER 2025-04-25 11:46 | Outpatient (REF) | payer MEDICARE, SELFPAY ==
[2025-04-25 14:56] LABS: Alanine Aminotransferase 18 U/L (0-31); Albumin Level 4.4 g/dL (3.5-5.0); Alkaline Phosphatase 95 U/L (39-117); Anion Gap 10 (12-20); Aspartate Amino Transferase 23 U/L (5-31); Blood Urea Nitrogen 16 mg/dL (9-16); Calcium 9.4 mg/dL (8.4-10.2); Carbon Dioxide 28 mmol/L (22-29); Chloride 110 mmol/L (96-108); Cholesterol 226 mg/dL (<200); Estimated Glomerular Filt Rate > 60; HDL Cholesterol 65 mg/dL (>40); Potassium 4.1 mmol/L (3.3-5.1); Sodium 144 mmol/L (135-145); Total Protein 6.7 g/dL (6.5-8.0); Triglycerides 126 mg/dL (<150)
[2025-04-25 15:09] LABS: Folate 13.4 ng/mL (> or = 4.0); Vitamin B12 > 2000 pg/mL (200-900)
== END 2025-04-25 11:47 | disposition home or self-care (01) ==
LOC: HO.WFDLDS 11:46
PROVIDERS: PCP Family Medicine; Visit Provider Family Medicine
DX: Z00.00 Encounter for general adult medical examination without abnormal findings (principal); E53.8 Deficiency of other specified B group vitamins; E78.00 Pure hypercholesterolemia, unspecified
CPT/HCPCS: 36415; 80053; 80061; 82607; 82746

== ENCOUNTER 2025-05-31 11:09 | Outpatient (AMB) | payer MEDICARE, SELFPAY ==
--- NOTE | 2025-05-31 11:33 | AM.OFFVISNUR ---
Intake Visit Reasons: b-12 Allergies codeine Allergy (Mild, Verified 01/19/25 11:29) Vomiting Office Meds cyanocobalamin (vitamin B-12) 1,000 mcg/mL injection solution Performing Provider: Andrew Chino MD Performing Location: [facility] Administered by: Dara Monte RN on 05/31/25 11:33 Dose Route Admin Location Dispensed Lot Number Expiration Date [facility] Quality Assurance Manager 1,000 mcg IM Left Deltoid 1 mL [id number] 04/12/27 85248-132-58 CAITLYNUVSAMANTA TAYLOR Total Dispensed Waste 1 mL 0 % Assessment & Plan Assessment & Plan Orders: Orders AMB Vitamin B12 Injection Patient Supplied Today E53.8 - Deficiency of other specified B group vitamins Coding
== END 2025-05-31 11:37 | disposition home or self-care (01) ==
LOC: HO.HMCFM 11:10
PROVIDERS: PCP Family Medicine; Visit Provider Family Medicine
DX: E53.8 Deficiency of other specified B group vitamins (principal)

== ENCOUNTER → 2025-05-31 11:09 | Outpatient (BNVA) | payer MEDICARE, SELFPAY | PROVIDERS: PCP Family Medicine; Visit Provider Family Medicine | DX: E53.8 Deficiency of other specified B group vitamins (principal) | CPT/HCPCS: 96372; J3420 ==

== ENCOUNTER 2025-06-30 13:18 | Outpatient (AMB) | payer MEDICARE, SELFPAY ==
--- NOTE | 2025-06-30 13:20 | MHC.PC.OV ---
Vital Signs 06/30/25 13:24 Height 5 ft 1.65 in Weight 155 lb 4 oz BMI 28.7 BP 144/70 H Blood Pressure Location Rt brachial Position Sitting Respiration 14 Pulse 66 Pulse Source Pulse Oximeter Temp 96.6 F L Temp Source Temporal Artery Scan Pulse Oximetry (%) 97 Oxygen Delivery Method Room Air Intake Visit Reasons: fu hld/b12 shot Intake Note: Follow up on hdl. Patient needs refill on meds. E Learning Developer Required: No Allergies codeine Allergy (Mild, Verified 06/30/25 13:21) Vomiting Medication List - Last Reconciled 06/30/25 by Andrew Chino MD amoxicillin 500 mg PO BID 10 days atorvastatin (Lipitor) 10 mg PO BEDTIME [address]-ER 3 mg PO Q OTHER DAY 30 days calcium polycarbophil (FiberCon) 625 mg PO DAILY 30 days cyanocobalamin (vitamin B-12) 1,000 mcg IM Q4W 84 days erenumab-aooe (Aimovig Autoinjector) mg subcut fluoxetine 40 mg PO DAILY 90 days hydroxyzine HCl 50 mg PO DAILY PRN 30 days losartan 25 mg PO DAILY 90 days naproxen 500 mg PO BID 90 days pantoprazole 40 mg PO BID 30 days Tobacco use date assessed: 06/30/25 Fall risk assessment: 2 + Falls in past year Last assessed Fall Risk: 06/30/25 Dental Screening Dental Screen Date: 06/30/25 Did you have a dental visit in the last 12 months?: Yes Did you have a dental problem in the last 6 months where you did not have access to dental care?: No Was dental information given to patient?: Patient has dentist HPI fu hld/b12 shot HPI Details 84 y/o female presents to f/u HLD. Labs drawn 04/25/25. Reviewed labs with pt. Triglycerides 126. TC 226. LDL 136. HDL 65. Blood pressure today 144/70, 66p. Followed up with neurology for gait instability. Recent brain MRI 11/07/24 showed: 1. No acute/subacute infarct, mass, hemorrhage or other acute intracranial abnormality. 2. Mild T2/FLAIR hyperintense foci in the white matter, nonspecific but most likely reflecting chronic small vessel disease. 3. Air-fluid level noted in R maxillary sinus. [facility] Medical History Anxiety Failed total right knee replacement Surgical History History of appendectomy Family History (Updated 10/31/23 @ 10:39 by Radha Mills [facility]) Father Prostate cancer Mother Cancer Paternal family history of mental health disorder Social History Housing: House Patient Tobacco Use Status: Never used Tobacco e-Cigarette/Vaping Use: Never Used Second Hand Smoke Exposure: No service: No Current occupational status: retired Current occupational exposures/hazards: No Cognitive needs: No Hearing needs: No Vision needs: No Questionnaire PHQ-9 Over the last 2 weeks, how often have you been bothered by any of the following problems? 1. Little interest or pleasure in doing things: not at all 2. Feeling down, depressed, or hopeless: not at all 3. Trouble falling or staying asleep, or sleeping too much: not at all 4. Feeling tired or having little energy: not at all 5. Poor appetite or overeating: not at all 6. Feeling bad about yourself - or that you are a failure or have let yourself or your family down: not at all 7. Trouble concentrating on things, such as reading the newspaper or watching television: not at all 8. Moving or speaking so slowly that other people could have noticed. Or the opposite - being so fidgety or restless that you have been moving around a lot more than usual: not at all 9. Thoughts that you would be better off or of hurting yourself in some way: not at all Total score: 0 Depression Screening Interpretation: Negative Depression Screening Done: Yes 90060 - PHQ-9 Billing: Yes Source: Developed by Drs. Doron Decker, Bella Wood, Jason Monique and colleagues, with an educational antonio from [employer]. Thrive Questionnaire Date Thrive assessed: 06/30/25 I am a: Patient What is your living situation today?: I choose not to answer this question Within the past 12 months, did the food you bought not last and you didn't have the money to get more?: I choose not to answer this question Within the past 12 months, did you worry whether your food would run out before you got money to buy more?: I choose not to answer this question Do you have trouble paying for medicines?: I choose not to answer this question Do you have trouble getting transportation to medical appointments?: No Do you have trouble paying your heating and electricity bill?: No Do you have trouble taking care of your child, family member or friend?: No Do you have trouble with day-to-day activities such as bathing, preparing meals, shopping, managing finances, etc.?: No Are you currently unemployed and looking for a job?: No Are you interested in more education?: No Please select the resources that you would like help with: None Currently or been in a relationship where the following occur: I choose not to answer THRIVE Score: 0 FADY-7 AMB Questionnaire FADY-7 Date FADY - 7 assessed: 06/30/25 Feeling nervous, anxious, or on edge: 0 = Not at all Not being able to stop or control worryin = Not at all Worrying too much about different things: 0 = Not at all Trouble relaxin = Not at all Being so restless that it is hard to sit still: 0 = Not at all Becoming easily annoyed or irritable: 0 = Not at all Feeling afraid as if something awful might happen: 0 = Not at all Total FADY-7 score (0-4 normal; 5-9 mild; 10-14 moderate; 15-21 severe): 0 Source: Developed by Drs. Doron Decker, Bella Wood, Jason Monique and colleagues, with an educational antonio from [employer]. FADY-7 Assessment Billing FADY-7 Assessment Tool: FADY-7 Assessment 94110 Review of Systems Const Denies chills, Denies fatigue, Denies fever(s), Denies headache(s) and Denies weakness ENT Denies dizziness and Denies headache(s) Card Denies dyspnea Resp Denies cough, Denies dyspnea, Denies wheezing and Denies other (shortness of breath) Musc Denies numbness and Denies tingling Neuro Denies dizziness, Denies headache(s), Denies numbness, Denies tingling and Denies weakness Psych Denies anxiety and Denies depression Endo Denies fatigue Aller/Immun Denies wheezing Physical exam (Primary Care) Vital Signs: Last Vital Signs Temp 96.6 F L 06/30/25 13:24 Pulse 66 06/30/25 13:24 Resp 14 06/30/25 13:24 BP 144/70 H 06/30/25 13:24 Pulse Ox 97 06/30/25 13:24 Oxygen Delivery Method Room Air 06/30/25 13:24 BMI result Body Mass Index 28.7 Tobacco/Smoking Status: Tobacco use Status Tobacco use date assessed 06/30/25 06/30/25 13:26 Patient Tobacco Use Status Never used Tobacco 06/30/25 13:26 e-Cigarette/Vaping Use Never Used 06/30/25 13:26 PHQ-9: PHQ-9 Score PHQ-9: Total score 0 06/30/25 14:19 Depression Screening Interpretation: Negative Thrive Assessment: Date of Thrive Assessment Date Thrive assessed 06/30/25 06/30/25 13:26 Currently or been in a relationship where the following occur: I choose not to answer Const General: well developed; No acute distress Nutritional Appearance: well nourished Orientation/consciousness: patient oriented x3 HENMT Head: Yes normocephalic and Yes atraumatic Eyes General: appearance normal, both eyes and all related structures Pupils: Equal, round and reactive pupils present EOM: EOMs intact bilaterally Resp Effort & Inspection: normal respiratory effort Auscultation: clear to auscultation bilaterally Cardio Rate: regular rate Rhythm: regular rhythm Heart sounds: S1 normal heart sound present, S2 normal heart sound present, no gallops, no murmurs and no rubs Neuro General: patient oriented x3 and gait normal Cranial nerves: Yes Equal, round and reactive pupils present Psych Affect: normal affect Office Procedures Office Procedure Office Procedure Documentation Office Procedure Documentation: Patient in for office visit with PCP. Patient brought B-12 vial. Patient received B-12 injection to left deltoid. Patient tolerated procedure well, no c/o. Coding Level of Care Code Est Pt Level 4 (64396) Diagnoses B12 deficiency E53.8 Gait disorder R26.9 Hypercholesterolemia E78.00 Hypertension I10 Additional Codes FADY-7 Assessment Billing - FADY-7 Assessment Tool: FADY-7 Assessment 69762 ([id number]) PHQ-9 - 84402 - PHQ-9 Billing: Yes ([id number]) Assessment & Plan Assessment & Plan (1) B12 deficiency: Code(s): E53.8 - Deficiency of other specified B group vitamins Category: Medical Plan: B12 deficiency with some lower extremity weakness and mild neuropathy Continue IM B12 shots - provided today (2) Gait disorder: Code(s): R26.9 - Unspecified abnormalities of gait and mobility Category: Medical Plan: Improved with physical therapy Was seen by Neurology and had MRI which showed microvascular disease Encouraged patient to work on underlying causes of microvascular disease-see above (3) Hypercholesterolemia: Code(s): E78.00 - Pure hypercholesterolemia, unspecified Category: Medical (4) Hypertension: Code(s): I10 - Essential (primary) hypertension Category: Medical Plan BP is too high Starting Losartan Cholesterol remains too high Start Atorvastatin Medications: New losartan 25 mg PO DAILY 90 tabs 2RF 90 days atorvastatin (Lipitor) 10 mg PO BEDTIME 90 tabs 2RF 90 days Changed From pantoprazole 40 mg PO BID To pantoprazole 40 mg PO BID 60 tabs 3RF [address]-ER 3 mg PO DAILY To budesonide DR-ER 3 mg PO Q OTHER DAY 15 ea 0RF 30 days
[2025-06-30 13:24] VITALS: BP 144/70; PULSE 66; RESP 14; TEMP 35.9; O2SAT 97; BMI 28.7
--- OUTSIDE RECORDS SUMMARY | 2025-06-30 17:23 | XMS_ITS | Clinical Summary ---
Author Organization [facility] 299 [facility] Address [address] [place] [address] Phone Care Team Providers Care Regional Engagement Consultant Name Role Phone José Preciado MD Primary Care Provider [phone] Allergies Active Allergy Reactions Criticality Noted Date [...] Depression Screening 07/14/2024 COVID-19 Vaccine (1 - 2024-2 6 season) 2025 Influenza Vaccine (#1) 2025 HIB [...] age to complete this topic Insurance MEDICARE [employer] Care Teams Regional Engagement Consultant Relationship Specialty Start Date End Date José Preciado MD [address] PCP - General Internal Medicine 09/04/17
--- OUTSIDE RECORDS SUMMARY | 2025-06-30 17:24 | XMS_ITS | Clinical Summary ---
Author Organization [facility] Address [address] [place] [address] Care Team Providers Care Editing Clerk Name Role Phone Andrew Chino MD Primary Care Provider [phone] Allergies Active Allergy Reactions Criticality Noted Date [...] ual Screening 07/14/2024 Influenza Vaccine (#1) 2025 COVID-19 Vaccine (1 - 2024-2 6 season) 2025 Tobacco Screening 07/14/2042 07/12/2024 Hepatitis B Vaccines Aged Out No long er eligible based on patient's age to complete this topic Insurance MEDICARE [facility] Care Teams Editing Clerk Relationship Specialty Start Date End Date nAdrew Chino MD [address] [place] [id number] PCP - General Family Medicine 04/30/24
--- OUTSIDE RECORDS SUMMARY | 2025-06-30 17:24 | XMS_ITS | Patient Health Record ---
Author Organization [facility] Address [address] [place] [address] Care Team Providers Care Dinner Cook Name Role Phone Ilana OBRIEN, José Primary Care Provider Douglas Méndez Unavailable [phone] Allergies Allergen (clinical drug ingredient) Drug/Non Drug [...] Problem Acquired hammer toe of left foot (3715147951357 103) Other hammer toe(s) (acquired), left foot (M20.42) Active confirmed Plan Of Treatment Pending Test Test Name Order Date X ray : Foot, left 2V 09/08/2015 X ray : Foot, right 2V 09/08/2015 X ray : Foot, left 3V 03/06/2017 [id number] NAIL, 6 OR MORE 03/06/2017 42592- Unna Boot 02/13/2017 Insurance Providers Payer Name Payer Address Payer Phone Subscriber Number Group Number Insured Name Patient Relationship to Insured Coverage Start Date Coverage End Date Medicare National Govt Svcs Inc [address] [place] [phone] [id number] Loren Valle Self - patient is the insured AARP Secondary to Medicare [address] [place] [address] [id number] Loren Valle Self - patient is the insured Medical (General) History Medical History History ICD Code Anemia Anxiety Arthritis Headaches Macular degeneration Reflux Stomach ulcer Measles Mumps Chicken pox Joint implants/screws Transfusions Surgical History Surgery Date(Month/Year) knee replacement 11/03/12 Hospitalization History Reason Date(Month/Year) admitted to [facility] for colitis 11/2016 Urgent care for fx toe 2017
--- OUTSIDE RECORDS SUMMARY | 2025-06-30 17:24 | XMS_ITS | Clinical Summary ---
Author Organization [facility] Address [address] [place] [address] Care Team Providers Care Container Repairer Name Role Phone Unavailable Primary Care Provider [...] - 1-dose 75+ series) 11/13/2014 COVID-19 Vaccine (2024-2 6 season) 2025 Influenza (#1) 2025 Mammogram/Breast Imaging [...] (Zostavax) Discontinued Procedures * Due to [place] [employer] law, this organization might not be sharing negative HIV tests. Procedure Name Priority Date/Time Associated Diagnosis Comments SCREENING MAMMOGRAPHY BILATERAL (TWO VIEW FILM STUDY OF EACH BREAST) Routine 03/08/1999 1:00 PM EDT Other Screening Mammogram from Last 3 Months or Most Recently Relevant to Health Maintenance Results * Due to [place] [employer] law, this organization might not be sharing negative HIV tests. * SCREENING MAMMOGRAPHY BILATERAL (TWO VIEW FILM STUDY OF EACH BREAST) (03/08/1999 1:00 PM EDT) RADIOLOGY REPORT 03/08/99 Bilateral mammogram: This is the patient's first mammogram at [facility]. Two views of each breast were [...] the interpreting radiologist. BI-RADS Category 1: Negative [facility] (CLIA# [id number]) LETTER SENT A mammogram letter type A N was printed [facility] 03/16/1999 [facility] (CLIA# [id number]) Anatomical Region Laterality Modality Other 03/08/1999 1:00 PM EDT Narrative 03/08/1999 1:29 PM EDT Ordered by [facility] NURSE PRACTIONER Reason for Study/History: ROUTINE Test(s) processed by : [facility] us Unknown Provider GENERAL IMAGING- OTHER Final Re sult from Last 3 Months or Most Recently Relevant to Health Maintenance
--- OUTSIDE RECORDS SUMMARY | 2025-06-30 17:24 | XMS_ITS | Data Portability ---
Author Organization [place] - [facility], Allergy Address [address] [address] Care Team Providers Care Pay Station Department Manager Name Role Phone VINICIUS LLOYD Primary Care [...] Follow up as scheduled for repeat procedure. [email or web address] Not available 07/28/2024 13:27:29 12/14/2024 12/14/2024 84-year-old female presents for cerumen removal. Cerumen removed bilaterally. TMs normal to inspection. Will schedule hearing test for the near future. [email or web address] Not available 12/14/2024 10:49:02 03/18/2025 03/18/2025 84-year-old female presents for cerumen removal. Cerumen removed bilaterally. TMs normal to inspection. Follow-up in 3 to 4 months. [email or web address] Not available 03/18/2025 11:30:55 Plan of Treatment Reminders Order Date Submit Date Provider Last Modified By Organization Details Last Modified Time Details Appointments Establish ed 15 2025 11:30A M QUINCY HOLLINS PA-C Not available Not available Not available Lab None recorded. Referral None recorded. Procedures None recorded. Surgeries None recorded. Imaging None recorded. Medication Orders None recorded. Patient TargetsNo targets recorded. Patient InstructionsNo instructions recorded. Reason for Referral None Reported. Problems Name Problem SNOMED Code Status Onset Date Resolution Date Notes Provider Name and Address Organization Details Recorded Time Impacted cerumen 32935153 Active 2013 Impacted cerumen; Location: bilateral CMS Risk: low risk Cond ition: uncontrol led Not Available Formerly [facility], [facility]–1983 4 03:04:47 Impaired auditory discrimin ation 654689578 Active 2014 Hearing loss; Note: Date Diagnosed : 11/22/2014 11:19 AM (388.43) Not Available Former[facility], [facility]–1983 4 03:04:48 Impacted cerumen in right ear 55592260013 16885 Active 2014 Impacted cerumen, right ear; Note: Date Diagnosed : 5 1:33 PM (H61.21) Not Available [facility], [facility]–1983 4 03:04:47 Impacted cerumen of bilateral ears 25161707204 57162 Active 2015 Impacted cerumen, bilateral ; Note: Date Diagnosed : 09/05/2015 2:29 PM (H61.23) Not Available [facility], [facility]–1983 4 03:04:47 Allergic rhinitis 98935198 Active 2015 Allergic rhinitis, unspecifi ed; Note: Date Diagnosed : 12/12/2015 1:44 PM (J30.9) Not Available [facility], [facility]–1983 4 03:04:48 Pain of right temporoma ndibular joint 63942620079 074586 Active 2015 Arthralgi a of right temporoma ndibular joint; Note: Changed from M26.62 to M26.621 (05/24/20 16 3:21 PM) , Date Diagnosed : 6 10:52 AM (M26.62) Not Available [facility], [facility] 4 03:04:49 Bleeding from nose 244317864 Active 2018 Epistaxis ; Note: Date Diagnosed : 12/21/2018 11:43 AM (R04.0) Not Available [facility], [facility] 4 03:04:48 Dizziness and giddiness 987342613 Active 2018 Dizziness and giddiness ; Note: Date Diagnosed : 9 12:29 PM (R42) Not Available [facility], [facility] 4 03:04:49 Benign paroxysma l positiona l vertigo 947293123 Active 2018 Benign paroxysma l vertigo, right ear; Note: Date Diagnosed : 9 11:55 AM (H81.11) Not Available [facility], [facility] 4 03:04:48 Sensorine ural hearing loss of bilateral ears 888050636 Active 2019 Sensorine ural hearing loss, bilateral ; Note: Date Diagnosed : 09/21/2019 3:19 PM (H90.3) Not Available [facility], [facility] 4 03:04:49 Cough 64106672 Active 2022 Cough; Note: Date Diagnosed : 3 12:02 PM (R05) Not Available [facility], [facility] 4 03:04:47 Posterior rhinorrhe a 93346230 Active 2022 Postnasal drip; Note: Date Diagnosed : 3 12:02 PM (R09.82) Postnas al drip; Note: Date Diagnosed : 07/17/2016 1:28 PM (R09.82) ; Start Date : 7 Not Available [facility], [facility] 4 03:04:48 Common cold 26874701 Active 2022 Acute rhinitis; Note: Date Diagnosed : 3 12:02 PM (J00) Not Available [facility], [facility] 4 03:04:46 Problem Notes None recorded. Procedures Surgical History Date Name Laterality Status Provider Name and Address Organization Details Recorded Time 5 Comp Audio with Tymps - 45502 & 03085 completed TRINH RIVAS MA, CCC-A [address] [place] [address],[address], [address], [place] - [facility] 01/07/2025 11:10:37 5 Cerumen removal without microscope bilat completed QUINCY HOLLINS PA-C [address] [place] [address],[address] [place], [address], [facility] - [facility] 12/14/2024 10:48:46 5 Cerumen removal without microscope bilat completed QUINCY HOLLINS PA-C [address] [facility] [place],[address], [place], [address], [facility] - [facility] 07/28/2024 13:27:17 4 Cerumen removal without microscope bilat completed MATT PERKINS PA-C [address] [facility] [place] [address], [place], [address], [facility] - [facility] 04/28/2024 11:47:31 4 Cerumen removal without microscope bilat completed QUINCY HOLLINS PA-C 100 [facility],[place] [address], [place], [address], [facility] - [facility] 01/27/2024 11:59:00 Imaging Results None recorded. Procedure Notes None recorded. Medical Equipment None Reported. Allergies Allergen ID Allergen Name Allergen Category Reaction Reaction Severity Criticality Documentation Date Start Date Code Code System Note Provider Name and Address Organization Details Recorded Time 669598 codeine sulfate medicatio n other Not available Not available 11/25/2023 87524 RxNorm React ion: unkno wn, unspe cifie d;; Not Available Former[facility], [facility] 4 01:22:29 322750 acetamino phen medicatio n other Not available Not available 11/25/2023 161 RxNorm React ion: unkno wn, unspe cifie d;; Not Available [facility], [facility] 4 01:22:30 Medications Name Sig Start Date [...] topical cream 01/09 completed Medicati on ID: [id number] Shawn aquino By Name: MILIND Melvin nd Name: Lotrison e Send Method: E-Prescr ibed Sub s Allowed: subs OK Speci al Instruct ion: apply to external ear tid X 2 weeks Me dication GenericN bri: Lotrison e Not Available Not Available Not Available clotrimaz ole-betam ethasone 1 %-0.05 % lotion 01/09 completed Medicati on ID: [id number] R graeme: () Brand Name: Lotrison e [...] mg tablet 12/13 completed Medicati on ID: [id number] B rand Name: meclizin e Send Method: E-Prescr ibed Sub s Allowed: subs OK Medic ationGen ericName : meclizin e Not Available Not Available Not Available hydroxyzi ne HCl 50 mg tablet TAKE ONE TABLET BY MOUTH EVERY DAY NEEDED FOR SLEEP active Not Available Not Available No t Available sulfameth oxazole 800 mg-trimet hoprim 160 mg tablet 10/07 completed Medicati on ID: [id number] Du ration Value: 7 Reason: () Brand Name: sulfamet hoxazole -trimeth oprim Se nd Method: E-Prescr ibed Sub s Allowed: subs OK Medic ationGen ericName : sulfamet hoxazole -trimeth oprim Not Available Not Available Not Available butalbita l-acetami nophen-ca ffeine 50 mg-325 mg-40 mg tablet 01/09 completed Medicati on ID: [id number] Du ration Value: 15 Reason: () Brand Name: butalbit al-aceta minophen -caff Se nd Method: E-Prescr ibed Sub s Allowed: subs OK Medic ationGen ericName : butalbit al-aceta minophen -caff Not Available Not Available Not Available amoxicill in 500 mg tablet TAKE ONE TABLET BY MOUTH TWICE A DAY 03/18 completed Not Available Not Available Not Available pantopraz ole 40 mg tablet,de layed release active Medicati on ID: [id number] B rand Name: pantopra zole Sen d Method: E-Prescr ibed Sub s Allowed: subs OK Medic ationGen ericName : pantopra zole Not Available Not Available Not Available cyanocoba gricelda (vit B-12) 1,000 mcg/mL injection solution INJECT 1000 MCG ONE VIAL) INTRAMUS CULARLY EVERY 4 WEEKS active Not Available Not Available No t Available betametha sone dipropion ate 0.05 % topical cream APPLY TO AFFECTED AREA S) TWO TIMES A DAY FOR 14 DAYS active Not Available Not Available No t Available hydrochlo rothiazid e 25 mg tablet active Medicati on ID: [id number] B rand Name: hydrochl orothiaz mary kay Send Method: E-Prescr ibed Sub s Allowed: subs OK Medic ationGen ericName : hydrochl orothiaz mary kay Not Available Not Available Not Available budesonid e DR - ER 3 mg capsule,d elayed,ex tended release 10/04 completed Medicati on ID: [id number] D uration Value: 14 Brand Name: budesoni de Send Method: E-Prescr ibed Sub s Allowed: subs OK Speci al Instruct ion: TAKE THREE CAPSULES BY MOUTH EVERY DAY FOR 14 DAYS Med icationG enericNa me: budesoni de Not Available Not Available Not Available fluoxetin e 20 mg capsule 01/09 completed Medicati on ID: [id number] D uration Value: 90 Reason: () Brand [...] mg tablet 2019 active Medicati on ID: [id number] D uration Value: 30 Brand Name: diazepam Send Method: E-Prescr ibed Sub s Allowed: subs OK Speci al Instruct ion: TAKE ONE TABLET BY MOUTH EVERY DAY NEEDED M edicatio nGeneric Name: diazepam Not Available Not Available Not Available DermOtic Oil 0.01 % ear drops 5 drop 01/09 completed Medicati on ID: [id number] Pr escribed By Name: Radha Whitaker nd Name: DermOtic Oil Send Method: E-Prescr ibed Sub s Allowed: subs OK Medic ationGen ericName : DermOtic Oil Not Available Not Available Not Available GaviLyte- G 236 gram-22.7 4 gram-6.74 gram-5.86 gram oral solution 04/10 completed Medicati on ID: [id number] D uration Value: 1 Reason: () Brand [...] Updated DateTime 07/28/2024 152.4 cm 27.3 kg/m2 19532.93 g Nataliya Mejia [place] - [facility] 07/28/2024 12:58:18 Date Recorded Body height Body mass index (BMI) Body weight Provider Name and Address Organization Details Last Updated DateTime 12/14/2024 152.4 cm 29.9 kg/m2 95631.63 g Nataliya Mejia [place] - [facility] 12/14/2024 10:37:37 Date Recorded Body height Body mass index (BMI) Body weight Provider Name and Address Organization Details Last Updated DateTime 03/18/2025 152.4 cm 29.3 kg/m2 82153.86 g Nataliya Mejia [place] - [facility] 03/18/2025 11:18:39 Date Recorded Body height Body mass index (BMI) Body weight Provider Name and Address Organization Details Last Updated DateTime 04/28/2024 152.4 cm 29.3 kg/m2 49763.86 g Anaisaura Becky [place] - [facility] 04/28/2024 11:20:11 Social History Question Answer Notes LastModified by Organizat ion Details LastModified Time Tobacco Smoking Status Never Smoker Nataliya neely [place] - [facility] 12/14/2024 10:37:54 What Type Of Organ Pipe Maker Metal Do You Use? None Information not available [...] Infections N Emphysema N Thyroid Problems N Depression Y COPD N Developmental Delay N Glaucoma N Nasal or Sinus Problems Y Anemia Y Immune System Disorder N Anesthesia Complications N Heart Attack ([place]) N Diabetes N Bleeding Disorder N Hearing Loss Y Arthritis Y Hyperlipidemia N Cancer N Stroke N Dementia N Asthma N High Cholesterol N GERD/Reflux Y Liver Disease N Headaches N Fibromyalgia N Hypertension Y Speech Delay N Kidney Disease N Gynecological HistoryNo gynecological history recorded. Obstetrics History GPAL:G 0 P 0 0 0 0 Past Encounters Encounter ID Performer Location Encounter Start Date Encounter Closed Date Diagnosis/Indication Diagnosis SNOMED-CT Code Diagnosis ICD10 Code Diagnosis IMO Codes Diagnosis Note [id number] QUINCY HOLLINS PA-C [facility] [address] [address] 01/27/2024 11:11:23 01/27/2024 11:45:16 Impacted cerumen of bilateral ears [id number] 108632 H61.23 PROCEDURE NOTEPATHOL OGY FOUND: Cerumen impaction in both earsPROCED URE: The right ear was examined using otoscopy. The cerumen was then removed using suction and/or instrument s. The same procedure was repeated on the opposite side.ADEOLA ANCE: The patient tolerated this well. [id number] QUINCY HOLLINS PA-C [facility] [address] [address] 04/28/2024 11:17:31 04/28/2024 11:45:37 Impacted cerumen of bilateral ears 0052288777 783727 H61.23 [id number] QUINCY HOLLINS PA-C [facility] [address] [address] 07/28/2024 12:29:19 07/28/2024 13:25:29 Impacted cerumen of bilateral ears 4181397702 784299 H61.23 [id number] QUINCY HOLLINS PA-C [facility] [address] [address] 12/14/2024 10:29:25 12/14/2024 10:46:53 Impacted cerumen of bilateral ears 4805572303 601107 H61.23 [id number] TRINH RIVAS MA, CCC-A [facility] [address] [address] 01/07/2025 10:17:59 01/07/2025 11:26:31 Benign paroxysmal positional vertigo 806544169 H81.11 Impacted c erumen of bilateral ears 1444777879 788825 H61.23 Sensorineu ral hearing loss of bilateral ears 582915846 H90.3 Audiologic al evaluation results: Right ear: Normal hearing thru 3000Hz dropping to a mild to severe SNHL with excellent word recognitio n. Left ear: Normal hearing thru 2000Hz dropping to a mildto severe SNHL with excellent word recognitio n. Tympanomet ry: Right Ear:Type A Left Ear:Type A [id number] QUINCY HOLLINS PA-C [facility] [address] [address] 03/18/2025 11:13:37 03/18/2025 11:52:48 Impacted cerumen of bilateral ears 1243505818 354375 H61.23 Health Concerns Section Related Observation LastModified by Organization Detai ls LastModified Time None Recorded Concern Status LastModified by Organization Details LastModified Time None Recorded Advance Directives Directive None Recorded Payers Insurance Date Sequence Insurance Name Policy Number Policy Prado Covered Member ID Prado Member ID Guarantor Name 06/24/2025 1 [place]ICARE [place]: [employer] Loren Valle [id number] Loren Valle 06/24/2025 2 A[employer] Loren Valle [id number] Loren Valle 06/24/2025 2 [employer] (MEDICARE SUPPLEMENT) Loren Valle [id number] Loren Valle 06/24/2025 2 [employer] (MEDICARE SUPPLEMENT) Loren Valle [id number] Loren Valle Notes Date Note Type Note Provider Name and Address Organization Details Recorded Time 04/28/2024 text/html ROS as noted in the HPI 83 year-old female presents for evaluation of the ears. Reports ears feel full. No change in hearing. Denies otalgia or otorrhea. NEGRITO CHAPMAN MD [address] [facility],[address], [address], [facility] - [facility] 04/28/2024 17:14:13 07/28/2024 text/html ROS as noted in the [facility] 83-year-old female presents for cerumen removal. No acute issues since her last visit. ROBE NORTH MD [address] [facility],[address], [address], [facility] 07/28/2024 14:57:41 12/14/2024 text/html ROS as noted in the [facility] 84-year-old female presents for cerumen removal. No acute issues since her last visit though she is overdue for ear cleaning. Would like to schedule hearing test. EDU KANG MD [address] [facility],[address], [address], [facility] - [facility] 12/15/2024 15:35:11 01/07/2025 text/html Longstanding high frequency hearing loss bilaterally. Hx vertigo TRINH RIVAS MA, CCC-A [address] [facility],[address], [address], [facility] 01/07/2025 11:12:41 03/18/2025 text/html ROS as noted in the [facility] 84-year-old female presents for cerumen removal. History of rapid cerumen accumulation with narrow canals. No acute issues since her last visit. KIRILL VALENTIN MD [address] [facility] [place] [address], [place], [address], [facility] 03/18/2025 11:41:12 OBGyn Episode No OBEpisode recorded.
== END 2025-06-30 14:16 | disposition home or self-care (01) ==
LOC: HO.HMCFM 13:19
PROVIDERS: PCP Family Medicine; Visit Provider Family Medicine
DX: E53.8 Deficiency of other specified B group vitamins (principal); R26.9 Unspecified abnormalities of gait and mobility; E78.00 Pure hypercholesterolemia, unspecified; I10 Essential (primary) hypertension

== ENCOUNTER → 2025-06-30 13:18 | Outpatient (BNVA) | payer MEDICARE, SELFPAY | PROVIDERS: PCP Family Medicine; Visit Provider Family Medicine | DX: I10 Essential (primary) hypertension (principal); E78.00 Pure hypercholesterolemia, unspecified; E53.8 Deficiency of other specified B group vitamins; R26.9 Unspecified abnormalities of gait and mobility; Z13.31 Encounter for screening for depression; Z13.39 Encounter for screening examination for other mental health and behavioral disorders; Z79.899 Other long term (current) drug therapy | CPT/HCPCS: 96127; 99212 ==